=== PATIENT | male | born 1950 | race Caucasian/White ===

== ENCOUNTER 2022-03-15 10:10 | Outpatient (REF) | payer MEDICARE, SELFPAY ==
--- NOTE | ~2022-03-15 | XR_ITS ---
EXAMINATION: XR lumbar spine 2-3V, XR sacroiliac joint min 3V, XR hip LT w PEL1V CLINICAL INFORMATION: Sacrococcygeal disorders. Spondylosis, lumbar region. Pain in left hip COMPARISON: None TECHNIQUE: AP and lateral views of the lumbar spine with an additional coned down lateral spot view of the lumbosacral junction. AP and frog-leg lateral views of the left hip. AP and bilateral oblique views of the sacroiliac joints. FINDINGS: 5 non-rib bearing lumbar type vertebral bodies are seen. Vertebral body heights are maintained. There is multilevel loss of disc height with endplate sclerosis and anterior greater than posterior osteophytosis. There is lumbar facet arthropathy severe at L4-L5 and L5-S1. Normal sagittal alignment. Both sacroiliac joints remain patent. Mild right, moderate left osteoarthritis of the hips manifested by joint space narrowing, acetabular sclerosis, and femoral collar osteophytes. No hip or pelvic fracture seen. XR/XR hip LT w PEL1V IMPRESSION: Degenerative changes without acute osseous abnormality of the lumbar spine, sacroiliac joints, and left hip.
--- NOTE | ~2022-03-15 | XR_ITS ---
EXAMINATION: XR lumbar spine 2-3V, XR sacroiliac joint min 3V, XR hip LT w PEL1V CLINICAL INFORMATION: Sacrococcygeal disorders. Spondylosis, lumbar region. Pain in left hip COMPARISON: None TECHNIQUE: AP and lateral views of the lumbar spine with an additional coned down lateral spot view of the lumbosacral junction. AP and frog-leg lateral views of the left hip. AP and bilateral oblique views of the sacroiliac joints. FINDINGS: 5 non-rib bearing lumbar type vertebral bodies are seen. Vertebral body heights are maintained. There is multilevel loss of disc height with endplate sclerosis and anterior greater than posterior osteophytosis. There is lumbar facet arthropathy severe at L4-L5 and L5-S1. Normal sagittal alignment. Both sacroiliac joints remain patent. Mild right, moderate left osteoarthritis of the hips manifested by joint space narrowing, acetabular sclerosis, and femoral collar osteophytes. No hip or pelvic fracture seen. XR/XR sacroiliac joint min 3V IMPRESSION: Degenerative changes without acute osseous abnormality of the lumbar spine, sacroiliac joints, and left hip.
--- NOTE | ~2022-03-15 | XR_ITS ---
EXAMINATION: XR lumbar spine 2-3V, XR sacroiliac joint min 3V, XR hip LT w PEL1V CLINICAL INFORMATION: Sacrococcygeal disorders. Spondylosis, lumbar region. Pain in left hip COMPARISON: None TECHNIQUE: AP and lateral views of the lumbar spine with an additional coned down lateral spot view of the lumbosacral junction. AP and frog-leg lateral views of the left hip. AP and bilateral oblique views of the sacroiliac joints. FINDINGS: 5 non-rib bearing lumbar type vertebral bodies are seen. Vertebral body heights are maintained. There is multilevel loss of disc height with endplate sclerosis and anterior greater than posterior osteophytosis. There is lumbar facet arthropathy severe at L4-L5 and L5-S1. Normal sagittal alignment. Both sacroiliac joints remain patent. Mild right, moderate left osteoarthritis of the hips manifested by joint space narrowing, acetabular sclerosis, and femoral collar osteophytes. No hip or pelvic fracture seen. XR/XR lumbar spine 2-3V IMPRESSION: Degenerative changes without acute osseous abnormality of the lumbar spine, sacroiliac joints, and left hip.
== END 2022-03-15 10:11 | disposition home or self-care (01) ==
LOC: HO.XRAY 10:10
PROVIDERS: PCP Pediatrics; Visit Provider Nurse Practitioner Family
DX: M53.3 Sacrococcygeal disorders, not elsewhere classified (principal); M43.06 Spondylolysis, lumbar region; M25.552 Pain in left hip
CPT/HCPCS: 72100; 72202; 73502; 99202

== ENCOUNTER → 2022-03-20 11:01 | Outpatient (BNVA) | payer MEDICARE, SELFPAY | PROVIDERS: PCP Pediatrics; Visit Provider Nurse Practitioner Family | DX: M53.3 Sacrococcygeal disorders, not elsewhere classified (principal); M25.552 Pain in left hip; M43.06 Spondylolysis, lumbar region | CPT/HCPCS: Q3014 ==

== ENCOUNTER 2022-04-06 08:06 | Day surgery (SDC) | payer MEDICARE, SELFPAY ==
--- NOTE | 2022-04-05 13:00 | HO.ANESPROP2 ---
Documented by User: Cassandra Candelaria NP 04/05/22 13:00 HPI - Anesthesia Eval Consult details Narrative: 72yo M for Left Therapeutic Sacroiliac Joint Innervation Injection with steroids PMFSH Active Problems Active Problems: All Active Problems (Updated 03/15/22 @ 10:01 by SUAD Kirk) Lumbar spondylolysis (Acute) Left hip pain (Acute) Sacroiliac joint dysfunction of left side (Acute) Past Medical History Medical History Hypertension Social History Social History Alcohol intake: current Alcohol intake frequency: a few times a week Patient Tobacco Use Status: Never used Tobacco Use of substances other than those prescribed or required for medical reasons: No Are you DNR?: No Advance Directives: No Advance Directives Information Provided: Yes Meds Allergies Allergy/AdvReac Type Severity Reaction Status Date / Time No Known Allergies Allergy Verified 03/20/22 11:02 Home Medications Medication Instructions Recorded Confirmed Last Taken Type amlodipine 10 mg tablet 10 mg PO DAILY 03/15/22 04/06/22 History chlorthalidone 50 mg tablet 50 mg PO DAILY 03/15/22 04/06/22 History metoprolol succinate 50 mg 50 mg PO BID 03/15/22 04/06/22 History tablet,extended release 24 hr spironolactone 25 mg tablet 25 mg PO DAILY 03/15/22 04/06/22 History Exam Exam Date and Time: April 05, 2022 1300 Assessment and Plan Assessment Anesthesia Assessment: Chart Reviewed Documented by User: Martina Freitas MD 04/06/22 08:56 PMFSH Past Medical History Medical History Hypertension Functional capacity: independent ambulation Family History Family history of problems with anesthesia: No Surgical History History of Problems with Anesthesia: No Social History Social History Alcohol intake: current Alcohol intake frequency: a few times a week Patient Tobacco Use Status: Never used Tobacco Use of substances other than those prescribed or required for medical reasons: No Are you DNR?: No Advance Directives: No Advance Directives Information Provided: Yes Meds Allergies Allergy/AdvReac Type Severity Reaction Status Date / Time No Known Allergies Allergy Verified 03/20/22 11:02 Home Medications Medication Instructions Recorded Confirmed Last Taken Type amlodipine 10 mg tablet 10 mg PO DAILY 03/15/22 04/06/22 History chlorthalidone 50 mg tablet 50 mg PO DAILY 03/15/22 04/06/22 History metoprolol succinate 50 mg 50 mg PO BID 03/15/22 04/06/22 History tablet,extended release 24 hr spironolactone 25 mg tablet 25 mg PO DAILY 03/15/22 04/06/22 History Exam Airway Mallampati Class: II TM Dist: >3cm Neck ROM: Full Heart: RRR Lungs: CTA Assessment and Plan Final Anesthetic Review Family History of Problems with Anesthesia: No History of Problems with Anesthesia: No NPO: Yes ASA Class: II Final Preanesthetic Review: No Changes in Pt Med Stat, Meds/Allgs Chart Reviewed, Consent Obtained/Reviewed and Anes Risks/Benef Reviewed Patient Risk: Low Procedure Risk: Low Anesthetic Plan Anesthetic Plan: MAC: Disposition: Standard PACU
--- NOTE | ~2022-04-06 | FL_ITS ---
EXAMINATION: XR FLUOROSCOPY WITH IMAGES CLINICAL INFORMATION: Left hip pain. Injection. COMPARISON: Radiographs left hip 03/15/2022. TECHNIQUE: Fluoroscopy performed by Dr. Karan Bean. Fluoroscopy time: 0.2 minutes. Cumulative Dose: 11.8 mGy. DAP: 1.91 Gycm2. Images: 1. FINDINGS: Spinal needle is seen with tip at the superior lateral aspect left hip. There is intracapsular contrast. There is no joint narrowing is noted previously. FL/FL guidance in OR IMPRESSION: Fluoroscopy for pain management procedure.
[2022-04-06 08:29] VITALS: BMI 25.1
[2022-04-06 08:34] VITALS: BP 169/79; PULSE 55; RESP 18; TEMP 36.4; O2SAT 97
--- NOTE | 2022-04-06 09:29 | PC.NURSE ---
After discussion with Dr Bean about effectiveness of planned procedure - procedure being changed to Left Hip Intraarticular steroid injection. No IV necessary, not being done with anesthesia per Dr Blackwell. Patient & Drs agreeable.
--- NOTE | 2022-04-06 09:40 | MHC.SHP ---
Pre-Procedural Eval Section A Date of Service: 04/06/22 The patient is an INPATIENT: No Changes since office visit: Yes Patient answered all questions The History & Physical has been completed within 30 days and I have reviewed it.: No Section B Chief Complaint: Sacrococcygeal disorders, not elsewhere classified Details of Present Illness: left hip pain Relevant Family History (Specify if Yes): No Relevant Social History: None Present Medications: see Short Stay Collaborative assessment Medical History: No relevant PMH History of Previous Operations: No relevant previous surgery Allergies: Allergies Allergy/AdvReac Type Severity Reaction Status Date / Time No Known Allergies Allergy Verified 03/20/22 11:02 Review of Systems Sugical H&P ROS: Negative: Cardiovascular, Respiratory, Neurological, Psychiatric, Hem-Onc, Allergic/Immunologic, Gastrointestinal, Genitourinary, Musculoskeletal, Integumentary, Endocrine and Eyes/Ears/Nose/Throat and Yes, Specify: Constitution (obesity) Exam Surgical H&P Exam: Normal: HEENT, Normal: Heart, Normal: Lungs, Normal: Skin and Normal: Neurological and Significant Findings: Extremities (lateral and medial hip rotation causes severe discomfort in the left groin) and Significant Findings: Abdomen (enlarged due to fat) Plan I have reviewed the history and physical and performed a pertinent physical examination on my patient. No changes have occurred unless specified. During the conversation today before the procedure attention was attracted to the patient complaining on pain in the lower back as well as pain in the groin. He reports that medial and lateral rotation the hip causes severe discomfort in the Left groin. on the x-ray there is mild right and moderate left osteoarthritis of the left hip with acetabular sclerosis and osteophytes surrounding left hip head. Patient was offered instead of sacroiliac joint injection to perform intra-articular left hip steroid injection. The patient agreed with the plan. This will be done without anesthesia.
[2022-04-06 10:10] VITALS: BP 163/71; PULSE 57; RESP 16; TEMP 36.3; O2SAT 97
--- NOTE | 2022-04-06 10:13 | P.BOP_ITS ---
Brief Operative Note Date of Service: 04/06/22 Pre-op diagnosis: left hip osteoarthritis Post-op diagnosis: same Procedure: intra-articular left hip steroid injection Surgeon: Karan Bean MD Anesthesia: local Was an Generating Station Mechanic used for this Procedure?: No Estimated blood loss (mL): 0 Pathology: none sent Condition: stable Disposition: PACU
--- NOTE | 2022-04-06 10:14 | W.PM.OPN ---
Operative Note Operative Note Date of Service: 04/06/22 Narrative: left intra-articular hip steroid injection ? After prolonged conversation, physical exam, examination of the hip x-ray the decision was made to change the nature of the procedure today to intra-articular hip injection. The patient was explaining informed consent and he agreed with the plan. Time-out was performed delineating correct site and side of the procedure name date of of the patient, name of the procedure and risks for the patient. ? The patient came to the operating room and he was position right lateral decubital on the operating table. He was not sedated. He is not dependent left hip and the projection of the trochanter bone were prepped with ChloraPrep and draped with sterile utility towels. C-arm was brought over the operating field and sq picture of the both joints on the lateral view was demonstrated on the screen. The smaller joint was chosen as the target of the injection. 5 mm above the silhouette of the trochanter the needle was inserted through the skin wheal which was previously raised with lidocaine 2% 1/2-2 cc. After that the needle advanced 1/2-2 cm in the direction of the neck of the hip bone. After that projection of the C-arm was changed to the AP and advancement of the needle was continued under this projection. When the tip of the needle entered the silhouette of the hip joint injection of the contrast was performed delineating intra-articular spread of the contrast. After that 5 cc of Ropivacaine 0.5% mixed with Kenalog 40 mg was injected into the needle. The patient tolerated procedure well. The needle was withdrawn sterile Band-Aid was applied. He was taken to PACU for the recovery where he recovered uneventfully.
== END 2022-04-06 10:25 | disposition home or self-care (01) ==
PROVIDERS: PCP Pediatrics; Visit Provider Anesthesiology
PROC: (CPT 20610; principal; 2022-04-06 10:10)
DX: M53.3 Sacrococcygeal disorders, not elsewhere classified (principal); M16.12 Unilateral primary osteoarthritis, left hip; M25.552 Pain in left hip; M43.06 Spondylolysis, lumbar region; M46.1 Sacroiliitis, not elsewhere classified; I10 Essential (primary) hypertension; Z79.899 Other long term (current) drug therapy
CPT/HCPCS: 20610; J3300

== ENCOUNTER → 2022-05-07 15:10 | Outpatient (BNVA) | payer MEDICARE, SELFPAY | PROVIDERS: PCP Pediatrics; Visit Provider Anesthesiology | DX: M53.3 Sacrococcygeal disorders, not elsewhere classified (principal); M25.552 Pain in left hip; M43.06 Spondylolysis, lumbar region | CPT/HCPCS: 99212 ==

== ENCOUNTER 2023-07-18 09:13 | Outpatient (AMB) | payer MEDICARE, SELFPAY ==
--- NOTE | 2023-07-18 09:16 | A.OFFVIS_ITS ---
Intake Vital Signs 07/18/23 09:22 Height 5 ft 10 in Weight 289 lb BMI 41.5 BP 150/88 H Blood Pressure Location Lt brachial Position Sitting Respiration 16 Pulse 54 Pulse Source Pulse Oximeter Pulse Oximetry (%) 97 Oxygen Delivery Method Room Air Intake Visit Reasons: discuss hip injection/confirmed Intake Note: Patient comes to discuss hip injections. reports pain 07/03. Allergies No Known Allergies Allergy (Verified 07/18/23 09:21) HPI HPI Comments History of Present Illness Details César is very pleasant 73 years old gentleman who presents in my office 15 month after sacroiliac joint injection on the left. The injection was therapeutic. He reported this time he experienced excellent pain relief. However now he feels that the pain started to come back. He requests me to repeat the procedure. I explained to him that I will be happy to perform the injection, however the longevity of the pain relief might be shorter this time. Patient agreed to go for the procedure. I will schedule him for the injection. COUNTS INCLUDE 234 BEDS AT THE [facility] Medical History Hypertension Social History Alcohol intake: current Alcohol intake frequency: a few times a week Patient Tobacco Use Status: Never used Tobacco Review of Systems Const All systems reviewed & are unremarkable except as noted in HPI and below ENT Reports Normal hearing present Neuro Reports Normal hearing present and Denies confusion Psych Denies confusion Physical Exam Vital Signs: Last Vital Signs Pulse 54 07/18/23 09:22 Resp 16 07/18/23 09:22 BP 150/88 H 07/18/23 09:22 Pulse Ox 97 07/18/23 09:22 Oxygen Delivery Method Room Air 07/18/23 09:22 BMI result Body Mass Index 41.5 Const General: No confusion Orientation/consciousness: No confusion Resp Effort & Inspection: able to speak in complete sentences, no audible wheezes and no cough Neuro General: No confusion Cranial nerves: Yes Normal hearing present Cognition (Neuro): normal cognition Psych Mental Status: mental status grossly normal Speech and movement: Clear speech present Affect: normal affect Attitude: cooperative Thought process: Normal thought process present Thought content: Normal thought content present, suicidality, no hallucinations and No Depressive thoughts present Insight: Good insight present (Psych) Judgement: Good judgement present (Psych) Assessment & Plan Assessment & Plan (1) Sacroiliac joint dysfunction of left side: Code(s): M53.3 - Sacrococcygeal disorders, not elsewhere classified (2) Left hip pain: Code(s): M25.552 - Pain in left hip (3) Lumbar spondylolysis: Code(s): M43.06 - Spondylolysis, lumbar region Plan He received left therapeutic SI joint injection which resulted in excellent pain relief. 80% of pain reduction with movements and 100% pain reduction when he is at rest. Possibility to treat this patient with neuromodulation versus sacroiliac joint fusion exist. He presented 15 month later and requested me to perform another injection. He reports that his pain is starting to get worse. I will schedule him for therapeutic sacroiliac joint injection on the left under local anesthesia. Coding Level of Care Code Est Pt Level 3 (05127) Diagnoses Sacroiliac joint dysfunction of left side M53.3 Left hip pain M25.552 Lumbar spondylolysis M43.06
[2023-07-18 09:22] VITALS: BP 150/88; PULSE 54; RESP 16; O2SAT 97; BMI 41.5
== END 2023-07-18 09:47 | disposition home or self-care (01) ==
PROVIDERS: PCP Pediatrics; Visit Provider Anesthesiology
DX: M53.3 Sacrococcygeal disorders, not elsewhere classified (principal); M25.552 Pain in left hip; M43.06 Spondylolysis, lumbar region
CPT/HCPCS: 99213

== ENCOUNTER → 2023-07-18 09:13 | Outpatient (BNVA) | payer MEDICARE, SELFPAY | PROVIDERS: PCP Pediatrics; Visit Provider Anesthesiology | DX: M53.3 Sacrococcygeal disorders, not elsewhere classified (principal); M25.552 Pain in left hip; M43.06 Spondylolysis, lumbar region | CPT/HCPCS: 99212 ==

== ENCOUNTER 2023-08-06 06:04 | Outpatient (REF) | payer MEDICARE, SELFPAY ==
--- NOTE | ~2023-08-06 | FL_ITS ---
EXAMINATION: XR FLUOROSCOPY WITH IMAGES CLINICAL INFORMATION: Left hip injection. COMPARISON: 04/06/2022 fluoroscopy images. 03/15/2022 left hip radiographs. TECHNIQUE: Fluoroscopy Supervised By: Dr. Ena Rodriguez, Dr. Karan Bean Fluoroscopy Time: 0.1. Cumulative Dose: 3.87 mGy. DAP: 0.888 Gycm2. Images: 1. FINDINGS: Needle with tip at the superolateral aspect of the hip. Contrast identified. FL/FL guidance in treatment room IMPRESSION: Fluoroscopy provided for left hip injection. Please refer to operative report for more detailed evaluation.
== END 2023-08-06 06:05 | disposition home or self-care (01) ==
LOC: CF 06:04
PROVIDERS: Visit Provider Anesthesiology
DX: M53.3 Sacrococcygeal disorders, not elsewhere classified (principal); M16.12 Unilateral primary osteoarthritis, left hip
CPT/HCPCS: 20610; J2795; J3301; Q9967

== ENCOUNTER 2023-08-06 07:28 | Outpatient (AMB) | payer MEDICARE, SELFPAY ==
--- NOTE | 2023-08-06 07:45 | MHC.OFFVIS ---
Intake Vital Signs 08/06/23 07:46 08/06/23 08:11 Height 5 ft 10 in Weight 282 lb BMI 40.5 BP 142/72 H 138/72 Blood Pressure Location Lt brachial Lt brachial Position Sitting Sitting Respiration 18 Pulse 60 Pulse Source Pulse Oximeter Pulse Oximetry (%) 96 Oxygen Delivery Method Room Air Comment Pre-Op Post Op Intake Visit Reasons: Left side hip injection Allergies No Known Allergies Allergy (Verified 08/06/23 07:46) PFSH Medical History Hypertension Social History Alcohol intake: current Alcohol intake frequency: a few times a week Patient Tobacco Use Status: Never used Tobacco Physical Exam Vital Signs: Last Vital Signs Pulse 60 08/06/23 07:46 Resp 18 08/06/23 07:46 BP 142/72 H 08/06/23 07:46 Pulse Ox 96 08/06/23 07:46 Oxygen Delivery Method Room Air 08/06/23 07:46 BMI result Body Mass Index 40.5 Assessment & Plan Assessment & Plan (1) Left hip pain: Code(s): M25.552 - Pain in left hip (2) Arthritis of left hip: Code(s): M16.12 - Unilateral primary osteoarthritis, left hip Plan Previously I was confused on this patient's follow-up visit and schedule him erroneously for the left hip sacroiliac joint injection. In fact the 1st injection here which helped him for 15 month was left hip joint steroid injection. Therefore today we decided to proceed with injection as below. Left hip steroid injection. Informed consent was explained to the patient. All questions were explained and answered. The patient was taken inside of the operating room where she was positioned right lateral decubitus on operating table.. Time-out was performed delineating patient's name and date of , correct site, side, the nature of the procedure, patient's allergy, preoperative antibiotic if needed, need for VT prophylaxis.. All operating room staff was participating in OR time-out procedure. Left hip area of the patient was prepped with ChloraPrep and draped with sterile towels. C-arm was brought over the operating field and picture of left and right lateral views of the bilateral hip joints were delineated on the screen. The smaller joint silhouette was chosen as the target. Projection of the right trochanter to the skin was chosen as the initial needle insertion point. After that the skin and subcutaneous tissues was anesthetized with 2% lidocaine 2.5 mL. 22 gauge 5 in long needle was inserted through the skin and started to advance to the joint space under intermittent lateral and anterior posterior views. When needle entered the capsule of the joint small amount of the contrast was injected delineating intra-articular space. After that treatment solution containing 3 cc of lidocaine 2%, 2 cc of ropivacaine 0.5% and 40 mg of Kenalog was injected into the joint. The needle was withdrawn sterile dressing was applied.The patient tolerated procedure well Orders: Orders FL guidance in treatment room Today M53.3 - Sacrococcygeal disorders, not elsewhere classified Coding Level of Care Code Procedure Only Diagnoses Left hip pain M25.552 Arthritis of left hip M16.12
[2023-08-06 07:46] VITALS: BP 142/72; PULSE 60; RESP 18; O2SAT 96; BMI 40.5
[2023-08-06 08:11] VITALS: BP 138/72
== END 2023-08-06 08:05 | disposition home or self-care (01) ==
PROVIDERS: PCP Pediatrics; Referring Provider Pediatrics; Visit Provider Anesthesiology
DX: M25.552 Pain in left hip (principal); M16.12 Unilateral primary osteoarthritis, left hip
CPT/HCPCS: 20610; 77002

== ENCOUNTER 2023-09-05 08:17 | Outpatient (AMB) | payer MEDICARE, SELFPAY ==
--- NOTE | 2023-09-05 08:27 | A.OFFVIS_ITS ---
Intake Vital Signs 09/05/23 08:31 Height 5 ft 10 in Weight 282 lb BMI 40.5 BP 140/84 H Blood Pressure Location Lt brachial Position Sitting Respiration 14 Pulse 56 Pulse Source Pulse Oximeter Pulse Oximetry (%) 96 Oxygen Delivery Method Room Air Intake Visit Reasons: Left Side Hip Injection/08/06/23 Intake Note: Patient comes in for post-op appointment. Reports pain 0/10. Allergies No Known Allergies Allergy (Verified 09/05/23 08:33) HPI HPI Comments History of Present Illness Details César is very pleasant 73 years old gentleman who presents in my office 1 month after therapeutic left intra-articular injection. He initially received intra articular hip injection back in 2021. The pain relief lasted 15 month, patient reported excellent mobility. After this period of time he came back with complains on pain increased again. One month ago end of June 2023 he received 2nd intra-articular hip injection , now 45 days later he reports again 80% of pain improvement, excellent activities of daily living, he reports that mobility of his hip is little bit less effective compare to the injection he received in 2021 . We discussed possibility of further treatment. Fading of the results of the injection were explained to the patient. His options were reiterated for him and they included continuation of the steroid injections, total hip replacement with orthopedic surgery, platelet rich plasma injection. PRP. Patient reported that he might consider PRP even if it is not covered by insurance company. The financial obligations were explained to the patient. He also requests me to send him for the x-ray of the left shoulder, he complains on pain in the left shoulder preventing him form getting good night's sleep. 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 I will send him for the x-ray of the left shoulder. [facility], [facility] Medical History Hypertension Social History Alcohol intake: current Alcohol intake frequency: a few times a week Patient Tobacco Use Status: Never used Tobacco Review of Systems Const All systems reviewed & are unremarkable except as noted in HPI and below ENT Reports Normal hearing present Neuro Reports Normal hearing present and Denies confusion Psych Denies confusion Physical Exam Vital Signs: Last Vital Signs Pulse 56 09/05/23 08:31 Resp 14 09/05/23 08:31 BP 140/84 H 09/05/23 08:31 Pulse Ox 96 09/05/23 08:31 Oxygen Delivery Method Room Air 09/05/23 08:31 BMI result Body Mass Index 40.5 Const General: No confusion Orientation/consciousness: No confusion Resp Effort & Inspection: able to speak in complete sentences, no audible wheezes and no cough Neuro General: No confusion Cranial nerves: Yes Normal hearing present Cognition (Neuro): normal cognition Extrem Other: Lateral rotation and medial rotation of the left hip caused significant discomfort. Now patient demonstrate remarkable mobility of the left hip. Psych Mental Status: mental status grossly normal Speech and movement: Clear speech present Affect: normal affect Attitude: cooperative Thought process: Normal thought process present Thought content: Normal thought content present, suicidality, no hallucinations and No Depressive thoughts present Insight: Good insight present (Psych) Judgement: Good judgement present (Psych) Assessment & Plan Assessment & Plan (1) Primary osteoarthritis, left shoulder: Code(s): M19.012 - Primary osteoarthritis, left shoulder (2) Left hip pain: Code(s): M25.552 - Pain in left hip (3) Arthritis of left hip: Code(s): M16.12 - Unilateral primary osteoarthritis, left hip Plan Previously I was confused on this patient's follow-up visit and schedule him erroneously for the left sacroiliac joint injection. In fact the 1st injection here which helped him for 15 month was left hip joint steroid injection. PRP discussed THR discussed patient is willing to go for PRP, Financial obligations are explained, patient agreed to go for it. We will send him for shoulder x-ray two views he will attend this x-ray in 2 weeks from now. I may offer him shoulder steroid injection however it may delay PRP injection when and if his pain in the hip will come back. Orders: Orders XR shoulder LT min 2V Today M19.012 - Primary osteoarthritis, left shoulder Coding Level of Care Code Est Pt Level 3 (63342) Diagnoses Primary osteoarthritis, left shoulder M19.012 Left hip pain M25.552 Arthritis of left hip M16.12
[2023-09-05 08:31] VITALS: BP 140/84; PULSE 56; RESP 14; O2SAT 96; BMI 40.5
== END 2023-09-05 08:43 | disposition home or self-care (01) ==
PROVIDERS: PCP Pediatrics; Visit Provider Anesthesiology
DX: M19.012 Primary osteoarthritis, left shoulder (principal); M25.552 Pain in left hip; M16.12 Unilateral primary osteoarthritis, left hip
CPT/HCPCS: 99213

== ENCOUNTER → 2023-09-05 08:17 | Outpatient (BNVA) | payer MEDICARE, SELFPAY | PROVIDERS: PCP Pediatrics; Visit Provider Anesthesiology | DX: M19.012 Primary osteoarthritis, left shoulder (principal); M16.12 Unilateral primary osteoarthritis, left hip | CPT/HCPCS: 99212 ==

== ENCOUNTER 2023-09-06 13:00 | Outpatient (REF) | payer MEDICARE, SELFPAY ==
--- NOTE | ~2023-09-06 | XR_ITS ---
EXAMINATION: XR SHOULDER, LEFT CLINICAL INFORMATION: Primary osteoarthritis left shoulder. COMPARISON: None available. TECHNIQUE: Four views of the left shoulder. FINDINGS: Degenerative changes in the imaged upper thoracic spine. Advanced degenerative changes noted in the acromioclavicular joint with joint space narrowing and hypertrophic change. Deformity of multiple upper left ribs characteristic of prior fractures. Advanced degenerative changes in the glenohumeral joint with [id number] and subchondral remodeling and hypertrophic change. Small soft tissue calcifications lateral to the acromion and possibly along the superior aspect of the humeral head. Prominent left hilar region should be evaluated with dedicated views of the chest. XR/XR shoulder LT min 2V IMPRESSION: 1. Advanced degenerative changes in the acromioclavicular and glenohumeral joints. 2. Prominent left hilar region should be evaluated with dedicated views of the chest.
== END 2023-09-06 13:01 | disposition home or self-care (01) ==
LOC: HO.XRAY 13:00
PROVIDERS: PCP Pediatrics; Visit Provider Anesthesiology
DX: M19.012 Primary osteoarthritis, left shoulder (principal)
CPT/HCPCS: 73030

== ENCOUNTER 2023-09-23 14:23 | Outpatient (REF) | payer MEDICARE, SELFPAY ==
--- NOTE | ~2023-09-23 | XR_ITS ---
EXAMINATION: XR CHEST CLINICAL INFORMATION: Prominent lauri seen on shoulder radiograph COMPARISON: left shoulder TECHNIQUE: 5 views of the chest were obtained. FINDINGS: Heart size within normal limits. Mediastinum is unremarkable. Aorta is tortuous. Elevated right hemidiaphragm. Increased markings emanating from the bilateral lauri likely vascular. No definite hilar enlargement no vascular congestion. Diffuse mild increased interstitial markings. Left base atelectasis. XR/XR chest 4 views IMPRESSION: No definite left hilar pathology as questioned on recent radiograph. Mild increased interstitial markings and increased markings emanating from the bilateral lauri, possibly peribronchial thickening. If there is clinical concern, CT should be obtained.
== END 2023-09-23 14:24 | disposition home or self-care (01) ==
LOC: HO.XRAY 14:23
PROVIDERS: PCP Pediatrics; Visit Provider Anesthesiology
DX: R91.8 Other nonspecific abnormal finding of lung field (principal)
CPT/HCPCS: 71048

== ENCOUNTER 2023-10-16 09:34 | Outpatient (AMB) | payer MEDICARE, SELFPAY ==
--- NOTE | 2023-10-16 09:37 | MHC.OFFVIS ---
Vital Signs 10/16/23 09:41 Height 5 ft 10 in Weight 295 lb 2 oz BMI 42.3 BP 140/74 H Blood Pressure Location Lt brachial Position Sitting Respiration 16 Pulse 63 Pulse Source Pulse Oximeter Pulse Oximetry (%) 96 Oxygen Delivery Method Room Air Intake Visit Reasons: Discuss xray Results Intake Note: Patient comes in to discuss results. Reports pain 2/10. Allergies No Known Allergies Allergy (Verified 10/16/23 09:41) HPI Comments Details: César is back in my office after the x-ray of the left shoulder results of the x-ray dictated as below. He has both significant glenohumeral and acromioclavicular advanced arthritis. I will schedule him for the glenohumeral joint injection because most of the pain he experiences is in the projection of the lateral surface of the glenohumeral joint and not on the anterior surface of his chest. I will see this patient for the follow-up 1 month after the injection. PRP option also was given to inject his left shoulder however patient opted to go for steroid injection. Prior: very pleasant 73 years old gentleman who presents in my office 1 month after therapeutic left intra-articular injection. He initially received intra articular hip injection back in 2021. The pain relief lasted 15 month, patient reported excellent mobility. After this period of time he came back with complains on pain increased again. One month ago end of June 2023 he received 2nd intra-articular hip injection , now 45 days later he reports again 80% of pain improvement, excellent activities of daily living, he reports that mobility of his hip is little bit less effective compare to the injection he received in 2021 . We discussed possibility of further treatment. Fading of the results of the injection were explained to the patient. His options were reiterated for him and they included continuation of the steroid injections, total hip replacement with orthopedic surgery, platelet rich plasma injection. PRP. Patient reported that he might consider PRP even if it is not covered by insurance company. The financial obligations were explained to the patient. He also requests me to send him for the x-ray of the left shoulder, he complains on pain in the left shoulder preventing him form getting good night's sleep. 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 I will send him for the x-ray of the left shoulder. [facility] Medical History Hypertension Social History Alcohol intake: current Alcohol intake frequency: a few times a week Patient Tobacco Use Status: Never used Tobacco Review of Systems Const All systems reviewed & are unremarkable except as noted in HPI and below ENT Reports Normal hearing present Neuro Reports Normal hearing present and Denies confusion Psych Denies confusion Physical Exam Vital Signs: Last Vital Signs Pulse 63 10/16/23 09:41 Resp 16 10/16/23 09:41 BP 140/74 H 10/16/23 09:41 Pulse Ox 96 10/16/23 09:41 Oxygen Delivery Method Room Air 10/16/23 09:41 BMI result Body Mass Index 42.3 Const General: No confusion Orientation/consciousness: No confusion Resp Effort & Inspection: able to speak in complete sentences, no audible wheezes and no cough Neuro General: No confusion Cranial nerves: Yes Normal hearing present Cognition (Neuro): normal cognition Extrem Other: Lateral rotation and medial rotation of the left hip caused significant discomfort. Now patient demonstrate remarkable mobility of the left hip. Psych Mental Status: mental status grossly normal Speech and movement: Clear speech present Affect: normal affect Attitude: cooperative Thought process: Normal thought process present Thought content: Normal thought content present, suicidality, no hallucinations and No Depressive thoughts present Insight: Good insight present (Psych) Judgement: Good judgement present (Psych) Results Reviewed Results Reviewed: [address] [address] XRay Report Signed Patient: César Aguilar MR#: [id number] XR SHOULDER left FINDINGS: Degenerative changes in the imaged upper thoracic spine. Advanced degenerative changes noted in the acromioclavicular joint with joint space narrowing and hypertrophic change. Deformity of multiple upper left ribs characteristic of prior fractures. Advanced degenerative changes in the glenohumeral joint with [id number] and subchondral remodeling and hypertrophic change. Small soft tissue calcifications lateral to the acromion and possibly along the superior aspect of the humeral head. Prominent left hilar region should be evaluated with dedicated views of the chest. IMPRESSION: 1. Advanced degenerative changes in the acromioclavicular and glenohumeral joints. 2. Prominent left hilar region should be evaluated with dedicated views of the chest. Assessment & Plan Assessment & Plan (1) Primary osteoarthritis, left shoulder: Code(s): M19.012 - Primary osteoarthritis, left shoulder Category: Medical (2) Left hip pain: Code(s): M25.552 - Pain in left hip Category: Medical (3) Arthritis of left hip: Code(s): M16.12 - Unilateral primary osteoarthritis, left hip Category: Medical (4) Left shoulder pain: Code(s): M25.512 - Pain in left shoulder Category: Medical Plan César is back in my office results of the x-ray discussed I will schedule him for steroid injection in the left shoulder. Previously he received with good results steroid injections into his hip joint.PRP discussed THR discussed patient is willing to go for PRP when the pain in the hip will come back. Also PRP was offered to the patient for his shoulder pain but he chose to go for steroid injections. Patient Instructions: I here by testify that I spent 32 minutes in conversation with this patient as well as evaluating and viewing x-ray images and reports as well as planning his care and organizing this note. Coding Level of Care Code Est Pt Level 4 (38899) Diagnoses Primary osteoarthritis, left shoulder M19.012 Left hip pain M25.552 Arthritis of left hip M16.12 Left shoulder pain M25.512
[2023-10-16 09:41] VITALS: BP 140/74; PULSE 63; RESP 16; O2SAT 96; BMI 42.3
== END 2023-10-16 09:54 | disposition home or self-care (01) ==
PROVIDERS: PCP Pediatrics; Visit Provider Anesthesiology
DX: M19.012 Primary osteoarthritis, left shoulder (principal); M25.552 Pain in left hip; M16.12 Unilateral primary osteoarthritis, left hip; M25.512 Pain in left shoulder
CPT/HCPCS: 99214

== ENCOUNTER → 2023-10-16 09:34 | Outpatient (BNVA) | payer MEDICARE, SELFPAY | PROVIDERS: PCP Pediatrics; Visit Provider Anesthesiology | DX: M19.012 Primary osteoarthritis, left shoulder (principal); M25.552 Pain in left hip; M16.12 Unilateral primary osteoarthritis, left hip; M25.512 Pain in left shoulder | CPT/HCPCS: 99212 ==

== ENCOUNTER 2023-10-22 06:15 | Outpatient (REF) | payer MEDICARE, SELFPAY ==
--- NOTE | ~2023-10-22 | FL_ITS ---
EXAMINATION: XR FLUOROSCOPY WITH IMAGES CLINICAL INFORMATION: Left shoulder injection. COMPARISON: Shoulder radiographs 09/06/2023. TECHNIQUE: Fluoroscopy Supervised By: Dr. Bean. Fluoroscopy Time: 0.1 minutes. Cumulative Dose: 1.07 mGy. DAP: 0.210 Gycm2. Images: 2. FINDINGS: Intraoperative fluoroscopy and spot films were performed during a procedure in the OR. Imaging demonstrates a needle in the right shoulder joint. Please see Dr. Bean's report for complete details. FL/FL guidance in treatment room IMPRESSION: Intraoperative fluoroscopy and spot films were obtained. Please see Dr. Bean's report for complete details.
== END 2023-10-22 06:16 | disposition home or self-care (01) ==
LOC: CF 06:15
PROVIDERS: Visit Provider Anesthesiology
DX: M19.012 Primary osteoarthritis, left shoulder (principal)
CPT/HCPCS: 20610; J2795; J3301; Q9967

== ENCOUNTER 2023-10-22 11:11 | Outpatient (AMB) | payer MEDICARE, SELFPAY ==
--- NOTE | 2023-10-22 11:33 | MHC.OFFVIS ---
Vital Signs 10/22/23 12:03 10/22/23 12:04 Height 5 ft 10 in Weight 295 lb BMI 42.3 BP 144/80 H 144/76 H Blood Pressure Location Lt brachial Lt brachial Position Sitting Sitting Respiration 18 16 Pulse 56 64 Pulse Source Pulse Oximeter Pulse Oximeter Pulse Oximetry (%) 97 96 Oxygen Delivery Method Room Air Room Air Comment Pre-Op Post-Op Intake Visit Reasons: Left theraputic shoulder injection Allergies No Known Allergies Allergy (Verified 10/16/23 09:41) PFSH Medical History Hypertension Social History Alcohol intake: current Alcohol intake frequency: a few times a week Patient Tobacco Use Status: Never used Tobacco Physical Exam Vital Signs: Last Vital Signs Pulse 64 10/22/23 12:04 Resp 16 10/22/23 12:04 BP 144/76 H 10/22/23 12:04 Pulse Ox 96 10/22/23 12:04 Oxygen Delivery Method Room Air 10/22/23 12:04 BMI result Body Mass Index 42.3 Assessment & Plan Assessment & Plan (1) Left shoulder pain: Code(s): M25.512 - Pain in left shoulder Category: Medical Plan: (2) Primary osteoarthritis, left shoulder: Code(s): M19.012 - Primary osteoarthritis, left shoulder Category: Medical Plan: Therapeutic left shoulder glenohumeral joint injection. Informed consent was explained thoroughly to the patient. All questions about benefits and risks for the procedure were answered. Patient came to the operating room and was positioned prone on the operating table with the pillow under the chest Time-out was performed delineating site and side of the procedure name minute of of the patient. The left shoulder left side of the neck and left upper back of the patient were prepped with ChloraPrep prepped and draped with sterile utility self adhesive towels. C-arm was brought over the operating field and sq picture of patient's glenohumeral joint was demonstrated on the screen. Superior medial portion of the joint was chosen as the target of the injection. Projection of the target to the skin was injected with small amount of lidocaine 2% 2 mL. After that 22 gauge 3 and 1/2 inch needle was driven to the left joint in tunnel vision fashion. When needle entered the joint capsule injection of the contrast was performed demonstrating intra-articular r spread of the contrast. After that 4 cc. of ropivacaine 0.5% mixed with Kenalog 40 mg was injected into the left joint. Upon completion of the injections the needle was removed . Sterile dressing was applied. Upon completion of the injection patient was taken outside of the operating room to the recovery room where recovered uneventfully. Plan Orders: Orders FL guidance in treatment room Today M25.512 - Pain in left shoulder Coding Level of Care Code Procedure Only Diagnoses Left shoulder pain M25.512 Primary osteoarthritis, left shoulder M19.012
[2023-10-22 12:03] VITALS: BP 144/80; PULSE 56; RESP 18; O2SAT 97; BMI 42.3
[2023-10-22 12:04] VITALS: BP 144/76; PULSE 64; RESP 16; O2SAT 96
== END 2023-10-22 11:54 | disposition home or self-care (01) ==
LOC: HO.PMCPRC 11:11
PROVIDERS: PCP Pediatrics; Referring Provider Pediatrics; Visit Provider Anesthesiology
DX: M25.512 Pain in left shoulder (principal); M19.012 Primary osteoarthritis, left shoulder
CPT/HCPCS: 20610; 77002

== ENCOUNTER 2023-11-20 09:58 | Outpatient (AMB) | payer MEDICARE, SELFPAY ==
--- NOTE | 2023-11-20 10:00 | MHC.OFFVIS ---
Vital Signs 11/20/23 10:05 Height 5 ft 10 in Weight 294 lb 8 oz BMI 42.3 BP 138/72 Blood Pressure Location Lt brachial Position Sitting Respiration 14 Pulse 48 L Pulse Source Pulse Oximeter Pulse Oximetry (%) 96 Oxygen Delivery Method Room Air Intake Visit Reasons: s/p left theraputic shoulder inj Intake Note: Patient comes in for post-op appointment. Reports pain 07/03. Allergies No Known Allergies Allergy (Verified 11/20/23 10:05) HPI Comments Details: César is back in my office after therapeutic left shoulder injection. It has been 30 days since the injection. He reports pain in the shoulder today 07/03. He reports excellent mobility of the shoulder. The consequences of the for the injections of the patient's shoulder with steroids were explained to the patient. I explained to him that I do not mind to perform this procedure once in 3 months but I hope that it will take a longer time between the procedure. The patient agreed to when he has pain in the shoulder will come to pre-injection level he will give us a call and schedule appointment with me. the x-ray of the left shoulder results of the x-ray dictated as below. PRP option was given in the past to the patient however he is negative about it. Prior: very pleasant 73 years old gentleman who presents in my office 1 month after therapeutic left intra-articular injection. He initially received intra articular hip injection back in 2021. The pain relief lasted 15 month, patient reported excellent mobility. After this period of time he came back with complains on pain increased again. One month ago end of June 2023 he received 2nd intra-articular hip injection , now 45 days later he reports again 80% of pain improvement, excellent activities of daily living, he reports that mobility of his hip is little bit less effective compare to the injection he received in 2021 . We discussed possibility of further treatment. Fading of the results of the injection were explained to the patient. His options were reiterated for him and they included continuation of the steroid injections, total hip replacement with orthopedic surgery, platelet rich plasma injection. PRP. Patient reported that he might consider PRP even if it is not covered by insurance company. The financial obligations were explained to the patient. He also requests me to send him for the x-ray of the left shoulder, he complains on pain in the left shoulder preventing him form getting good night's sleep. 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 I will send him for the x-ray of the left shoulder. [facility] Medical History Hypertension Social History Alcohol intake: current Alcohol intake frequency: a few times a week Patient Tobacco Use Status: Never used Tobacco Review of Systems Const All systems reviewed & are unremarkable except as noted in HPI and below ENT Reports Normal hearing present Neuro Reports Normal hearing present and Denies confusion Psych Denies confusion Physical Exam Vital Signs: Last Vital Signs Pulse 48 L 11/20/23 10:05 Resp 14 11/20/23 10:05 BP 138/72 11/20/23 10:05 Pulse Ox 96 11/20/23 10:05 Oxygen Delivery Method Room Air 11/20/23 10:05 BMI result Body Mass Index 42.3 Const General: No confusion Orientation/consciousness: No confusion Resp Effort & Inspection: able to speak in complete sentences, no audible wheezes and no cough Neuro General: No confusion Cranial nerves: Yes Normal hearing present Cognition (Neuro): normal cognition Extrem Other: Lateral rotation and medial rotation of the left hip caused significant discomfort. Now patient demonstrate remarkable mobility of the left hip. Psych Mental Status: mental status grossly normal Speech and movement: Clear speech present Affect: normal affect Attitude: cooperative Thought process: Normal thought process present Thought content: Normal thought content present, suicidality, no hallucinations and No Depressive thoughts present Insight: Good insight present (Psych) Judgement: Good judgement present (Psych) Results Reviewed Results Reviewed: [address] [address] XRay Report Signed Patient: César Aguilar MR#: [id number] XR SHOULDER left FINDINGS: Degenerative changes in the imaged upper thoracic spine. Advanced degenerative changes noted in the acromioclavicular joint with joint space narrowing and hypertrophic change. Deformity of multiple upper left ribs characteristic of prior fractures. Advanced degenerative changes in the glenohumeral joint with [id number] and subchondral remodeling and hypertrophic change. Small soft tissue calcifications lateral to the acromion and possibly along the superior aspect of the humeral head. Prominent left hilar region should be evaluated with dedicated views of the chest. IMPRESSION: 1. Advanced degenerative changes in the acromioclavicular and glenohumeral joints. 2. Prominent left hilar region should be evaluated with dedicated views of the chest. Assessment & Plan Assessment & Plan (1) Primary osteoarthritis, left shoulder: Code(s): M19.012 - Primary osteoarthritis, left shoulder Category: Medical (2) Left hip pain: Code(s): M25.552 - Pain in left hip Category: Medical (3) Arthritis of left hip: Code(s): M16.12 - Unilateral primary osteoarthritis, left hip Category: Medical (4) Left shoulder pain: Code(s): M25.512 - Pain in left shoulder Category: Medical Plan César is 73 years old gentleman with history of hip arthritis and left shoulder glenohumeral arthritis. He is today for the follow-up after left shoulder injection. Before that he had 2 hip injections with steroids. The ramifications of the steroid injections were explained again to the patient. The patient expressed understanding. In the past PRP injection was offered to the patient but he decided to opt out for steroid injections in his shoulder. He will schedule an appointment with me when the pain in the left shoulder will come to pre injection level. Otherwise no new appointment is necessary. Coding Level of Care Code Est Pt Level 3 (27644) Diagnoses Primary osteoarthritis, left shoulder M19.012 Left hip pain M25.552 Arthritis of left hip M16.12 Left shoulder pain M25.512
[2023-11-20 10:05] VITALS: BP 138/72; PULSE 48; RESP 14; O2SAT 96; BMI 42.3
== END 2023-11-20 10:10 | disposition home or self-care (01) ==
PROVIDERS: PCP Pediatrics; Visit Provider Anesthesiology
DX: M19.012 Primary osteoarthritis, left shoulder (principal); M25.552 Pain in left hip; M16.12 Unilateral primary osteoarthritis, left hip; M25.512 Pain in left shoulder
CPT/HCPCS: 99213

== ENCOUNTER → 2023-11-20 09:58 | Outpatient (BNVA) | payer MEDICARE, SELFPAY | PROVIDERS: PCP Pediatrics; Visit Provider Anesthesiology | DX: M19.012 Primary osteoarthritis, left shoulder (principal); M25.512 Pain in left shoulder; M16.12 Unilateral primary osteoarthritis, left hip; M25.552 Pain in left hip | CPT/HCPCS: 99212 ==

== ENCOUNTER 2024-08-03 08:26 | Outpatient (AMB) | payer MEDICARE, SELFPAY ==
--- NOTE | 2024-08-03 08:34 | MHC.OFFVIS ---
Vital Signs 08/03/24 08:35 Height 5 ft 10 in Weight 282 lb BMI 40.5 BP 119/73 Blood Pressure Location Lt brachial Position Sitting Respiration 16 Pulse 63 Pulse Source Pulse Oximeter Pulse Oximetry (%) 97 Oxygen Delivery Method Room Air Intake Visit Reasons: Follow Up/Discuss Repeating Inj. Warp Picker Required: No Allergies No Known Allergies Allergy (Verified 08/03/24 08:36) Medication List - Last Reconciled 08/03/24 by Mariann Alarcon LPN amlodipine 10 mg PO DAILY apixaban (Eliquis) 5 mg PO BID chlorthalidone 50 mg PO DAILY metoprolol succinate ER 50 mg PO BID spironolactone 25 mg PO DAILY HPI Comments Details: César is back in my office with request to repeat left hip injection. We decided that I will schedule this procedure as soon as possible. In the past he received left hip injection as well as left shoulder injection. He reports that left hip condition is getting worse and he requests me to perform hip injection 1st. He wants it without sedation. Prior: very pleasant 73 years old gentleman who presents in my office 1 month after therapeutic left intra-articular injection. He initially received intra articular hip injection back in 2021. The pain relief lasted 15 month, patient reported excellent mobility. After this period of time he came back with complains on pain increased again. One month ago end of June 2023 he received 2nd intra-articular hip injection , now 45 days later he reports again 80% of pain improvement, excellent activities of daily living, he reports that mobility of his hip is little bit less effective compare to the injection he received in 2021 . We discussed possibility of further treatment. Fading of the results of the injection were explained to the patient. His options were reiterated for him and they included continuation of the steroid injections, total hip replacement with orthopedic surgery, platelet rich plasma injection. PRP. Patient reported that he might consider PRP even if it is not covered by insurance company. The financial obligations were explained to the patient. He also requests me to send him for the x-ray of the left shoulder, he complains on pain in the left shoulder preventing him form getting good night's sleep. 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 I will send him for the x-ray of the left shoulder. [facility] Medical History Hypertension Social History Alcohol intake: current Alcohol intake frequency: a few times a week Patient Tobacco Use Status: Never used Tobacco Review of Systems Const All systems reviewed & are unremarkable except as noted in HPI and below ENT Reports Normal hearing present Neuro Reports Normal hearing present and Denies confusion Psych Denies confusion Physical Exam Vital Signs: Last Vital Signs Pulse 63 08/03/24 08:35 Resp 16 08/03/24 08:35 BP 119/73 08/03/24 08:35 Pulse Ox 97 08/03/24 08:35 Oxygen Delivery Method Room Air 08/03/24 08:35 BMI result Body Mass Index 40.5 Const General: No confusion Orientation/consciousness: No confusion Resp Effort & Inspection: able to speak in complete sentences, no audible wheezes and no cough Neuro General: No confusion Cranial nerves: Yes Normal hearing present Cognition (Neuro): normal cognition Extrem Other: Lateral rotation and medial rotation of the left hip caused significant discomfort. Now patient demonstrate remarkable mobility of the left hip. Psych Mental Status: mental status grossly normal Speech and movement: Clear speech present Affect: normal affect Attitude: cooperative Thought process: Normal thought process present Thought content: Normal thought content present, suicidality, no hallucinations and No Depressive thoughts present Insight: Good insight present (Psych) Judgement: Good judgement present (Psych) Results Reviewed Results Reviewed: XR SHOULDER left FINDINGS: Degenerative changes in the imaged upper thoracic spine. Advanced degenerative changes noted in the acromioclavicular joint with joint space narrowing and hypertrophic change. Deformity of multiple upper left ribs characteristic of prior fractures. Advanced degenerative changes in the glenohumeral joint with [id number] and subchondral remodeling and hypertrophic change. Small soft tissue calcifications lateral to the acromion and possibly along the superior aspect of the humeral head. Prominent left hilar region should be evaluated with dedicated views of the chest. IMPRESSION: 1. Advanced degenerative changes in the acromioclavicular and glenohumeral joints. 2. Prominent left hilar region should be evaluated with dedicated views of the chest. Assessment & Plan Assessment & Plan (1) Primary osteoarthritis, left shoulder: Code(s): M19.012 - Primary osteoarthritis, left shoulder Category: Medical (2) Left hip pain: Code(s): M25.552 - Pain in left hip Category: Medical (3) Arthritis of left hip: Code(s): M16.12 - Unilateral primary osteoarthritis, left hip Category: Medical (4) Left shoulder pain: Code(s): M25.512 - Pain in left shoulder Category: Medical Plan César is 73 years old gentleman with history of hip arthritis and left shoulder glenohumeral arthritis. He is here today to request left hip injection. In the past he also received left shoulder steroid injections. We also discussed in the past possibility of treating his condition with PRP. Patient was reluctant to go for PRP injection. Requests me to perform left hip injection this time. I will schedule him for the procedure without sedation. Coding Level of Care Code Est Pt Level 3 (95370) Diagnoses Primary osteoarthritis, left shoulder M19.012 Left hip pain M25.552 Arthritis of left hip M16.12 Left shoulder pain M25.512
[2024-08-03 08:35] VITALS: BP 119/73; PULSE 63; RESP 16; O2SAT 97; BMI 40.5
== END 2024-08-03 09:02 | disposition home or self-care (01) ==
PROVIDERS: PCP Pediatrics; Visit Provider Anesthesiology
DX: M19.012 Primary osteoarthritis, left shoulder (principal); M25.552 Pain in left hip; M16.12 Unilateral primary osteoarthritis, left hip; M25.512 Pain in left shoulder
CPT/HCPCS: 99213

== ENCOUNTER → 2024-08-03 08:26 | Outpatient (BNVA) | payer MEDICARE, SELFPAY | PROVIDERS: PCP Pediatrics; Visit Provider Anesthesiology | DX: M19.012 Primary osteoarthritis, left shoulder (principal); M25.552 Pain in left hip; M16.12 Unilateral primary osteoarthritis, left hip; M25.512 Pain in left shoulder | CPT/HCPCS: 99212 ==

== ENCOUNTER 2024-10-06 06:10 | Outpatient (REF) | payer MEDICARE, SELFPAY ==
--- NOTE | ~2024-10-06 | FL_ITS ---
EXAMINATION: XR FLUOROSCOPY WITH IMAGES CLINICAL INFORMATION: Left hip pain management. COMPARISON: None available. TECHNIQUE: Fluoroscopy provided to: Dr. Bean Fluoroscopy time: 0.5 minutes DAP: 0.144 mGycm2 Images: 1 FINDINGS: Solitary spot image obtained during left hip injection for pain management. Please refer to the full operative report for detail. FL/FL guidance in treatment room IMPRESSION: Fluoroscopic guidance. Electronically signed by: Moshe You MD 10/07/2024 01:43 PM EDT
--- OUTSIDE RECORDS SUMMARY | 2024-10-06 06:13 | XMS_ITS | Clinical Summary ---
Author Organization [facility] Address [address] [id number] Care Team Providers Care Automatic Lathe Tender Name Role Phone RandolphKenney birmingham Primary Care Provider Allergies No known active allergies Medications spironolactone (ALDACTONE) 50 mg tablet Take 50 mg by mouth daily. Active amLODIPine (NORVASC) 10 mg tablet Take 10 mg by mouth. Active chlorthalidone (HYGROTEN) 50 mg tablet Take 50 mg by mouth daily. 01/05/2022 Active metoprolol succinate XL (TOPROL XL) 50 mg tablet Take 50 mg by mouth 2 times a day. 03/14/2022 Active amitriptyline (ELAVIL) 10 mg tabletIndicatio ns:Chronic cough Take 1 tablet (10 mg total) by mouth nightly for 7 days, THEN 2 tablets (20 mg total) nightly for 7 days, THEN 3 tablets (30 mg total) nightly for 7 days, THEN 4 tablets (40 mg total) nightly for 7 days. 70 tablet 05/01/2022 Active Active Problems Problem Noted Date Diagnosed Date Chronic cough 04/10/2022 Social History Tobacco Use Types Packs/Day Years Used Date Smoking Tobacco: Never Smokeless Tobacco: Never Tobacco Cessation:Counseling Given: Not Answered Alcohol Use Standard Drinks/Week Comments Yes 0 (1 standard drink = 0.6 oz pur e alcohol) Sex and Gender Information Value Date Recorded Sex Assigned at Male 03/13/2022 7:58 AM EDT Legal Sex Male 5:51 AM EDT Gender Identity Male 03/13/2022 7:58 AM EDT Sexual Orientation Straight 03/13/2022 7: 58 AM EDT Last Filed Vital Signs Vital Sign Reading Time Taken Comments Blood Pressure 153/87 07/31/2022 8:16 AM EST Pulse 60 07/31/2022 8:16 AM EST Temperature - - Respiratory Rate 16 07/31/2022 8:16 AM EST Oxygen Saturation 98% 07/31/2022 8:16 AM EST Inhaled Oxygen Concentration - - Weight 124.7 kg (275 lb) 07/31/2022 8:16 AM EST Height 182 cm (5' 11.65 ) 07/31/2022 8:16 AM EST Body Mass Index 37.66 07/31/2022 8:16 AM EST Plan of Treatment Health Maintenance Due Date Last Done Comments Cologuard 1952 Colon Cancer Screening 1950 Colonoscopy 1950 FOBT / Fit Test 1950 Sigmoidoscopy 1950 Zoster Vaccines (1 of 2) 01/25/2002 DTaP,Tdap,and Td Vaccines (2 - Td or Tdap) 05/28/2022 05/28/2012 COVID-19 Vaccine ( season) 2024 03/23/2022, 04/04/2021, 09/22/2020, Additional history exists Alcohol/Substance Use Screening 06/24/2024 Health Care Proxy Review 06/24/2024 Influenza Vaccine (Season Ended) 2025 07/05/2022, 03/23/2021, 02/24/2020 RSV Vaccine (60+ years old and patients) (1 - 1-dose 75+ series) 01/25/2027 Pneumococcal Vaccine: 50+ Years Completed 08/26/2018, 04/26/2017 Hepatitis B Vaccines Aged Out No long er eligible based on patient's age to complete this topic Insurance MEDICARE [facility] SUPP Care Teams Automatic Lathe Tender Relationship Specialty Start Date End Date Kenney Randolph DO [address] [place] [address] [place] [address] PCP - General 03/12/22
--- OUTSIDE RECORDS SUMMARY | 2024-10-06 06:13 | XMS_ITS | Clinical Summary ---
Author Organization [facility], Address [address] [address] Phone Care Team Providers Care Professor Of Rhetoric Name Role Phone RandolphKenney birmingham Primary Care Provider Allergies Active Allergy Reactions Criticality Noted Date Comments Cefadroxil Other (see comments) 11/02/2021 Noted in medical record, pt unsure Lisinopril Other (see comments) 11/02/2021 Valsartan Other (see comments) 11/02/2021 Medications amLODIPine (NORVASC) 10 MG tablet Take 10 mg by mouth 1 (one) time each day Active chlorthalidone (HYGROTON) 50 MG tablet Take 50 mg by mouth 1 (one) time each day Active metoprolol succinate XL (TOPROL XL) 50 MG 24 hr tablet Take 50 mg by mouth in the morning and 50 mg in the evening. Do not crush or chew. . Active Multiple Vitamin (multivitamin) capsule Take 1 capsule by mouth 1 (one) time each day Active spironolactone (ALDACTONE) 25 MG tablet Take 25 mg by mouth 1 (one) time each day Active ketoconazole (NIZORAL) 2 % cream APPLY A SMALL AMOUNT TO AFFECTED AREA TWICE A DAY FOR TWO WEEKS OR DIRECTED. 08/11/2021 Active Active Problems Problem Noted Date Diagnosed Date Resistant hypertensive disorder 08/30/2021 Overview (01/11/2022): Last Assessment & Plan: Patient with poorly controlled hypertension-reports usually better controlled however still not in ideal range. Currently on 3 medications and still not well controlled. We discussed dietary changes including reduced sodium intake. We will continue to monitor. Consider adding fourth agent if unable to make any addition to current doses. Immunizations Immunization Administration Dates Next Due Influenza Split High Dose Preservative Free IM 0 03/23/2021 Influenza Vaccine, Quadrivalent, Adjuvanted 07/2019 Pneumococcal Conjugate 13-Valent 04/26/2017 Pneumococcal Polysaccharide 08/26/2018 Tdap 05/28/2012 Family History Medical History Relation Comments Hypertension Father Relation Status Comments Father Social History Tobacco Use Types Packs/Day Years Used Date Smoking Tobacco: Never Alcohol Use Standard Drinks/Week Comments Yes 10 (1 standard drink = 0.6 oz pu re alcohol) Sex and Gender Information Value Date Recorded Sex Assigned at Not on file Legal Sex Male 11:01 AM EST Gender Identity Not on file Sexual Orientation Not on file Occupation Industry Job Start Date Job End Date [employer] Not on file Not on file Not on file Plan of Treatment Health Maintenance Due Date Last Done Comments Colorectal Cancer Screening: Annual FOBT 01/25/2001 Colorectal Cancer Screening: Colonoscopy 01/25/2001 Colorectal Cancer Screening: Sigmoidoscopy 01/25/2001 Influenza Vaccine (Season Ended) 2025 03/23/2021, 02/24/2020 Pneumococcal Vaccine: 50+ Years Completed 08/26/2018, 04/26/2017 Hepatitis B Vaccine Aged Out No longe r eligible based on patient's age to complete this topic Insurance Medicare [facility] Care Teams Professor Of Rhetoric Relationship Specialty Start Date End Date Kenney Randolph DO [address] [place] [address] PCP - General Internal Medicine 01/12/22
== END 2024-10-06 06:11 | disposition home or self-care (01) ==
LOC: CF 06:10
PROVIDERS: Visit Provider Anesthesiology
DX: M16.12 Unilateral primary osteoarthritis, left hip (principal)
CPT/HCPCS: 20610; 77002; J2003; J2795; J3301; Q9967

== ENCOUNTER 2024-10-06 07:21 | Outpatient (AMB) | payer MEDICARE, SELFPAY ==
--- OUTSIDE RECORDS SUMMARY | 2024-10-06 07:22 | XMS_ITS | Referral Summary ---
Author Organization [facility] Address [address] [id number] Care Team Providers Care Group Director Name Role Phone RandolphKenney birmingham Primary Care [...] 07/31/2022 8:16 AM EST Plan of Treatment Not on file Insurance MEDICARE [facility] Care Teams Group Director Relationship Specialty Start Date End Date Kenney Randolph DO [address] [place] [address] [place] [address] PCP - General 03/12/22
--- OUTSIDE RECORDS SUMMARY | 2024-10-06 07:22 | XMS_ITS | Clinical Summary ---
Author Organization [facility], Address [address] [address] Phone Care Team Providers Care Home Lending Officer Name Role Phone RandolphKenney birmingham Primary Care [...] age to complete this topic Insurance Medicare [facility] Care Teams Home Lending Officer Relationship Specialty Start Date End Date Kenney Randolph DO [address] [place] [address] PCP - General Internal Medicine 01/12/22
--- OUTSIDE RECORDS SUMMARY | 2024-10-06 07:22 | XMS_ITS | Clinical Summary ---
Author Organization [facility] Address [address] [id number] Care Team Providers Care Educational Psychology Teacher Name Role Phone RandolphKenney birmingham Primary Care [...] age to complete this topic Insurance MEDICARE [facility] SUPP Care Teams Educational Psychology Teacher Relationship Specialty Start Date End Date Kenney Randolph DO [address] [place] [address] [place] [address] PCP - General 03/12/22
[2024-10-06 07:26] VITALS: BP 135/87; PULSE 68; RESP 16; O2SAT 99
--- NOTE | 2024-10-06 07:26 | MHC.OFFVIS ---
Vital Signs 10/06/24 07:26 10/06/24 08:03 BP 135/87 134/83 Blood Pressure Location Lt brachial Lt brachial Position Sitting Sitting Respiration 16 16 Pulse 68 61 Pulse Source Pulse Oximeter Pulse Oximeter Pulse Oximetry (%) 99 99 Oxygen Delivery Method Room Air Room Air Intake Visit Reasons: LEFT HIP STEROID INJECTION Blow Mold Operator Required: No Allergies No Known Allergies Allergy (Verified 10/06/24 07:27) Medication List - Last Reconciled 10/06/24 by Mariann Alarcon LPN amlodipine 10 mg PO DAILY apixaban (Eliquis) 5 mg PO BID chlorthalidone 50 mg PO DAILY metoprolol succinate ER 50 mg PO BID spironolactone 25 mg PO DAILY PFSH Medical History Hypertension Social History Alcohol intake: current Alcohol intake frequency: a few times a week Patient Tobacco Use Status: Never used Tobacco Physical Exam Vital Signs: Last Vital Signs Pulse 61 10/06/24 08:03 Resp 16 10/06/24 08:03 BP 134/83 10/06/24 08:03 Pulse Ox 99 10/06/24 08:03 Oxygen Delivery Method Room Air 10/06/24 08:03 Assessment & Plan Assessment & Plan (1) Arthritis of left hip: Code(s): M16.12 - Unilateral primary osteoarthritis, left hip Category: Medical (2) Left hip pain: Code(s): M25.552 - Pain in left hip Category: Medical Plan Intra-articular left hip steroid injection. Informed consent was explained to the patient. All questions were explained and? answered. The patient was taken inside the operating room where she was positioned right lateral decubitus on the operating table.? Time-out was performed delineating correct site, side, the nature of the procedure, patient's allergy, preoperative antibiotic if needed.? All operating room staff was participating in OR time-out procedure.? The patient stated his name. Non dependent left hip was prepped with ChloraPrep and draped with sterile towels.? The C-arm was brought over the operating field and the picture of bilateral hip joints were obtained on the screen.? The smaller left hip joint was chosen as the target for the injection.? The trochanter position was noted on the screen.? The projection of the trochanter to the skin was noted, the direction of the femoral neck was noted.? The skin was anesthetized using 2% lidocaine at the trochanter area.? 22 gauge 5 in needle was inserted through the skin and advanced to the hip joint silhouette on under intermittent lateral and anterior posterior views.? When needle entered the Silhouette of the joint injection of the contrast Omnipaque was performed demonstrating intra-articular spread of the contrast.? After that 4 cc of ropivacaine 0.5% mixed with Kenalog 40 mg was injected into the area.?,upon completion of the procedure the needle was removed and Band-Aid was applied. Orders: Orders FL guidance in treatment room Today M16.12 - Unilateral primary osteoarthritis, left hip Patient Instructions: no shower for 24 hour avoid bathtub, sponge bath only. otherwise activities as tolerated. Coding Level of Care Code Procedure Only Diagnoses Arthritis of left hip M16.12 Left hip pain M25.552
[2024-10-06 08:03] VITALS: BP 134/83; PULSE 61; RESP 16; O2SAT 99
== END 2024-10-06 08:03 | disposition home or self-care (01) ==
LOC: HO.PMCPRC 07:21
PROVIDERS: PCP Pediatrics; Visit Provider Anesthesiology
DX: M16.12 Unilateral primary osteoarthritis, left hip (principal); M25.552 Pain in left hip
CPT/HCPCS: 20610; 77002

== ENCOUNTER 2024-10-26 08:26 | Outpatient (AMB) | payer MEDICARE, SELFPAY ==
--- NOTE | 2024-10-26 08:32 | MHC.OFFVIS ---
Vital Signs 10/26/24 08:34 Height 5 ft 10 in Weight 268 lb BMI 38.4 BP 140/75 H Blood Pressure Location Lt brachial Position Sitting Respiration 16 Pulse 84 Pulse Source Pulse Oximeter Pulse Oximetry (%) 96 Oxygen Delivery Method Room Air Intake Visit Reasons: LEFT HIP INJECTION Wheel Assembler Required: No Allergies No Known Allergies Allergy (Verified 10/26/24 08:35) Medication List - Last Reconciled 10/26/24 by Mariann Alarcon LPN amlodipine 10 mg PO DAILY apixaban (Eliquis) 5 mg PO BID chlorthalidone 50 mg PO DAILY metoprolol succinate ER 50 mg PO BID spironolactone 25 mg PO DAILY HPI Comments Details: César is in my office today 1 month after left intra-articular hip injection. He reports excellent pain relief, improved mobility, improved activities of daily living. This is his 2nd intra-articular hip steroid injection and the 1st 1 was working for 13 months. I consult the patient about risks and benefits of the steroid injections. I told him that in my opinion once or twice a year steroid injection the risks of steroids do not outweigh the benefit of the injection. We agreed that he will give me a telephone call when his pain will come back and we will schedule the injection again. Prior: very pleasant 73 years old gentleman who presents in my office 1 month after therapeutic left intra-articular injection. He initially received intra articular hip injection back in 2021. The pain relief lasted 15 month, patient reported excellent mobility. After this period of time he came back with complains on pain increased again. One month ago end of June 2023 he received 2nd intra-articular hip injection , now 45 days later he reports again 80% of pain improvement, excellent activities of daily living, he reports that mobility of his hip is little bit less effective compare to the injection he received in 2021 . We discussed possibility of further treatment. Fading of the results of the injection were explained to the patient. His options were reiterated for him and they included continuation of the steroid injections, total hip replacement with orthopedic surgery, platelet rich plasma injection. PRP. Patient reported that he might consider PRP even if it is not covered by insurance company. The financial obligations were explained to the patient. He also requests me to send him for the x-ray of the left shoulder, he complains on pain in the left shoulder preventing him form getting good night's sleep. 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 I will send him for the x-ray of the left shoulder. [facility] Medical History Hypertension Social History Alcohol intake: current Alcohol intake frequency: a few times a week Patient Tobacco Use Status: Never used Tobacco Review of Systems Const All systems reviewed & are unremarkable except as noted in HPI and below ENT Reports Normal hearing present Neuro Reports Normal hearing present and Denies confusion Psych Denies confusion Physical Exam Vital Signs: Last Vital Signs Pulse 84 10/26/24 08:34 Resp 16 10/26/24 08:34 BP 140/75 H 10/26/24 08:34 Pulse Ox 96 10/26/24 08:34 Oxygen Delivery Method Room Air 10/26/24 08:34 BMI result Body Mass Index 38.4 Const General: No confusion Orientation/consciousness: No confusion Resp Effort & Inspection: able to speak in complete sentences, no audible wheezes and no cough Neuro General: No confusion Cranial nerves: Yes Normal hearing present Cognition (Neuro): normal cognition Extrem Other: Lateral rotation and medial rotation of the left hip caused significant discomfort. Now patient demonstrate remarkable mobility of the left hip. Psych Mental Status: mental status grossly normal Speech and movement: Clear speech present Affect: normal affect Attitude: cooperative Thought process: Normal thought process present Thought content: Normal thought content present, suicidality, no hallucinations and No Depressive thoughts present Insight: Good insight present (Psych) Judgement: Good judgement present (Psych) Assessment & Plan Assessment & Plan (1) Primary osteoarthritis, left shoulder: Code(s): M19.012 - Primary osteoarthritis, left shoulder Category: Medical (2) Left hip pain: Code(s): M25.552 - Pain in left hip Category: Medical (3) Arthritis of left hip: Code(s): M16.12 - Unilateral primary osteoarthritis, left hip Category: Medical (4) Left shoulder pain: Code(s): M25.512 - Pain in left shoulder Category: Medical Plan César is 73 years old gentleman with history of hip arthritis and left shoulder glenohumeral arthritis. He is here today after his 2nd intra-articular hip steroid injection. Excellent results of the injection. In the past he also received left shoulder steroid injections. We also discussed in the past possibility of treating his condition with PRP. He will give me a call and schedule next steroid injection provided it is lasting longer than 3 months from the date of the procedure. Coding Level of Care Code Est Pt Level 3 (51627) Diagnoses Primary osteoarthritis, left shoulder M19.012 Left hip pain M25.552 Arthritis of left hip M16.12 Left shoulder pain M25.512
[2024-10-26 08:34] VITALS: BP 140/75; PULSE 84; RESP 16; O2SAT 96; BMI 38.4
--- OUTSIDE RECORDS SUMMARY | 2024-10-26 08:46 | XMS_ITS | Clinical Summary ---
Author Organization [facility] Address [address] [phone] Care Team Providers Care Sql Application Developer Name Role Phone RandolphKenney birmingham Primary Care [...] age to complete this topic Insurance MEDICARE [facility] SUPP Care Teams Sql Application Developer Relationship Specialty Start Date End Date Kenney Randolph DO [address] [place] [address] [place] [address] PCP - General 03/12/22
--- OUTSIDE RECORDS SUMMARY | 2024-10-26 08:46 | XMS_ITS | Clinical Summary ---
Author Organization [facility], Address [address] [address] Phone Care Team Providers Care Scenery Builder Name Role Phone RandolphKenney birmingham Primary Care [...] age to complete this topic Insurance Medicare [facility] Care Teams Scenery Builder Relationship Specialty Start Date End Date Kenney Randolph DO [address] [place] [address] PCP - General Internal Medicine 01/12/22
--- OUTSIDE RECORDS SUMMARY | 2024-10-26 08:46 | XMS_ITS | Referral Summary ---
Author Organization [facility] Address [address] [phone] Care Team Providers Care Conditioning Yard Supervisor Name Role Phone RandolphKenney birmingham Primary Care [...] of Treatment Not on file Insurance MEDICARE [facility] Care Teams Conditioning Yard Supervisor Relationship Specialty Start Date End Date Kenney Randolph DO [address] [place] [address] [place] [address] PCP - General 03/12/22
== END 2024-10-26 08:39 | disposition home or self-care (01) ==
LOC: HO.PMC 08:26
PROVIDERS: PCP Pediatrics; Visit Provider Anesthesiology
DX: M19.012 Primary osteoarthritis, left shoulder (principal); M25.552 Pain in left hip; M16.12 Unilateral primary osteoarthritis, left hip; M25.512 Pain in left shoulder
CPT/HCPCS: 99213

== ENCOUNTER → 2024-10-26 08:26 | Outpatient (BNVA) | payer MEDICARE, SELFPAY | PROVIDERS: PCP Pediatrics; Visit Provider Anesthesiology | DX: M19.012 Primary osteoarthritis, left shoulder (principal); M25.552 Pain in left hip; M16.12 Unilateral primary osteoarthritis, left hip; M25.512 Pain in left shoulder | CPT/HCPCS: 99212 ==

== ENCOUNTER 2025-03-04 13:56 | Outpatient (AMB) | payer MEDICARE, SELFPAY ==
--- NOTE | 2025-03-04 14:13 | MHC.OFFVIS ---
Vital Signs 03/04/25 14:14 Height 5 ft 10 in Weight 270 lb BMI 38.7 BP 132/58 L Blood Pressure Location Lt brachial Position Sitting Respiration 18 Pulse 81 Pulse Source Pulse Oximeter Pulse Oximetry (%) 98 Oxygen Delivery Method Room Air Intake Visit Reasons: Shoulder Pain Buffet Waiter/Waitress Required: No Allergies No Known Allergies Allergy (Verified 03/04/25 14:13) HPI Comments Details: César is in my office today with complains on pain in the left shoulder. In October of 2024 he received left intra-articular hip injection with excellent results. He continues to endorse good pain relief in the left hip however reports slight discomfort present. In the past I inject his left shoulder as well. Was long time ago. He requests me to perform this injection again. I will schedule him as soon as possible for the left shoulder intra-articular steroid injections. He was asking me about PRP injection today. I explained to him that insurance companies do not cover it and he did not continue dizziness discussion. Prior: very pleasant 73 years old gentleman who presents in my office 1 month after therapeutic left intra-articular injection. He initially received intra articular hip injection back in 2021. The pain relief lasted 15 month, patient reported excellent mobility. After this period of time he came back with complains on pain increased again. One month ago end of June 2023 he received 2nd intra-articular hip injection , now 45 days later he reports again 80% of pain improvement, excellent activities of daily living, he reports that mobility of his hip is little bit less effective compare to the injection he received in 2021 . We discussed possibility of further treatment. Fading of the results of the injection were explained to the patient. His options were reiterated for him and they included continuation of the steroid injections, total hip replacement with orthopedic surgery, platelet rich plasma injection. PRP. Patient reported that he might consider PRP even if it is not covered by insurance company. The financial obligations were explained to the patient. He also requests me to send him for the x-ray of the left shoulder, he complains on pain in the left shoulder preventing him form getting good night's sleep. 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 I will send him for the x-ray of the left shoulder. COUNT INCLUDES [facility] Medical History Hypertension Social History Alcohol intake: current Alcohol intake frequency: a few times a week Patient Tobacco Use Status: Never used Tobacco Review of Systems Const All systems reviewed & are unremarkable except as noted in HPI and below ENT Reports Normal hearing present Neuro Reports Normal hearing present and Denies confusion Psych Denies confusion Physical Exam Vital Signs: Last Vital Signs Pulse 81 03/04/25 14:14 Resp 18 03/04/25 14:14 BP 132/58 L 03/04/25 14:14 Pulse Ox 98 03/04/25 14:14 Oxygen Delivery Method Room Air 03/04/25 14:14 BMI result Body Mass Index 38.7 Const General: No confusion Orientation/consciousness: No confusion Resp Effort & Inspection: able to speak in complete sentences, no audible wheezes and no cough Neuro General: No confusion Cranial nerves: Yes Normal hearing present Cognition (Neuro): normal cognition Extrem Other: Lateral rotation and medial rotation of the left hip caused significant discomfort. Now patient demonstrate remarkable mobility of the left hip. Psych Mental Status: mental status grossly normal Speech and movement: Clear speech present Affect: normal affect Attitude: cooperative Thought process: Normal thought process present Thought content: Normal thought content present, suicidality, no hallucinations and No Depressive thoughts present Insight: Good insight present (Psych) Judgement: Good judgement present (Psych) Results Reviewed Results Reviewed: XR SHOULDER left FINDINGS: Degenerative changes in the imaged upper thoracic spine. Advanced degenerative changes noted in the acromioclavicular joint with joint space narrowing and hypertrophic change. Deformity of multiple upper left ribs characteristic of prior fractures. Advanced degenerative changes in the glenohumeral joint with [id number] and subchondral remodeling and hypertrophic change. Small soft tissue calcifications lateral to the acromion and possibly along the superior aspect of the humeral head. Prominent left hilar region should be evaluated with dedicated views of the chest. IMPRESSION: 1. Advanced degenerative changes in the acromioclavicular and glenohumeral joints. 2. Prominent left hilar region should be evaluated with dedicated views of the chest. Assessment & Plan Assessment & Plan (1) Primary osteoarthritis, left shoulder: Code(s): M19.012 - Primary osteoarthritis, left shoulder Category: Medical (2) Left hip pain: Code(s): M25.552 - Pain in left hip Category: Medical (3) Arthritis of left hip: Code(s): M16.12 - Unilateral primary osteoarthritis, left hip Category: Medical (4) Left shoulder pain: Code(s): M25.512 - Pain in left shoulder Category: Medical Plan César is 73 years old gentleman with history of hip arthritis and left shoulder glenohumeral arthritis. He is here today after his 2nd intra-articular hip steroid injection. Excellent results of the injection. In the past he also received left shoulder steroid injections. We also discussed in the past possibility of treating his condition with PRP. He has my office today requesting intra-articular left shoulder injection. His last hip steroid injection on the left injection was in October of 2024. I will schedule him for the intra-articular left shoulder injection. Coding Level of Care Code Est Pt Level 3 (55186) Diagnoses Primary osteoarthritis, left shoulder M19.012 Left hip pain M25.552 Arthritis of left hip M16.12 Left shoulder pain M25.512
[2025-03-04 14:14] VITALS: BP 132/58; PULSE 81; RESP 18; O2SAT 98; BMI 38.7
--- OUTSIDE RECORDS SUMMARY | 2025-03-04 17:49 | XMS_ITS | Encounter Summary ---
Author Organization [facility] Address [address] [place] [address] Phone Care Team Providers Care Computer Systems Support Specialist Name Role Phone Pablo Humphrey MD Primary Care Provider [phone] Unknown, Unknown Primary Care Provider Kenney De León DO Primary Care Provider Kenney Randolph DO Unavailable [phone] Encounter Details Date Type Department Care Team (Late st Contact Info) Description 11/08/2020 Ancillary Orders Virtual Department [address] [place] [address] KamPablo MD 264 [facility] [address] [place] [address] [email or web address] Rib pain on left side Social History Tobacco Use Types Packs/Day Years Used Date Smoking Tobacco: Never Smokeless Tobacco: Never Alcohol Use Standard Drinks/Week Comments Yes 10 (1 standard drink = 0.6 oz pu re alcohol) Sex and Gender Information Value Date Recorded Sex Assigned at Not on file Legal Sex Male 10:00 PM EDT Gender Identity Not on file Sexual Orientation Not on file documented as of this encounter Plan of Treatment Upcoming Encounters Date Type Department Care Team (Late st Contact Info) Description 03/16/2025 8:00 AM EDT Office Visit [facility] [address] [place] [address] [place] [address] Kenney Randolph, DO 170 [facility], 2nd [place] [address] [email or web address] 05/04/2025 11:15 AM EST Office Visit [facility] [address], [address] [place] [address] Esteban Duke MD 22 [facility], [address] [place] [address] 07/20/2025 9:40 AM EST Office Visit [facility] [address], [address] [place] [address] Luke Tan MD [address] [place] [place] [address] documented as of this encounter Results * XR RIBS 3 OR MORE VIEWS WITH PA CHEST (LEFT) (11/08/2020 1:50 PM EDT) Anatomical Region Laterality Modality Chest Computed Radiogr aphy 11/08/2020 2:21 PM EDT Impressions 11/08/2020 2:45 PM EDT 1.No acute rib fracture or pneumothorax. 2.The small right upper lung nodular opacity which may represent an infiltrate in the appropriate clinical setting. If there are no chest symptoms a follow-up chest CT is recommended to exclude a pulmonary nodule. Narrative 11/08/2020 2:45 PM EDT HISTORY: As above. COMPARISON: None. PA CHEST/LEFT RIB RADIOGRAPH FINDINGS: Views: 6. Lines/tubes: None. Heart and Mediastinum: Heart is normal in size. Stable pulmonary artery enlargement which may be due to hypertension. Lungs: New small defined nodular opacity in the right upper lung. No pneumothorax or pleural effusions. Bones: No acute fracture. Chronic lower left rib fracture deformities, left shoulder arthritis and diffuse lumbar spine endplate spurring. Soft Tissues: No acute findings. Procedure Note Nasir Sears MD - 11/08/2020 HISTORY: As above. COMPARISON: None. PA CHEST/LEFT RIB RADIOGRAPH FINDINGS: Views: 6. Lines/tubes: None. Heart and Mediastinum: Heart is normal in size. Stable pulmonary arteryenlargement which may be due to hypertension. Lungs: New small defined nodular opacity in the right upper lung. Nopneumothorax or pleural effusions. Bones: No acute fracture. Chronic lower left rib fracture deformities,left shoulder arthritis and diffuse lumbar spine endplate spurring. Soft Tissues: No acute findings. IMPRESSION: 1.No acute rib fracture or pneumothorax. 2.The small right upper lung nodular opacity which may represent aninfiltrate in the appropriate clinical setting. If there are no chestsymptoms a follow-up chest CT is recommended to exclude a pulmonarynodule. Pablo Humphrey MD IMG XR CHEST Final Result documented in this encounter Visit Diagnoses Diagnosis Rib pain on left side Rib pain on left side documented in this encounter Care Teams Computer Systems Support Specialist Relationship Specialty Start Date End Date Kam, Pablo Pascal MD [address] [place] [address] & [address] [place] [address] [email or web address] PCP - General Internal Medicine 04/23/17 11/02/21 Unknown, Unknown, PCP - General 11/03/21 01/04/22 Kenney Randolph DO [address] [place] [address], [address] [place] [address] PCP - General Internal Medicine 01/05/22 Kenney Randolph DO [address] [place] [address], [address] [place] [address] [email or web address] Insurance Assigned Provider 4/6/24 documented as of this encounter Additional Source Comments The information contained in this document represents components of the legal health record. It is not the complete legal health record.[facility]
--- OUTSIDE RECORDS SUMMARY | 2025-03-04 17:49 | XMS_ITS | Encounter Summary ---
Author Organization [facility] Address [address] [place] [address] Phone Care Team Providers Care Blade Operator Name Role Phone Kenney Randolph DO Primary Care Provider Kenney Randolph DO Unavailable [phone] Encounter Details Date Type Department Care Team (Late st Contact Info) Description 12/18/2022 Procedure Pass [facility]oscopy Admitting Dept Virtual Department [address] [place] [address] Social History Tobacco Use Types Packs/Day Years Used Date Smoking Tobacco: Never Smokeless Tobacco: Never Alcohol Use Standard Drinks/Week Comments Yes 10 (1 standard drink = 0.6 oz pu re alcohol) Education Answer Date Recorded Are you interested in more education? Not on clarissa e 10/19/2022 Are you concerned about learning? Not on file 10/19/2022 No 10/19/2022 No 10/19/2022 Digital Access Answer Date Recorded No 11/19/2022 No 11/19/2022 Reliable internet access at home? Not on file 11/19/2022 Device with a working camera? Not on file Sex and Gender Information Value Date Recorded Sex Assigned at Not on file Legal Sex Male 10:00 PM EDT Gender Identity Not on file Sexual Orientation Not on file documented as of this encounter Plan of Treatment Upcoming Encounters Date Type Department Care Team (Late st Contact Info) Description 03/16/2025 8:00 AM EDT Office Visit [facility] [address] [place] [address] Kenney Randolph DO [address] [place] [address], [address] [place] [address] 05/04/2025 11:15 AM EST Office Visit [facility] 22 [facility] [address] [facility], [address] [place] [address] Esteban Duke MD 22 [facility], [address] [address] 07/20/2025 9:40 AM EST Office Visit [facility] [address], [address] [place] [address] Luke Tan MD [address] [place] [address] documented as of this encounter Visit Diagnoses Not on filedocumented in this encounter Additional Health Concerns Assessment Noted Time PHQ-2 Depression Total Score: 0 01/06/20 7:59 AM EDT documented as of this encounter Care Teams Blade Operator Relationship Specialty Start Date End Date Kenney Randolph DO [address] [place] [address] PCP - General Internal Medicine 01/05/22 Kenney Randolph DO [address] [place] [address] Insurance Assigned Provider 09/28/23 documented as of this encounter Additional Source Comments The information contained in this document represents components of the legal health record. It is not the complete legal health record.[facility]
--- OUTSIDE RECORDS SUMMARY | 2025-03-04 17:49 | XMS_ITS | Encounter Summary ---
Author Organization [facility] Address [address] [place] [address] Phone Care Team Providers Care Job Printer Apprentice Name Role Phone KamPablo MD Primary Care Provider [phone] Unknown, Unknown Primary Care Provider MaryvaKenney Griffin DO Primary Care Provider Kenney Randolph DO Unavailable [phone] Encounter Details Date Type Department Care Team (Latest Contact Info) Description 10/17/2017 Transcribe Orders [facility] 30 [place] [address] Suly George MD [address] [place] [address] [email or web address] Routine general medical examination at a health care facility (Primary Dx) Social History Tobacco Use Types Packs/Day Years [...] EDT Office Visit [facility] [address] [place] [address] [place] [address] Kenney Randolph, DO 170 [facility], 2nd [place] [address] 05/04/2025 11:15 AM EST Office Visit [facility] [address], [address] [place] [address] Esteban Duke MD 22 [facility], [address] [place] [address] 07/20/2025 9:40 AM EST Office Visit [facility] [address], [address] [place] [address] Luke Tan MD [address] [place] [address] [email or web address] documented as of this encounter Results * Miscellaneous lab test (10/17/2017 9:23 AM EDT) TESTS REQUESTED [place] 2R ALPHA [facility] SPECIMEN/TUBE TYPE LARGE RED 1 ML SERUM [facility] REQUEST RECEIVED Request received. A separate order for the requested test will be generated by the laboratory. [facility] Blood 10/17/2017 9:23 AM EDT 10/17/2017 9:26 AM EDT us Suly George MD LAB BLOOD ORDERABLES Final Re sult [facility] 30 [place] [address] documented in this encounter Visit Diagnoses Diagnosis Routine general medical examination at a health care facility- Primary documented in this encounter Care Teams Job Printer Apprentice Relationship Specialty Start Date End Date Kam, Pablo Pascal MD 264 [facility] [address] [place] [address] [email or web address] PCP - General Internal Medicine 04/23/17 11/02/21 Unknown, Keesha, PCP - General 11/03/21 01/04/22 Kenney Randolph DO [address] [place] [address], [address] [place] [address] PCP - General Internal Medicine 01/05/22 Kenney Randolph DO [address] [place] [address] [email or web address] Insurance Assigned Provider 09/28/23 documented as of this encounter Additional Source Comments The information contained in this document represents components of the legal health record. It is not the complete legal health record.[facility]
--- OUTSIDE RECORDS SUMMARY | 2025-03-04 17:49 | XMS_ITS | Encounter Summary ---
Author Organization [facility] Address [address] [place] [address] Phone Care Team Providers Care Yarn Rewinder Name Role Phone KamPablo MD Primary Care Provider [phone] Unknown, Unknown Primary Care Provider Unavai Kenney Minor DO Primary Care Provider Kenney Randolph DO Unavailable [phone] Encounter Details Date Type Department Care Team (Late st Contact Info) Description 04/30/2017 Procedure Pass [facility]oscopy Admitting Dept Virtual Department [address] [place] [address] Social History Tobacco Use Types Packs/Day Years Used Date Smoking Tobacco: Unknown Smokeless Tobacco: Never Alcohol Use Standard Drinks/Week [...] EDT Office Visit [facility] [address] [place] [address] [place] [address] Kenney Randolph DO 170 [facility], 2nd [place] [address] 05/04/2025 11:15 AM EST Office Visit [facility] [address] 3rd [facility], [address] [place] [address] Esteban Duke MD 22 [facility], [address] [place] [address] 07/20/2025 9:40 AM EST Office Visit [facility] 22 [facility] 3rd [facility], [address] [place] [address] Luke Tan MD [address] [place] [address] documented as of this encounter Visit Diagnoses Not on filedocumented in this encounter Care Teams Yarn Rewinder Relationship Specialty Start Date End Date Kam, Pablo Pascal MD [address] [place] [address] [address] [place] [address] [email or web address] PCP - General Internal Medicine 04/23/17 11/02/21 Unknown, Unknown, PCP - General 11/03/21 01/04/22 Kenney Randolph DO [address] [place] [address] PCP - General Internal Medicine 01/05/22 Kenney Randolph DO [address] [place] [address] Insurance Assigned Provider 09/28/23 documented as of this encounter Additional Source Comments The information contained in this document represents components of the legal health record. It is not the complete legal health record.[facility]
--- OUTSIDE RECORDS SUMMARY | 2025-03-04 17:49 | XMS_ITS | Encounter Summary ---
Author Organization [facility] Address [address] [place] [address] Phone Care Team Providers Care Hooking Machine Operator Name Role Phone Kenney Randolph DO Primary Care Provider Kenney Randolph DO Unavailable Encounter Details Date Type Department Care Team (Late st Contact Info) Description 09/18/2024 Procedure Pass [facility] 30 [place] [address] Social History Tobacco Use Types Packs/Day Years [...] with a working camera? Not on file Intimate Partner Violence Answer Date R ecorded Are you denied basic needs s uch as food, clothing, or medical care? No 03/05/2024 In the past 12 months have y ou been in a relationship with a person who hurts, threatens, or tries to control you? No 03/05/2024 Are you denied basic needs s uch as food, clothing, or medical care? No 03/05/2024 In the past 12 months have y ou been in a relationship with a person who hurts, threatens, or tries to control you? No 03/05/2024 Sex and Gender Information Value Date Recorded Sex Assigned at Not on file Legal Sex Male 10:00 PM EDT Gender Identity Not on file Sexual Orientation Not on file documented as of this encounter Plan of Treatment Upcoming Encounters Date Type Department Care Team (Late st Contact Info) Description 03/16/2025 8:00 AM EDT Office Visit [facility] [address] [place] [address] Kenney Randolph DO [address] [place] [address], 2nd [place] [address] [email or web address] 05/04/2025 11:15 AM EST Office Visit [facility] [address] 3[address] Floor, [address] [place] [address] Esteban Duke MD [address] [place] [address], [address] [address] 07/20/2025 9:40 AM EST Office Visit [address], [address] [place] [address] Luke Tan MD [address] [place] [address] documented as of this encounter Visit Diagnoses Not on filedocumented in this encounter Additional Health Concerns Assessment Noted Time PHQ-2 Depression Total Score: 0 03/05/20 24 8:04 AM EDT documented as of this encounter Care Teams Hooking Machine Operator Relationship Specialty Start Date End Date Kenney Randolph DO [address] [place] [address], [address] [place] [address] [email or web address] PCP - General Internal Medicine 01/05/22 Kenney Randolph DO [address] [place] [address], 2nd [place] [address] [email or web address] Insurance Assigned Provider 09/28/23 documented as of this encounter Additional Source Comments The information contained in this document represents components of the legal health record. It is not the complete legal health record.[facility]
--- OUTSIDE RECORDS SUMMARY | 2025-03-04 17:49 | XMS_ITS | Encounter Summary ---
Author Organization [facility] Address [address] [place] [address] Phone Care Team Providers Care Jammer Hooker Name Role Phone Pablo Humphrey MD Primary Care Provider [phone] Unknown, Unknown Primary Care Provider MaryvaKenney Griffin DO Primary Care Provider Kenney Randolph DO Unavailable [phone] Encounter Details Date Type Department Care Team (Latest Contact Info) Description 02/27/2019 Transcribe Orders [facility] [address] [place] [address] Kam, Pablo Pascal MD [address] [place] [address] [address] [place] [address] [email or web address] Hypertension, unspecified type (Primary Dx) Social History Tobacco Use Types [...] 8:00 AM EDT Office Visit [facility] [address] [place] [address] Kenney Randolph, DO 170 [facility], 2nd [place] [address] 05/04/2025 11:15 AM EST Office Visit [facility] [address] Floor, [address] [place] [address] Esteban Duke MD 22 [facility], [address] [place] [address] 07/20/2025 9:40 AM EST Office Visit [facility] [address] Floor, [address] [place] [address] Luke Tan MD [address] [place] [address] documented as of this encounter Results * Basic metabolic panel (02/27/2019 7:13 AM EDT) SODIUM 142 133 - 146 mmol/L [facility] CHLORIDE 101 96 - 108 mmol/L [facility] POTASSIUM 4.6 3.3 - 5.1 mmol/L [facility] CO2 31 21 - 35 mmol/L [facility] BUN 18 6 - 19 mg/dL [facility] CREATININE 0.60 0.5 - 1.5 mg/dL [facility] GLUCOSE 82 70 - 99 mg/dL [facility] CALCIUM 9.7 8.4 - 10.3 mg/dL [facility] EGFR 104 >59 mL/min/1.7 3m2 [facility] Comment:If patient is black, multiply result by 1.159. Estimated glomerular filtration rate calculated using the CKD-EPI equation. ANION GAP 15 10 - 20 mmol/L [facility] Blood 02/27/2019 7:13 AM EDT 02/27/2019 7:15 AM EDT Pablo Humphrey MD LAB BLOOD ORDERABLES Final Resu lt [facility] 30 [place] [address] documented in this encounter Visit Diagnoses Diagnosis Hypertension, unspecified type- Primary documented in this encounter Care Teams Jammer Hooker Relationship Specialty Start Date End Date Kam, Pablo Pascal MD 264 [facility] [address] [place] [address] [email or web address] PCP - General Internal Medicine 04/23/17 11/02/21 Unknown, Unknown, PCP - General 11/03/21 01/04/22 Kenney Randolph DO [address] [place] [address], [address] [place] [address] PCP - General Internal Medicine 01/05/22 Kenney Randolph DO [address] [place] [address], [address] [place] [address] Insurance Assigned Provider 09/28/23 documented as of this encounter Additional Source Comments The information contained in this document represents components of the legal health record. It is not the complete legal health record.[facility]
--- OUTSIDE RECORDS SUMMARY | 2025-03-04 17:49 | XMS_ITS | Encounter Summary ---
Author Organization [facility] Address [address] [place] [address] Phone Care Team Providers Care Avionics Repair Technician Name Role Phone KamPablo MD Primary Care Provider [phone] Unknown, Unknown Primary Care Provider Kenney De León DO Primary Care Provider Kenney Randolph DO Unavailable [phone] Encounter Details Date Type Department Care Team (Latest Contact Info) Description 06/05/2017 Transcribe Orders [facility] [address] 2nd [place] [address] Donato Freeman MD [address] [address] Anemia, unspecified type (Primary Dx) Social History Tobacco [...] EDT Office Visit [facility] [address] [place] [address] [place] [address] Kenney Randolph, DO 170 [facility], 2nd [place] [address] 05/04/2025 11:15 AM EST Office Visit [facility] [address] 3rd Floor, [address] [place] [address] Esteban Duke MD 22 [facility], [address] [place] [address] 07/20/2025 9:40 AM EST Office Visit [facility] [address] 3rd Floor, [address] [place] [address] Luke Tan MD [address] [place] [address] documented as of this encounter Procedures Procedure Name Priority Date/Time Associated Diagnosis Comments LFTS (HEPATIC PANEL) Routine 06/05/2017 2:26 PM EST Anemia, unspecified type IRON AND IRON BINDING CAPACITY Routine 06/05/2017 2:26 PM EST Anemia, unspecified type CBC AND DIFFERENTIAL Routine 06/05/2017 2:26 PM EST Anemia, unspecified type FERRITIN Routine 06/05/2017 2:26 PM EST Anemia, unspecified type documented in this encounter Results * (ABNORMAL) LFTs (hepatic panel) (06/05/2017 2:26 PM EST) ALKALINE PHOSPHATASE 43 39 - 117 U/L [facility] TOTAL BILIRUBIN 0.5 0 - 1.2 mg/dL [facility] DIRECT BILIRUBIN <0.2 0 - 0.3 mg/dL [facility] Bilirubin (Indirect) NOT CALCULATED 0 - 1.5 mg/dL [facility] AST 38(H) 0 - 37 U/L [facility] ALT 58(H) 0 - 40 U/L [facility] TOTAL PROTEIN 7.4 6.5 - 8.0 g/dL [facility] ALBUMIN 4.4 3.9 - 4.8 g/dL [facility] GLOBULIN 3.0 1 - 4.8 g/dL [facility] A/G Ratio 1.47 1.00 - 4.80 RATIO [facility] Blood 06/05/2017 2:26 PM EST 06/05/2017 2:28 PM EST us Donato Freeman MD LAB BLOOD ORDERABLES Final R esult Performing Organization Address [facility]/ZIP Co de Phone Number [address] [address] * Iron and iron binding capacity (06/05/2017 2:26 PM EST) IRON 62 45 - 160 ug/dL [facility] IRON BINDING CAPACITY 264 228 - 428 ug/dL [facility] TRANSFERRIN SATURAT. 23 20 - 55 % [facility] Blood 06/05/2017 2:26 PM EST 06/05/2017 2:28 PM EST Donato Freeman MD LAB BLOOD ORDERABLES Final R esult Performing Organization Address City/[facility]/ZIP Co de Phone Number [address] [address] * (ABNORMAL) Ferritin (06/05/2017 2:26 PM EST) FERRITIN 575(H) 30 - 400 ug/L [facility] Blood 06/05/2017 2:26 PM EST 06/05/2017 2:28 PM EST Donato Freeman MD LAB BLOOD ORDERABLES Final R esult Performing Organization Address City/[facility]/ZIP Co de Phone Number [address] [address] * (ABNORMAL) CBC and differential (06/05/2017 2:26 PM EST) WBC 6.98 3.40 - 11.20 K/uL [facility] RBC 4.41(L) 4.50 - 5.50 M/uL [facility] HGB 13.9 13.0 - 17.0 g/dL [facility] HCT 41.7 40.0 - 51.0 % [facility] PLT 185 130 - 400 K/uL [facility] MCV 94.6 79.0 - 98.0 fL [facility] MCH 31.5 27.0 - 34.8 pg [facility] MCHC 33.3 31.5 - 36.0 g/dL [facility] RDW 11.9 10.8 - 14.6 % [facility] MPV 10.5 9.4 - 12.4 fl [facility] NRBC 0.00 /100 WBCs [facility] ABSOLUTE NRBC 0.00 K/uL [facility] DIFF METHOD Auto [facility] NEUTS 68.1 45.30 - 77.70 % [facility] LYMPHS 17.5 12.30 - 39.70 % [facility] MONOS 10.3 4.10 - 12.80 % [facility] EOS 3.4 0 - 7.2 % [facility] BASOS 0.3 0 - 2.80 % [facility] Granulocytes, immature (%) 0.4 0.0 - 0.9 % [facility] ABSOLUTE NEUTS 4.75 1.40 - 7.70 K/uL [facility] ABSOLUTE LYMPHS 1.22 0.60 - 3.20 K/uL [facility] ABSOLUTE MONOS 0.72(H) 0.11 - 0.59 K/uL [facility] ABSOLUTE EOS 0.24 0.01 - 0.50 K/uL [facility] ABSOLUTE BASOS 0.02 0.00 - 0.08 K/uL [facility] Granulocytes, immature 0.03 0.00 - 0.05 K/uL [facility] Blood 06/05/2017 2:26 PM EST 06/05/2017 2:28 PM EST us Donato Freeman MD LAB BLOOD ORDERABLES Final R esult [facility] [address] [place] [address] documented in this encounter Visit Diagnoses Diagnosis Anemia, unspecified type- Primary documented in this encounter Care Teams Avionics Repair Technician Relationship Specialty Start Date End Date Pablo Humphrey MD 264 [facility] [address] [place] [address] [email or web address] PCP - General Internal Medicine 04/23/17 11/02/21 Unknown, Unknown, PCP - General 11/03/21 01/04/22 Kenney Randolph DO [address] [place] [address] [email or web address] PCP - General Internal Medicine 01/05/22 Kenney Randolph DO [address] [place] [address], [address] [place] [address] Insurance Assigned Provider 09/28/23 documented as of this encounter Additional Source Comments The information contained in this document represents components of the legal health record. It is not the complete legal health record.[facility]
--- OUTSIDE RECORDS SUMMARY | 2025-03-04 17:49 | XMS_ITS | Encounter Summary ---
Author Organization [facility] Address [address] [place] [address] Phone Care Team Providers Care Philosophy And Religion Instructor Name Role Phone Pablo Humphrey MD Primary Care Provider [phone] Unknown, Unknown Primary Care Provider MaryvaKenney Griffin DO Primary Care Provider Kenney Randolph DO Unavailable [phone] Encounter Details Date Type Department Care Team (Latest Contact Info) Description 08/17/2021 Transcribe Orders [facility] [address] [place] [address] [place] [address] Kam, Pablo Pascal MD 264 [facility] [address] [place], [place] [id number] [email or web address] Hypertension, unspecified type (Primary Dx); Fatigue, unspecified type Social History Tobacco Use Types Packs/Day Years [...] 03/16/2025 8:00 AM EDT Office Visit [facility] [address] [place] [address] [place] [address] Kenney Randolph DO 170 [facility], 2nd [place] [address] 05/04/2025 11:15 AM EST Office Visit [facility] [address] 3rd Floor, [address] [place] [address] Esteban Duke MD 22 [facility], [address] [place] [address] 07/20/2025 9:40 AM EST Office Visit [facility] [address] [facility] 3rd Floor, [address] [place] [address] Luke Tan MD [address] [place] [address] documented as of this encounter Results * 25-OH vitamin D (08/17/2021 7:27 AM EST) 25 OH VIT D (TOTAL) 36 30 - 60 ng/mL [facility] Blood 08/17/2021 7:27 AM EST 08/17/2021 7:29 AM EST Pablo Humphrey MD LAB BLOOD ORDERABLES Final Resu lt [facility] [address] [place] [address] * Magnesium (08/17/2021 7:27 AM EST) MAGNESIUM 1.8 1.6 - 2.6 mg/dL [facility] Blood 08/17/2021 7:27 AM EST 08/17/2021 7:29 AM EST Pablo Humphrey MD LAB BLOOD ORDERABLES Final Resu lt [facility] [address] [place] [address] * (ABNORMAL) CBC and differential (08/17/2021 7:27 AM EST) WBC 6.61 4.00 - 11.00 K/uL [facility] RBC 4.41 3.90 - 5.69 M/uL [facility] HGB 15.0 12.4 - 17.3 g/dL [facility] HCT 42.2 37.0 - 51.0 % [facility] PLT 189 140 - 430 K/uL [facility] MCV 95.7 78.0 - 97.0 fL [facility] MCH 34.0(H) 25.0 - 33.0 pg [facility] MCHC 35.5 32.0 - 36.0 g/dL [facility] RDW 12.0 11.0 - 15.0 % [facility] MPV 11.0 8.4 - 12.8 fl [facility] NRBC 0.00 0 /100 WBCs [facility] ABSOLUTE NRBC 0.00 0 K/uL [facility] DIFF METHOD Auto [facility] NEUTS 61.4 43.0 - 75.0 % [facility] LYMPHS 25.4 18.2 - 47.4 % [facility] MONOS 8.9 4.00 - 11.00 % [facility] EOS 3.2 0.0 - 8.0 % [facility] BASOS 0.5 0.0 - 2.0 % [facility] Granulocytes, immature (%) 0.6 0.0 - 0.9 % [facility] ABSOLUTE NEUTS 4.06 1.80 - 7.70 K/uL [facility] ABSOLUTE LYMPHS 1.68 1.00 - 3.10 K/uL [facility] ABSOLUTE MONOS 0.59 0.20 - 0.80 K/uL [facility] ABSOLUTE EOS 0.21 0.00 - 0.80 K/uL [facility] ABSOLUTE BASOS 0.03 0.00 - 0.09 K/uL [facility] Granulocytes, immature 0.04 0.00 - 0.05 K/uL [facility] Blood 08/17/2021 7:27 AM EST 08/17/2021 7:29 AM EST Pablo Humphrey MD LAB BLOOD ORDERABLES Final Resu lt Performing Organization Address City/[facility]/ZIP Co de Phone Number [address] [address] * TSH with reflex (08/17/2021 7:27 AM EST) TSH 1.81 0.27 - 4.20 uIU/mL [facility] Blood 08/17/2021 7:27 AM EST 08/17/2021 7:29 AM EST Pablo Humphrey MD LAB BLOOD ORDERABLES Final Resu lt Performing Organization Address [facility] Co de Phone Number [address] [address] * Comprehensive metabolic panel (08/17/2021 7:27 AM EST) SODIUM 140 133 - 146 mmol/L [facility] POTASSIUM 3.8 3.3 - 5.1 mmol/L [facility] Comment:Specimen slightly he molyzed, result may be falsely elevated. CHLORIDE 101 96 - 108 mmol/L [facility] CO2 27 21 - 35 mmol/L [facility] BUN 15 6 - 19 mg/dL [facility] CREATININE 0.60 0.5 - 1.5 mg/dL [facility] GLUCOSE 96 70 - 99 mg/dL [facility] ALBUMIN 4.6 3.9 - 4.8 g/dL [facility] TOTAL PROTEIN 7.0 6.5 - 8.0 g/dL [facility] CALCIUM 9.4 8.4 - 10.3 mg/dL [facility] ALKALINE PHOSPHATASE 41 39 - 117 U/L [facility] TOTAL BILIRUBIN 0.7 0.0 - 1.2 mg/dL [facility] AST 25 0 - 37 U/L [facility] ALT 32 0 - 40 U/L [facility] GLOBULIN 2.4 1 - 4.8 g/dL [facility] EGFR 104 >59 mL/min/1.7 3m2 [facility] Comment:Estimated glomerular filtration rate calculated using the CKD-EPI refit equation. ANION GAP 16 10 - 20 mmol/L [facility] Blood 08/17/2021 7:27 AM EST 08/17/2021 7:29 AM EST us Pablo Humphrey MD LAB BLOOD ORDERABLES Final Resu lt [facility] [address] [place] [address] documented in this encounter Visit Diagnoses Diagnosis Hypertension, unspecified type- Primary Fatigue, unspecified type documented in this encounter Care Teams Philosophy And Religion Instructor Relationship Specialty Start Date End Date Pablo Humphrey MD 264 [facility] [address] [place] [address] [email or web address] PCP - General Internal Medicine 04/23/17 11/02/21 Unknown, Unknown, PCP - General 11/03/21 01/04/22 Kenney Randolph DO [address] [place] [address] PCP - General Internal Medicine 01/05/22 Kenney Randolph DO [address] [place] [address] Insurance Assigned Provider 09/28/23 documented as of this encounter Additional Source Comments The information contained in this document represents components of the legal health record. It is not the complete legal health record.[facility]
--- OUTSIDE RECORDS SUMMARY | 2025-03-04 17:49 | XMS_ITS | Encounter Summary ---
Author Organization [facility] Address [address] [place] [address] Phone Care Team Providers Care Auto Glass Installer Name Role Phone Kenney Randolph DO Primary Care Provider Kenney Randolph DO Unavailable [phone] Encounter Details Date Type Department Care Team (Late st Contact Info) Description 06/29/2024 Procedure Pass [facility] [address] [place] [address] Social History Tobacco Use Types Packs/Day Years [...] Description 03/16/2025 8:00 AM EDT Office Visit [facility] [address] [place] [address] Kenney Randolph DO [address] [place] [address], 2nd [place] [address] 05/04/2025 11:15 AM EST Office Visit [facility] [address] 3rd Floor, [address] [place] [address] Esteban Duke MD [address] [place] [address], [address] [address] 07/20/2025 9:40 AM EST Office Visit [address] 3rd Floor, [address] [place] [address] uLke Tan MD [address] [place] [address] documented as of this encounter Visit Diagnoses Not on filedocumented in this encounter Additional Health Concerns Assessment Noted Time PHQ-2 Depression Total Score: 0 03/05/20 24 8:04 AM EDT documented as of this encounter Care Teams Auto Glass Installer Relationship Specialty Start Date End Date Kenney Randolph DO [address] [place] [address], 2nd [place] [address] PCP - General Internal Medicine 01/05/22 Kenney Randolph DO [address] [place] [address], 2nd [place] [address] [email or web address] Insurance Assigned Provider 09/28/23 documented as of this encounter Additional Source Comments The information contained in this document represents components of the legal health record. It is not the complete legal health record.[facility]
--- OUTSIDE RECORDS SUMMARY | 2025-03-04 17:49 | XMS_ITS | Encounter Summary ---
Author Organization [facility] Address [address] [place] [address] Phone Care Team Providers Care Felt Hanger Name Role Phone Pablo Humphrey MD Primary Care Provider [phone] Unknown, Unknown Primary Care Provider MaryvaKenney Griffin DO Primary Care Provider Kenney Randolph DO Unavailable Encounter Details Date Type Department Care Team (Latest Contact Info) Description 08/25/2018 Transcribe Orders [facility] [address] [place] [address] [place] [address] Kam, Pablo Pascal MD 264 [facility] [address] [place] [address] [email or web address] Routine general medical examination at a health care facility (Primary Dx); Hypertension, unspecified type; Fatigue, unspecified type Social History Tobacco Use [...] 8:00 AM EDT Office Visit [facility] [address] [place] [address] Kenney Randolph DO 170 [facility], 2nd [place] [address] 05/04/2025 11:15 AM EST Office Visit [facility] [address], [address] [place] [address] Esteban Duke MD 22 [facility], [address] [place] [address] 07/20/2025 9:40 AM EST Office [facility] [address]rd Floor, [address] [place] [address] Luke Tan MD [address] [place] [address] [email or web address] documented as of this encounter Results * PSA (screening) (08/25/2018 7:11 AM EST) Pathologist [facility] PSA 0.75 0 - 4.00 ng/mL [facility] Blood 08/25/2018 7:11 AM EST 08/25/2018 7:18 AM EST Pablo Humphrey MD LAB BLOOD ORDERABLES Final Resu lt [facility] [address] [place] [address] * CBC and differential (08/25/2018 7:11 AM EST) WBC 4.98 3.40 - 11.20 K/uL [facility] RBC 4.51 4.50 - 5.50 M/uL [facility] HGB 14.6 13.0 - 17.0 g/dL [facility] HCT 42.8 40.0 - 51.0 % [facility] PLT 209 130 - 400 K/uL [facility] MCV 94.9 79.0 - 98.0 fL [facility] MCH 32.4 27.0 - 34.8 pg [facility] MCHC 34.1 31.5 - 36.0 g/dL [facility] RDW 11.9 10.8 - 14.6 % [facility] MPV 10.7 9.4 - 12.4 fl [facility] NRBC 0.00 0.00 /100 WBCs [facility] ABSOLUTE NRBC 0.00 0.00 K/uL [facility] DIFF METHOD Auto [facility] NEUTS 63.1 45.30 - 77.70 % [facility] LYMPHS 20.9 12.30 - 39.70 % [facility] MONOS 10.8 4.10 - 12.80 % [facility] EOS 4.8 0 - 7.2 % [facility] BASOS 0.2 0 - 2.80 % [facility] Granulocytes, immature (%) 0.2 0.0 - 0.9 % [facility] ABSOLUTE NEUTS 3.14 1.40 - 7.70 K/uL [facility] ABSOLUTE LYMPHS 1.04 0.60 - 3.20 K/uL [facility] ABSOLUTE MONOS 0.54 0.11 - 0.59 K/uL [facility] ABSOLUTE EOS 0.24 0.01 - 0.50 K/uL [facility] ABSOLUTE BASOS 0.01 0.00 - 0.08 K/uL [facility] Granulocytes, immature 0.01 0.00 - 0.05 K/uL [facility] Blood 08/25/2018 7:11 AM EST 08/25/2018 7:18 AM EST us Pablo Humphrey MD LAB BLOOD ORDERABLES Final Resu lt [facility] [address] [place] [address] * TSH with reflex (08/25/2018 7:11 AM EST) TSH 2.13 0.27 - 4.20 uIU/mL [facility] Blood 08/25/2018 7:11 AM EST 08/25/2018 7:18 AM EST Pablo Humphrey MD LAB BLOOD ORDERABLES Final Resu lt Performing Organization Address [facility] Co de Phone Number [address] [address] * Lipid panel (08/25/2018 7:11 AM EST) HDL 52 mg/dL [facility] Comment: Interpretation <40 mg/dL: Low HDL cholesterol (major risk factor for CHD) Greater than or equal to 60 mg/dL: High HDL cholesterol ( negative risk factor for CHD) HDL - cholesterol is affected by a number of factors, e.g. smoking, excerise, hormones, sex and age. CHOLESTEROL 188 0 - 240 mg/dL [facility] TRIGLYCERIDES 128 30 - 160 mg/dL [facility] LDL 110 50 - 129 mg/dL [facility] Comment: LDL levels in terms of risk for coronary heart disease: <100 mg/dL: Optimal 100-129 mg/dL: Near or above optimal 130-159 mg/dL: Borderline high 160-189 mg/dL: High >190 mg/dL: Very High CARDIAC RISK RATIO 3.6 3.4 - 5.0 C [facility] Blood 08/25/2018 7:11 AM EST 08/25/2018 7:18 AM EST us Pablo Humphrey MD LAB BLOOD ORDERABLES Final Resu lt [address] [address] * Comprehensive metabolic panel (08/25/2018 7:11 AM EST) SODIUM 140 133 - 146 mmol/L [facility] POTASSIUM 4.3 3.3 - 5.1 mmol/L [facility] CHLORIDE 100 96 - 108 mmol/L [facility] CO2 28 21 - 35 mmol/L [facility] BUN 17 6 - 19 mg/dL [facility] CREATININE 0.60 0.5 - 1.5 mg/dL [facility] GLUCOSE 97 70 - 99 mg/dL [facility] ALBUMIN 4.6 3.9 - 4.8 g/dL [facility] TOTAL PROTEIN 7.5 6.5 - 8.0 g/dL [facility] CALCIUM 9.9 8.4 - 10.3 mg/dL [facility] ALKALINE PHOSPHATASE 41 39 - 117 U/L [facility] TOTAL BILIRUBIN 0.7 0.0 - 1.2 mg/dL [facility] Comment: Results from certain multiple myeloma patients may show a positive bias in recovery. Not all multiple myeloma patients show the bias and severity of the bias may vary between patients. In very rare cases, gammopathy, in particular type IgM (Waldenstrom's macroglobulinemia), may cause unreliable results. AST 29 0 - 37 U/L [facility] ALT 34 0 - 40 U/L [facility] GLOBULIN 2.9 1 - 4.8 g/dL [facility] EGFR 105 >59 mL/min/1.7 3m2 [facility] Comment:If patient is black, multiply result by 1.159. Estimated glomerular filtration rate calculated using the CKD-EPI equation. ANION GAP 16 10 - 20 mmol/L [facility] Blood 08/25/2018 7:11 AM EST 08/25/2018 7:18 AM EST us Pablo Humphrey MD LAB BLOOD ORDERABLES Final Resu lt Performing Organization Address City/State/[facility] Co de Phone Number [facility] [address] [place] [address] documented in this encounter Visit Diagnoses Diagnosis Routine general medical examination at a health care facility- Primary Hypertension, unspecified type Fatigue, unspecified type documented in this encounter Care Teams Felt Hanger Relationship Specialty Start Date End Date Pablo Humphrey MD [address] [place] [address] [address] [place] [address] [email or web address] PCP - General Internal Medicine 04/23/17 11/02/21 Unknown, Keesha, PCP - General 11/03/21 01/04/22 Kenney Randolph DO [address] [place] [address], 2nd [place] [address] PCP - General Internal Medicine 01/05/22 Kenney Randolph DO [address] [place] [address], [address] [place] [address] Insurance Assigned Provider 09/28/23 documented as of this encounter Additional Source Comments The information contained in this document represents components of the legal health record. It is not the complete legal health record.[facility]
--- OUTSIDE RECORDS SUMMARY | 2025-03-04 17:49 | XMS_ITS | Encounter Summary ---
Author Organization [facility] Address [address] [place] [phone] Phone Care Team Providers Care Ice House Supervisor Name Role Phone KamPablo MD Primary Care Provider [phone] Unknown, Unknown Primary Care Provider Unavai Kenney Minor DO Primary Care Provider Kenney Randolph DO Unavailable [phone] Encounter Details Date Type Department Care Team (Late st Contact Info) Description 09/07/2021 Procedure [facility], Ct Scan - [address] [address] Social History Tobacco Use Types Packs/Day Years [...] Description 03/16/2025 8:00 AM EDT Office Visit [facility] [address] [place] [address] [place] [address] Kenney Randolph DO [address] [facility], [address]nd [place] [address] 05/04/2025 11:15 AM EST Office Visit [facility] [address] [facility] 3rd Floor, [address] [place] [address] Esteban Duke MD [address] [facility], [address] [place] [address] 07/20/2025 9:40 AM EST Office Visit [facility] [address] [facility] 3rd Floor, [address] [place] [address] Luke Tan MD [address] [place] [address] documented as of this encounter Visit Diagnoses Not on filedocumented in this encounter Additional Health Concerns Assessment Noted Time PHQ-2 Depression Total Score: 0 11/03/19 9:12 AM EDT documented as of this encounter Care Teams Ice House Supervisor Relationship Specialty Start Date End Date Kam, Pablo Pascal MD [address] [place] [address] [address] [place] [address] [email or web address] PCP - General Internal Medicine 04/23/17 11/02/21 Unknown, Keesha, PCP - General 11/03/21 01/04/22 Kenney Randolph DO [address] [place] [address] PCP - General Internal Medicine 01/05/22 Kenney Randolph DO [address] [place] [address] Insurance Assigned Provider 09/28/23 documented as of this encounter Additional Source Comments The information contained in this document represents components of the legal health record. It is not the complete legal health record.[facility]
--- OUTSIDE RECORDS SUMMARY | 2025-03-04 17:49 | XMS_ITS | Clinical Summary ---
Author Organization [facility] Address [address] [id number] Care Team Providers Care Lining Stuffer Name Role Phone RandolphKenney flores Primary Care Provider Allergies No known active [...] (2 - Td or Tdap) 05/28/2022 05/28/2012 Alcohol/Substance Use Screening 06/24/2024 Health Care Proxy Review 06/24/2024 COVID-19 Vaccine ( season) 2025 03/23/2022, 04/04/2021, 09/22/2020, Additional history exists Influenza Vaccine (#1) 2025 , 03/23/2021, 02/24/2020 RSV Vaccine (60+ years old and patients) (1 - 1-dose 75+ series) 01/25/2027 Pneumococcal Vaccine: 50+ Years Completed 08/26/2018, 04/26/2017 Hepatitis B Vaccines Aged Out No long er eligible based on patient's age to complete this topic Insurance MEDICARE [facility] SUPP Care Teams Lining Stuffer Relationship Specialty Start Date End Date Kenney Randolph DO [address] [place] [address] [place] [address] PCP - General 03/12/22
--- OUTSIDE RECORDS SUMMARY | 2025-03-04 17:49 | XMS_ITS | Encounter Summary ---
Author Organization [facility] Address [address] [place] [address] Phone Care Team Providers Care Reefer Engineer Name Role Phone KamPablo MD Primary Care Provider [phone] Unknown, Unknown Primary Care Provider Maryvai Kenney Minor DO Primary Care Provider Kenney Randolph DO Unavailable [phone] Encounter Details Date Type Department Care Team (Late st Contact Info) Description 05/20/2017 Ancillary Orders [facility], X-Ray - [address] [place] [address] Kam, Pablo Pascal MD [address] [facility] [address] [place] [address] [email or web address] Cough Social History Tobacco Use Types Packs/Day Years [...] Description 03/16/2025 8:00 AM EDT Office Visit [facility] [address] [place] [address] Kenney Randolph, DO [address] [facility], 2nd [place] [address] 05/04/2025 11:15 AM EST Office Visit [facility] [address] [facility] 3rd Floor, [address] [place] [address] Esteban Duke MD [address] [facility], [address] [place] [address] 07/20/2025 9:40 AM EST Office Visit [facility] [address] Floor, [address] [place] [address] Tex Tan MD [address] [place] [address] documented as of this encounter Results * XR CHEST PA AND LATERAL 2 VIEWS (05/20/2017 11:20 AM EST) Anatomical Region Laterality Modality Chest Radiographic Annelise ging 05/20/2017 12:1 7 PM EST Impressions 05/20/2017 12:19 PM EST 1. No acute process. 2. Mild chronic interstitial changes stable. 3. Prominent central pulmonary arteries; question pulmonary artery hypertension POS [id number] Narrative 05/20/2017 12:19 PM EST PA and lateral chest, three views Compare 03/07/2015 Borderline cardiomegaly unchanged. No mediastinal widening. Central pulmonary arteries are chronically prominent. If anything this is more conspicuous and raises the possibility of chronic pulmonary arterial hypertension. Mild diffuse interstitial prominence is unchanged. No focal infiltrate, signs of CHF or effusion. Procedure Note Tex Esparza MD - 05/20/2017 PA and lateral chest, three views Compare 03/07/2015 Borderline cardiomegaly unchanged. No mediastinal widening. Central pulmonary arteries are chronically prominent. If anything this ismore conspicuous and raises the possibility of chronic pulmonary arterialhypertension. Mild diffuse interstitial prominence is unchanged. No focal infiltrate,signs of CHF or effusion. IMPRESSION: 1. No acute process. 2. Mild chronic interstitial changes stable. 3. Prominent central pulmonary arteries; question pulmonary arteryhypertension POS [id number] Pablo Humphrey MD IMG XR CHEST Final Result documented in this encounter Visit Diagnoses Diagnosis Cough Cough documented in this encounter Care Teams Reefer Engineer Relationship Specialty Start Date End Date Kam, Pablo Pascal MD [address] [place] [address] [address] [place] [address] [email or web address] PCP - General Internal Medicine 04/23/17 11/02/21 Unknown, Unknown, PCP - General 11/03/21 01/04/22 Kenney Randolph DO [address] [place] [address] PCP - General Internal Medicine 01/05/22 Kenney Randolph DO [address] [place] [address] Insurance Assigned Provider 09/28/23 documented as of this encounter Additional Source Comments The information contained in this document represents components of the legal health record. It is not the complete legal health record.[facility]
--- OUTSIDE RECORDS SUMMARY | 2025-03-04 17:49 | XMS_ITS | Clinical Summary ---
Author Organization [facility], Address [address] [address] Phone Care Team Providers Care Clinical Trial Associate Name Role Phone RandolphKenney birmingham Primary Care [...] Colorectal Cancer Screening: Sigmoidoscopy 01/25/2001 Influenza Vaccine (#1) 2025 , 02/24/2020 Pneumococcal Vaccine: 50+ Years Completed 08/26/2018, 04/26/2017 Hepatitis B Vaccine Aged Out No longe r eligible based on patient's age to complete this topic Insurance Medicare [facility] Care Teams Clinical Trial Associate Relationship Specialty Start Date End Date Kenney Randolph DO [address] [place] [address] PCP - General Internal Medicine 01/12/22
--- OUTSIDE RECORDS SUMMARY | 2025-03-04 17:49 | XMS_ITS | Clinical Summary ---
Author Organization [facility] Address [address] [place] [phone] Phone Care Team Providers Care Manager Business Operations Name Role Phone Kenney Randolph DO Primary Care Provider Kenney Randolph DO Unavailable [phone] Allergies Active Allergy Reactions Criticality Noted Date Comments Cefadroxil Other (See Comments) 11/02/2021 Noted in medical record, pt unsure Lisinopril Cough 11/02/2021 Valsartan Cough 11/02/2021 Medications multivitamin with minerals (MULTI-VIT 55 PLUS ORAL) Take by mouth. Acti ve spironolactone (ALDACTONE) 25 MG tablet take 1 tablet daily 90 tablet 3 4 Active chlorthalidone (HYGROTON) 50 MG tablet take 1 tablet daily 90 tablet 3 4 Active metoprolol succinate (TOPROL-XL) 50 MG 24 hr tablet take 1 tablet twice a day 180 tablet 3 4 Active ketoconazole 2 % cream Apply topically as needed. 5 Active amLODIPine (NORVASC) 10 MG tablet TAKE 1 TABLET DAILY 90 tablet 3 5 Active apixaban (ELIQUIS) 5 mg tabletIndicatio ns:New onset a-fib Take 1 tablet (5 mg total) by mouth 2 (two) times a day. 180 tablet 3 5 Active diclofenac sodium (VOLTAREN) 1 % Gel Apply 4 g topically 4 (four) times a day. 150 g 5 Active tiZANidine (ZANAFLEX) 4 MG tablet TAKE 1 TABLET BY MOUTH EVERY 6 HOURS NEEDED FOR MUSCLE SPASM 360 tablet 1 5 Active Active Problems Problem Noted Date Diagnosed Date Sleep apnea 11/19/2024 Heart valve problem 11/19/2024 Anticoagulated 06/24/2024 New onset a-fib 03/05/2024 Morbid obesity 12/17/2022 Assessment & Plan (04/16/2024 10:30 PM EDT): Weight stable, continue monitoring. Resistant hypertension 08/30/2021 Assessment & Plan (07/11/2023 10:11 PM EST): Patient with difficult to control hypertension, seems to be well-controlled finally on current medications. No change to current regimen. Continue monitoring with home blood pressure cuff and follow-up if persistently elevated. Assessment & Plan (11/08/2021 3:23 PM EDT): Patient with poorly controlled hypertension-reports usually better controlled however still not in ideal range. Currently on 3 medications and still not well controlled. We discussed dietary changes including reduced sodium intake. We will continue to monitor. Consider adding fourth agent if unable to make any addition to current doses. Abnormal PFT 12/15/2018 Assessment & Plan (12/15/2018 8:35 AM EDT): Flattening of inspiratory loop on PFT. However, I have performed a bronchoscopy within the year and therefore know there is no vocal cord lesion. VCD is a possibility that simply was not occurring during the procedure. As dyspnea and wheezing is not his complaint, I will not repeat bronch or laryngoscopy at this time. Cough 10/17/2017 Assessment & Plan (06/02/2023 7:31 PM EST): Productive cough, interrupting sleep. Non-drowsy and nighttime cough suppressants prescribed, risks/benefits/side effects reviewed. Also suggested throat lozenges and/or tea with honey. Assessment & Plan (02/20/2021 12:34 PM EDT): Patient is still bothered by his cough. Lots of throat clearing. Not had a bronchoscopy years ago there was some posterior arytenoid swelling. Will refer to ENT to take another peek and see if they have any advice. Does have wheezing that emanates from the throat with forced expiratory maneuver. Assessment & Plan (11/07/2020 9:08 AM EDT): We will try a course of Trelegy inhaler. Sample given. If that does not help recommend trying Gaviscon advance. Otherwise unfortunately I think that there is nothing much we can do for this cough. Assessment & Plan (09/20/2020 12:42 PM EDT): Sound very much like he has heartburn. I did do bronchoscopy earlier that demonstrated swelling of the posterior arytenoids. Recommend aggressive therapy for heartburn including PPI in the morning and Pepcid evening for at least 6 weeks. Assessment & Plan (05/10/2020 1:00 PM EST): Patient has been treated with heartburn medications in the past with no help. Also without help with postnasal drip therapies. Likely due to the chronic HP. Assessment & Plan (12/15/2018 8:32 AM EDT): None of our heartburn or post-nasal drip therapies have done anything to improve this cough. Likely due to his ILD. Assessment & Plan (08/15/2018 8:32 AM EST): Patient given several options on treating most common causes of cough. He will try these for their full courses between now and our next visit. If they are unsuccessful, will consider moving to a methacholine challenge test. Patient instructed as follows: To treat post-nasal drip: Use Flonase 2 sprays per nostril daily and sudafed 30mg every 6 hours, chlortrimeton every 6 hours. Typically for 3 weeks, and then switch to as needed. For heartburn, laryngopharyngeal reflux: Daytime: Prevacid, Nexium or Prilosec every morning Nighttime: Pepcid, Zantac or Tagamet For a total of 6 weeks and then switch to as needed. For mucus clearance: Mucinex 1200mg at nighttime. Can take it up to twice a day. Assessment & Plan (11/13/2017 1:57 PM EDT): Suspect chronic cough related to interstitial infiltrates, though cough-variant asthma is not yet excluded. Will consider moving to Methacholine challenge test if he further testing is nondiagnostic. Assessment & Plan (10/17/2017 9:19 AM EDT): Patient with chronic cough with no improvement for treatment of the 3 most common causes including cough variant asthma, gastroesophageal reflux disease and postnasal drip. The postnasal drip therapy could be more aggressive however there is no indication of drip on exam today and the patient has a history of hypertension which can be exacerbated by such treatment. We'll check a full pulmonary function test and proceed to a methacholine challenge test that is normal. In the meanwhile, we'll pursue the prominent interstitial changes on the chest x-ray as a possible etiology of his cough. Sacroiliitis, not elsewhere classified 8 Resolved Problems Problem Noted Date Diagnosed Date Resolved Date Bronchitis 05/15/2023 07/11/2023 Assessment & Plan (06/02/2023 7:31 PM EST): Congested productive cough w/ scattered rhonchi and wheezing c/w acute bronchitis. Given chronic lung issues (prior abnormal PFT and pneumonitis), will treat with steroid and antibiotic. Risks/benefits/side effects reviewed. Continue supportive measures including relative rest, cough deep breathing, push oral fluids, etc. Red flags discussed, f/u PRN. Wheezing 05/15/2023 07/11/2023 Assessment & Plan (06/02/2023 7:33 PM EST): Slight wheeze on exam, no hx of asthma/RAD. Plan for tx w/ prednisone burst. Proper use of medications, side effects, monitoring and expectations were discussed with patient. Advised taking medication with food in the morning time, if possible, to minimize some of the side effects. Wishes to initiate. Hypersensitivity pneumonitis 10/17/2017 07/11/2023 Assessment & Plan (02/20/2021 12:33 PM EDT): Some decrease into lung capacity could be related to his increased weight. Radiographically looks stable. We will repeat both CAT scan and a function test in 1 year. Assessment & Plan (11/07/2020 9:09 AM EDT): Repeat pulmonary function test. One was ordered but never scheduled. I have provided the patient with a telephone number to call to try to schedule. Assessment & Plan (09/20/2020 12:42 PM EDT): Treated with a course of prednisone. No major improvement. Discussing the case with pathologist really seems like a remote. We will continue to monitor with serial pulmonary function tests. Assessment & Plan (05/10/2020 1:00 PM EST): Pathology consistent with chronic hypersensitivity pneumonitis. Discussed the case with the pathologist Dr. Thomas. The findings are very noninflammatory. Seems like perhaps an exposure to something remote and not actively occurring. Perhaps a course of prednisone might be helpful but unlikely that long-term immunosuppressive's would be helpful in this case. We will try a 3-month course of prednisone and assess clinically. Follow with a 6-month pulmonary function test Assessment & Plan (12/15/2018 8:38 AM EDT): CT chest and TLC on PFTs are at least stable. However, these nodular infiltrates/GGO are likely the cause of his cough and he has not responded to a long course of steroids. Patient had lymphocytes on BAL with a high CD4:CD8 ratio, but no granulomas on biopsy. Some fungal elements seen but unable to culture. After discussion of risks and benefits with the patient, we decided since he has considerable discomfort with his cough to proceed with thoracic surgery eval. He would like to wait until August or September as work is very busy at this time of year. Will repeat CT chest in July prior to actual, but will refer to Dr. Perez in the meanwhile. Assessment & Plan (08/15/2018 8:29 AM EST): Will repeat CT chest and PFTs in October to evaluate disease progression. Will consider lung biopsy if any evidence of disease progression. Assessment & Plan (03/05/2018 11:57 AM EDT): Recommend 6 week course of prednisone. 60 mg 2 week down to 40 mg weekly, 30 mg 1 week, 20 mg 1 week and then 10 mg for 2 weeks until he returns from his trip to [place]. We will repeat a chest x-ray 2 weeks after that to assess response to therapy and I will see him in 2 months. Assessment & Plan (11/13/2017 1:58 PM EDT): Inflammatory, BENI and vasculitis work-up on blood tests are negative. Suspect infectious infiltrates. Will plan for Bronchoscopy with TBBx for culture and path, micro brushes. Will plan for December procedure. Assessment & Plan (10/17/2017 9:05 AM EDT): Chest xray from April 2017 with mild interstitial changes and prominent pulmonary arteries. Will check high resolution CT chest. Will also consider echo in the future. Check BENI, rheumatoid factor and other inflammatory markers. Obesity (BMI 35.0-39.9 without comorbidity) 10/14/2017 07/11/2023 Encounters Date Type Department Care Team Description 03/04/2025 Telephone [facility] [address], [address] [place] [address] Luke Tan MD 02/19/2025 1:20 PM EDT Office Visit [facility] [address], [address] [place] [address] Luke Tan MD New onset a-fib (Primary Dx) from Last 3 Months Immunizations Immunization Administration Dates Next Due COVID-19 (Pre-04/15) Pfizer Vaccine, mRNA, PF 09/01/2020 Influenza High-Dose Quadriva lent Preservative Free IM 03/19/2023,07/05/2022,07/05/2022 Influenza High-Dose Trivalen t Preservative Free IM 03/09/2024,03/23/2021 Influenza Quadrivalent Adjuv anted Preservative Free IM 02/24/2020 Pneumococcal conjugate PCV13 04/26/2017 Pneumococcal polysaccharide PPSV23 08/26/2018 Tdap 01/04/2023,05/28/2012 Family History Medical History Relation Comments No Known Problems Brother Hypertension Father Irregular heart beat Father Asthma Neg Hx Interstitial Lung Disease Neg Hx Lung cancer Neg Hx Relation Status Comments Brother Alive Father Mother Social History Tobacco Use Types Packs/Day Years Used Date Smoking Tobacco: Never Smokeless Tobacco: Never Tobacco Cessation:Counseling Given: Not Answered Alcohol Use Standard Drinks/Week Comments Yes 10 [...] as food, clothing, or medical care? No 11/20/2024 In the past 12 months have y ou been in a relationship with a person who hurts, threatens, or tries to control you? No 11/20/2024 Are you denied basic needs s uch as food, clothing, or medical care? No 11/20/2024 In the past 12 months have y ou been in a relationship with a person who hurts, threatens, or tries to control you? No 11/20/2024 Sex and Gender Information Value Date Recorded Sex Assigned at Not on file Legal Sex Male 10:00 PM EDT Gender Identity Not on file Sexual Orientation Not on file Last Filed Vital Signs Vital Sign [place] Time Taken Comments Blood Pressure 130/78 02/19/2025 1:21 PM EDT Pulse 71 02/19/2025 1:21 PM EDT Temperature 36 C (96.8 F) 08/27/2024 2:20 PM EST Respiratory Rate 22 11/20/2024 11:25 AM EDT Oxygen Saturation 96% 02/19/2025 1:21 PM EDT Inhaled Oxygen Concentration - - Weight 122 kg (269 lb) 02/19/2025 1:21 PM EDT Height 177.8 cm (5' 10 ) 02/19/2025 1:21 PM EDT Body Mass Index 38.6 02/19/2025 1:21 PM EDT Plan of Treatment Upcoming Encounters Date Type Department Care Team (Late st Contact Info) Description 03/16/2025 8:00 AM EDT Office Visit [facility] [address] [place] [address] Kenney Randolph DO [address] [facility], 2nd [place] [address] 05/04/2025 11:15 AM EST Office Visit [facility] [address], [address] [place] [address] Esteban Duke MD [address] [facility], [address] [place] [address] 07/20/2025 9:40 AM EST Office Visit [facility] [address], [address] [place] [address] Luke Tan MD [address] [place] [address] Health Maintenance Due Date Last Done Comments COLOGUARD 01/25/1997 FIT TEST 01/25/1997 FOBT 01/25/1997 SIGMOIDOSCOPY 01/25/1997 VIRTUAL COLONOSCOPY 01/25/1997 ZOSTER VACCINES (1 of 2) 01/25/2002 RSV VACCINE (1 - Risk 60-74 years 1-dose series) 2012 INFLUENZA VACCINE (#1) 2025 , 03/19/2023, 07/05/2022, Additional history exists COVID-19 VACCINE ( season) 2025 03/09/2024, 03/19/2023, 03/23/2022, Additional history exists DEPRESSION SCREENING 03/05/2025 03/05/2024 BLOOD PRESSURE 08/21/2025 02/19/2025 CREATININE LEVEL 11/10/2025 11/10/2024, , 05/29/2024, Additional history exists POTASSIUM LEVEL 11/10/2025 11/10/2024, 06/24, 05/29/2024, Additional history exists LIPID PANEL 03/02/2029 03/02/2024, 12/23, 11/03/2021, Additional history exists COLONOSCOPY 12/18/2029 12/18/2022, 04/30/2017 COLORECTAL CANCER SCREENING 12/18/2029 Adult Td,Tdap Booster 01/04/2033 01/04/2023, 012 HEPATITIS C SCREENING Completed 12/03/2017 PNEUMOCOCCAL VACCINES (50+ years) Completed 08/26/2018, 04/26/2017 SMOKING STATUS SCREENING (Once After 26 Yrs) Completed 02/19/2025 HEPATITIS A VACCINES Aged Out No long er eligible based on patient's age to complete this topic HIB VACCINES Aged Out No longer eligi ble based on patient's age to complete this topic MENINGOCOCCAL VACCINES (ACWY) Aged Out No longer eligible based on patient's age to complete this topic MENINGOCOCCAL VACCINES (B) Aged Out N o longer eligible based on patient's age to complete this topic Medical Devices Not on file Procedures Procedure Name Priority Date/Time Associated Diagnosis Comments BASIC METABOLIC PANEL Routine 11/10/2024 10:01 AM EDT New onset a-fib LIPID PANEL Routine 03/02/2024 7:05 AM EDT Medicare annual wellness visit, subsequent ENDOSCOPY, COLON 12/18/2022 7:12 AM EDT LIVER FIBROSIS TEST Routine 12/03/2017 12:25 PM EDT Nonalcoholic steatohepatitis (LUCIANO) from Last 3 Months or Most Recently Relevant to Health Maintenance Results * (ABNORMAL) Basic metabolic panel (11/10/2024 10:01 AM EDT) SODIUM 135 133 - 146 mmol/L [facility] CHLORIDE 94(L) 96 - 108 mmol/L [facility] POTASSIUM 4.6 3.3 - 5.1 mmol/L [facility] CO2 31 21 - 35 mmol/L [facility] BUN 22(H) 6 - 19 mg/dL [facility] CREATININE 0.70 0.5 - 1.5 mg/dL [facility] GLUCOSE 99 70 - 99 mg/dL [facility] CALCIUM 10.0 8.4 - 10.3 mg/dL [facility] EGFR 98 >59 mL/min/1.7 3m2 [facility] Comment:Estimated glomerular filtration rate calculated using the CKD-EPI refit equation. ANION GAP 15 10 - 20 mmol/L [facility] Blood 11/10/2024 10:0 1 AM EDT 11/10/2024 10:05 AM EDT us Luke Tan MD LAB BLOOD ORDERABLES Final Re sult [address] [address] * Lipid panel (03/02/2024 7:05 AM EDT) HDL 54 mg/dL [facility] Comment: Interpretation <40 mg/dL: Low HDL cholesterol (major risk factor for CHD) Greater than or equal to 60 mg/dL: High HDL cholesterol ( negative risk factor for CHD) HDL - cholesterol is affected by a number of factors, e.g. smoking, excerise, hormones, sex and age. CHOLESTEROL 206 0 - 240 mg/dL [facility] TRIGLYCERIDES 120 30 - 160 mg/dL [facility] LDL 128 50 - 129 mg/dL [facility] Comment: LDL levels in terms of risk for coronary heart disease: <100 mg/dL: Optimal 100-129 mg/dL: Near or above optimal 130-159 mg/dL: Borderline high 160-189 mg/dL: High >190 mg/dL: Very High CARDIAC RISK RATIO 3.8 3.4 - 5.0 [facility] Blood 03/02/2024 7:05 AM EDT 03/02/2024 7:10 AM EDT us Kenney Nasir Randolph DO LAB BLOOD ORDERABLES Fi nal Result [facility] [address] [place] [address] * ENDOSCOPY, COLON (12/18/2022 7:12 AM EDT) Narrative Transcriptions Donato Garcia MD - 12/18/2022 7:12 AM EDT [facility] Patient Name: César Aguilar Attending MD:: DONATO GARCIA MD, Procedure Date: 12/18/2022 7:12 AM Date of : 1950 Age: 72 Admit Type: Outpatient Gender: Male Room: [place] [address] Referring MD: Kenney Randolph Exam Type: Colonoscopy Indications: High risk colon cancer surveillance: Personalhistory of colonic polyps, Last colonoscopy: 2016 Medications: Monitored Anesthesia Care Procedure: Informed consent was obtained from the patientafter discussion of the indications, limitations, alternatives, benefits, and risks of the procedure. Risks specifically discussed include but are not limited to medication reactions, missed lesions, bleeding, perforation, or the need for emergent surgery. Throughout the procedure, the patient's blood pressure, pulse, end-tidal CO2, and oxygensaturations were monitored continuously. The Olympus adult variable colonoscope [id number] #1 was introduced through the anus and advanced to the terminal ileum. The colonoscopy was performedwithout difficulty. The patient tolerated the procedurewell. The quality of the bowel preparation was good. The quality of the bowel preparation was good.Anatomical landmarks were photographed. Complications: No immediate complications. Estimated blood loss:None. Findings: The perianal and digital rectal examinations were normal. Multiple small and large-mouthed diverticula were found in the sigmoid colon, descending colon and ascending colon. Two sessile polyps were found in the sigmoid colon. The polyps were small in size. These polyps were removed with a cold snare. Resection and retrieval were complete. The rectum, recto-sigmoid colon, descending colon, splenic flexure, transverse colon, hepatic flexure, ascending colon, cecum, appendiceal orifice,ileocecal valve, ileum, rectum (on retroflexion) andascending colon (on retroflexion) appeared normal. Impression: - Diverticulosis in the sigmoid colon, in the descending colon and in the ascending colon. - Two small polyps in the sigmoid colon, removedwith a cold snare. Resected and retrieved. - The rectum (on retroflexion), ascending colon (on retroflexion), rectum, descending colon, splenic flexure, transverse colon, hepatic flexure,ascending colon, cecum, recto-sigmoid colon, ileocecal valve, appendiceal orifice and terminal ileum arenormal. Recommendation: - Discharge patient to home. - High fiber diet. - Continue present medications. - Await pathology results. - Repeat colonoscopy in 7 years for surveillance. - I will send you pathology results by letter. Ifyou do not get results in 3 weeks telephone myoffice. - You have diverticulosis so please eat a highfiber diet. DONATO GARCIA MD 12/18/2022 8:05:49 AM This report has been signed electronically. Number of Addenda: 0 Note Initiated On: 12/18/2022 7:12 AM Procedure Code(s): --- Professional --- 85664, Colonoscopy, flexible; with removal of tumor(s), polyp(s), or other lesion(s) by snare technique --- Technical --- 02320, Colonoscopy, flexible; with removal of tumor(s), polyp(s), or other lesion(s) by snare technique Diagnosis Code(s): --- Professional --- Z86.010, Personal history of colonic polyps D12.5, Benign neoplasm of sigmoid colon K57.30, Diverticulosis of large intestine without perforation or abscess without bleeding --- Technical --- Z86.010, Personal history of colonic polyps D12.5, Benign neoplasm of sigmoid colon K57.30, Diverticulosis of large intestine without perforation or abscess without bleeding CPT copyright 2021 [employer]. All rights reserved. The codes documented in this report are preliminary and upon advertising editor reviewmay be revised to meet current compliance requirements. Procedure Date: 12/18/2022 7:12:[address] [place] [address] Kenney Randolph DO GI PROCEDURE ORDERABLES Final Result * Liver fibrosis test (12/03/2017 12:25 PM EDT) Cow Milk Conv Class 0.37 [facility] DPT OF LAB MED AND PAT+ Neuron Specific Enolase (NOTE) [facility] DPT OF LAB MED AND PAT+ Comment:RESULT: F1-F2 Interleukin 2 minimal fibrosis [facility] DPT OF LAB MED AND PAT+ Comment: (NOTE) FibroTest estimates liver fibrosis FibroTest Score Stage Interpretation 0.00-0.21 F0 no fibrosis 0.21-0.27 F0-F1 no fibrosis 0.27-0.31 F1 minimal fibrosis 0.31-0.48 F1-F2 minimal fibrosis 0.48-0.58 F2 moderate fibrosis 0.58-0.72 F3 advanced fibrosis 0.72-0.74 F3-F4 advanced fibrosis 0.74-1.00 F4 severe fibrosis (Cirrhosis) ActiTest Score 0.29 [facility] DPT OF LAB MED AND PAT+ ANCA BENI at 1:20 dilution (NOTE) [facility] DPT OF LAB MED AND PAT+ Comment:RESULT: A0-A1 ActiTest Interpretation no activity [facility] DPT OF LAB MED AND PAT+ Comment: (NOTE) ActiTest estimates necroinflammatory activity ActiTest Score Grade Interpretation 0.00-0.17 A0 no activity 0.17-0.29 A0-A1 no activity 0.29-0.36 A1 minimal activity 0.36-0.52 A1-A2 minimal activity 0.52-0.60 A2 significant activity 0.60-0.62 A2-A3 significant activity 0.62-1.00 A3 severe activity FibroTest-ActiTest Comment SEE NOTE [facility] DPT OF LAB MED AND PAT+ Comment: (NOTE) The reliability of results is dependent on compliance with the preanalytical and analytical conditions recommended by [employer]. The tests have to be deferred for: acute hemolysis, acute hepatitis, acute inflammation, extra hepatic cholestasis. The advice of a specialist should be sought for interpretation in chronic hemolysis and Gilbert's syndrome. The test interpretation is not validated in liver transplant patients. Isolated extreme values of one of the components should lead to caution in interpreting the results. In case of discordance between a biopsy result and a test, it is recommended to seek advice of a specialist. The causes of these discordances could be due to a flaw of the test or to a flaw in the biopsy: i.e. a liver biopsy has a 33% variability rate for one fibrosis stage. FibroTest is interpretable for chronic hepatitis B and C, alcoholic and non alcoholic steatosis. ActiTest is interpretable for chronic hepatitis B and C. ADDITIONAL INFORMATION This test was developed and its performance characteristics determined by [facility] in a manner consistent with CLIA requirements. This test has not been cleared or approved by the U.S. Food and Drug Administration. [employer] Serial Number [id number] [facility] DPT OF LAB MED AND PAT+ Apolipoprotein A1, S 154 >=120 mg/dL [facility] DPT OF LAB MED AND PAT+ [id number], S 195 100 - 280 mg/dL [facility] DPT OF LAB MED AND PAT+ Haptoglobin, S 86 30 - 200 mg/dL [facility] DPT OF LAB MED AND PAT+ Alanine Aminotransferase (ALT), S 47 7 - 55 U/L [facility] DPT OF LAB MED AND PAT+ Gamma Glutamyltransferase (GGT), S 16 8 - 61 U/L [facility] DPT OF LAB MED AND PAT+ Bilirubin, Total, S 0.9 <=1.2 mg/dL [facility] DPT OF LAB MED AND PAT+ Blood 12/03/2017 12:2 5 PM EDT 12/03/2017 12:30 PM EDT us Donato Garcia MD LAB BLOOD ORDERABLES Final R esult [facility] DPT OF LAB MED AND PAT+ [address] [place] [address] from Last 3 Months or Most Recently Relevant to Health Maintenance Insurance MEDICARE PART A & B [employer] SUPPLEMENT MEDICARE PART A & B [employer] MEDEX SUPPLEMENT MEDICARE PART A & B [employer] MEDEX SUPPLEMENT MEDICARE PART A & B [id number] SUPPLEMENT MEDICARE PART A & B [employer] MEDEX SUPPLEMENT MEDICARE PART A & B MEDEX SUPPLEMENT MEDICARE PART A & B [employer] MEDEX SUPPLEMENT MEDICARE PART A & B [employer] MEDEX SUPPLEMENT MEDICARE PART A & B [employer] CROSS MEDEX SUPPLEMENT Care Teams Manager Business Operations Relationship Specialty Start Date End Date Kenney Randolph DO [address] [place] [address], [address] [place] [address] PCP - General Internal Medicine 01/05/22 Kenney Randolph DO [address] [place] [address], [address] [place] [address] Insurance Assigned Provider 09/28/23 Additional Source Comments The information contained in this document represents components of the legal health record. It is not the complete legal health record.[facility]
--- OUTSIDE RECORDS SUMMARY | 2025-03-04 17:49 | XMS_ITS | Encounter Summary ---
Author Organization [facility] Address [address] [place] [address] Phone Care Team Providers Care Treasury Consultant Name Role Phone Kenney Randolph DO Primary Care Provider Kenney Randolph DO Unavailable [phone] Encounter Details Date Type Department Care Team (Late st Contact Info) Description 05/12/2024 Procedure Pass [facility] Cardiovascular And Interventional Radiology [address] [place] [address] Social History Tobacco Use Types Packs/Day Years [...] Description 03/16/2025 8:00 AM EDT Office Visit [facility] [address] [place] [address] Kenney Randolph DO [address] [place] [address], 2nd [place] [address] 05/04/2025 11:15 AM EST Office Visit [facility] [address] 3rd Floor, [address] [place] [address] Esteban Duke MD [address] [place] [address], [address] [address] 07/20/2025 9:40 AM EST Office Visit [address] 3rd Floor, [address] [place] [address] Luke Tan MD [address] [place] [address] documented as of this encounter Visit Diagnoses Not on filedocumented in this encounter Additional Health Concerns Assessment Noted Time PHQ-2 Depression Total Score: 0 03/05/20 24 8:04 AM EDT documented as of this encounter Care Teams Treasury Consultant Relationship Specialty Start Date End Date Kenney Randolph DO [address] [place] [address], 2nd [place] [address] PCP - General Internal Medicine 01/05/22 Kenney Randolph DO [address] [place] [address], 2nd [place] [address] [email or web address] Insurance Assigned Provider 09/28/23 documented as of this encounter Additional Source Comments The information contained in this document represents components of the legal health record. It is not the complete legal health record.[facility]
--- OUTSIDE RECORDS SUMMARY | 2025-03-04 17:49 | XMS_ITS | Encounter Summary ---
Author Organization [facility] Address [address] [place] [address] Phone Care Team Providers Care Facing Baster Name Role Phone KamPablo MD Primary Care Provider [phone] Unknown, Unknown Primary Care Provider Unavai Kenney Minor DO Primary Care Provider Kenney Randolph DO Unavailable [phone] Encounter Details Date Type Department Care Team (Late st Contact Info) Description 10/17/2017 Procedure Pass [facility], Ct Scan - [address] [address] Social History Tobacco Use Types Packs/Day Years [...] Description 03/16/2025 8:00 AM EDT Office Visit [facility] [address] [place] [address] [place] [address] Kenney Randolph DO 170 [facility], 2nd [place] [address] 05/04/2025 11:15 AM EST Office Visit [facility] [address] [facility] [address] [facility], [address] [place] [address] Esteban Duke MD 22 [facility], [address] [place] [address] 07/20/2025 9:40 AM EST Office Visit [facility] [address] [facility] [address] [facility], [address] [place] [address] Luke Tan MD [address] [place] [address] documented as of this encounter Visit Diagnoses Not on filedocumented in this encounter Care Teams Facing Baster Relationship Specialty Start Date End Date Kam, Pablo Psacal MD [address] [place] [address] [address] [place] [address] [email or web address] PCP - General Internal Medicine 04/23/17 11/02/21 Unknown, Unknown, PCP - General 11/03/21 01/04/22 Kenney Randolph DO [address] [place] [address] PCP - General Internal Medicine 01/05/22 Kenney Randolph DO [address] [place] [address] Insurance Assigned Provider 09/28/23 documented as of this encounter Additional Source Comments The information contained in this document represents components of the legal health record. It is not the complete legal health record.[facility]
--- OUTSIDE RECORDS SUMMARY | 2025-03-04 17:49 | XMS_ITS | Encounter Summary ---
Author Organization [facility] Address [address] [place] [address] Phone Care Team Providers Care Porcelain Enamel Repairer Name Role Phone KamPablo MD Primary Care Provider Unknown, Unknown Primary Care Provider Unavai Keneny Minor DO Primary Care Provider Kenney Randolph DO Unavailable [phone] Encounter Details Date Type Department Care Team (Late st Contact Info) Description 12/12/2020 Procedure Pass [facility], Ct Scan - [address] [address] Social History Tobacco Use Types Packs/Day Years [...] Description 03/16/2025 8:00 AM EDT Office Visit [facility] [address] [place] [address] [place] [address] Kenney Randolph DO 170 [facility], 2nd [place] [address] 05/04/2025 11:15 AM EST Office Visit [facility] 3rd [facility], [address] [place] [address] Esteban Duke MD 22 [facility], [address] [place] [address] 07/20/2025 9:40 AM EST Office Visit [facility] [address] [facility] 3rd Floor, [address] [place] [address] Luke Tan MD [address] [place] [address] documented as of this encounter Visit Diagnoses Not on filedocumented in this encounter Care Teams Porcelain Enamel Repairer Relationship Specialty Start Date End Date Kam, Pablo Pascal MD [address] [place] [address] [address] [place] [address] [email or web address] PCP - General Internal Medicine 04/23/17 11/02/21 Unknown, Unknown, PCP - General 11/03/21 01/04/22 Kenney Randolph DO [address] [place] [address] PCP - General Internal Medicine 01/05/22 Kenney Randolph DO [address] [place] [address] Insurance Assigned Provider 09/28/23 documented as of this encounter Additional Source Comments The information contained in this document represents components of the legal health record. It is not the complete legal health record.[facility]
--- OUTSIDE RECORDS SUMMARY | 2025-03-04 17:49 | XMS_ITS | Encounter Summary ---
Author Organization [facility] Address [address] [place] [address] Phone Care Team Providers Care Cementer [employer] Well Name Role Phone Kenney aRndolph DO Primary Care Provider Kenney Randolph DO Unavailable [phone] Encounter Details Date Type Department Care Team (Late st Contact Info) Description 05/12/2024 Procedure Pass [facility] [place] [address] Social History Tobacco Use Types Packs/Day Years [...] Description 03/16/2025 8:00 AM EDT Office Visit [facility] [address] [place] [address] Kenney Randolph DO [address] [place] [address], 2nd [place] [address] 05/04/2025 11:15 AM EST Office Visit [facility] [address] 3rd [facility], [address] [place] [address] Esteban Duke MD [address] [place] [address], [address] [place] [address] 07/20/2025 9:40 AM EST Office Visit [address] 3rd Floor, [address] [place] [address] Luke Tan MD [address] [place] [address] documented as of this encounter Visit Diagnoses Not on filedocumented in this encounter Additional Health Concerns Assessment Noted Time PHQ-2 Depression Total Score: 0 03/05/20 24 8:04 AM EDT documented as of this encounter Care Teams [employer] Relationship Specialty Start Date End Date Kenney Randolph DO [address] [place] [address], 2[address] [place] [address] PCP - General Internal Medicine 01/05/22 Kenney Randolph DO [address] [place] [address], 2nd [place] [address] [email or web address] Insurance Assigned Provider 09/28/23 documented as of this encounter Additional Source Comments The information contained in this document represents components of the legal health record. It is not the complete legal health record.[facility]
--- OUTSIDE RECORDS SUMMARY | 2025-03-04 17:49 | XMS_ITS | Encounter Summary ---
Author Organization [facility] Address [address] [place] [address] Phone Care Team Providers Care Bottom Crane Operator Name Role Phone Pablo Humphrey MD Primary Care Provider [phone] Unknown, Unknown Primary Care Provider MaryvaKenney Griffin DO Primary Care Provider Kenney Randolph DO Unavailable [phone] Encounter Details Date Type Department Care Team (Latest Contact Info) Description 07/17/2017 Transcribe Orders [facility] [address] [place] [address] Kam, Pablo Pascal MD [address] [facility] [address] [place] [address] [email or web address] Essential hypertension, benign (Primary Dx) Social History Tobacco Use Types [...] 8:00 AM EDT Office Visit [facility] [address] [place] [address] Kenney Randolph, DO 170 [facility], 2nd [place] [address] 05/04/2025 11:15 AM EST Office Visit [facility] [address] 3rd Floor, [address] [place] [address] Esteban Duke MD 22 [facility], [address] [place] [address] 07/20/2025 9:40 AM EST Office Visit [facility] [address] 3rd Floor, [address] [place] [address] Luke aTn MD [address] [place] [address] documented as of this encounter Results * (ABNORMAL) Basic metabolic panel (07/17/2017 7:09 AM EST) SODIUM 139 133 - 146 mmol/L [facility] CHLORIDE 98 96 - 108 mmol/L [facility] POTASSIUM 4.2 3.3 - 5.1 mmol/L [facility] CO2 29 21 - 35 mmol/L [facility] BUN 13 6 - 19 mg/dL [facility] CREATININE 0.60 0.5 - 1.5 mg/dL [facility] GLUCOSE 101(H) 70 - 99 mg/dL [facility] CALCIUM 9.7 8.4 - 10.3 mg/dL [facility] EGFR >60 >60 mL/min/1.7 3m2 [facility] Comment:Abnormal if <60. If patient is -Somali, multiply the result by 1.21. ANION GAP 16 10 - 20 mmol/L [facility] Blood 07/17/2017 7:09 AM EST 07/17/2017 7:16 AM EST Pablo Humphrey MD LAB BLOOD ORDERABLES Final Resu lt [facility] [address] [place] [address] documented in this encounter Visit Diagnoses Diagnosis Essential hypertension, benign- Primary documented in this encounter Care Teams Bottom Crane Operator Relationship Specialty Start Date End Date Kam, Pablo Pascal MD [address] [facility] [address] [place] [address] [email or web address] PCP - General Internal Medicine 04/23/17 11/02/21 Unknown, Unknown, PCP - General 11/03/21 01/04/22 Kenney Randolph DO [address] [place] [address], 2nd [place] [address] PCP - General Internal Medicine 01/05/22 Kenney Randolph DO [address] [place] [address], [address] [place] [address] Insurance Assigned Provider 09/28/23 documented as of this encounter Additional Source Comments The information contained in this document represents components of the legal health record. It is not the complete legal health record.[facility]
--- OUTSIDE RECORDS SUMMARY | 2025-03-04 17:49 | XMS_ITS | Encounter Summary ---
Author Organization [facility] Address [address] [place] [address] Phone Care Team Providers Care Sem Manager Name Role Phone Pablo Humphrey MD Primary Care Provider [phone] Unknown, Unknown Primary Care Provider MaryvaKenney Griffin DO Primary Care Provider Kenney Randolph DO Unavailable [phone] Encounter Details Date Type Department Care Team (Latest Contact Info) Description 07/14/2021 Transcribe Orders [facility] [address] [place] [address] Kam, Pablo Pascal MD 264 [facility] [address] [place] [address] juan [email or web address] Hypertension, unspecified type (Primary Dx) Social [...] 03/16/2025 8:00 AM EDT Office Visit [facility] [address] [place] [address] Kenney Randolph, DO 170 [facility], 2nd [place] [address] 05/04/2025 11:15 AM EST Office Visit [facility] [place] [facility] [address] 3rd Floor, [address] [place] [address] Esteban Duke MD 22 [facility], [address] [place] [address] 07/20/2025 9:40 AM EST Office Visit [facility] [place] [facility] [address] [facility] 3rd Floor, [address] [place] [address] Luke Tan MD [address] [place] [address] [email or web address] documented as of this encounter Results * (ABNORMAL) Basic metabolic panel (07/14/2021 7:08 AM EST) SODIUM 137 133 - 146 mmol/L [facility] CHLORIDE 98 96 - 108 mmol/L [facility] POTASSIUM 3.8 3.3 - 5.1 mmol/L [facility] CO2 27 21 - 35 mmol/L [facility] BUN 18 6 - 19 mg/dL [facility] CREATININE 0.50 0.5 - 1.5 mg/dL [facility] GLUCOSE 110(H) 70 - 99 mg/dL [facility] CALCIUM 10.6(H) 8.4 - 10.3 mg/dL [facility] EGFR 110 >59 mL/min/1.7 3m2 [facility] Comment:Estimated glomerular filtration rate calculated using the CKD-EPI refit equation. ANION GAP 16 10 - 20 mmol/L [facility] Blood 07/14/2021 7:08 AM EST 07/14/2021 7:12 AM EST Pablo Humphrey MD LAB BLOOD ORDERABLES Final Resu lt [facility] [address] [place] [address] documented in this encounter Visit Diagnoses Diagnosis Hypertension, unspecified type- Primary documented in this encounter Care Teams Sem Manager Relationship Specialty Start Date End Date Kam, Pablo Pascal MD [address] [facility] [address] [place] [address] [email or web address] PCP - General Internal Medicine 04/23/17 11/02/21 Unknown, Unknown, PCP - General 11/03/21 01/04/22 Kenney Randolph DO [address] [place] [address], [address] [place] [address] PCP - General Internal Medicine 01/05/22 Kenney Randolph DO [address] [place] [address], [address] [place] [address] Insurance Assigned Provider 09/28/23 documented as of this encounter Additional Source Comments The information contained in this document represents components of the legal health record. It is not the complete legal health record.[facility]
--- OUTSIDE RECORDS SUMMARY | 2025-03-04 17:49 | XMS_ITS | Encounter Summary ---
Author Organization [facility] Address [address] [place] [address] [place] [address] Phone Care Team Providers Care Slitting Machine Operator Name Role Phone Kenney Randolph DO Primary Care Provider Kenney Randolph DO Unavailable [phone] Encounter Details Date Type Department Care Team (Late st Contact Info) Description 03/04/2025 Telephone [facility] [address] [place] [address] 3rd Floor, [address] [place] [address] Luke Tan MD [address] [place] [address] [email or web address] Social History Tobacco Use Types Packs/Day Years [...] on file documented as of this encounter Progress Notes * Quiana Martinez, CARIDAD - 03/04/2025 2:12 PM EDT Lft msg informing pt that it is not surprising that he has not heard yet regarding scheduling the elective ablation I left him the number for the scheduling dept * Igor Valdez - 03/04/2025 1:48 PM EDT PT inquiring about the status of scheduling Ablation. PT appt w/ Dr. Tan was on 02/19/25 documented in this encounter Plan of Treatment Upcoming Encounters Date Type Department Care Team (Late st Contact Info) Description 03/16/2025 8:00 AM EDT Office Visit [facility] [address] [place] [address] [place] [address] Kenney Randolph DO [address] [place] [address], 2nd [place] [address] 05/04/2025 11:15 AM EST Office Visit [facility] [address] [place] [address] 3rd Floor, [address] [place] [address] Esteban Duke MD [address] [place] [address], [address] [place] [address] 07/20/2025 9:40 AM EST Office Visit [facility] [address] [place] [address] 3rd Floor, [address] [place] [address] Luke Tan MD [address] [place] [address] documented as of this encounter Visit Diagnoses Not on filedocumented in this encounter Additional Health Concerns Assessment Noted Time PHQ-2 Depression Total Score: 0 03/05/20 24 8:04 AM EDT documented as of this encounter Care Teams Slitting Machine Operator Relationship Specialty Start Date End Date Kenney Randolph DO [address] [place] [address] PCP - General Internal Medicine 01/05/22 Kenney Randolph DO [address] [place] [address] Insurance Assigned Provider 09/28/23 documented as of this encounter Additional Source Comments The information contained in this document represents components of the legal health record. It is not the complete legal health record.[facility]
--- OUTSIDE RECORDS SUMMARY | 2025-03-04 17:49 | XMS_ITS | Encounter Summary ---
Author Organization [facility] Address [address] [place] [address] Phone Care Team Providers Care Aluminum Molding Machine Operator Name Role Phone KamPablo MD Primary Care Provider [phone] Unknown, Unknown Primary Care Provider Kenney De León DO Primary Care Provider Kenney Randolph DO Unavailable [phone] Encounter Details Date Type Department Care Team (Latest Contact Info) Description 09/07/2021 Transcribe Orders [facility] [address] [place] [address] Lauri Bar MD 15 [facility] [address] [place] [address] Hypertension, unspecified type (Primary Dx) Social History [...] EDT Office Visit [facility] [address] [place] [address] [place] [address] Kenney Randolph, 170 [facility], 2nd [place] [address] [email or web address] 05/04/2025 11:15 AM EST Office Visit [facility] [address], [address] [place] [address] Esteban Duke MD 22 [facility], [address] [place] [address] 07/20/2025 9:40 AM EST Office Visit [facility] [address], [address] [place] [address] Luke Tan MD [address] [place] [address] documented as of this encounter Results * Renin (09/07/2021 3:43 PM EDT) RENIN ACTIVITY 5.5 ng/ml/h [facility] Comment: (NOTE) REFERENCE VALUE (Peripheral vein specimen) Na-deplete, upright: Mean: 5.9 Range: 2.9-10.8 Na-replete, upright: Mean: 1.0 Range: < or =0.6-3.0 ADDITIONAL INFORMATION Testing performed by Liquid Chromatography-Tandem Mass Spectrometry (LC-MS/MS). This test was developed and its performance characteristics determined by [facility] in a manner consistent with CLIA requirements. This test has not been cleared or approved by the U.S. Food and Drug Administration. Blood 09/07/2021 3:43 PM EDT 09/07/2021 3:52 PM EDT us Lauri Bar MD LAB BLOOD ORDERABLES Final Resul t Performing Organization Address [facility] Co de Phone Number [facility] MED/PATH [facility] [place] [address] * TSH with reflex (09/07/2021 3:43 PM EDT) Pathologist [facility] TSH 2.54 0.27 - 4.20 uIU/mL [facility] Blood 09/07/2021 3:43 PM EDT 09/07/2021 3:53 PM EDT us Lauri Bar MD LAB BLOOD ORDERABLES Final Resul t Performing Organization Address [facility] de Phone Number [address] [address] * Aldosterone (09/07/2021 3:43 PM EDT) Pathologist [facility] ALDOSTERONE 12 <=21 ng/dL [facility] Comment: (NOTE) ADDITIONAL INFORMATION Reference range for patients 11 years and older is based on upright A.M. collection from subjects without sodium restrictions. This test was developed and its performance characteristics determined by [facility] in a manner consistent with CLIA requirements. This test has not been cleared or approved by the U.S. Food and Drug Administration. Blood 09/07/2021 3:43 PM EDT 09/07/2021 3:52 PM EDT us Lauri Bar MD LAB BLOOD ORDERABLES Final Resul t Performing Organization Address [facility] Co de Phone Number [facility]PATH [facility] [place] [address] * (ABNORMAL) Renal panel (09/07/2021 3:43 PM EDT) Pathologist [facility] SODIUM 137 133 - 146 mmol/L [facility] POTASSIUM 4.3 3.3 - 5.1 mmol/L [facility] Comment:Specimen slightly he molyzed, result may be falsely elevated. CHLORIDE 98 96 - 108 mmol/L [facility] CO2 30 21 - 35 mmol/L [facility] GLUCOSE 103(H) 70 - 99 mg/dL [facility] BUN 15 6 - 19 mg/dL [facility] CREATININE 0.90 0.5 - 1.5 mg/dL [facility] CALCIUM 9.8 8.4 - 10.3 mg/dL [facility] PHOSPHORUS 3.6 2.7 - 4.5 mg/dL [facility] ALBUMIN 4.6 3.9 - 4.8 g/dL [facility] EGFR 92 >59 mL/min/1.7 3m2 [facility] Comment:Estimated glomerular filtration rate calculated using the CKD-EPI refit equation. ANION GAP 13 10 - 20 mmol/L [facility] Blood 09/07/2021 3:43 PM EDT 09/07/2021 3:53 PM EDT us Lauri Bar MD LAB BLOOD ORDERABLES Final Resul t [facility] [address] [place] [address] documented in this encounter Visit Diagnoses Diagnosis Hypertension, unspecified type- Primary documented in this encounter Care Teams Aluminum Molding Machine Operator Relationship Specialty Start Date End Date Kam, Pablo Pascal MD [address] [place] [address] & [address] [place] [id number] [email or web address] PCP - General Internal Medicine 04/23/17 11/02/21 Unknown, Keesha, PCP - General 11/03/21 01/04/22 Kenney Randolph DO [address] [place] [address], 2nd [place] [address] [email or web address] PCP - General Internal Medicine 01/05/22 Kenney Randolph DO [address] [place] [address], 2nd [place] [address] [email or web address] Insurance Assigned Provider 09/28/23 documented as of this encounter Additional Source Comments The information contained in this document represents components of the legal health record. It is not the complete legal health record.[facility]
--- OUTSIDE RECORDS SUMMARY | 2025-03-04 17:49 | XMS_ITS | Encounter Summary ---
Author Organization [facility] Address [address] [address] Phone Care Team Providers Care Plodding Machine Operator Name Role Phone Unknown, Unknown Primary Care Provider Kenney De León DO Primary Care Provider Kenney Randolph DO Unavailable [phone] Reason for Referral * MRI/CAT Scan - Closed Specialty Diagnoses / Procedures Referred By Adis [email or web address] Referred To Contact Radiology Diagnoses Essential hypertension Procedures CT Angio Abdomen CT Abdomen Only (No Pelvis) Lauri Bar MD Phone: tel: fax: [email or web address]:[email or web address] Referral ID Status Reason Start Date Expiration Date Visits Re quested Visits Authorized [id number] Closed 09/07/2021 09/07/2022 1 1 Encounter Details Date Type Department Care Team (Latest Contact Info) Description 11/08/2021 Ancillary Orders Virtual Department 30 [place] [address] Lauri Bar MD 15 [facility] [address] [place] [address] [email or web address] Essential hypertension Social History Tobacco Use Types Packs/Day Years [...] 03/16/2025 8:00 AM EDT Office Visit [facility] [address] [place] [address] Kenney Randolph DO 170 [facility], 2nd [place] [address] 05/04/2025 11:15 AM EST Office Visit [facility] [address], [address] [place] [address] Esteban Duke MD [address] [place] [address], [address] [place] [address] 07/20/2025 9:40 AM EST Office Visit [address], [address] [place] [address] Luke Tan MD [address] [place] [address] documented as of this encounter Results * CT ANGIO ABDOMEN WITH AND WITHOUT CONTRAST (11/08/2021 8:49 AM EDT) Anatomical Region Laterality Modality Abdomen, Abdominal Vasculature C omputed Tomography 11/08/2021 1:32 PM EDT Impressions 11/08/2021 2:03 PM EDT *Mild stenosis of the proximal right main renal artery. No evidence of hemodynamically significant renal artery stenosis. *2 cm ring-enhancing mass within the medial aspect of the spleen, possibly new. Metastasis, primary malignancy or lymphoma are within the differential diagnosis. Further evaluation by MRI could be considered. *Multiple hepatic and renal cysts. *Nodular opacities within the lungs appear improved from 01/12/2021. Narrative 11/08/2021 2:[address] ANGIO ABDOMEN WITH AND WITHOUT CONTRAST CTA ABDOMEN AND PELVIS WITH AND WITHOUT CONTRAST. TECHNIQUE: Helically acquired axial images from the dome of the diaphragm to the femoral area were obtained without oral or IV contrast, followed by helically acquired axial images from the diaphragm to the femoral area during the dynamic IV injection of contrast. 2 min delayed images were obtained from the same area. 3D IMAGES WITH REFORMATTING AND POST-PROCESSING RECONSTRUCTIONS WERE PERFORMED AND INTERPRETED. COMPARISON: CT chest 01/12/2021, right upper quadrant ultrasound 03/26/[address] abdomen 10/10/2007. INDICATIONS: Aortic aneurysm, abdominal Aortic aneurysm, abdominal Aortic aneurysm, abdominal VASCULAR FINDINGS: Heart size normal. No pericardial effusion. Mild-moderate coronary artery calcifications, most extensive in the LAD. The abdominal aorta is normal in course and caliber. No evidence of dissection. Mild calcified plaque within the abdominal aorta diffusely. Minimal plaque within the iliac arteries. The celiac artery and SMA are widely patent. The JOAN is patent. There are single bilateral renal arteries. Mild stenosis of the proximal right main renal artery by calcified plaque. Left main renal artery is widely patent. VENOUS: The veins are poorly opacified the phase of enhancement. Probable mixing of opacified and unopacified blood within the main portal vein. IVC normal in caliber. NON VASCULAR FINDINGS: LOWER THORAX: Nodular opacities within the lungs appear improved from 01/12/2021. HEPATOBILIARY: Numerous hepatic cysts, the largest in the right lobe measuring approximately 4 cm. The appearance is similar to prior CTs. small calcification within the dome of the liver, likely a granuloma. Liver margins are smooth. Liver normal in size. No biliary ductal dilatation. Tiny peripheral densities within the gallbladder SPLEEN: There is a 2.1 cm ring-enhancing mass within the medial aspect of the spleen. The mass is almost imperceptible on the non-enhanced portion of the exam. It is not clearly demonstrated on prior CTs. No splenomegaly. PANCREAS: No pancreatic masses. Peripancreatic fat well-preserved. ADRENALS: No adrenal masses. KIDNEYS/URETERS: Multiple cysts within the left kidney, by far the largest is an exophytic cyst in the lower pole measuring approximately 10 cm in maximal diameter (and similar in appearance to 10/10/2007). Small exophytic cyst within the anterior aspect of the interpolar region of the right kidney. No pelvocaliectasis. Ureters normal in caliber. PERITONEUM / RETROPERITONEUM: No free air or fluid. LYMPH NODES: No suspicious lymph nodes. GI TRACT: No marked bowel distention or evidence of bowel wall thickening. Numerous diverticula within the colon. BONES AND SOFT TISSUES: Periosteal reaction associated with the posterior lateral aspect of the left 10th rib fracture. No suspicious lytic or blastic lesions within the bones. Procedure Note Donato Sierra MD - 11/08/2021 CT ANGIO ABDOMEN WITH AND WITHOUT CONTRAST CTA ABDOMEN AND PELVIS WITH AND WITHOUT CONTRAST. TECHNIQUE: Helically acquired axial images from the dome of the diaphragmto the femoral area were obtained without oral or IV contrast, followed byhelically acquired axial images from the diaphragm to the femoral areaduring the dynamic IV injection of contrast. 2 min delayed images wereobtained from the same area. 3D IMAGES WITH REFORMATTING AND POST-PROCESSING RECONSTRUCTIONS WEREPERFORMED AND INTERPRETED. COMPARISON: CT chest 01/12/2021, right upper quadrant ultrasound 03/26/2017and CT abdomen 10/10/2007. INDICATIONS: Aortic aneurysm, abdominal Aortic aneurysm, abdominal Aortic aneurysm, abdominal VASCULAR FINDINGS: Heart size normal. No pericardial effusion. Mild-moderate coronary arterycalcifications, most extensive in the LAD. The abdominal aorta is normal in course and caliber. No evidence ofdissection. Mild calcified plaque within the abdominal aorta diffusely.Minimal plaque within the iliac arteries. The celiac artery and SMA are widely patent. The JOAN is patent. There are single bilateral renal arteries. Mild stenosis of the proximalright main renal artery by calcified plaque. Left main renal artery iswidely patent. VENOUS: The veins are poorly opacified the phase of enhancement. Probable mixingof opacified and unopacified blood within the main portal vein. IVC normalin caliber. NON VASCULAR FINDINGS: LOWER THORAX: Nodular opacities within the lungs appear improved from01/12/2021. HEPATOBILIARY: Numerous hepatic cysts, the largest in the right lobemeasuring approximately 4 cm. The appearance is similar to prior CTs.small calcification within the dome of the liver, likely a granuloma.Liver margins are smooth. Liver normal in size. No biliary ductaldilatation. Tiny peripheral densities within the gallbladder SPLEEN: There is a 2.1 cm ring-enhancing mass within the medial aspect ofthe spleen. The mass is almost imperceptible on the non-enhanced portionof the exam. It is not clearly demonstrated on prior CTs. Nosplenomegaly. PANCREAS: No pancreatic masses. Peripancreatic fat well-preserved. ADRENALS: No adrenal masses. KIDNEYS/URETERS: Multiple cysts within the left kidney, by far the largestis an exophytic cyst in the lower pole measuring approximately 10 cm inmaximal diameter (and similar in appearance to 10/10/2007). Small exophyticcyst within the anterior aspect of the interpolar region of the rightkidney. No pelvocaliectasis. Ureters normal in caliber. PERITONEUM / RETROPERITONEUM: No free air or fluid. LYMPH NODES: No suspicious lymph nodes. GI TRACT: No marked bowel distention or evidence of bowel wall thickening.Numerous diverticula within the colon. BONES AND SOFT TISSUES: Periosteal reaction associated with the posteriorlateral aspect of the left 10th rib fracture. No suspicious lytic orblastic lesions within the bones. IMPRESSION: *Mild stenosis of the proximal right main renal artery. No evidence ofhemodynamically significant renal artery stenosis. *2 cm ring-enhancing mass within the medial aspect of the spleen, possiblynew. Metastasis, primary malignancy or lymphoma are within thedifferential diagnosis. Further evaluation by MRI could be considered. *Multiple hepatic and renal cysts. *Nodular opacities within the lungs appear improved from 01/12/2021. Lauri Bar MD IMG CT ABD/PELVIS Final Result documented in this encounter Visit Diagnoses Diagnosis Essential hypertension Unspecified essential hypertension Essential hypertension Unspecified essential hypertension documented in this encounter Additional Health Concerns Assessment Noted Time PHQ-2 Depression Total Score: 0 11/03/19 22 9:12 AM EDT documented as of this encounter Care Teams Plodding Machine Operator Relationship Specialty Start Date End Date Unknown, Unknown, PCP - General 11/03/21 01/04/22 Kenney Randolph DO [address] [place] [address], 2nd [place] [address] PCP - General Internal Medicine 01/05/22 Kenney Randolph DO [address] [place] [address], 2nd [place] [address] Insurance Assigned Provider 09/28/23 documented as of this encounter Additional Source Comments The information contained in this document represents components of the legal health record. It is not the complete legal health record.[facility]
--- OUTSIDE RECORDS SUMMARY | 2025-03-04 17:49 | XMS_ITS | Encounter Summary ---
Author Organization [facility] Address [address] [place] [address] Phone Care Team Providers Care Co Founder Name Role Phone KamPablo MD Primary Care Provider [phone] Unknown, Unknown Primary Care Provider Unavai Kenney Minor DO Primary Care Provider Kenney Randolph DO Unavailable [phone] Encounter Details Date Type Department Care Team (Late st Contact Info) Description 02/04/2018 Procedure Pass [facility] Endoscopy Admitting Dept Virtual Department [address] [place] [address] Social History Tobacco Use Types Packs/Day Years [...] EDT Office Visit [facility] [address] [place] [address] [place] [address] Kenney Randolph DO [address] [facility], 2nd [place] [address] 05/04/2025 11:15 AM EST Office Visit [facility] [address] [facility], [address] [place] [address] Esteban Duke MD 22 [facility], [address] [place] [address] 07/20/2025 9:40 AM EST Office Visit [facility] 22 [facility] [address] [facility], [address] [place] [address] Luke Tan MD [address] [place] [address] documented as of this encounter Visit Diagnoses Not on filedocumented in this encounter Care Teams Co Founder Relationship Specialty Start Date End Date Kam, Pablo Pascal MD [address] [place] [address] [address] [place] [address] [email or web address] PCP - General Internal Medicine 04/23/17 11/02/21 Unknown, Unknown, PCP - General 11/03/21 01/04/22 Kenney Randolph DO [address] [place] [address] PCP - General Internal Medicine 01/05/22 Kenney Randolph DO [address] [place] [phone] Insurance Assigned Provider 09/28/23 documented as of this encounter Additional Source Comments The information contained in this document represents components of the legal health record. It is not the complete legal health record.[facility]
--- OUTSIDE RECORDS SUMMARY | 2025-03-04 17:49 | XMS_ITS | Encounter Summary ---
Author Organization [facility] Address [address] [place] [address] Phone Care Team Providers Care Color Corrector Name Role Phone Pablo Humphrey MD Primary Care Provider [phone] Unknown, Unknown Primary Care Provider Maryvai Kenney Minor DO Primary Care Provider Kenney Randolph DO Unavailable [phone] Encounter Details Date Type Department Care Team (Latest Contact Info) Description 05/25/2020 Transcribe Orders [facility] [address] [place] [address] [place] [address] Kam, Pablo Pascal MD [address] [facility] [address] [place] [address] [email or web address] Routine general medical examination at a health care facility (Primary Dx); Fatigue, unspecified type; Hypertension, unspecified type Social History Tobacco Use Types [...] AM EDT Office Visit [facility] [address] [place] [address] Kenney Randolph DO 170 [facility], 2nd [place] [address] 05/04/2025 11:15 AM EST Office Visit [facility] [address] Floor, [address] [place] [address] Esteban Duke MD 22 [facility], [address] [place] [address] 07/20/2025 9:40 AM EST Office Visit [facility] [address], [address] [place] [address] Luke Tan MD [address] [place] [phone] [email or web address] documented as of this encounter Results * PSA (screening) (05/25/2020 7:05 AM EST) [facility] PSA 0.43 0 - 4.00 ng/mL [facility] Blood 05/25/2020 7:05 AM EST 05/25/2020 7:10 AM EST Pablo Humphrey MD LAB BLOOD ORDERABLES Final Resu lt [facility] [address] [place] [address] * (ABNORMAL) CBC and differential (05/25/2020 7:05 AM EST) Pathologist [facility] WBC 7.91 4.00 - 11.00 K/uL [facility] Comment:Note Reference Range updates to all CBC and Differential results. RBC 4.49 3.90 - 5.69 M/uL [facility] HGB 14.4 12.4 - 17.3 g/dL [facility] Comment:Note updated Referen ce Ranges for all CBC and Differential results. HCT 42.0 37.0 - 51.0 % [facility] PLT 165 140 - 430 K/uL [facility] MCV 93.5 78.0 - 97.0 fL [facility] MCH 32.1 25.0 - 33.0 pg [facility] MCHC 34.3 32.0 - 36.0 g/dL [facility] RDW 11.9 11.0 - 15.0 % [facility] MPV 10.6 8.4 - 12.8 fl [facility] NRBC 0.00 0 /100 WBCs [facility] ABSOLUTE NRBC 0.00 0 K/uL [facility] DIFF METHOD Auto [facility] NEUTS 78.8(H) 43.0 - 75.0 % [facility] LYMPHS 14.3(L) 18.2 - 47.4 % [facility] MONOS 4.6 4.00 - 11.00 % [facility] EOS 1.6 0.0 - 8.0 % [facility] BASOS 0.3 0.0 - 2.0 % [facility] Granulocytes, immature (%) 0.4 0.0 - 0.9 % [facility] ABSOLUTE NEUTS 6.24 1.80 - 7.70 K/uL [facility] ABSOLUTE LYMPHS 1.13 1.00 - 3.10 K/uL [facility] ABSOLUTE MONOS 0.36 0.20 - 0.80 K/uL [facility] ABSOLUTE EOS 0.13 0.00 - 0.80 K/uL [facility] ABSOLUTE BASOS 0.02 0.00 - 0.09 K/uL [facility] Granulocytes, immature 0.03 0.00 - 0.05 K/uL [facility] Blood 05/25/2020 7:05 AM EST 05/25/2020 7:09 AM EST us Pablo Humphrey MD LAB BLOOD ORDERABLES Final Resu lt [facility] [address] [place] [address] * TSH with reflex (05/25/2020 7:05 AM EST) TSH 1.13 0.27 - 4.20 uIU/mL [facility] Blood 05/25/2020 7:05 AM EST 05/25/2020 7:09 AM EST us Pablo Humphrey MD LAB BLOOD ORDERABLES Final Resu lt Performing Organization Address City/[facility]/ZIP Co de Phone Number [address] [address] * (ABNORMAL) Lipid panel (05/25/2020 7:05 AM EST) [facility] HDL 71 mg/dL [facility] Comment: Interpretation <40 mg/dL: Low HDL cholesterol (major risk factor for CHD) Greater than or equal to 60 mg/dL: High HDL cholesterol ( negative risk factor for CHD) HDL - cholesterol is affected by a number of factors, e.g. smoking, excerise, hormones, sex and age. CHOLESTEROL 235 0 - 240 mg/dL [facility] TRIGLYCERIDES 120 30 - 160 mg/dL [facility] LDL 140(H) 50 - 129 mg/dL [facility] Comment: LDL levels in terms of risk for coronary heart disease: <100 mg/dL: Optimal 100-129 mg/dL: Near or above optimal 130-159 mg/dL: Borderline high 160-189 mg/dL: High >190 mg/dL: Very High CARDIAC RISK RATIO 3.3(L) 3.4 - 5.0 C [facility] Blood 05/25/2020 7:05 AM EST 05/25/2020 7:09 AM EST us Pablo Humphrey MD LAB BLOOD ORDERABLES Final Resu lt Performing Organization Address City/[facility]/ZIP Co de Phone Number [address] [address] * (ABNORMAL) Comprehensive metabolic panel (05/25/2020 7:05 AM EST) SODIUM 138 133 - 146 mmol/L [facility] POTASSIUM 4.1 3.3 - 5.1 mmol/L [facility] CHLORIDE 101 96 - 108 mmol/L [facility] CO2 25 21 - 35 mmol/L [facility] BUN 19 6 - 19 mg/dL [facility] CREATININE 0.60 0.5 - 1.5 mg/dL [facility] GLUCOSE 117(H) 70 - 99 mg/dL [facility] ALBUMIN 4.7 3.9 - 4.8 g/dL [facility] TOTAL PROTEIN 7.4 6.5 - 8.0 g/dL [facility] CALCIUM 10.2 8.4 - 10.3 mg/dL [facility] ALKALINE PHOSPHATASE 44 39 - 117 U/L [facility] TOTAL BILIRUBIN 0.9 0.0 - 1.2 mg/dL [facility] AST 36 0 - 37 U/L [facility] ALT 41(H) 0 - 40 U/L [facility] GLOBULIN 2.7 1 - 4.8 g/dL [facility] EGFR 103 >59 mL/min/1.7 3m2 [facility] Comment:Estimated glomerular filtration rate calculated using the CKD-EPI equation. ANION GAP 16 10 - 20 mmol/L [facility] Blood 05/25/2020 7:05 AM EST 05/25/2020 7:09 AM EST Pablo Humphrey MD LAB BLOOD ORDERABLES Final Resu lt Performing Organization Address City/State/[facility] Co de Phone Number [facility] [address] [place] [address] documented in this encounter Visit Diagnoses Diagnosis Routine general medical examination at a health care facility- Primary Fatigue, unspecified type Hypertension, unspecified type documented in this encounter Care Teams Color Corrector Relationship Specialty Start Date End Date Pablo Humphrey MD [address] [place] [address] [address] [place] [address] [email or web address] PCP - General Internal Medicine 04/23/17 11/02/21 Unknown, Unknown, PCP - General 11/03/21 01/04/22 Kenney Randolph DO [address] [place] [address], 2nd [place] [address] PCP - General Internal Medicine 01/05/22 Kenney Randolph DO [address] [place] [address], 2nd [place] [address] Insurance Assigned Provider 09/28/23 documented as of this encounter Additional Source Comments The information contained in this document represents components of the legal health record. It is not the complete legal health record.[facility]
--- OUTSIDE RECORDS SUMMARY | 2025-03-04 17:49 | XMS_ITS | Encounter Summary ---
Author Organization [facility] Address [address] [place] [address] Phone Care Team Providers Care Wash Worker Name Role Phone KamPablo MD Primary Care Provider [phone] Unknown, Unknown Primary Care Provider Kenney De León DO Primary Care Provider Kenney Randolph DO Unavailable [phone] Encounter Details Date Type Department Care Team (Late st Contact Info) Description 11/28/2020 Transcribe Orders [facility] [address] [place] [address] Suly George MD [address] [place] [phone] [email or web address] Social History Tobacco Use Types Packs/Day Years [...] EDT Office Visit [facility] [address] [place] [address] [place] [address] Kenney Randolph DO [address] [address] 05/04/2025 11:15 AM EST Office Visit [facility] [address] [place] [address], [address] [place] [address] Esteban Duke MD 22 [facility], [address] [address] 07/20/2025 9:40 AM EST Office Visit [facility] [address] [place] [address], [address] [place] [address] Luke Tan MD [address] [place] [address] documented as of this encounter Visit Diagnoses Not on filedocumented in this encounter Care Teams Wash Worker Relationship Specialty Start Date End Date Kam, Pablo Pascal MD [address] [place] [address] [address] [place] [address] [email or web address] PCP - General Internal Medicine 04/23/17 11/02/21 Unknown, Keesha, PCP - General 11/03/21 01/04/22 Kenney Randolph DO [address] [place] [address] PCP - General Internal Medicine 01/05/22 Kenney Randolph DO [address] [place] [address] Insurance Assigned Provider 09/28/23 documented as of this encounter Additional Source Comments The information contained in this document represents components of the legal health record. It is not the complete legal health record.[facility]
--- OUTSIDE RECORDS SUMMARY | 2025-03-04 17:49 | XMS_ITS | Encounter Summary ---
Author Organization [facility] Address [address] [place] [address] Phone Care Team Providers Care Auto Glass Technician Name Role Phone KamPablo MD Primary Care Provider [phone] Unknown, Unknown Primary Care Provider Kenney De León DO Primary Care Provider Kenney Randolph DO Unavailable [phone] Encounter Details Date Type Department Care Team (Latest Contact Info) Description 12/03/2017 Transcribe Orders [facility] [address] [place] [address] Donato Freeman MD [address] [place] [phone] [email or web address] Nonalcoholic steatohepatitis (LUCIANO) (Primary Dx) Social History Tobacco Use Types [...] AM EDT Office Visit [facility] [place] [facility] [address] [place] [address] Kenney Randolph, 170 [facility], 2nd [place] [address] 05/04/2025 11:15 AM EST Office Visit [facility] [address] Floor, [address] [place] [address] Esteban Duke MD 22 [facility], [address] [place] [address] 07/20/2025 9:40 AM EST Office Visit [facility] 22 [facility] 3rd Floor, [address] [place] [address] Luke Tan MD [address] [place] [address] documented as of this encounter Results * Liver fibrosis test (12/03/2017 12:25 PM EDT) Cow Milk Conv Class 0.37 [facility] MED [facility] PAT+ Neuron Specific Enolase (NOTE) [facility] Comment:RESULT: F1-F2 Interleukin 2 minimal fibrosis [facility] Comment: (NOTE) FibroTest estimates liver fibrosis FibroTest Score Stage Interpretation 0.00-0.21 F0 no fibrosis 0.21-0.27 F0-F1 no fibrosis 0.27-0.31 F1 minimal fibrosis 0.31-0.48 F1-F2 minimal fibrosis 0.48-0.58 F2 moderate fibrosis 0.58-0.72 F3 advanced fibrosis 0.72-0.74 F3-F4 advanced fibrosis 0.74-1.00 F4 severe fibrosis (Cirrhosis) ActiTest Score 0.29 [facility] PAT+ ANCA BENI at 1:20 dilution (NOTE) [facility] Comment:RESULT: A0-A1 ActiTest Interpretation no activity [facility]+ Comment: (NOTE) ActiTest estimates necroinflammatory activity ActiTest Score Grade Interpretation 0.00-0.17 A0 no activity 0.17-0.29 A0-A1 no activity 0.29-0.36 A1 minimal activity 0.36-0.52 A1-A2 minimal activity 0.52-0.60 A2 significant activity 0.60-0.62 A2-A3 significant activity 0.62-1.00 A3 severe activity FibroTest-ActiTest Comment SEE NOTE [facility] PAT+ Comment: (NOTE) The reliability of results is dependent on compliance with the preanalytical and analytical conditions recommended by [employer]. The tests have to be deferred for: [...] its performance characteristics determined by [facility] in a manner consistent with CLIA requirements. This test has not been cleared or approved by the U.S. Food and Drug Administration. [employer] Serial Number [id number] [facility] MED [facility] PAT+ Apolipoprotein A1, S 154 >=120 mg/dL [facility] PAT+ [id number], S 195 100 - 280 mg/dL [facility] PAT+ Haptoglobin, S 86 30 - 200 mg/dL [facility] PAT+ Alanine Aminotransferase (ALT), S 47 7 - 55 U/L [facility] PAT+ Gamma Glutamyltransferase (GGT), S 16 8 - 61 U/L [facility] PAT+ Bilirubin, Total, S 0.9 <=1.2 mg/dL [facility]+ Blood 12/03/2017 12:2 5 PM EDT 12/03/2017 12:30 PM EDT us Donato Freeman MD LAB BLOOD ORDERABLES Final R esult [facility]+ [address] [place] [address] * LFTs (hepatic panel) (12/03/2017 12:25 PM EDT) ALKALINE PHOSPHATASE 43 39 - 117 U/L [facility] TOTAL BILIRUBIN 0.9 0.0 - 1.2 mg/dL [facility] DIRECT BILIRUBIN <0.2 0 - 0.3 mg/dL [facility] Bilirubin (Indirect) NOT CALCULATED 0 - 1.5 mg/dL [facility] AST 31 0 - 37 U/L [facility] ALT 40 0 - 40 U/L [facility] TOTAL PROTEIN 7.5 6.5 - 8.0 g/dL [facility] ALBUMIN 4.5 3.9 - 4.8 g/dL [facility] GLOBULIN 3.0 1 - 4.8 g/dL [facility] A/G Ratio 1.50 1.00 - 4.80 RATIO [facility] Blood 12/03/2017 12:2 5 PM EDT 12/03/2017 12:30 PM EDT us Donato Freeman MD LAB BLOOD ORDERABLES Final R esult [facility] [address] [place] [address] * (ABNORMAL) CBC and differential (12/03/2017 12:25 PM EDT) WBC 5.98 3.40 - 11.20 K/uL [facility] RBC 4.48(L) 4.50 - 5.50 M/uL [facility] HGB 14.5 13.0 - 17.0 g/dL [facility] HCT 42.0 40.0 - 51.0 % [facility] PLT 195 130 - 400 K/uL [facility] MCV 93.8 79.0 - 98.0 fL [facility] MCH 32.4 27.0 - 34.8 pg [facility] MCHC 34.5 31.5 - 36.0 g/dL [facility] RDW 12.3 10.8 - 14.6 % [facility] MPV 10.3 9.4 - 12.4 fl [facility] NRBC 0.00 /100 WBCs [facility] ABSOLUTE NRBC 0.00 K/uL [facility] DIFF METHOD Auto [facility] NEUTS 58.2 45.30 - 77.70 % [facility] LYMPHS 27.9 12.30 - 39.70 % [facility] MONOS 9.9 4.10 - 12.80 % [facility] EOS 3.2 0 - 7.2 % [facility] BASOS 0.5 0 - 2.80 % [facility] Granulocytes, immature (%) 0.3 0.0 - 0.9 % [facility] ABSOLUTE NEUTS 3.48 1.40 - 7.70 K/uL [facility] ABSOLUTE LYMPHS 1.67 0.60 - 3.20 K/uL [facility] ABSOLUTE MONOS 0.59 0.11 - 0.59 K/uL [facility] ABSOLUTE EOS 0.19 0.01 - 0.50 K/uL [facility] ABSOLUTE BASOS 0.03 0.00 - 0.08 K/uL [facility] Granulocytes, immature 0.02 0.00 - 0.05 K/uL [facility] Blood 12/03/2017 12:2 5 PM EDT 12/03/2017 12:30 PM EDT us Donato Freeman MD LAB BLOOD ORDERABLES Final R esult [facility] [address] [place] [address] documented in this encounter Visit Diagnoses Diagnosis Nonalcoholic steatohepatitis (LUCIANO)- Primary documented in this encounter Care Teams Auto Glass Technician Relationship Specialty Start Date End Date Kam, Pablo Pascal MD [address] [place] [address] [address] [place] [address] [email or web address] PCP - General Internal Medicine 04/23/17 11/02/21 Unknown, Keesha, PCP - General 11/03/21 01/04/22 Kenney Randolph DO [address] [place] [address], [address] [place] [address] [email or web address] PCP - General Internal Medicine 01/05/22 Kenney Randolph DO 170 [facility], [address] [place] [address] [email or web address] Insurance Assigned Provider 09/28/23 documented as of this encounter Additional Source Comments The information contained in this document represents components of the legal health record. It is not the complete legal health record.[facility]
--- OUTSIDE RECORDS SUMMARY | 2025-03-04 17:49 | XMS_ITS | Encounter Summary ---
Author Organization [facility] Address [address] [place] [address] Phone Care Team Providers Care Skin Installer Name Role Phone KamPablo MD Primary Care Provider [phone] Unknown, Unknown Primary Care Provider Kenney De León DO Primary Care Provider Kenney Randolph DO Unavailable [phone] Encounter Details Date Type Department Care Team (Latest Contact Info) Description 09/07/2021 Transcribe Orders Virtual Department [address] [place] [address] Lauri Bar MD [address] [address] [email or web address] Essential hypertension (Primary Dx) Social History Tobacco Use Types [...] [facility] [address] [place] [address] [place] [address] Kenney Randolph DO 170 [facility], [address] [place] [address] 05/04/2025 11:15 AM EST Office Visit [facility] [address] [facility] [address] [facility], [address] [place] [address] Esteban Duke MD 22 [facility], [address] [place] [address] 07/20/2025 9:40 AM EST Office Visit [facility] [address] [place] [address], [address] [place] [address] Luke Tan MD [address] [place] [address] documented as of this encounter Visit Diagnoses Diagnosis Essential hypertension- Primary Unspecified essential hypertension documented in this encounter Care Teams Skin Installer Relationship Specialty Start Date End Date Kam, Pablo Pascal MD [address] [place] [address] [address] [place] [address] [email or web address] PCP - General Internal Medicine 04/23/17 11/02/21 Unknown, Keesha, PCP - General 11/03/21 01/04/22 Kenney Randolph DO [address] [place] [address] PCP - General Internal Medicine 01/05/22 Kenney Randolph DO [address] [place] [phone] Insurance Assigned Provider 09/28/23 documented as of this encounter Additional Source Comments The information contained in this document represents components of the legal health record. It is not the complete legal health record.[facility]
== END 2025-03-04 14:43 | disposition home or self-care (01) ==
LOC: HO.PMC 13:57
PROVIDERS: PCP Pediatrics; Visit Provider Anesthesiology
DX: M19.012 Primary osteoarthritis, left shoulder (principal); M25.552 Pain in left hip; M16.12 Unilateral primary osteoarthritis, left hip; M25.512 Pain in left shoulder
CPT/HCPCS: 99213

== ENCOUNTER → 2025-03-04 13:56 | Outpatient (BNVA) | payer MEDICARE, SELFPAY | PROVIDERS: PCP Pediatrics; Visit Provider Anesthesiology | DX: M19.012 Primary osteoarthritis, left shoulder (principal); M25.552 Pain in left hip; M16.12 Unilateral primary osteoarthritis, left hip; M25.512 Pain in left shoulder | CPT/HCPCS: 99212 ==

== ENCOUNTER 2025-04-13 06:21 | Outpatient (REF) | payer MEDICARE, SELFPAY ==
--- NOTE | ~2025-04-13 | FL_ITS ---
EXAMINATION: FL GUIDANCE ONLY HISTORY: M25.512 - Pain in left shoulder COMPARISON: Correlation is made to plain films of the left shoulder dated 09/06/2023. TECHNIQUE: Fluoroscopy time: 0.2 minutes. Cumulative Dose: 1.7 mGy. DAP: 49.69 uGym2 Images: 2. FINDINGS: Fluoroscopic spot views of the left shoulder demonstrate a needle in place and contrast material in the joint space. FL/FL guidance in treatment room IMPRESSION: Fluoroscopy during procedure. Please see procedure report for additional information. Electronically signed by: Mayco Houser MD 04/14/2025 03:01 PM EDT
--- OUTSIDE RECORDS SUMMARY | 2025-04-13 06:23 | XMS_ITS | Encounter Summary ---
Author Organization [facility] Address [address] [place] [address] Phone Care Team Providers Care Director [facility]clerosis [facility] Name Role Phone KamPablo MD Primary Care Provider [phone] Unknown, Unknown Primary Care Provider Kenney De León DO Primary Care Provider Kenney Randolph DO Unavailable [phone] Encounter Details Date Type Department Care Team (Latest Contact Info) Description 06/05/2017 Transcribe Orders [facility] [address] 2nd Floor [place], [place] [id number] Donato Freeman MD 10 [facility] 2 [place] [address] Anemia, unspecified type (Primary Dx) Social History [...] Care Team (Late st Contact Info) Description 05/04/2025 11:15 AM EST Office Visit [facility] [address] [place] [address] 3rd Floor, [address] [place] [address] Esteban Duke MD [facility], [address] [place] [address] 07/20/2025 9:40 AM EST Office Visit [facility] [address] [place] [address] Dr 3rd Floor, [address] [place] [address] Luke Tan MD [address] [place] [address] 09/13/2025 8:30 AM EDT Office Visit [address] [place] [address] Kenney Randolph DO 170 [facility], 2nd [place] [address] documented as of this encounter Procedures Procedure [...] ALKALINE PHOSPHATASE 43 39 - 117 U/L [facility] TOTAL BILIRUBIN 0.5 0 - 1.2 mg/dL [facility] DIRECT BILIRUBIN <0.2 0 - 0.3 mg/dL [facility] Bilirubin (Indirect) NOT CALCULATED 0 - 1.5 mg/dL [facility] AST 38(H) 0 - 37 U/L [facility] ALT 58(H) 0 - 40 U/L [facility] TOTAL PROTEIN 7.4 6.5 - 8.0 g/dL [facility] ALBUMIN 4.4 3.9 - 4.8 g/dL [facility] GLOBULIN 3.0 1 - 4.8 g/dL [facility] A/G Ratio 1.47 1.00 - 4.80 RATIO [facility] Blood 06/05/2017 2:26 PM EST 06/05/2017 2:28 PM EST us Donato Freeman MD LAB BLOOD ORDERABLES Final R esult Performing Organization Address [facility]/ZIP Co de Phone Number [address] [address] * Iron and iron binding capacity (06/05/2017 2:26 PM EST) IRON 62 45 - 160 ug/dL [facility] IRON BINDING CAPACITY 264 228 - 428 ug/dL [facility] TRANSFERRIN SATURAT. 23 20 - 55 % [facility] Blood 06/05/2017 2:26 PM EST 06/05/2017 2:28 PM EST Donato Freeman MD LAB BLOOD ORDERABLES Final R esult Performing Organization Address City/[facility]/ZIP Co de Phone Number [address] [address] * (ABNORMAL) Ferritin (06/05/2017 2:26 PM EST) FERRITIN 575(H) 30 - 400 ug/L [facility] Blood 06/05/2017 2:26 PM EST 06/05/2017 2:28 PM EST Donato Freeman MD LAB BLOOD ORDERABLES Final R esult Performing Organization Address City/[facility]/ZIP Co de Phone Number [address] [address] * (ABNORMAL) CBC and differential (06/05/2017 2:26 PM EST) WBC 6.98 3.40 - 11.20 K/uL [facility] RBC 4.41(L) 4.50 - 5.50 M/uL [facility] HGB 13.9 13.0 - 17.0 g/dL [facility] HCT 41.7 40.0 - 51.0 % [facility] PLT 185 130 - 400 K/uL [facility] MCV 94.6 79.0 - 98.0 fL [facility] MCH 31.5 27.0 - 34.8 pg [facility] MCHC 33.3 31.5 - 36.0 g/dL [facility] RDW 11.9 10.8 - 14.6 % [facility] MPV 10.5 9.4 - 12.4 fl [facility] NRBC 0.00 /100 WBCs [facility] ABSOLUTE NRBC 0.00 K/uL [facility] DIFF METHOD Auto [facility] NEUTS 68.1 45.30 - 77.70 % [facility] LYMPHS 17.5 12.30 - 39.70 % [facility] MONOS 10.3 4.10 - 12.80 % [facility] EOS 3.4 0 - 7.2 % [facility] BASOS 0.3 0 - 2.80 % [facility] Granulocytes, immature (%) 0.4 0.0 - 0.9 % [facility] ABSOLUTE NEUTS 4.75 1.40 - 7.70 K/uL [facility] ABSOLUTE LYMPHS 1.22 0.60 - 3.20 K/uL [facility] ABSOLUTE MONOS 0.72(H) 0.11 - 0.59 K/uL [facility] ABSOLUTE EOS 0.24 0.01 - 0.50 K/uL [facility] ABSOLUTE BASOS 0.02 0.00 - 0.08 K/uL [facility] Granulocytes, immature 0.03 0.00 - 0.05 K/uL [facility] Blood 06/05/2017 2:26 PM EST 06/05/2017 2:28 PM EST us Donato Freeman MD LAB BLOOD ORDERABLES Final R esult [facility] [address] [place] [address] documented in this encounter Visit Diagnoses Diagnosis Anemia, unspecified type- Primary documented in this encounter Care Teams Director Multiple Sclerosis Center Relationship Specialty Start Date End Date Pablo Humphrey MD 264 [facility] [address] [place] [address] [email or web address] PCP - General Internal Medicine 04/23/17 11/02/21 Unknown, Unknown, PCP - General 11/03/21 01/04/22 Kenney Randolph DO [address] [place] [address] [email or web address] PCP - General Internal Medicine 01/05/22 Kenney Randolph DO [address] [place] [address], [address] [place] [phone] Insurance Assigned Provider 09/28/23 documented as of this encounter Additional Source Comments The information contained in this document represents components of the legal health record. It is not the complete legal health record.[facility]
--- OUTSIDE RECORDS SUMMARY | 2025-04-13 06:23 | XMS_ITS | Encounter Summary ---
Author Organization [facility] Address [address] [place] [address] [place] [address] Phone Care Team Providers Care Staple Side Laster Name Role Phone KamPablo MD Primary Care Provider Unknown, Unknown Primary Care Provider Maryvai Kenney Minor DO Primary Care Provider Kenney Randolph DO Unavailable [phone] Encounter Details Date Type Department Care Team (Late st Contact Info) Description 05/20/2017 Ancillary Orders [facility], X-Ray - [address] [place] [address] Kam, Pablo Pascal MD 264 [facility] [address] [place], [place] [phone] [email or web address] Cough Social History Tobacco Use Types [...] Description 05/04/2025 11:15 AM EST Office Visit [facility] [address] [place] [address] 3rd Floor, [address] [place], [place] [phone] Esteban Duek MD [facility], [address] [place] [address] [email or web address] 07/20/2025 9:40 AM EST Office Visit [facility] [address] Floor, [address] [place] [address] Luke Tan MD [address] [place] [address] [email or web address] 09/13/2025 8:30 AM EDT Office Visit [facility] [address] [place] [address] Kenney Randolph DO 170 [facility], 2nd [place] [address] documented as of this encounter Results * XR CHEST PA AND LATERAL 2 VIEWS (05/20/2017 11:20 AM EST) Anatomical Region Laterality Modality Chest Radiographic Annelise ging 05/20/2017 12:1 7 PM EST Impressions 05/20/2017 12:19 PM EST 1. No acute process. 2. Mild chronic interstitial changes stable. 3. Prominent central pulmonary arteries; question pulmonary artery hypertension POS [id number] Narrative 05/20/2017 12:19 PM EST PA and lateral chest, three views Compare 03/07/2015 Borderline cardiomegaly unchanged. No mediastinal widening. Central pulmonary arteries are chronically prominent. If anything this is more conspicuous and raises the possibility of chronic pulmonary arterial hypertension. Mild diffuse interstitial prominence is unchanged. No focal infiltrate, signs of CHF or effusion. Procedure Note Luke Esparza MD - 05/20/2017 PA and lateral [...] central pulmonary arteries; question pulmonary arteryhypertension POS [id number] Pablo Humphrey MD IMG XR CHEST Final Result documented in this encounter Visit Diagnoses Diagnosis Cough Cough documented in this encounter Care Teams Staple Side Laster Relationship Specialty Start Date End Date Kam, Pablo Pascal MD [address] [place] [address] [address] [place] [address] [email or web address] PCP - General Internal Medicine 04/23/17 11/02/21 Unknown, Unknown, PCP - General 11/03/21 01/04/22 Kenney Randolph DO [address] [place] [id number] PCP - General Internal Medicine 01/05/22 Kenney Randolph DO [address] [place] [phone] Insurance Assigned Provider 09/28/23 documented as of this encounter Additional Source Comments The information contained in this document represents components of the legal health record. It is not the complete legal health record.[facility]
--- OUTSIDE RECORDS SUMMARY | 2025-04-13 06:23 | XMS_ITS | Encounter Summary ---
Author Organization [facility] Address [address] [place] [address] [place] [address] Phone Care Team Providers Care Recreation Programmer Name Role Phone Pablo Humphrey MD Primary Care Provider [phone] Unknown, Unknown Primary Care Provider MaryvaKenney Griffin DO Primary Care Provider Kenney Randolph DO Unavailable [phone] Encounter Details Date Type Department Care Team (Latest Contact Info) Description 07/17/2017 Transcribe Orders [facility] [address] [place] [address] Kam, Pablo Pascal MD 264 [facility] [address] [place], [place] [phone] [email or web address] Essential hypertension, benign (Primary Dx) Social History [...] Description 05/04/2025 11:15 AM EST Office Visit [facility] [address] [place] [address] 3rd Floor, [address] [place], [place] [phone] Esteban Duke MD [facility], [address] [place] [address] 07/20/2025 9:40 AM EST Office Visit [facility] [address] Floor, [address] [place] [address] Luke Tan MD [address] [place] [address] 09/13/2025 8:30 AM EDT Office Visit [facility] [address] [place] [address] [place] [address] Kenney Randolph DO 170 [facility], 2nd [place] [address] documented as of this encounter Results * (ABNORMAL) Basic metabolic panel (07/17/2017 7:09 AM EST) SODIUM 139 133 - 146 mmol/L [facility] CHLORIDE 98 96 - 108 mmol/L [facility] POTASSIUM 4.2 3.3 - 5.1 mmol/L [facility] CO2 29 21 - 35 mmol/L [facility] BUN 13 6 - 19 mg/dL [facility] CREATININE 0.60 0.5 - 1.5 mg/dL [facility] GLUCOSE 101(H) 70 - 99 mg/dL [facility] CALCIUM 9.7 8.4 - 10.3 mg/dL [facility] EGFR >60 >60 mL/min/1.7 3m2 [facility] Comment:Abnormal if <60. If patient is -Zimbabwean, multiply the result by 1.21. ANION GAP 16 10 - 20 mmol/L [facility] Blood 07/17/2017 7:09 AM EST 07/17/2017 7:16 AM EST Pablo Humphrey MD LAB BLOOD ORDERABLES Final Resu lt [facility] [address] [place] [address] documented in this encounter Visit Diagnoses Diagnosis Essential hypertension, benign- Primary documented in this encounter Care Teams Recreation Programmer Relationship Specialty Start Date End Date Kam, Pablo Pascal MD 264 [facility] [address] [place] [address] [email or web address] PCP - General Internal Medicine 04/23/17 11/02/21 Unknown, Unknown, PCP - General 11/03/21 01/04/22 Kenney Randolph DO [address] [place] [address], [address] [place] [address] PCP - General Internal Medicine 01/05/22 Kenney Randolph DO [address] [place] [address], [address] [place] [phone] Insurance Assigned Provider 09/28/23 documented as of this encounter Additional Source Comments The information contained in this document represents components of the legal health record. It is not the complete legal health record.[facility]
--- OUTSIDE RECORDS SUMMARY | 2025-04-13 06:23 | XMS_ITS | Encounter Summary ---
Author Organization [facility] Address [address] [place] [address] [place] [address] Phone Care Team Providers Care Morning Show Newscast Producer Name Role Phone KamPablo MD Primary Care Provider [phone] Unknown, Unknown Primary Care Provider Unavai Kenney Minor DO Primary Care Provider Kenney Randolph DO Unavailable [phone] Encounter Details Date Type Department Care Team (Late st Contact Info) Description 04/30/2017 Procedure Pass [facility] Endoscopy Admitting Dept Virtual Department [address] [place] [phone] Social History Tobacco Use Types Packs/Day Years [...] Description 05/04/2025 11:15 AM EST Office Visit [facility] [address] [place] [address] 3rd Floor, [address] [place] [address] Esteban Duke MD 22 [facility], [address] [place] [address] 07/20/2025 9:40 AM EST Office Visit [facility] [address] [place] [address] 3rd Floor, [address] [place] [address] Luke Tan MD [address] [place] [address] [email or web address] 09/13/2025 8:30 AM EDT Office Visit [facility] [address] [place] [address] [place] [address] Kenney Randolph DO [address] [place] [address], [address] [place] [address] [email or web address] documented as of this encounter Visit Diagnoses Not on filedocumented in this encounter Care Teams Morning Show Newscast Producer Relationship Specialty Start Date End Date Kam, Pablo Pascal MD [address] [place] [address] [address] [place] [address] [email or web address] PCP - General Internal Medicine 04/23/17 11/02/21 Unknown, Unknown, PCP - General 11/03/21 01/04/22 Kenney Randolph DO [address] [place] [address] [email or web address] PCP - General Internal Medicine 01/05/22 Kenney Randolph DO [address] [place] [address] [email or web address] Insurance Assigned Provider 09/28/23 documented as of this encounter Additional Source Comments The information contained in this document represents components of the legal health record. It is not the complete legal health record.[facility]
--- OUTSIDE RECORDS SUMMARY | 2025-04-13 06:23 | XMS_ITS | Encounter Summary ---
Author Organization [facility] Address [address] [address] Phone Care Team Providers Care Child Welfare Specialist Name Role Phone Unknown, Unknown Primary Care Provider Kenney De León DO Primary Care Provider Kenney Randolph DO Unavailable [phone] Reason for Referral * MRI/CAT Scan - Closed Specialty Diagnoses / Procedures Referred By Adis samaniego Referred To Contact Radiology Diagnoses Essential hypertension Procedures CT Angio Abdomen CT Abdomen Only (No Pelvis) Lauri Bar MD Phone: tel: fax: [email or web address] Referral ID Status Reason Start Date Expiration Date Visits Re quested Visits Authorized [id number] Closed 09/07/2021 09/07/2022 1 1 Encounter Details Date Type Department Care Team (Latest Contact Info) Description 11/08/2021 Ancillary Orders Virtual Department 30 [place] [address] Lauri Bar MD 15 [facility] 303 [place] [address] [email or web address] Essential hypertension Social History Tobacco Use Types [...] Description 05/04/2025 11:15 AM EST Office Visit [facility] [address] 3rd Floor, [address] [place] [address] Esteban Duke MD 22 [facility], [address] [address] 07/20/2025 9:40 AM EST Office Visit [facility] [address] 3rd Floor, [address] [place] [address] Luke Tan MD [address] [place] [address] 09/13/2025 8:30 AM EDT Office Visit [facility] [address] [place] [address] Kenney Randolph DO 170 [facility], 2nd [place] [address] documented as of this encounter Results * [...] documented as of this encounter Care Teams Child Welfare Specialist Relationship Specialty Start Date End Date Unknown, Unknown, PCP - General 11/03/21 01/04/22 Kenney Randolph DO [address] [place] [address], 2nd [place] [address] [email or web address] PCP - General Internal Medicine 01/05/22 Kenney Randolph DO [address] [place] [address], 2nd [place] [address] [email or web address] Insurance Assigned Provider 09/28/23 documented as of this encounter Additional Source Comments The information contained in this document represents components of the legal health record. It is not the complete legal health record.[facility]
--- OUTSIDE RECORDS SUMMARY | 2025-04-13 06:24 | XMS_ITS | Clinical Summary ---
Author Organization [facility] Address [address] [place] [address] Phone Care Team Providers Care Design Leader Name Role Phone Kenney Randolph DO Primary Care Provider Kenney Randolph DO Unavailable [phone] Allergies Active Allergy Reactions Criticality Noted Date Comments Cefadroxil Other (See Comments) 11/02/2021 Noted in medical record, pt unsure Lisinopril Cough 11/02/2021 Valsartan Cough 11/02/2021 Medications multivitamin with minerals (MULTI-VIT 55 PLUS ORAL) Take by mouth. Active spironolactone (ALDACTONE) 25 MG tablet take 1 tablet daily 90 tablet 3 04/13/20 24 Active chlorthalidone (HYGROTON) 50 MG tablet take 1 tablet daily 90 tablet 3 04/13/20 24 Active amLODIPine (NORVASC) 10 MG tablet TAKE 1 TABLET DAILY 90 tablet 3 08/12/19 25 Active apixaban (ELIQUIS) 5 mg tabletIndicati ons:New onset a-fib Take 1 tablet (5 mg total) by mouth 2 (two) times a day. 180 tablet 3 08/13/19 25 Active diclofenac sodium (VOLTAREN) 1 % Gel Apply 4 g topically 4 (four) times a day. 150 g 08/25/19 25 Active tiZANidine (ZANAFLEX) 4 MG tablet TAKE 1 TABLET BY MOUTH EVERY 6 HOURS NEEDED FOR MUSCLE SPASM 360 tablet 1 09/01/19 25 Active ketoconazole 2 % cream Apply topically as needed (skin itching and irritation due to fungal infection). 60 g 3 03/16/20 25 Active metoprolol succinate (TOPROL-XL) 50 MG 24 hr tablet TAKE 1 TABLET TWICE A DAY 180 tablet 3 04/12/20 25 Active metoprolol succinate (TOPROL-XL) 50 MG 24 hr tablet take 1 tablet twice a day 180 tablet 3 04/13/20 24 025 Discontinued ketoconazole 2 % cream Apply topically as needed. 07/24/19 25 025 Discontinued(Re order) Active Problems Problem Noted Date Diagnosed Date [...] until he returns from his trip to [place]. We will repeat a chest x-ray 2 [...] Encounters Date Type Department Care Team Description 04/12/[address] [place] [address] Kenney Randolph, DO Medication Refill 03/16/2025 8:00 AM EDT Office Visit [address] [place] [address] Kenney Randolph, DO Medicare annual wellness visit, subsequent (Primary Dx); Severe obesity (BMI 35.0-39.9) with comorbidity 03/09/[address] [place] [address] Kenney Randolph, DO Medication Question 03/04/2025 Telephone [facility] [address], [address] [place] [address] Luke Tan MD 02/19/2025 1:20 PM EDT Office Visit [facility] [address] Floor, [address] [place] [address] Luke Tan MD New onset a-fib (Primary [...] drink = 0.6 oz pu re alcohol) occ Education Answer Date Recorded Are you interested [...] as food, clothing, or medical care? No 03/16/2025 In the past 12 months have y ou been in a relationship with a person who hurts, threatens, or tries to control you? No 03/16/2025 Are you denied basic needs s uch as food, clothing, or medical care? No 03/16/2025 In the past 12 months have y ou been in a relationship with a person who hurts, threatens, or tries to control you? No 03/16/2025 Sex and Gender Information Value Date Recorded Sex Assigned at Not on file Legal Sex Male 10:00 PM EDT Gender Identity Not on file Sexual Orientation Not on file Last Filed Vital Signs Vital Sign Reading Time Taken Comments Blood Pressure 130/74 03/16/2025 8:01 AM EDT Pulse 54 03/16/2025 8:01 AM EDT Temperature 36 C (96.8 F) 08/27/2024 2:20 PM EST Respiratory Rate 22 11/20/2024 11:2 5 AM EDT Oxygen Saturation 97% 03/16/2025 8:01 AM EDT Inhaled Oxygen Concentration - - Weight 121.9 kg (268 lb 12.8 oz) 03/16/2025 8:01 AM EDT Height 178.7 cm (5' 10.35 ) 03/16/2025 8:01 AM E DT Body Mass Index 38.18 03/16/2025 8:01 AM EDT Plan of Treatment Upcoming Encounters Date Type Department Care Team (Late st Contact Info) Description 05/04/2025 11:15 AM EST Office Visit [facility] [address] [place] [address], [address] [place] [address] Esteban Duke MD [address] [place] [address] 07/20/2025 9:40 AM EST Office Visit [facility] [address], [address] [place] [address] Luke Tan MD [address] [place] [address] 09/13/2025 8:30 AM EDT Office Visit [facility] [address] [place] [address] Kenney Randolph DO [address] [facility], [address]nd [place] [address] [email or web address] Health Maintenance Due Date Last Done Comments COLOGUARD 01/25/1997 FIT TEST 01/25/1997 FOBT 01/25/1997 SIGMOIDOSCOPY 01/25/1997 VIRTUAL COLONOSCOPY 01/25/1997 RSV VACCINE (1 - Risk 50-74 years 1-dose series) 01/25/2002 ZOSTER VACCINES (1 of 2) 01/25/2002 INFLUENZA VACCINE (#1) 2025 , 03/19/2023, 07/05/2022, Additional history exists COVID-19 VACCINE (2024- season) 2025 03/09/2024, 03/19/2023, 03/23/2022, Additional history exists BLOOD PRESSURE 09/13/2025 03/16/2025 CREATININE LEVEL 11/10/2025 11/10/2024, , 05/29/2024, Additional history exists POTASSIUM LEVEL 11/10/2025 11/10/2024, 06/24, 05/29/2024, Additional history exists DEPRESSION SCREENING 03/16/2026 03/16/2025 LIPID PANEL 03/02/2029 03/02/2024, 12/23, 11/03/2021, Additional history exists COLONOSCOPY 12/18/2029 12/18/2022, 04/30/2017 COLORECTAL CANCER SCREENING 12/18/2029 Adult Td,Tdap Booster 01/04/2033 01/04/2023, 012 HEPATITIS C SCREENING Completed 12/03/2017 PNEUMOCOCCAL VACCINES (50+ years) Completed 08/26/2018, 04/26/2017 SMOKING STATUS SCREENING (Once After 26 Yrs) Completed 03/16/2025 HEPATITIS A VACCINES Aged Out No long [...] EDT) SODIUM 135 133 - 146 mmol/L [facility] CHLORIDE 94(L) 96 - 108 mmol/L [facility] POTASSIUM 4.6 3.3 - 5.1 mmol/L [facility] CO2 31 21 - 35 mmol/L [facility] BUN 22(H) 6 - 19 mg/dL [facility] CREATININE 0.70 0.5 - 1.5 mg/dL [facility] GLUCOSE 99 70 - 99 mg/dL [facility] CALCIUM 10.0 8.4 - 10.3 mg/dL [facility] EGFR 98 >59 mL/min/1.7 3m2 [facility] Comment:Estimated glomerular filtration rate calculated using the CKD-EPI refit equation. ANION GAP 15 10 - 20 mmol/L [facility] Blood 11/10/2024 10:0 1 AM EDT 11/10/2024 10:05 AM EDT us Luke Tan MD LAB BLOOD ORDERABLES Final Re sult [facility] [address] [place] [address] * Lipid panel (03/02/2024 7:05 AM EDT) HDL 54 mg/dL [facility] Comment: Interpretation <40 mg/dL: Low HDL cholesterol (major risk factor for CHD) Greater than or equal to 60 mg/dL: High HDL cholesterol ( negative risk factor for CHD) HDL - cholesterol is affected by a number of factors, e.g. smoking, excerise, hormones, sex and age. CHOLESTEROL 206 0 - 240 mg/dL [facility] TRIGLYCERIDES 120 30 - 160 mg/dL [facility] LDL 128 50 - 129 mg/dL [facility] Comment: LDL levels in terms of risk for coronary heart disease: <100 mg/dL: Optimal 100-129 mg/dL: Near or above optimal 130-159 mg/dL: Borderline high 160-189 mg/dL: High >190 mg/dL: Very High CARDIAC RISK RATIO 3.8 3.4 - 5.0 C [facility] Blood 03/02/2024 7:05 AM EDT 03/02/2024 7:10 AM EDT us Kenney Randolph DO LAB BLOOD ORDERABLES Fi nal Result Performing Organization Address City/State/[facility] Co de Phone Number [address] [address] * ENDOSCOPY, COLON (12/18/2022 7:12 AM EDT) Narrative Transcriptions Donato Garcia MD - 12/18/2022 7:12 AM EDT [facility] Patient Name: César Pascual MD:: DONATO GARCIA MD, Procedure Date: 12/18/2022 7:12 AM Date of : 1950 Age: 72 Admit Type: Outpatient Gender: Male Room: [facility] 04 Referring MD: Kenney Randolph Exam Type: Colonoscopy [...] monitored continuously. The Olympus adult variable colonoscope [id number] #1 was introduced through the anus and [...] 7:12 AM Procedure Code(s): --- Professional --- 91714, Colonoscopy, flexible; with removal of tumor(s), polyp(s), or other lesion(s) by snare technique --- Technical --- 24660, Colonoscopy, flexible; with removal of tumor(s), polyp(s), [...] or abscess without bleeding CPT copyright 2021 [employer]. All rights reserved. The codes documented in this report are preliminary and upon car body inspector reviewmay be revised to meet current compliance requirements. Procedure Date: 12/18/2022 7:12:53 AM [address] [place] [address] us Kenney Randolph DO GI PROCEDURE ORDERABLES Final Result * Liver fibrosis test (12/03/2017 12:25 PM EDT) Cow Milk Conv Class 0.37 [facility] DPT OF LAB MED AND PAT+ Neuron Specific Enolase (NOTE) [facility] DPT OF LAB MED AND PAT+ Comment:RESULT: F1-F2 Interleukin 2 minimal fibrosis [facility] DPT OF LAB MED AND PAT+ Comment: (NOTE) FibroTest estimates liver fibrosis FibroTest Score Stage Interpretation 0.00-0.21 F0 no fibrosis 0.21-0.27 F0-F1 no fibrosis 0.27-0.31 F1 minimal fibrosis 0.31-0.48 F1-F2 minimal fibrosis 0.48-0.58 F2 moderate fibrosis 0.58-0.72 F3 advanced fibrosis 0.72-0.74 F3-F4 advanced fibrosis 0.74-1.00 F4 severe fibrosis (Cirrhosis) ActiTest Score 0.29 [facility] DPT OF LAB MED AND PAT+ ANCA BENI at 1:20 dilution (NOTE) [facility] DPT OF LAB MED AND PAT+ Comment:RESULT: A0-A1 ActiTest Interpretation no activity [facility] DPT OF LAB MED AND PAT+ Comment: (NOTE) ActiTest estimates necroinflammatory activity ActiTest Score Grade Interpretation 0.00-0.17 A0 no activity 0.17-0.29 A0-A1 no activity 0.29-0.36 A1 minimal activity 0.36-0.52 A1-A2 minimal activity 0.52-0.60 A2 significant activity 0.60-0.62 A2-A3 significant activity 0.62-1.00 A3 severe activity FibroTest-ActiTest Comment SEE NOTE [facility] DPT OF LAB MED AND PAT+ Comment: (NOTE) The reliability of results is dependent on compliance with the preanalytical and analytical conditions recommended by [employer]. The tests have to be deferred for: [...] developed and its performance characteristics determined by [facility] in a manner consistent with CLIA requirements. This test has not been cleared or approved by the U.S. Food and Drug Administration. [employer] Serial Number [id number] [facility] DPT OF LAB MED AND PAT+ Apolipoprotein A1, S 154 >=120 mg/dL [facility] DPT OF LAB MED AND PAT+ Cdwhb-5-Wlodfhwvwlzsy, S 195 100 - 280 mg/dL [facility] DPT OF LAB MED AND PAT+ Haptoglobin, S 86 30 - 200 mg/dL [facility] DPT OF LAB MED AND PAT+ Alanine Aminotransferase (ALT), S 47 7 - 55 U/L [facility] DPT OF LAB MED AND PAT+ Gamma Glutamyltransferase (GGT), S 16 8 - 61 U/L [facility] DPT OF LAB MED AND PAT+ Bilirubin, Total, S 0.9 <=1.2 mg/dL [facility] DPT OF LAB MED AND PAT+ Blood 12/03/2017 12:2 5 PM EDT 12/03/2017 12:30 PM EDT us Donato Garcia MD LAB BLOOD ORDERABLES Final R esult [facility] DPT OF LAB MED AND PAT+ [address] [place] [address] from Last 3 Months or Most Recently Relevant to Health Maintenance Insurance MEDICARE PART A & B [employer] MEDEX SUPPLEMENT MEDICARE PART A & B [employer] SUPPLEMENT MEDICARE PART A & B [employer] SUPPLEMENT MEDICARE PART A & B [employer] MED[employer] SUPPLEMENT MEDICARE PART A & B [employer] MEDEX SUPPLEMENT MEDICARE PART A & B [employer] MEDEX SUPPLEMENT MEDICARE PART A & B [facility] MEDEX SUPPLEMENT MEDICARE PART A & B [employer] MEDEX SUPPLEMENT MEDICARE PART A & B [employer] MEDEX SUPPLEMENT Care Teams Design Leader Relationship Specialty Start Date End Date Kenney Randolph DO [address] [place] [address], [address]nd [place] [address] [email or web address] PCP - General Internal Medicine 01/05/22 Kenney Randolph DO [address] [place] [address], [address] [place] [address] [email or web address] Insurance Assigned Provider 09/28/23 Additional Source Comments The information contained in this document represents components of the legal health record. It is not the complete legal health record.[facility]
--- OUTSIDE RECORDS SUMMARY | 2025-04-13 06:24 | XMS_ITS | Encounter Summary ---
Author Organization [facility] Address [address] [place] [address] [place] [address] Phone Care Team Providers Care Court Recorder Name Role Phone Kenney Randolph DO Primary Care Provider Kenney Randolph DO Unavailable [phone] Encounter Details Date Type Department Care Team (Late st Contact Info) Description 12/18/2022 Procedure Pass [facility] Endoscopy Admitting Dept Virtual Department [address] [place] [address] Social History Tobacco Use Types Packs/Day Years [...] Encounters Date Type Department Care Team (Late Contact Info) Description 05/04/2025 11:15 AM EST Office Visit [facility] [address], [address] [place] [address] Esteban Duke MD 22 [facility], [address] [address] 07/20/2025 9:40 AM EST Office Visit [facility] [address], [address] [place] [address] Luke Tan MD [address] [place] [address] 09/13/2025 8:30 AM EDT Office Visit [facility] [address] [place] [address] Kenney Randolph DO [address] [place] [address] documented as of this encounter Visit Diagnoses Not on filedocumented in this encounter Additional Health Concerns Assessment Noted Time PHQ-2 Depression Total Score: 0 01/06/20 7:59 AM EDT documented as of this encounter Care Teams Court Recorder Relationship Specialty Start Date End Date Kenney Randolph DO [address] [place] [address] PCP - General Internal Medicine 01/05/22 Kenney Randolph DO [address] [place] [address] Insurance Assigned Provider 09/28/23 documented as of this encounter Additional Source Comments The information contained in this document represents components of the legal health record. It is not the complete legal health record.[facility]
--- OUTSIDE RECORDS SUMMARY | 2025-04-13 06:24 | XMS_ITS | Encounter Summary ---
Author Organization [facility] Address [address] [place] [address] [place] [address] Phone Care Team Providers Care Tank Filler Name Role Phone Pablo Humphrey MD Primary Care Provider [phone] Unknown, Unknown Primary Care Provider Unavai Kenney Minor DO Primary Care Provider Kenney Randolph DO Unavailable [phone] Encounter Details Date Type Department Care Team (Latest Contact Info) Description 02/27/2019 Transcribe Orders [facility] [address] [place] [address] Kam, Pablo Pascal MD [address] [facility] [address] [place], [place] [id number] [email or web address] Hypertension, unspecified type (Primary Dx) Social History [...] Description 05/04/2025 11:15 AM EST Office Visit [facility] [address] [place] [address] 3rd Floor, [address] [place], [place] [phone] Esteban Duke MD [address] [facility], [address] [place] [address] 07/20/2025 9:40 AM EST Office Visit [facility] [address] Floor, [address] [place] [address] Luke Tan MD [address] [place] [address] 09/13/2025 8:30 AM EDT Office Visit [facility] [address] [place] [address] [place] [address] Kenney Randolph DO 170 [facility], 2nd [place] [address] documented as of this encounter Results * Basic metabolic panel (02/27/2019 7:13 AM EDT) SODIUM 142 133 - 146 mmol/L [facility] CHLORIDE 101 96 - 108 mmol/L [facility] POTASSIUM 4.6 3.3 - 5.1 mmol/L [facility] CO2 31 21 - 35 mmol/L [facility] BUN 18 6 - 19 mg/dL [facility] CREATININE 0.60 0.5 - 1.5 mg/dL [facility] GLUCOSE 82 70 - 99 mg/dL [facility] CALCIUM 9.7 8.4 - 10.3 mg/dL [facility] EGFR 104 >59 mL/min/1.7 3m2 [facility] Comment:If patient is black, multiply result by 1.159. Estimated glomerular filtration rate calculated using the CKD-EPI equation. ANION GAP 15 10 - 20 mmol/L [facility] Blood 02/27/2019 7:13 AM EDT 02/27/2019 7:15 AM EDT Pablo Humphrey MD LAB BLOOD ORDERABLES Final Resu lt [facility] [address] [place] [address] documented in this encounter Visit Diagnoses Diagnosis Hypertension, unspecified type- Primary documented in this encounter Care Teams Tank Filler Relationship Specialty Start Date End Date Kam, Pablo Pascal MD [address] [facility] [address] [place] [address] [email or web address] PCP - General Internal Medicine 04/23/17 11/02/21 Unknown, Unknown, PCP - General 11/03/21 01/04/22 Kenney Randolph DO [address] [place] [address], [address] [place] [address] PCP - General Internal Medicine 01/05/22 Kenney Randolph DO [address] [place] [address], [address] [place] [address] Insurance Assigned Provider 09/28/23 documented as of this encounter Additional Source Comments The information contained in this document represents components of the legal health record. It is not the complete legal health record.[facility]
--- OUTSIDE RECORDS SUMMARY | 2025-04-13 06:24 | XMS_ITS | Encounter Summary ---
Author Organization [facility] Address [address] [place] [address] Phone Care Team Providers Care Pumper Gauger Name Role Phone KamPablo MD Primary Care Provider [phone] Unknown, Unknown Primary Care Provider Maryvai Kenney Minor DO Primary Care Provider Kenney Randolph DO Unavailable [phone] Encounter Details Date Type Department Care Team (Latest Contact Info) Description 10/17/2017 Transcribe Orders [facility] [address] [place], [place] [phone] Suly George MD [address] [place] [phone] [email or web address] Routine general medical examination at a health [...] Description 05/04/2025 11:15 AM EST Office Visit [facility] [address] [facility] 3rd Floor, [address] [place], [place] [phone] Esteban Duke MD 22 [facility], [address] [place] [address] 07/20/2025 9:40 AM EST Office Visit [facility] [address], [address] [place] [address] Luke aTn MD [address] [place] [address] 09/13/2025 8:30 AM EDT Office Visit [facility] [address] [place] [address] Kenney Randolph DO 170 [facility], 2nd [place] [address] documented as of this encounter Results * Miscellaneous lab test (10/17/2017 9:23 AM EDT) TESTS REQUESTED [place] 2R ALPHA [facility] SPECIMEN/TUBE TYPE LARGE RED 1 ML SERUM [facility] REQUEST RECEIVED Request received. A separate order for the requested test will be generated by the laboratory. [facility] Blood 10/17/2017 9:23 AM EDT 10/17/2017 9:26 AM EDT us Suly George MD LAB BLOOD ORDERABLES Final Re sult [facility] [address] [place] [address] documented in this encounter Visit Diagnoses Diagnosis Routine general medical examination at a health care facility- Primary documented in this encounter Care Teams Pumper Gauger Relationship Specialty Start Date End Date Kam, Pablo Pascal MD [address] [facility] [address] [place] [address] [email or web address] PCP - General Internal Medicine 04/23/17 11/02/21 Unknown, Keesha, PCP - General 11/03/21 01/04/22 Keneny Randolph DO [address] [place] [address], [address] [place] [address] PCP - General Internal Medicine 01/05/22 Kenney Randolph DO [address] [place] [address] Insurance Assigned Provider 09/28/23 documented as of this encounter Additional Source Comments The information contained in this document represents components of the legal health record. It is not the complete legal health record.[facility]
--- OUTSIDE RECORDS SUMMARY | 2025-04-13 06:24 | XMS_ITS | Encounter Summary ---
Author Organization [facility] Address [address] [place] [address] [place] [address] Phone Care Team Providers Care Medical Staff Credentialing Coordinator Name Role Phone KamPablo MD Primary Care Provider [phone] Unknown, Unknown Primary Care Provider Maryvai Kenney Minor DO Primary Care Provider Kenney Randolph DO Unavailable [phone] Encounter Details Date Type Department Care Team (Latest Contact Info) Description 09/07/2021 Transcribe Orders [facility] [address] [place], [place] [id number] Lauri Bar MD 15 [facility] [address] [place], [place] [id number] Hypertension, unspecified type (Primary Dx) Social History [...] Description 05/04/2025 11:15 AM EST Office Visit [facility] [address] [facility] 3rd Floor, [address] [place], [place] [phone] Esteban Duke MD 22 [facility], [address] [place] [address] 07/20/2025 9:40 AM EST Office Visit [facility] [address] 3rd Floor, [address] [place] [address] Luke Tan MD [address] [place] [address] 09/13/2025 8:30 AM EDT Office Visit [facility] [address] [place] [address] Kenney Randolph DO 170 [facility], 2nd [place] [address] [email or web address] documented as of this encounter Results * Renin (09/07/2021 3:43 PM EDT) RENIN ACTIVITY 5.5 ng/ml/h [facility] SUPERIOR Comment: (NOTE) REFERENCE VALUE (Peripheral vein specimen) Na-deplete, upright: Mean: 5.9 Range: 2.9-10.8 Na-replete, upright: Mean: 1.0 Range: < or =0.6-3.0 ADDITIONAL INFORMATION Testing performed by Liquid Chromatography-Tandem Mass Spectrometry (LC-MS/MS). This test was developed and its performance characteristics determined by [facility] in a manner consistent with CLIA requirements. This test has not been cleared or approved by the U.S. Food and Drug Administration. Blood 09/07/2021 3:43 PM EDT 09/07/2021 3:52 PM EDT us Lauri Bar MD LAB BLOOD ORDERABLES Final Resul t Performing Organization Address City/[facility] Co de Phone Number [facility]/PATH SUPERIOR DR Lynne [place] [address] * TSH with reflex (09/07/2021 3:43 PM EDT) Pathologist [facility] TSH 2.54 0.27 - 4.20 uIU/mL [facility] Blood 09/07/2021 3:43 PM EDT 09/07/2021 3:53 PM EDT us Larui Bar MD LAB BLOOD ORDERABLES Final Resul t Performing Organization Address [facility] de Phone Number [address] [address] * Aldosterone (09/07/2021 3:43 PM EDT) Pathologist [facility] ALDOSTERONE 12 <=21 ng/dL [facility] Comment: (NOTE) ADDITIONAL INFORMATION Reference range for patients 11 years and older is based on upright A.M. collection from subjects without sodium restrictions. This test was developed and its performance characteristics determined by [facility] in a manner consistent with CLIA requirements. This test has not been cleared or approved by the U.S. Food and Drug Administration. Blood 09/07/2021 3:43 PM EDT 09/07/2021 3:52 PM EDT us Lauri Bar MD LAB BLOOD ORDERABLES Final Resul t Performing Organization Address [facility] Co de Phone Number [facility]PATH SUPERIOR DR Lynne [place] [address] * (ABNORMAL) Renal panel (09/07/2021 3:43 PM EDT) Pathologist [facility] SODIUM 137 133 - 146 mmol/L [facility] POTASSIUM 4.3 3.3 - 5.1 mmol/L [facility] Comment:Specimen slightly he molyzed, result may be falsely elevated. CHLORIDE 98 96 - 108 mmol/L [facility] CO2 30 21 - 35 mmol/L [facility] GLUCOSE 103(H) 70 - 99 mg/dL [facility] BUN 15 6 - 19 mg/dL [facility] CREATININE 0.90 0.5 - 1.5 mg/dL [facility] CALCIUM 9.8 8.4 - 10.3 mg/dL [facility] PHOSPHORUS 3.6 2.7 - 4.5 mg/dL [facility] ALBUMIN 4.6 3.9 - 4.8 g/dL [facility] EGFR 92 >59 mL/min/1.7 3m2 [facility] Comment:Estimated glomerular filtration rate calculated using the CKD-EPI refit equation. ANION GAP 13 10 - 20 mmol/L [facility] Blood 09/07/2021 3:43 PM EDT 09/07/2021 3:53 PM EDT us Lauri Bar MD LAB BLOOD ORDERABLES Final Resul t [facility] 30 [place] [address] documented in this encounter Visit Diagnoses Diagnosis Hypertension, unspecified type- Primary documented in this encounter Care Teams Medical Staff Credentialing Coordinator Relationship Specialty Start Date End Date Kam, Pablo Pascal MD [address] [place] [address] & [address] [place] [address] [email or web address] PCP - General Internal Medicine 04/23/17 11/02/21 Unknown, Keesha, PCP - General 11/03/21 01/04/22 Kenney Randolph DO [address] [place] [address], 2nd [place] [address] [email or web address] PCP - General Internal Medicine 01/05/22 Kenney Randolph DO [address] [place] [address], 2nd [place] [address] [email or web address] Insurance Assigned Provider 09/28/23 documented as of this encounter Additional Source Comments The information contained in this document represents components of the legal health record. It is not the complete legal health record.[facility]
--- OUTSIDE RECORDS SUMMARY | 2025-04-13 06:24 | XMS_ITS | Encounter Summary ---
Author Organization [facility] Address [address] [place] [address] [place] [address] Phone Care Team Providers Care Reference Librarian Name Role Phone KamPablo MD Primary Care Provider [phone] Unknown, Unknown Primary Care Provider Unavai Kenney Minor DO Primary Care Provider Kenney Randolph DO Unavailable [phone] Encounter Details Date Type Department Care Team (Late st Contact Info) Description 10/17/2017 Procedure Pass [facility], Ct Scan - [address] [address] Social History Tobacco Use Types Packs/Day Years [...] Description 05/04/2025 11:15 AM EST Office Visit [facility] 22 [facility] 3rd Floor, [address] [place] [address] Esteban Duke MD 22 [facility], [address] [place] [address] 07/20/2025 9:40 AM EST Office Visit [facility] [address] [place] [address] 3rd Floor, [address] [place] [address] Luke Tan MD [address] [place] [address] 09/13/2025 8:30 AM EDT Office Visit [facility] [address] [place] [address] [place] [address] Kenney Randolph DO [address] [place] [address], [address] [place] [address] documented as of this encounter Visit Diagnoses Not on filedocumented in this encounter Care Teams Reference Librarian Relationship Specialty Start Date End Date Kam, Pablo Pascal MD [address] [place] [address] [address] [place] [address] [email or web address] PCP - General Internal Medicine 04/23/17 11/02/21 Unknown, Unknown, PCP - General 11/03/21 01/04/22 Kenney Randolph DO [address] [place] [address], [address] [place] [address] PCP - General Internal Medicine 01/05/22 Kenney Randolph DO [address] [place] [address] Insurance Assigned Provider 09/28/23 documented as of this encounter Additional Source Comments The information contained in this document represents components of the legal health record. It is not the complete legal health record.[facility]
--- OUTSIDE RECORDS SUMMARY | 2025-04-13 06:24 | XMS_ITS | Encounter Summary ---
Author Organization [facility] Address [address] [place] [address] [place] [address] Phone Care Team Providers Care Clinical Dietetic Technician Name Role Phone KamPablo MD Primary Care Provider [phone] Unknown, Unknown Primary Care Provider Unavai Kenney Minor DO Primary Care Provider Kenney Randolph DO Unavailable [phone] Encounter Details Date Type Department Care Team (Late st Contact Info) Description 12/12/2020 Procedure Pass [facility], Ct Scan - [address] [address] Social History Tobacco Use Types Packs/Day Years [...] Description 05/04/2025 11:15 AM EST Office Visit [facility] [address] [facility] 3rd Floor, [address] [place] [address] Esteban Duke MD 22 [facility], [address] [place] [address] 07/20/2025 9:40 AM EST Office Visit [facility] [address] [place] [address] 3rd Floor, [address] [place] [address] Luke Tan MD 50 [place] [address] 09/13/2025 8:30 AM EDT Office Visit [facility] [address] [place] [address] [place] [address] Kenney Randolph DO [address] [place] [address], [address] [place] [address] documented as of this encounter Visit Diagnoses Not on filedocumented in this encounter Care Teams Clinical Dietetic Technician Relationship Specialty Start Date End Date Kam, Pablo Pascal MD [address] [place] [address] [address] [place] [address] [email or web address] PCP - General Internal Medicine 04/23/17 11/02/21 Unknown, Unknown, PCP - General 11/03/21 01/04/22 Kenney Randolph DO [address] [place] [address], [address] [place] [address] PCP - General Internal Medicine 01/05/22 Kenney Randolph DO [address] [place] [address] [email or web address] Insurance Assigned Provider 09/28/23 documented as of this encounter Additional Source Comments The information contained in this document represents components of the legal health record. It is not the complete legal health record.[facility]
--- OUTSIDE RECORDS SUMMARY | 2025-04-13 06:24 | XMS_ITS | Encounter Summary ---
Author Organization [facility] Address [address] [place] [address] [place] [address] Phone Care Team Providers Care Bark Spudder Name Role Phone Pablo Humphrey MD Primary Care Provider [phone] Unknown, Unknown Primary Care Provider MaryvaKenney Griffin DO Primary Care Provider Kenney Randolph DO Unavailable [phone] Encounter Details Date Type Department Care Team (Late st Contact Info) Description 11/28/2020 Transcribe Orders [facility] [address] [place], [place] [phone] Suly George MD [address] [place] [address] [email or web address] Social History Tobacco Use Types Packs/Day Years [...] Description 05/04/2025 11:15 AM EST Office Visit [facility] [address] [place] [address] 3rd Floor, [address] [place] [address] Esteban Duke MD [address] [place] [address], [address] [place] [address] 07/20/2025 9:40 AM EST Office Visit [facility] [address] [place] [address] 3rd Floor, [address] [place] [address] Luke Tan MD [address] [place] [address] 09/13/2025 8:30 AM EDT Office Visit [facility] [address] [place] [address] Kenney Randolph DO [address] [place] [address] documented as of this encounter Visit Diagnoses Not on filedocumented in this encounter Care Teams Bark Spudder Relationship Specialty Start Date End Date Kam, Pablo Pascal MD [address] [place] [address] [address] [place] [address] [email or web address] PCP - General Internal Medicine 04/23/17 11/02/21 Unknown, Keesha, PCP - General 11/03/21 01/04/22 Kenney Randolph DO [address] [place] [address] PCP - General Internal Medicine 01/05/22 Kenney Randolph DO [address] [place] [address] Insurance Assigned Provider 09/28/23 documented as of this encounter Additional Source Comments The information contained in this document represents components of the legal health record. It is not the complete legal health record.[facility]
--- OUTSIDE RECORDS SUMMARY | 2025-04-13 06:24 | XMS_ITS | Clinical Summary ---
Author Organization [facility], Address [address] [address] Phone Care Team Providers Care Mechanic Assistant Name Role Phone RandolphKenney birmingham Primary Care [...] age to complete this topic Insurance Medicare [facility] Care Teams Mechanic Assistant Relationship Specialty Start Date End Date Kenney Randolph DO [address] [place] [address] PCP - General Internal Medicine 01/12/22
--- OUTSIDE RECORDS SUMMARY | 2025-04-13 06:24 | XMS_ITS | Encounter Summary ---
Author Organization [facility] Address [address] [place] [address] Phone Care Team Providers Care Cps Team Lead Name Role Phone Pablo Humphrey MD Primary Care Provider [phone] Unknown, Unknown Primary Care Provider MaryvaKenney Griffin DO Primary Care Provider Kenney Randolph DO Unavailable [phone] Encounter Details Date Type Department Care Team (Latest Contact Info) Description 05/25/2020 Transcribe Orders [facility] [address] [address] [place] [address] Kam, Pablo Pascal MD 264 [facility] [address] [place] [address] [email or web address] Routine general medical examination at [...] Description 05/04/2025 11:15 AM EST Office Visit [facility] [address]rd Floor, [address] [place] [address] Esteban Duke MD 22 [facility], [address] [place] [address] 07/20/2025 9:40 AM EST Office Visit [facility] [address] 3rd Floor, [address] [place] [address] Luke Tan MD [address] [place] [address] 09/13/2025 8:30 AM EDT Office Visit [address] [place] [address] Kenney Randolph DO 170 [facility], 2nd [place] [address] [email or web address] documented as of this encounter Results * PSA (screening) (05/25/2020 7:05 AM EST) [facility] PSA 0.43 0 - 4.00 ng/mL [facility] Blood 05/25/2020 7:05 AM EST 05/25/2020 7:10 AM EST Pablo Humphrey MD LAB BLOOD ORDERABLES Final Resu lt [facility] [address] [place] [address] * (ABNORMAL) CBC and differential (05/25/2020 7:05 AM EST) [facility] WBC 7.91 4.00 - 11.00 K/uL [facility] Comment:Note Reference Range updates to all CBC and Differential results. RBC 4.49 3.90 - 5.69 M/uL [facility] HGB 14.4 12.4 - 17.3 g/dL [facility] Comment:Note updated Referen ce Ranges for all CBC and Differential results. HCT 42.0 37.0 - 51.0 % [facility] PLT 165 140 - 430 K/uL [facility] MCV 93.5 78.0 - 97.0 fL [facility] MCH 32.1 25.0 - 33.0 pg [facility] MCHC 34.3 32.0 - 36.0 g/dL [facility] RDW 11.9 11.0 - 15.0 % [facility] MPV 10.6 8.4 - 12.8 fl [facility] NRBC 0.00 0 /100 WBCs [facility] ABSOLUTE NRBC 0.00 0 K/uL [facility] DIFF METHOD Auto [facility] NEUTS 78.8(H) 43.0 - 75.0 % [facility] LYMPHS 14.3(L) 18.2 - 47.4 % [facility] MONOS 4.6 4.00 - 11.00 % [facility] EOS 1.6 0.0 - 8.0 % [facility] BASOS 0.3 0.0 - 2.0 % [facility] Granulocytes, immature (%) 0.4 0.0 - 0.9 % [facility] ABSOLUTE NEUTS 6.24 1.80 - 7.70 K/uL [facility] ABSOLUTE LYMPHS 1.13 1.00 - 3.10 K/uL [facility] ABSOLUTE MONOS 0.36 0.20 - 0.80 K/uL [facility] ABSOLUTE EOS 0.13 0.00 - 0.80 K/uL [facility] ABSOLUTE BASOS 0.02 0.00 - 0.09 K/uL [facility] Granulocytes, immature 0.03 0.00 - 0.05 K/uL [facility] Blood 05/25/2020 7:05 AM EST 05/25/2020 7:09 AM EST us Pablo Humphrey MD LAB BLOOD ORDERABLES Final Resu lt [facility] [address] [place] [address] * TSH with reflex (05/25/2020 7:05 AM EST) TSH 1.13 0.27 - 4.20 uIU/mL [facility] Blood 05/25/2020 7:05 AM EST 05/25/2020 7:09 AM EST us Pablo Humphrey MD LAB BLOOD ORDERABLES Final Resu lt Performing Organization Address City/[facility]/ZIP Co de Phone Number [address] [address] * (ABNORMAL) Lipid panel (05/25/2020 7:05 AM EST) [facility] HDL 71 mg/dL [facility] Comment: Interpretation <40 mg/dL: Low HDL cholesterol (major risk factor for CHD) Greater than or equal to 60 mg/dL: High HDL cholesterol ( negative risk factor for CHD) HDL - cholesterol is affected by a number of factors, e.g. smoking, excerise, hormones, sex and age. CHOLESTEROL 235 0 - 240 mg/dL [facility] TRIGLYCERIDES 120 30 - 160 mg/dL [facility] LDL 140(H) 50 - 129 mg/dL [facility] Comment: LDL levels in terms of risk for coronary heart disease: <100 mg/dL: Optimal 100-129 mg/dL: Near or above optimal 130-159 mg/dL: Borderline high 160-189 mg/dL: High >190 mg/dL: Very High CARDIAC RISK RATIO 3.3(L) 3.4 - 5.0 [facility] Blood 05/25/2020 7:05 AM EST 05/25/2020 7:09 AM EST us Pablo Humphrey MD LAB BLOOD ORDERABLES Final Resu lt Performing Organization Address City/[facility]/ZIP Co de Phone Number [address] [address] * (ABNORMAL) Comprehensive metabolic panel (05/25/2020 7:05 AM EST) SODIUM 138 133 - 146 mmol/L [facility] POTASSIUM 4.1 3.3 - 5.1 mmol/L [facility] CHLORIDE 101 96 - 108 mmol/L [facility] CO2 25 21 - 35 mmol/L [facility] BUN 19 6 - 19 mg/dL [facility] CREATININE 0.60 0.5 - 1.5 mg/dL [facility] GLUCOSE 117(H) 70 - 99 mg/dL [facility] ALBUMIN 4.7 3.9 - 4.8 g/dL [facility] TOTAL PROTEIN 7.4 6.5 - 8.0 g/dL [facility] CALCIUM 10.2 8.4 - 10.3 mg/dL [facility] ALKALINE PHOSPHATASE 44 39 - 117 U/L [facility] TOTAL BILIRUBIN 0.9 0.0 - 1.2 mg/dL [facility] AST 36 0 - 37 U/L [facility] ALT 41(H) 0 - 40 U/L [facility] GLOBULIN 2.7 1 - 4.8 g/dL [facility] EGFR 103 >59 mL/min/1.7 3m2 [facility] Comment:Estimated glomerular filtration rate calculated using the CKD-EPI equation. ANION GAP 16 10 - 20 mmol/L [facility] Blood 05/25/2020 7:05 AM EST 05/25/2020 7:09 AM EST Pablo Humphrey MD LAB BLOOD ORDERABLES Final Resu lt Performing Organization Address City/State/[facility] Co de Phone Number [facility] [address] [place] [address] documented in this encounter Visit Diagnoses Diagnosis Routine general medical examination at a health care facility- Primary Fatigue, unspecified type Hypertension, unspecified type documented in this encounter Care Teams Cps Team Lead Relationship Specialty Start Date End Date Pablo Humphrey MD [address] [place] [address] [address] [place] [address] [email or web address] PCP - General Internal Medicine 04/23/17 11/02/21 Unknown, Unknown, PCP - General 11/03/21 01/04/22 Kenney Randolph DO [address] [place] [address], 2nd [place] [address] PCP - General Internal Medicine 01/05/22 Kenney Randolph DO [address] [place] [address], 2nd [place] [address] Insurance Assigned Provider 09/28/23 documented as of this encounter Additional Source Comments The information contained in this document represents components of the legal health record. It is not the complete legal health record.[facility]
--- OUTSIDE RECORDS SUMMARY | 2025-04-13 06:24 | XMS_ITS | Encounter Summary ---
Author Organization [facility] Address [address] [place] [address] Phone Care Team Providers Care Canine Enforcement Officer Name Role Phone KamPablo MD Primary Care Provider Unknown, Unknown Primary Care Provider Kenney De León DO Primary Care Provider Kenney Randolph DO Unavailable [phone] Encounter Details Date Type Department Care Team (Latest Contact Info) Description 12/03/2017 Transcribe Orders [facility] [address] [place] [address] Donato Freeman MD [address] [place] [address] [email or web address] Nonalcoholic steatohepatitis (LUCIANO) (Primary Dx) [...] Description 05/04/2025 11:15 AM EST Office Visit [facility] [address] [place] [address] 3rd Floor, [address] [place], [place] [phone] Esteban Duke MD [facility] [address] [place] [address] 07/20/2025 9:40 AM EST Office Visit [facility] [address] 3rd Floor, [address] [place] [address] Luke Tan MD [address] [place] [address] 09/13/2025 8:30 AM EDT [facility] [address] [place] [address] [place] [address] Kenney Randolph DO 170 [facility], 2nd [place] [address] documented as of this encounter Results * Liver fibrosis test (12/03/2017 12:25 PM EDT) Cow Milk Conv Class 0.37 [facility] DPT OF LAB MED AND PAT+ Neuron Specific Enolase (NOTE) [facility] DPT OF LAB MED AND PAT+ Comment:RESULT: F1-F2 Interleukin 2 minimal fibrosis [facility] DPT OF LAB MED AND PAT+ Comment: (NOTE) FibroTest estimates liver fibrosis FibroTest Score Stage Interpretation 0.00-0.21 F0 no fibrosis 0.21-0.27 F0-F1 no fibrosis 0.27-0.31 F1 minimal fibrosis 0.31-0.48 F1-F2 minimal fibrosis 0.48-0.58 F2 moderate fibrosis 0.58-0.72 F3 advanced fibrosis 0.72-0.74 F3-F4 advanced fibrosis 0.74-1.00 F4 severe fibrosis (Cirrhosis) ActiTest Score 0.29 [facility] DPT OF LAB MED AND PAT+ ANCA BENI at 1:20 dilution (NOTE) [facility] DPT OF LAB MED AND PAT+ Comment:RESULT: A0-A1 ActiTest Interpretation no activity [facility] DPT OF LAB MED AND PAT+ Comment: (NOTE) ActiTest estimates necroinflammatory activity ActiTest Score Grade Interpretation 0.00-0.17 A0 no activity 0.17-0.29 A0-A1 no activity 0.29-0.36 A1 minimal activity 0.36-0.52 A1-A2 minimal activity 0.52-0.60 A2 significant activity 0.60-0.62 A2-A3 significant activity 0.62-1.00 A3 severe activity FibroTest-ActiTest Comment SEE NOTE [facility] DPT OF LAB MED AND PAT+ Comment: (NOTE) The reliability of results is dependent on compliance with the preanalytical and analytical conditions recommended by [employer]. The tests have to be deferred for: [...] and its performance characteristics determined by [facility] in a manner consistent with CLIA requirements. This test has not been cleared or approved by the U.S. Food and Drug Administration. [employer] Serial Number [id number] [facility] DPT OF LAB MED AND PAT+ Apolipoprotein A1, S 154 >=120 mg/dL [facility] DPT OF LAB MED AND PAT+ Aaugt-9-Ackrbwobggmhx, S 195 100 - 280 mg/dL [facility] DPT OF LAB MED AND PAT+ Haptoglobin, S 86 30 - 200 mg/dL [facility] DPT OF LAB MED AND PAT+ Alanine Aminotransferase (ALT), S 47 7 - 55 U/L [facility] DPT OF LAB MED AND PAT+ Gamma Glutamyltransferase (GGT), S 16 8 - 61 U/L [facility] DPT OF LAB MED AND PAT+ Bilirubin, Total, S 0.9 <=1.2 mg/dL [facility] DPT OF LAB MED AND PAT+ Blood 12/03/2017 12:2 5 PM EDT 12/03/2017 12:30 PM EDT us Donato Freeman MD LAB BLOOD ORDERABLES Final R esult [facility] DPT OF LAB MED AND PAT+ [address] [place] [address] * LFTs (hepatic panel) (12/03/2017 12:25 PM EDT) ALKALINE PHOSPHATASE 43 39 - 117 U/L [facility] TOTAL BILIRUBIN 0.9 0.0 - 1.2 mg/dL [facility] DIRECT BILIRUBIN <0.2 0 - 0.3 mg/dL [facility] Bilirubin (Indirect) NOT CALCULATED 0 - 1.5 mg/dL [facility] AST 31 0 - 37 U/L [facility] ALT 40 0 - 40 U/L [facility] TOTAL PROTEIN 7.5 6.5 - 8.0 g/dL [facility] ALBUMIN 4.5 3.9 - 4.8 g/dL [facility] GLOBULIN 3.0 1 - 4.8 g/dL [facility] A/G Ratio 1.50 1.00 - 4.80 RATIO [facility] Blood 12/03/2017 12:2 5 PM EDT 12/03/2017 12:30 PM EDT us Donato Freeman MD LAB BLOOD ORDERABLES Final R esult [facility] [address] [place] [address] * (ABNORMAL) CBC and differential (12/03/2017 12:25 PM EDT) WBC 5.98 3.40 - 11.20 K/uL [facility] RBC 4.48(L) 4.50 - 5.50 M/uL [facility] HGB 14.5 13.0 - 17.0 g/dL [facility] HCT 42.0 40.0 - 51.0 % [facility] PLT 195 130 - 400 K/uL [facility] MCV 93.8 79.0 - 98.0 fL [facility] MCH 32.4 27.0 - 34.8 pg [facility] MCHC 34.5 31.5 - 36.0 g/dL [facility] RDW 12.3 10.8 - 14.6 % [facility] MPV 10.3 9.4 - 12.4 fl [facility] NRBC 0.00 /100 WBCs [facility] ABSOLUTE NRBC 0.00 K/uL [facility] DIFF METHOD Auto [facility] NEUTS 58.2 45.30 - 77.70 % [facility] LYMPHS 27.9 12.30 - 39.70 % [facility] MONOS 9.9 4.10 - 12.80 % [facility] EOS 3.2 0 - 7.2 % [facility] BASOS 0.5 0 - 2.80 % [facility] Granulocytes, immature (%) 0.3 0.0 - 0.9 % [facility] ABSOLUTE NEUTS 3.48 1.40 - 7.70 K/uL [facility] ABSOLUTE LYMPHS 1.67 0.60 - 3.20 K/uL [facility] ABSOLUTE MONOS 0.59 0.11 - 0.59 K/uL [facility] ABSOLUTE EOS 0.19 0.01 - 0.50 K/uL [facility] ABSOLUTE BASOS 0.03 0.00 - 0.08 K/uL [facility] Granulocytes, immature 0.02 0.00 - 0.05 K/uL [facility] Blood 12/03/2017 12:2 5 PM EDT 12/03/2017 12:30 PM EDT us Donato Freeman MD LAB BLOOD ORDERABLES Final R esult [facility] [address] [place] [address] documented in this encounter Visit Diagnoses Diagnosis Nonalcoholic steatohepatitis (LUCIANO)- Primary documented in this encounter Care Teams Canine Enforcement Officer Relationship Specialty Start Date End Date Kam, Pablo Pascal MD [address] [place] [address] [address] [place] [address] [email or web address] PCP - General Internal Medicine 04/23/17 11/02/21 Unknown, Keesha, PCP - General 11/03/21 01/04/22 Kenney Randolph DO [address] [place] [address], [address] [place] [address] [email or web address] PCP - General Internal Medicine 01/05/22 Kenney Randolph DO 170 [facility], [address] [place] [address] Insurance Assigned Provider 09/28/23 documented as of this encounter Additional Source Comments The information contained in this document represents components of the legal health record. It is not the complete legal health record.[facility]
--- OUTSIDE RECORDS SUMMARY | 2025-04-13 06:24 | XMS_ITS | Encounter Summary ---
Author Organization [facility] Address [address] [place] [address] Phone Care Team Providers Care Quality Assurance Engineer Name Role Phone Kenney Randolph DO Primary Care Provider Kenney Randolph DO Unavailable [phone] Encounter Details Date Type Department Care Team (Late st Contact Info) Description 09/18/2024 Procedure Pass [facility] [address] [place] [address] Social History Tobacco Use Types Packs/Day Years [...] Description 05/04/2025 11:15 AM EST Office Visit [facility] [address] [facility], [address] [place] [address] Esteban Duke MD [address] [place] [address], [address] [address] 07/20/2025 9:40 AM EST Office Visit [facility] 22 [facility] 3rd [facility], [address] [place] [address] Luke Tan MD [address] [place] [address] 09/13/2025 8:30 AM EDT Office Visit [facility] [address] [place] [address] Kenney Randolph DO 170 [facility], [address] [place] [address] documented as of this encounter Visit Diagnoses Not on filedocumented in this encounter Additional Health Concerns Assessment Noted Time PHQ-2 Depression Total Score: 0 03/05/20 24 8:04 AM EDT documented as of this encounter Care Teams Quality Assurance Engineer Relationship Specialty Start Date End Date Kenney Randolph DO [address] [place] [address], [address] [place] [address] PCP - General Internal Medicine 01/05/22 Kenney Randolph DO [address] [place] [address], 2nd [place] [address] [email or web address] Insurance Assigned Provider 09/28/23 documented as of this encounter Additional Source Comments The information contained in this document represents components of the legal health record. It is not the complete legal health record.[facility]
--- OUTSIDE RECORDS SUMMARY | 2025-04-13 06:24 | XMS_ITS | Encounter Summary ---
Author Organization [facility] Address [address] [place] [address] Phone Care Team Providers Care Motor Equipment Captain Name Role Phone Kenney Randolph DO Primary Care Provider Kenney Randolph DO Unavailable Encounter Details Date Type Department Care Team (Late st Contact Info) Description 05/12/2024 Procedure Pass [facility] Cardi[facility] And Inter[facility] Radiology [address] [place] [address] Social History Tobacco Use Types Packs/Day Years [...] Description 05/04/2025 11:15 AM EST Office Visit [facility] [address] [facility], [address] [place] [address] Esteban Duke MD [address] [place] [address], [address] [address] 07/20/2025 9:40 AM EST Office Visit [facility] 22 [facility] 3rd [facility], [address] [place] [address] Luke Tan MD [address] [place] [address] 09/13/2025 8:30 AM EDT Office Visit [facility] [address] [place] [address] Kenney Randolph DO 170 [facility], [address] [place] [address] documented as of this encounter Visit Diagnoses Not on filedocumented in this encounter Additional Health Concerns Assessment Noted Time PHQ-2 Depression Total Score: 0 03/05/20 24 8:04 AM EDT documented as of this encounter Care Teams Motor Equipment Captain Relationship Specialty Start Date End Date Kenney Randolph DO [address] [place] [address], [address] [place] [address] PCP - General Internal Medicine 01/05/22 Kenney Randolph DO [address] [place] [address], 2nd [place] [address] [email or web address] Insurance Assigned Provider 09/28/23 documented as of this encounter Additional Source Comments The information contained in this document represents components of the legal health record. It is not the complete legal health record.[facility]
--- OUTSIDE RECORDS SUMMARY | 2025-04-13 06:24 | XMS_ITS | Encounter Summary ---
Author Organization [facility] Address [address] [place] [address] [place] [address] Phone Care Team Providers Care Interventionist Name Role Phone Kenney Randolph DO Primary Care Provider Kenney Randolph DO Unavailable [phone] Reason for Visit * Reason Comments Medication Refill Encounter Details Date Type Department Care Team (Late st Contact Info) Description 04/12/2025 Refill [facility] [address] [place] [address] [place] [id number] Kenney Randolph DO 170 [facility], 2nd [place] [address] [email or web address] Medication Refill Social History Tobacco Use Types Packs/Day Years [...] as of this encounter Progress Notes * Karolina Santa - 04/12/2025 3:51 PM EDT Rx Care Gap Status - Instructions for Clinical Staff (prescriber discretion applies): > Mismatch review guide > N/a - No action needed Visit Info Last visit: 03/16/2025 Kenney Randolph, - Family Medicine [facility] > Requested f/u: Return in about 6 months (around 09/13/2025) for Recheck. Upcoming visit: 09/13/2025 Kenney Randolph DO - Family Medicine [facility] ACTIONS TAKEN BY Karolina Santa - Criteria met. AV Sara Blockers Rx Protocol (on HTN Registry) - metoprolol succinate Criteria met; renew for up to 12 months. Visit in the past 14 months: Yes Clinical criteria: - BP within last 6 months: 130/74 on 03/16/2025 - Last HR: 54 on 03/16/2025 documented in this encounter Plan of Treatment Upcoming Encounters Date Type Department Care Team (Late st Contact Info) Description 05/04/2025 11:15 AM EST Office Visit [facility] [address] [place] [address] 3rd Floor, [address] [place] [address] Esteban Duke MD [address] [place] [address], [address] [place] [address] 07/20/2025 9:40 AM EST Office Visit [facility] [address] [place] [address] 3rd Floor, [address] [place] [address] Luke Tan MD [address] [place] [address] 09/13/2025 8:30 AM EDT Office Visit [facility] [address] [place] [address] [place] [address] Kenney Randolph DO [address] [place] [address], [address] [place] [address] documented as of this encounter Visit Diagnoses Not on filedocumented in this encounter Additional Health Concerns Assessment Noted Time PHQ-2 Depression Total Score: 0 03/16/20 25 8:05 AM EDT documented as of this encounter Care Teams Interventionist Relationship Specialty Start Date End Date Kenney Randolph DO [address] [place] [address] PCP - General Internal Medicine 01/05/22 Kenney Randolph DO [address] [place] [address] Insurance Assigned Provider 09/28/23 documented as of this encounter Additional Source Comments The information contained in this document represents components of the legal health record. It is not the complete legal health record.[facility]
--- OUTSIDE RECORDS SUMMARY | 2025-04-13 06:24 | XMS_ITS | Clinical Summary ---
Author Organization [facility] Address [address] [id number] Care Team Providers Care Cross Country/Track And Field Coach Name Role Phone RandolphKenney flores Primary Care [...] age to complete this topic Insurance MEDICARE [facility] SU[facility] Care Teams Cross Country/Track And Field Coach Relationship Specialty Start Date End Date Kenney Randolph DO [address] [place] [address] [place] [address] PCP - General 03/12/22
--- OUTSIDE RECORDS SUMMARY | 2025-04-13 06:24 | XMS_ITS | Encounter Summary ---
Author Organization [facility] Address [address] [place] [address] [place] [address] Phone Care Team Providers Care Retail Salesperson Name Role Phone Pablo Humphrey MD Primary Care Provider [phone] Unknown, Unknown Primary Care Provider MaryvaKenney Griffin DO Primary Care Provider Kenney Randolph DO Unavailable [phone] Encounter Details Date Type Department Care Team (Latest Contact Info) Description 04/23/2017 Transcribe Orders [facility] [address] [place] [address] Kam, Pablo Pascal MD [address] [facility] [address] [place] [address] [email or web address] Routine general medical examination at a health care facility (Primary Dx); Essential hypertension, benign; Fatigue, unspecified type Social History Tobacco Use Types Packs/Day Years Used Date Smoking Tobacco: Unknown Alcohol Use Standard Drinks/Week Comments Yes 10 (1 standard drink = 0.6 oz pu re alcohol) Sex and Gender Information Value Date Recorded Sex Assigned at Not on file Legal Sex Male 10:00 PM EDT Gender Identity Not on file Sexual Orientation Not on file documented as of this encounter Plan of Treatment Upcoming Encounters Date Type Department Care Team ( Contact Info) Description 05/04/2025 11:15 AM EST Office Visit [facility] 22 [facility] 3rd Floor, [address] [place] [address] Esteban Duke MD 22 [facility], [address] [place] [address] 07/20/2025 9:40 AM EST Office Visit [facility] [address] 3rd Floor, [address] [place] [address] Luke Tan MD [address] [place] [address] 09/13/2025 8:30 AM EDT Office Visit [address] [place] [address] Kenney Randolph DO [address] [place] [address], 2nd [place] [address] [email or web address] documented as of this encounter Results * PSA (screening) (04/23/2017 7:06 AM EDT) PSA 0.38 0 - 4.00 ng/mL [facility] Blood 04/23/2017 7:06 AM EDT 04/23/2017 7:10 AM EDT Pablo Humphrey MD LAB BLOOD ORDERABLES Final Resu lt [facility] [address] [place] [address] * (ABNORMAL) CBC and differential (04/23/2017 7:06 AM EDT) WBC 4.55 3.40 - 11.20 K/uL [facility] RBC 4.29(L) 4.50 - 5.50 M/uL [facility] HGB 14.1 13.0 - 17.0 g/dL [facility] HCT 40.5 40.0 - 51.0 % [facility] PLT 174 130 - 400 K/uL [facility] MCV 94.4 79.0 - 98.0 fL [facility] MCH 32.9 27.0 - 34.8 pg [facility] MCHC 34.8 31.5 - 36.0 g/dL [facility] RDW 11.9 10.8 - 14.6 % [facility] MPV 10.7 9.4 - 12.4 fl [facility] NRBC 0.00 /100 WBCs [facility] ABSOLUTE NRBC 0.00 K/uL [facility] DIFF METHOD Auto [facility] NEUTS 53.7 45.30 - 77.70 % [facility] LYMPHS 27.7 12.30 - 39.70 % [facility] MONOS 12.7 4.10 - 12.80 % [facility] EOS 5.1 0 - 7.2 % [facility] BASOS 0.4 0 - 2.80 % [facility] Granulocytes, immature (%) 0.4 0.0 - 0.9 % [facility] ABSOLUTE NEUTS 2.44 1.40 - 7.70 K/uL [facility] ABSOLUTE LYMPHS 1.26 0.60 - 3.20 K/uL [facility] ABSOLUTE MONOS 0.58 0.11 - 0.59 K/uL [facility] ABSOLUTE EOS 0.23 0.01 - 0.50 K/uL [facility] ABSOLUTE BASOS 0.02 0.00 - 0.08 K/uL [facility] Granulocytes, immature 0.02 0.00 - 0.05 K/uL [facility] Blood 04/23/2017 7:06 AM EDT 04/23/2017 7:11 AM EDT us Pablo Humphrey MD LAB BLOOD ORDERABLES Final Resu lt [facility] [address] [place] [address] * TSH with reflex (04/23/2017 7:06 AM EDT) TSH 2.52 0.27 - 4.20 uIU/mL [facility] Blood 04/23/2017 7:06 AM EDT 04/23/2017 7:11 AM EDT Pablo Humphrey MD LAB BLOOD ORDERABLES Edited Res ult - Final Performing Organization Address [facility]/ZIP Co de Phone Number [address] [address] * (ABNORMAL) Lipid panel (04/23/2017 7:06 AM EDT) HDL 52 mg/dL [facility] Comment: Interpretation: Risk Level Males Decreased >45 mg/dL Average 40-45 mg/dL Increased <40 mg/dL CHOLESTEROL 223 0 - 240 mg/dL [facility] TRIGLYCERIDES 166(H) 30 - 160 mg/dL [facility] LDL 138(H) 50 - 129 mg/dL [facility] Comment: LDL levels in terms of risk for coronary heart disease: <100 mg/dL: Optimal 100-129 mg/dL: Near or above optimal 130-159 mg/dL: Borderline high 160-189 mg/dL: High >190 mg/dL: Very High CARDIAC RISK RATIO 4.3 3.4 - 5.0 C [facility] Blood 04/23/2017 7:06 AM EDT 04/23/2017 7:11 AM EDT Pablo Humphrey MD LAB BLOOD ORDERABLES Final Resu lt Performing Organization Address City/[facility]/ZIP Co de Phone Number [address] [address] * (ABNORMAL) Comprehensive metabolic panel (04/23/2017 7:06 AM EDT) SODIUM 141 133 - 146 mmol/L [facility] POTASSIUM 4.4 3.3 - 5.1 mmol/L [facility] CHLORIDE 101 96 - 108 mmol/L [facility] CO2 31 21 - 35 mmol/L [facility] BUN 16 6 - 19 mg/dL [facility] CREATININE 0.60 0.5 - 1.5 mg/dL [facility] GLUCOSE 108(H) 70 - 99 mg/dL [facility] ALBUMIN 4.5 3.9 - 4.8 g/dL [facility] TOTAL PROTEIN 7.0 6.5 - 8.0 g/dL [facility] CALCIUM 9.5 8.4 - 10.3 mg/dL [facility] ALKALINE PHOSPHATASE 41 39 - 117 U/L [facility] TOTAL BILIRUBIN 0.7 0 - 1.2 mg/dL [facility] AST 40(H) 0 - 37 U/L [facility] ALT 60(H) 0 - 40 U/L [facility] GLOBULIN 2.5 1 - 4.8 g/dL [facility] EGFR >60 >60 mL/min/1.7 3m2 [facility] Comment:Abnormal if <60. If patient is -[place]ian, multiply the result by 1.21. ANION GAP 13 10 - 20 mmol/L [facility] Blood 04/23/2017 7:06 AM EDT 04/23/2017 7:11 AM EDT us Pablo Humphrey MD LAB BLOOD ORDERABLES Final Resu lt [facility] [address] [place] [address] documented in this encounter Visit Diagnoses Diagnosis Routine general medical examination at a health care facility- Primary Essential hypertension, benign Fatigue, unspecified type documented in this encounter Care Teams Retail Salesperson Relationship Specialty Start Date End Date Pablo Humphrey MD [address] [place] [address] [address] [place] [address] [email or web address] PCP - General Internal Medicine 04/23/17 11/02/21 Unknown, Unknown, PCP - General 11/03/21 01/04/22 Kenney Randolph DO [address] [place] [address], 2nd [place] [address] [email or web address] PCP - General Internal Medicine 01/05/22 Kenney Randolph DO [address] [place] [address], 2nd [place] [address] [email or web address] Insurance Assigned Provider 09/28/23 documented as of this encounter Additional Source Comments The information contained in this document represents components of the legal health record. It is not the complete legal health record.[facility]
--- OUTSIDE RECORDS SUMMARY | 2025-04-13 06:24 | XMS_ITS | Encounter Summary ---
Author Organization [facility] Address [address] [place] [address] [place] [address] Phone Care Team Providers Care Educational Institution Curator Name Role Phone KamPablo MD Primary Care Provider Unknown, Unknown Primary Care Provider Maryvai Kenney Minor DO Primary Care Provider Kenney Randolph DO Unavailable [phone] Encounter Details Date Type Department Care Team (Latest Contact Info) Description 09/07/2021 Transcribe Orders Virtual Department 30 [place], [place] [id number] Lauri Bar MD [address] [facility] [address] [place], [place] [id number] [email or web address] Essential hypertension (Primary Dx) Social History Tobacco [...] Description 05/04/2025 11:15 AM EST Office Visit [facility] [address] [facility] 3rd Floor, [address] [place], [place] [phone] Esteban Duke MD [address] [facility], [address] [place] [address] 07/20/2025 9:40 AM EST Office Visit [facility] [address] [place] [address] 3rd Floor, [address] [place] [address] Luke Tan MD [address] [place] [address] 09/13/2025 8:30 AM EDT Office Visit [facility] [address] [address] Kenney Randolph DO [address] [place] [address], 2[address] [place] [address] [email or web address] documented as of this encounter Visit Diagnoses Diagnosis Essential hypertension- Primary Unspecified essential hypertension documented in this encounter Care Teams Educational Institution Curator Relationship Specialty Start Date End Date Kam, Pablo Pascal MD [address] [place] [address] [address] [place] [address] [email or web address] PCP - General Internal Medicine 04/23/17 11/02/21 Unknown, Keesha, PCP - General 11/03/21 01/04/22 Kenney Randolph DO [address] [place] [address], [address] [place] [address] PCP - General Internal Medicine 01/05/22 Kenney Randolph DO [address] [place] [address], [address] [place] [address] Insurance Assigned Provider 09/28/23 documented as of this encounter Additional Source Comments The information contained in this document represents components of the legal health record. It is not the complete legal health record.[facility]
--- OUTSIDE RECORDS SUMMARY | 2025-04-13 06:24 | XMS_ITS | Encounter Summary ---
Author Organization [facility] Address [address] [place] [address] [place] [address] Phone Care Team Providers Care Chair Mender Name Role Phone KamPablo MD Primary Care Provider [phone] Unknown, Unknown Primary Care Provider Unavai Kenney Minor DO Primary Care Provider Kenney Randolph DO Unavailable [phone] Encounter Details Date Type Department Care Team (Late st Contact Info) Description 02/04/2018 Procedure Pass [facility] Endoscopy Admitting Dept Virtual Department [address] [place] [address] Social History Tobacco Use Types Packs/Day Years [...] Description 05/04/2025 11:15 AM EST Office Visit [facility] [address] [place] [address] 3rd Floor, [address] [place] [address] Esteban Duke MD 22 [facility], [address] [place] [address] 07/20/2025 9:40 AM EST Office Visit [facility] [address] [place] [address] 3rd Floor, [address] [place] [address] Luke Tan MD [address] [place] [address] [email or web address] 09/13/2025 8:30 AM EDT Office Visit [facility] [address] [place] [address] [place] [address] Kenney Randoplh DO [address] [place] [address], [address] [place] [address] [email or web address] documented as of this encounter Visit Diagnoses Not on filedocumented in this encounter Care Teams Chair Mender Relationship Specialty Start Date End Date Kam, Pablo Pascal MD [address] [place] [address] [address] [place] [address] [email or web address] PCP - General Internal Medicine 04/23/17 11/02/21 Unknown, Unknown, PCP - General 11/03/21 01/04/22 Kenney Randolph DO [address] [place] [address] [email or web address] PCP - General Internal Medicine 01/05/22 Kenney Randolph DO [address] [place] [address] [email or web address] Insurance Assigned Provider 09/28/23 documented as of this encounter Additional Source Comments The information contained in this document represents components of the legal health record. It is not the complete legal health record.[facility]
--- OUTSIDE RECORDS SUMMARY | 2025-04-13 06:24 | XMS_ITS | Encounter Summary ---
Author Organization [facility] Address [address] [place] [address] [place] [address] Phone Care Team Providers Care Paramedic Instructor Name Role Phone Pablo Humphrey MD Primary Care Provider [phone] Unknown, Unknown Primary Care Provider Unavai Kenney Minor DO Primary Care Provider Kenney Randolph DO Unavailable [phone] Encounter Details Date Type Department Care Team (Late st Contact Info) Description 11/08/2020 Ancillary Orders Virtual Department 30 [place], [place] [phone] KamPablo MD 264 [facility] [address] [place] [address] [email or web address] pain on left side Social [...] Description 05/04/2025 11:15 AM EST Office Visit [facility] [address] [place] [address] 3rd Floor, [address] [place] [address] Esteban uDke MD 22 [facility], [address] [place] [address] [email or web address] 07/20/2025 9:40 AM EST Office Visit [facility] [address] 3rd Floor, [address] [place] [address] Luke Tan MD [address] [place] [address] [email or web address] 09/13/2025 8:30 AM EDT Office Visit [facility] [address] [place] [address] Kenney Randolph DO 170 [facility], 2nd [place] [address] documented as of this encounter Results * [...] side documented in this encounter Care Teams Paramedic Instructor Relationship Specialty Start Date End Date Kam, Pablo Pascal MD [address] [place] [address] & [address] [place] [address] [email or web address] PCP - General Internal Medicine 04/23/17 11/02/21 Unknown, Unknown, PCP - General 11/03/21 01/04/22 Kenney Randolph DO [address] [place] [address], [address] [place] [address] PCP - General Internal Medicine 01/05/22 Kenney Randolph DO [address] [place] [address], [address] [place] [address] [email or web address] Insurance Assigned Provider 4/6/24 documented as of this encounter Additional Source Comments The information contained in this document represents components of the legal health record. It is not the complete legal health record.[facility]
--- OUTSIDE RECORDS SUMMARY | 2025-04-13 06:24 | XMS_ITS | Encounter Summary ---
Author Organization [facility] Address [address] [place] [address] Phone Care Team Providers Care Coremaking Machine Setter Name Role Phone Kenney Randolph DO Primary Care Provider Kenney Randolph DO Unavailable [phone] Encounter Details Date Type Department Care Team (Late st Contact Info) Description 05/12/2024 Procedure Pass [facility] [place] [place] [address] Social History Tobacco Use Types Packs/Day Years [...] Description 05/04/2025 11:15 AM EST Office Visit [facility] [address] [place] [address] 3rd [facility], [address] [place] [address] Esteban Duke MD [address] [place] [address], [address] [address] 07/20/2025 9:40 AM EST Office Visit [facility] [address] 3rd [facility], [address] [place] [address] Luke Tan MD [address] [place] [address] 09/13/2025 8:30 AM EDT Office Visit [facility] [address] [place] [address] Kenney Randolph DO [address] [place] [address], [address] [place] [address] documented as of this encounter Visit Diagnoses Not on filedocumented in this encounter Additional Health Concerns Assessment Noted Time PHQ-2 Depression Total Score: 0 03/05/20 24 8:04 AM EDT documented as of this encounter Care Teams Coremaking Machine Setter Relationship Specialty Start Date End Date Kenney Randolph DO [address] [place] [address], [address] [place] [address] [email or web address] PCP - General Internal Medicine 01/05/22 Kenney Randolph DO [address] [place] [address], 2nd [place] [address] [email or web address] Insurance Assigned Provider 09/28/23 documented as of this encounter Additional Source Comments The information contained in this document represents components of the legal health record. It is not the complete legal health record.[facility]
--- OUTSIDE RECORDS SUMMARY | 2025-04-13 06:24 | XMS_ITS | Encounter Summary ---
Author Organization [facility] Address [address] [place] [address] Phone Care Team Providers Care Vegetable Tester Name Role Phone Pablo Humphrey MD Primary Care Provider [phone] Unknown, Unknown Primary Care Provider MaryvaKenney Griffin DO Primary Care Provider Kenney Randolph DO Unavailable [phone] Encounter Details Date Type Department Care Team (Latest Contact Info) Description 08/25/2018 Transcribe Orders [address] [place] [address] Kam, Pablo Pascal MD 264 [facility] [address] [place] [address] [email or web address] Routine general medical examination at a health [...] Description 05/04/2025 11:15 AM EST Office Visit [facility] [address]rd Floor, [address] [place] [address] Esteban Duke MD 22 [facility], [address] [place] [address] 07/20/2025 9:40 AM EST Office Visit [facility] [address] 3rd Floor, [address] [place] [address] Luke Tan MD [address] [place] [address] 09/13/2025 8:30 AM EDT Office Visit [address] [place] [address] Kenney Randolph DO 170 [facility], 2nd [place] [address] [email or web address] documented as of this encounter Results * PSA (screening) (08/25/2018 7:11 AM EST) Pathologist [facility] PSA 0.75 0 - 4.00 ng/mL [facility] Blood 08/25/2018 7:11 AM EST 08/25/2018 7:18 AM EST Pablo Humphrey MD LAB BLOOD ORDERABLES Final Resu lt [facility] [address] [place] [address] * CBC and differential (08/25/2018 7:11 AM EST) WBC 4.98 3.40 - 11.20 K/uL [facility] RBC 4.51 4.50 - 5.50 M/uL [facility] HGB 14.6 13.0 - 17.0 g/dL [facility] HCT 42.8 40.0 - 51.0 % [facility] PLT 209 130 - 400 K/uL [facility] MCV 94.9 79.0 - 98.0 fL [facility] MCH 32.4 27.0 - 34.8 pg [facility] MCHC 34.1 31.5 - 36.0 g/dL [facility] RDW 11.9 10.8 - 14.6 % [facility] MPV 10.7 9.4 - 12.4 fl [facility] NRBC 0.00 0.00 /100 WBCs [facility] ABSOLUTE NRBC 0.00 0.00 K/uL [facility] DIFF METHOD Auto [facility] NEUTS 63.1 45.30 - 77.70 % [facility] LYMPHS 20.9 12.30 - 39.70 % [facility] MONOS 10.8 4.10 - 12.80 % [facility] EOS 4.8 0 - 7.2 % [facility] BASOS 0.2 0 - 2.80 % [facility] Granulocytes, immature (%) 0.2 0.0 - 0.9 % [facility] ABSOLUTE NEUTS 3.14 1.40 - 7.70 K/uL [facility] ABSOLUTE LYMPHS 1.04 0.60 - 3.20 K/uL [facility] ABSOLUTE MONOS 0.54 0.11 - 0.59 K/uL [facility] ABSOLUTE EOS 0.24 0.01 - 0.50 K/uL [facility] ABSOLUTE BASOS 0.01 0.00 - 0.08 K/uL [facility] Granulocytes, immature 0.01 0.00 - 0.05 K/uL [facility] Blood 08/25/2018 7:11 AM EST 08/25/2018 7:18 AM EST us Pablo Humphrey MD LAB BLOOD ORDERABLES Final Resu lt [facility] [address] [place] [address] * TSH with reflex (08/25/2018 7:11 AM EST) TSH 2.13 0.27 - 4.20 uIU/mL [facility] Blood 08/25/2018 7:11 AM EST 08/25/2018 7:18 AM EST Pablo Humphrey MD LAB BLOOD ORDERABLES Final Resu lt Performing Organization Address [facility] Co de Phone Number [address] [address] * Lipid panel (08/25/2018 7:11 AM EST) HDL 52 mg/dL [facility] Comment: Interpretation <40 mg/dL: Low HDL cholesterol (major risk factor for CHD) Greater than or equal to 60 mg/dL: High HDL cholesterol ( negative risk factor for CHD) HDL - cholesterol is affected by a number of factors, e.g. smoking, excerise, hormones, sex and age. CHOLESTEROL 188 0 - 240 mg/dL [facility] TRIGLYCERIDES 128 30 - 160 mg/dL [facility] LDL 110 50 - 129 mg/dL [facility] Comment: LDL levels in terms of risk for coronary heart disease: <100 mg/dL: Optimal 100-129 mg/dL: Near or above optimal 130-159 mg/dL: Borderline high 160-189 mg/dL: High >190 mg/dL: Very High CARDIAC RISK RATIO 3.6 3.4 - 5.0 [facility] Blood 08/25/2018 7:11 AM EST 08/25/2018 7:18 AM EST us Pablo Humphrey MD LAB BLOOD ORDERABLES Final Resu lt [address] [address] * Comprehensive metabolic panel (08/25/2018 7:11 AM EST) SODIUM 140 133 - 146 mmol/L [facility] POTASSIUM 4.3 3.3 - 5.1 mmol/L [facility] CHLORIDE 100 96 - 108 mmol/L [facility] CO2 28 21 - 35 mmol/L [facility] BUN 17 6 - 19 mg/dL [facility] CREATININE 0.60 0.5 - 1.5 mg/dL [facility] GLUCOSE 97 70 - 99 mg/dL [facility] ALBUMIN 4.6 3.9 - 4.8 g/dL [facility] TOTAL PROTEIN 7.5 6.5 - 8.0 g/dL [facility] CALCIUM 9.9 8.4 - 10.3 mg/dL [facility] ALKALINE PHOSPHATASE 41 39 - 117 U/L [facility] TOTAL BILIRUBIN 0.7 0.0 - 1.2 mg/dL [facility] Comment: Results from certain multiple myeloma patients may show a positive bias in recovery. Not all multiple myeloma patients show the bias and severity of the bias may vary between patients. In very rare cases, gammopathy, in particular type IgM (Waldenstrom's macroglobulinemia), may cause unreliable results. AST 29 0 - 37 U/L [facility] ALT 34 0 - 40 U/L [facility] GLOBULIN 2.9 1 - 4.8 g/dL [facility] EGFR 105 >59 mL/min/1.7 3m2 [facility] Comment:If patient is black, multiply result by 1.159. Estimated glomerular filtration rate calculated using the CKD-EPI equation. ANION GAP 16 10 - 20 mmol/L [facility] Blood 08/25/2018 7:11 AM EST 08/25/2018 7:18 AM EST us Pablo Humphrey MD LAB BLOOD ORDERABLES Final Resu lt Performing Organization Address City/State/[facility] Co de Phone Number [facility] [address] [place] [address] documented in this encounter Visit Diagnoses Diagnosis Routine general medical examination at a health care facility- Primary Hypertension, unspecified type Fatigue, unspecified type documented in this encounter Care Teams Vegetable Tester Relationship Specialty Start Date End Date Pablo Humphrey MD [address] [place] [address] [address] [place] [address] [email or web address] PCP - General Internal Medicine 04/23/17 11/02/21 Unknown, Keesha, PCP - General 11/03/21 01/04/22 Kenney Randolph DO [address] [place] [address], 2nd [place] [address] [email or web address] PCP - General Internal Medicine 01/05/22 Kenney Randolph DO [address] [place] [address], 2nd [place] [address] [email or web address] Insurance Assigned Provider 09/28/23 documented as of this encounter Additional Source Comments The information contained in this document represents components of the legal health record. It is not the complete legal health record.[facility]
--- OUTSIDE RECORDS SUMMARY | 2025-04-13 06:24 | XMS_ITS | Encounter Summary ---
Author Organization [facility] Address [address] [place] [address] [place] [address] Phone Care Team Providers Care Survey Associate Name Role Phone Pablo Humphrey MD Primary Care Provider [phone] Unknown, Unknown Primary Care Provider Maryvai Kenney Minor DO Primary Care Provider Kenney Randolph DO Unavailable [phone] Encounter Details Date Type Department Care Team (Latest Contact Info) Description 07/14/2021 Transcribe Orders [address] [place] [address] Kam, Pablo Pascal MD 264 [facility] [address] [place], [place] [id number] [email or web address] Hypertension, unspecified type (Primary Dx) Social [...] Description 05/04/2025 11:15 AM EST Office Visit [facility] [address] [place] [address] 3rd Floor, [address] [place], [place] [phone] Esteban Duke MD 22 [facility] [address] [place] [address] 07/20/2025 9:40 AM EST Office Visit [facility] [address] [place] [address] Dr 3rd Floor, [address] [place] [address] Luke Tan MD [address] [place] [address] 09/13/2025 8:30 AM EDT Office Visit [facility] [address] [place] [address] [place] [address] Kenney Randolph DO 170 [facility], 2nd [place] [address] [email or web address] documented as of this encounter Results * (ABNORMAL) Basic metabolic panel (07/14/2021 7:08 AM EST) SODIUM 137 133 - 146 mmol/L [facility] CHLORIDE 98 96 - 108 mmol/L [facility] POTASSIUM 3.8 3.3 - 5.1 mmol/L [facility] CO2 27 21 - 35 mmol/L [facility] BUN 18 6 - 19 mg/dL [facility] CREATININE 0.50 0.5 - 1.5 mg/dL [facility] GLUCOSE 110(H) 70 - 99 mg/dL [facility] CALCIUM 10.6(H) 8.4 - 10.3 mg/dL [facility] EGFR 110 >59 mL/min/1.7 3m2 [facility] Comment:Estimated glomerular filtration rate calculated using the CKD-EPI refit equation. ANION GAP 16 10 - 20 mmol/L [facility] Blood 07/14/2021 7:08 AM EST 07/14/2021 7:12 AM EST Pablo Humphrey MD LAB BLOOD ORDERABLES Final Resu lt [facility] [address] [place] [address] documented in this encounter Visit Diagnoses Diagnosis Hypertension, unspecified type- Primary documented in this encounter Care Teams Survey Associate Relationship Specialty Start Date End Date Kam, Pablo Pascal MD 264 [facility] [address] [place] [address] [email or web address] PCP - General Internal Medicine 04/23/17 11/02/21 Unknown, Unknown, PCP - General 11/03/21 01/04/22 Kenney Randolph DO [address] [place] [address], [address] [place] [address] PCP - General Internal Medicine 01/05/22 Kenney Randolph DO [address] [place] [address], [address] [place] [address] Insurance Assigned Provider 09/28/23 documented as of this encounter Additional Source Comments The information contained in this document represents components of the legal health record. It is not the complete legal health record.[facility]
--- OUTSIDE RECORDS SUMMARY | 2025-04-13 06:24 | XMS_ITS | Encounter Summary ---
Author Organization [facility] Address [address] [place] [address] Phone Care Team Providers Care Paper Bag Making Machinist Name Role Phone Kenney Randolph DO Primary Care Provider Kenney Randolph DO Unavailable [phone] Encounter Details Date Type Department Care Team (Late st Contact Info) Description 06/29/2024 Procedure Pass [facility] [address] [place] [address] Social History Tobacco Use Types Packs/Day Years [...] Description 05/04/2025 11:15 AM EST Office Visit [facility] [address] 3rd [facility], [address] [place] [address] Esteban Duke MD [address] [place] [address], [address] [address] 07/20/2025 9:40 AM EST Office Visit [facility] 3rd [facility], [address] [place] [address] Luke Tan MD [address] [place] [address] 09/13/2025 8:30 AM EDT Office Visit [facility] [address] [place] [address] Kenney Randolph DO 170 [facility], [address] [place] [address] documented as of this encounter Visit Diagnoses Not on filedocumented in this encounter Additional Health Concerns Assessment Noted Time PHQ-2 Depression Total Score: 0 03/05/20 24 8:04 AM EDT documented as of this encounter Care Teams Paper Bag Making Machinist Relationship Specialty Start Date End Date Kenney Randolph DO [address] [place] [address], [address] [place] [address] [email or web address] PCP - General Internal Medicine 01/05/22 Kenney Randolph DO [address] [place] [address], 2nd [place] [address] [email or web address] Insurance Assigned Provider 09/28/23 documented as of this encounter Additional Source Comments The information contained in this document represents components of the legal health record. It is not the complete legal health record.[facility]
--- OUTSIDE RECORDS SUMMARY | 2025-04-13 06:24 | XMS_ITS | Encounter Summary ---
Author Organization [facility] Address [address] [place] [address] [place] [address] Phone Care Team Providers Care Dixonac Operator Name Role Phone Pablo Humphrey MD Primary Care Provider [phone] Unknown, Unknown Primary Care Provider MaryvaKenney Griffin DO Primary Care Provider Kenney Randolph DO Unavailable [phone] Encounter Details Date Type Department Care Team (Latest Contact Info) Description 08/17/2021 Transcribe Orders [address] [place] [address] Kam, Pablo Pascal MD [address] [facility] [address] [place], [place] [id number] [email or web address] Hypertension, unspecified type (Primary Dx); Fatigue, [...] Description 05/04/2025 11:15 AM EST Office Visit [facility] [address] [place] [address] 3rd Floor, [address] [place] [address] Esteban Duke MD [address] [facility], [address] [place] [address] 07/20/2025 9:40 AM EST Office Visit [facility] [address] [place] [address] 3rd Floor, [address] [place] [address] Luke Tan MD [address] [place] [address] 09/13/2025 8:30 AM EDT Office Visit [facility] [address] [place] [address] [place] [address] Kenney Randolph DO 170 [facility], 2nd [place] [address] [email or web address] documented as of this encounter Results * 25-OH vitamin D (08/17/2021 7:27 AM EST) 25 OH VIT D (TOTAL) 36 30 - 60 ng/mL [facility] Blood 08/17/2021 7:27 AM EST 08/17/2021 7:29 AM EST Pablo Humphrey MD LAB BLOOD ORDERABLES Final Resu lt [facility] [address] [place] [address] * Magnesium (08/17/2021 7:27 AM EST) MAGNESIUM 1.8 1.6 - 2.6 mg/dL [facility] Blood 08/17/2021 7:27 AM EST 08/17/2021 7:29 AM EST Pablo Humphrey MD LAB BLOOD ORDERABLES Final Resu lt [facility] [address] [place] [address] * (ABNORMAL) CBC and differential (08/17/2021 7:27 AM EST) WBC 6.61 4.00 - 11.00 K/uL [facility] RBC 4.41 3.90 - 5.69 M/uL [facility] HGB 15.0 12.4 - 17.3 g/dL [facility] HCT 42.2 37.0 - 51.0 % [facility] PLT 189 140 - 430 K/uL [facility] MCV 95.7 78.0 - 97.0 fL [facility] MCH 34.0(H) 25.0 - 33.0 pg [facility] MCHC 35.5 32.0 - 36.0 g/dL [facility] RDW 12.0 11.0 - 15.0 % [facility] MPV 11.0 8.4 - 12.8 fl [facility] NRBC 0.00 0 /100 WBCs [facility] ABSOLUTE NRBC 0.00 0 K/uL [facility] DIFF METHOD Auto [facility] NEUTS 61.4 43.0 - 75.0 % [facility] LYMPHS 25.4 18.2 - 47.4 % [facility] MONOS 8.9 4.00 - 11.00 % [facility] EOS 3.2 0.0 - 8.0 % [facility] BASOS 0.5 0.0 - 2.0 % [facility] Granulocytes, immature (%) 0.6 0.0 - 0.9 % [facility] ABSOLUTE NEUTS 4.06 1.80 - 7.70 K/uL [facility] ABSOLUTE LYMPHS 1.68 1.00 - 3.10 K/uL [facility] ABSOLUTE MONOS 0.59 0.20 - 0.80 K/uL [facility] ABSOLUTE EOS 0.21 0.00 - 0.80 K/uL [facility] ABSOLUTE BASOS 0.03 0.00 - 0.09 K/uL [facility] Granulocytes, immature 0.04 0.00 - 0.05 K/uL [facility] Blood 08/17/2021 7:27 AM EST 08/17/2021 7:29 AM EST Pablo Humphrey MD LAB BLOOD ORDERABLES Final Resu lt Performing Organization Address City/[facility]/ZIP Co de Phone Number [address] [address] * TSH with reflex (08/17/2021 7:27 AM EST) TSH 1.81 0.27 - 4.20 uIU/mL [facility] Blood 08/17/2021 7:27 AM EST 08/17/2021 7:29 AM EST Pablo Humphrey MD LAB BLOOD ORDERABLES Final Resu lt Performing Organization Address [facility] Co de Phone Number [address] [address] * Comprehensive metabolic panel (08/17/2021 7:27 AM EST) SODIUM 140 133 - 146 mmol/L [facility] POTASSIUM 3.8 3.3 - 5.1 mmol/L [facility] Comment:Specimen slightly he molyzed, result may be falsely elevated. CHLORIDE 101 96 - 108 mmol/L [facility] CO2 27 21 - 35 mmol/L [facility] BUN 15 6 - 19 mg/dL [facility] CREATININE 0.60 0.5 - 1.5 mg/dL [facility] GLUCOSE 96 70 - 99 mg/dL [facility] ALBUMIN 4.6 3.9 - 4.8 g/dL [facility] TOTAL PROTEIN 7.0 6.5 - 8.0 g/dL [facility] CALCIUM 9.4 8.4 - 10.3 mg/dL [facility] ALKALINE PHOSPHATASE 41 39 - 117 U/L [facility] TOTAL BILIRUBIN 0.7 0.0 - 1.2 mg/dL [facility] AST 25 0 - 37 U/L [facility] ALT 32 0 - 40 U/L [facility] GLOBULIN 2.4 1 - 4.8 g/dL [facility] EGFR 104 >59 mL/min/1.7 3m2 [facility] Comment:Estimated glomerular filtration rate calculated using the CKD-EPI refit equation. ANION GAP 16 10 - 20 mmol/L [facility] Blood 08/17/2021 7:27 AM EST 08/17/2021 7:29 AM EST us Pablo Humphrey MD LAB BLOOD ORDERABLES Final Resu lt [facility] [address] [place] [address] documented in this encounter Visit Diagnoses Diagnosis Hypertension, unspecified type- Primary Fatigue, unspecified type documented in this encounter Care Teams Dixonac Operator Relationship Specialty Start Date End Date Pablo Humphrey MD 264 [facility] [address] [place] [address] [email or web address]) PCP - General Internal Medicine 04/23/17 11/02/21 Unknown, Unknown, PCP - General 11/03/21 01/04/22 Kenney Randolph DO [address] [place] [id number] PCP - General Internal Medicine 01/05/22 Kenney Randolph DO [address] [place] [address] Insurance Assigned Provider 09/28/23 documented as of this encounter Additional Source Comments The information contained in this document represents components of the legal health record. It is not the complete legal health record.[facility]
--- OUTSIDE RECORDS SUMMARY | 2025-04-13 06:24 | XMS_ITS | Encounter Summary ---
Author Organization [facility] Address [address] [place] [address] [place] [address] Phone Care Team Providers Care Therapy Technician Name Role Phone KamPablo MD Primary Care Provider [phone] Unknown, Unknown Primary Care Provider Unavai Kenney Minor DO Primary Care Provider Kenney Randolph DO Unavailable [phone] Encounter Details Date Type Department Care Team (Late st Contact Info) Description 09/07/2021 Procedure Pass [facility], Ct Scan - [address] [address] Social History Tobacco Use Types Packs/Day Years [...] Description 05/04/2025 11:15 AM EST Office Visit [facility] [address] [facility] 3rd Floor, [address] [place] [address] Esteban Duke MD 22 [facility], [address] [place] [address] 07/20/2025 9:40 AM EST Office Visit [facility] [address] [place] [address] 3rd Floor, [address] [place] [address] Luke Tan MD 50 [place] [address] 09/13/2025 8:30 AM EDT Office Visit [facility] [address] [place] [address] [place] [address] Kenney Randolph DO [address] [place] [address] [email or web address] documented as of this encounter Visit Diagnoses Not on filedocumented in this encounter Additional Health Concerns Assessment Noted Time PHQ-2 Depression Total Score: 0 11/03/19 9:12 AM EDT documented as of this encounter Care Teams Therapy Technician Relationship Specialty Start Date End Date Kam, Pablo Pascal MD [address] [place] [address] [address] [place] [address] [email or web address] PCP - General Internal Medicine 04/23/17 11/02/21 Unknown, Keesha, PCP - General 11/03/21 01/04/22 Kenney Randolph DO [address] [place] [id number] PCP - General Internal Medicine 01/05/22 Kenney Randolph DO [address] [place] [address] Insurance Assigned Provider 09/28/23 documented as of this encounter Additional Source Comments The information contained in this document represents components of the legal health record. It is not the complete legal health record.[facility]
== END 2025-04-13 06:22 | disposition home or self-care (01) ==
LOC: CF 06:21
PROVIDERS: Visit Provider Anesthesiology
DX: M19.012 Primary osteoarthritis, left shoulder (principal)
CPT/HCPCS: 20610; J2795; J3301; Q9967

== ENCOUNTER 2025-04-13 13:09 | Outpatient (AMB) | payer MEDICARE, SELFPAY ==
[2025-04-13 13:22] VITALS: BP 133/88; PULSE 90; RESP 16; O2SAT 97; BMI 38.7
--- NOTE | 2025-04-13 13:22 | MHC.OFFVIS ---
Vital Signs 04/13/25 13:22 04/13/25 14:27 Height 5 ft 10 in Weight 270 lb BMI 38.7 BP 133/88 140/81 H Blood Pressure Location Rt brachial Lt brachial Position Sitting Sitting Respiration 16 16 Pulse 90 80 Pulse Source Pulse Oximeter Pulse Oximeter Pulse Oximetry (%) 97 99 Oxygen Delivery Method Room Air Room Air Intake Visit Reasons: Left Shoulder Glenohumeral Joint Steroid Injection Allergies No Known Allergies Allergy (Verified 03/04/25 14:13) PFSH Medical History Hypertension Social History Alcohol intake: current Alcohol intake frequency: a few times a week Patient Tobacco Use Status: Never used Tobacco Physical Exam Vital Signs: Last Vital Signs Pulse 80 04/13/25 14:27 Resp 16 04/13/25 14:27 BP 140/81 H 04/13/25 14:27 Pulse Ox 99 04/13/25 14:27 Oxygen Delivery Method Room Air 04/13/25 14:27 BMI result Body Mass Index 38.7 Assessment & Plan Assessment & Plan (1) Primary osteoarthritis, left shoulder: Code(s): M19.012 - Primary osteoarthritis, left shoulder Category: Medical (2) Left shoulder pain: Code(s): M25.512 - Pain in left shoulder Category: Medical Plan Left glenohumeral joint steroid injection. Pleasant 75 years old male who presented today in my office for the intra articular left shoulder injection. He was positioned prone on operating table with left shoulder slightly alleviated on a towel. The posterior surface of the shoulder as well as posterior surface of the neck and posterior surface of the upper back were prepped with ChloraPrep and draped with sterile self adhesive utility towels. C-arm was brought over the operating field and silhouette of the left joint was demonstrated on the screen. 22 gauge 3-1/2 inch needle was inserted through the skin and advanced to were the silhouette of the joint in tunnel vision fashion. When the tip of the needle entered the capsule of the joint injection of the contrast performed demonstrating arthrogram. After that 5 cc of ropivacaine mixed with Kenalog 40 mg was performed into the joint. Upon completion of the injection the needle was removed and Band-Aid was applied. The patient tolerated procedure well. Orders: Orders FL guidance in treatment room 04/13/25 M25.512 - Pain in left shoulder Coding Level of Care Code Procedure Only Diagnoses Primary osteoarthritis, left shoulder M19.012 Left shoulder pain M25.512
[2025-04-13 14:27] VITALS: BP 140/81; PULSE 80; RESP 16; O2SAT 99
== END 2025-04-13 14:27 | disposition home or self-care (01) ==
LOC: HO.PMCPRC 13:09
PROVIDERS: PCP Pediatrics; Visit Provider Anesthesiology
DX: M19.012 Primary osteoarthritis, left shoulder (principal); M25.512 Pain in left shoulder
CPT/HCPCS: 20610; 77002

== ENCOUNTER 2025-05-12 08:59 | Outpatient (AMB) | payer MEDICARE, SELFPAY ==
--- NOTE | 2025-05-12 09:08 | A.OFFVIS_ITS ---
Vital Signs 05/12/25 09:09 Height 5 ft 10 in Weight 273 lb BMI 39.2 BP 135/86 Blood Pressure Location Rt brachial Position Sitting Respiration 16 Pulse 75 Pulse Source Pulse Oximeter Pulse Oximetry (%) 97 Oxygen Delivery Method Room Air Intake Visit Reasons: S/P Left Shoulder Glenohumeral Joint Steroid Inj Senior Technical Support Analyst Required: No Accompanied by: Self / Same As Patient Allergies No Known Allergies Allergy (Verified 05/12/25 09:11) HPI Comments Details: César is in my office today with complains on pain in the left shoulder. In October of 2024 he received left intra-articular hip injection with excellent results. However when I repeated this injection in April 132024 the patient had pain relief only for 14 days. Therefore no new steroid injection in his shoulder indicated for the patient. I offered him diagnostic suprascapular nerve block on the left to prepare him for sprint PNS. He wants to schedule this procedure between 07/03 and 07/08. With good results of the procedure I will schedule him for the sprint PNS. Prior: very pleasant 73 years old gentleman who presents in my office 1 month after therapeutic left intra-articular injection. He initially received intra articular hip injection back in 2021. The pain relief lasted 15 month, patient reported excellent mobility. After this period of time he came back with complains on pain increased again. One month ago end of June 2023 he received 2nd intra-articular hip injection , now 45 days later he reports again 80% of pain improvement, excellent activities of daily living, he reports that mobility of his hip is little bit less effective compare to the injection he received in 2021 . We discussed possibility of further treatment. Fading of the results of the injection were explained to the patient. His options were reiterated for him and they included continuation of the steroid injections, total hip replacement with orthopedic surgery, platelet rich plasma injection. PRP. Patient reported that he might consider PRP even if it is not covered by insurance company. The financial obligations were explained to the patient. He also requests me to send him for the x-ray of the left shoulder, he complains on pain in the left shoulder preventing him form getting good night's sleep. 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 I will send him for the x-ray of the left shoulder. [facility] Medical History Hypertension Social History Alcohol intake: current Alcohol intake frequency: a few times a week Patient Tobacco Use Status: Never used Tobacco Review of Systems Const All systems reviewed & are unremarkable except as noted in HPI and below ENT Reports Normal hearing present Neuro Reports Normal hearing present and Denies confusion Psych Denies confusion Physical Exam Vital Signs: Last Vital Signs Pulse 75 05/12/25 09:09 Resp 16 05/12/25 09:09 BP 135/86 05/12/25 09:09 Pulse Ox 97 05/12/25 09:09 Oxygen Delivery Method Room Air 05/12/25 09:09 BMI result Body Mass Index 39.2 Const General: No confusion Orientation/consciousness: No confusion Resp Effort & Inspection: able to speak in complete sentences, no audible wheezes and no cough Neuro General: No confusion Cranial nerves: Yes Normal hearing present Cognition (Neuro): normal cognition Extrem Other: Lateral rotation and medial rotation of the left hip caused significant discomfort. Now patient demonstrate remarkable mobility of the left hip. Psych Mental Status: mental status grossly normal Speech and movement: Clear speech present Affect: normal affect Attitude: cooperative Thought process: Normal thought process present Thought content: Normal thought content present, suicidality, no hallucinations and No Depressive thoughts present Insight: Good insight present (Psych) Judgement: Good judgement present (Psych) Assessment & Plan Assessment & Plan (1) Primary osteoarthritis, left shoulder: Code(s): M19.012 - Primary osteoarthritis, left shoulder Category: Medical (2) Left hip pain: Code(s): M25.552 - Pain in left hip Category: Medical (3) Arthritis of left hip: Code(s): M16.12 - Unilateral primary osteoarthritis, left hip Category: Medical (4) Left shoulder pain: Code(s): M25.512 - Pain in left shoulder Category: Medical Plan César is 73 years old gentleman with history of hip arthritis and left shoulder glenohumeral arthritis. The shoulder injection which was done on 04/13/2025 u nlike the 1 which was performed in October of 2024 did not help his pain. Sprint PNS was discussed. Diagnostic suprascapular nerve block was discussed. I will schedule patient for diagnostic suprascapular nerve block in preparation for sprint PNS. Coding Level of Care Code Est Pt Level 3 (63193) Diagnoses Primary osteoarthritis, left shoulder M19.012 Left hip pain M25.552 Arthritis of left hip M16.12 Left shoulder pain M25.512
[2025-05-12 09:09] VITALS: BP 135/86; PULSE 75; RESP 16; O2SAT 97; BMI 39.2
--- OUTSIDE RECORDS SUMMARY | 2025-05-12 16:46 | XMS_ITS | Encounter Summary ---
Author Organization [facility] Address [address] [place] [address] [place] [address] Phone Care Team Providers Care Government Gauger Name Role Phone KamPablo MD Primary Care Provider [phone] Unknown, Unknown Primary Care Provider Kenney De León DO Primary Care Provider Kenney Randolph DO Unavailable [phone] Encounter Details Date Type Department Care Team (Late st Contact Info) Description 02/04/2018 Procedure Pass [facility]oscopy Admitting Dept Virtual Department [address] [place] [address] Social History Tobacco Use Types Packs/Day Years [...] Care Team (Late st Contact Info) Description 07/16/2025 8:30 AM EST Office Visit [facility] [facility] [address] [place] [address] [place] [address] Kenney Randolph DO 170 [facility], 2nd [place] [address] 07/20/2025 9:40 AM EST Office Visit [facility] [address] [place] [address] 3rd [facility], [address] [place] [address] Luke Tan MD [address] [place] [address] 09/13/2025 8:30 AM EDT Office Visit [facility] [address] [place] [address] Kenney Randolph DO [address] [place] [address], [address] [place] [address] 05/06/2026 11:40 AM EST Office Visit [facility] [address] [place] [address] 3rd [facility], [address] [place] [address] Mayco Felix MD, MS 22 [facility], [address] [place] [address] [email or web address] documented as of this encounter Visit Diagnoses Not on filedocumented in this encounter Care Teams Government Gauger Relationship Specialty Start Date End Date Kam, Pablo Pascal MD [address] [place] [address] [address] [place] [address] [email or web address] PCP - General Internal Medicine 04/23/17 11/02/21 Unknown, Keesha, PCP - General 11/03/21 01/04/22 Kenney Randolph DO [address] [place] [address], [address] [place] [address] PCP - General Internal Medicine 01/05/22 Kenney Randolph DO [address] [place] [address], [address] [place] [address] [email or web address] Insurance Assigned Provider 09/28/23 documented as of this encounter Additional Source Comments The information contained in this document represents components of the legal health record. It is not the complete legal health record.[facility]
--- OUTSIDE RECORDS SUMMARY | 2025-05-12 16:46 | XMS_ITS | Encounter Summary ---
Author Organization [facility] Address [address] [place] [address] Phone Care Team Providers Care Psychologist Research Assistant Name Role Phone KamPablo MD Primary Care Provider Unknown, Unknown Primary Care Provider Kenney De León DO Primary Care Provider Kenney Randolph DO Unavailable [phone] Encounter Details Date Type Department Care Team (Latest Contact Info) Description 06/05/2017 Transcribe Orders [facility] [address] 2nd Floor [place], [place] [id number] Donato Freeman MD [address] [address] [email or web address] Anemia, unspecified type (Primary Dx) Social History [...] EST Office Visit [facility] [address] [place] [address] [place] [address] Kenney Randolph, DO 170 [facility], 2nd [place] [address] 07/20/2025 9:40 AM EST Office Visit [facility] [address] 3rd Floor, [address] [place] [address] Luke Tan MD [address] [place] [address] 09/13/2025 8:30 AM EDT Office Visit [facility] [address] [place] [address] Kenney Randolph, DO 170 [facility], 2nd [place] [address] 05/06/2026 11:40 AM EST Office Visit [address] 3rd Floor, [address] [place] [address] Mayco Felix MD, MS 22 [facility], [address] [place] [address] documented as of this encounter Procedures Procedure [...] ALKALINE PHOSPHATASE 43 39 - 117 U/L [facility] TOTAL BILIRUBIN 0.5 0 - 1.2 mg/dL [facility] DIRECT BILIRUBIN <0.2 0 - 0.3 mg/dL [facility] Bilirubin (Indirect) NOT CALCULATED 0 - 1.5 mg/dL [facility] AST 38(H) 0 - 37 U/L [facility] ALT 58(H) 0 - 40 U/L [facility] TOTAL PROTEIN 7.4 6.5 - 8.0 g/dL [facility] ALBUMIN 4.4 3.9 - 4.8 g/dL [facility] GLOBULIN 3.0 1 - 4.8 g/dL [facility] A/G Ratio 1.47 1.00 - 4.80 RATIO [facility] Blood 06/05/2017 2:26 PM EST 06/05/2017 2:28 PM EST us Donato Freeman MD LAB BLOOD BKR ORDERABLES Fin al Result [address] [address] * Iron and iron binding capacity (06/05/2017 2:26 PM EST) Pathologist [facility] IRON 62 45 - 160 ug/dL [facility] IRON BINDING CAPACITY 264 228 - 428 ug/dL [facility] TRANSFERRIN SATURAT. 23 20 - 55 % [facility] Blood 06/05/2017 2:26 PM EST 06/05/2017 2:28 PM EST us Donato Freeman MD LAB BLOOD BKR ORDERABLES Fin al Result [address] [address] * (ABNORMAL) Ferritin (06/05/2017 2:26 PM EST) FERRITIN 575(H) 30 - 400 ug/L [facility] Blood 06/05/2017 2:26 PM EST 06/05/2017 2:28 PM EST us Donato Freeman MD LAB BLOOD BKR ORDERABLES Fin al Result [facility] [address] [place] [address] * (ABNORMAL) CBC and differential (06/05/2017 2:26 PM EST) WBC 6.98 3.40 - 11.20 K/uL [facility] RBC 4.41(L) 4.50 - 5.50 M/uL [facility] HGB 13.9 13.0 - 17.0 g/dL [facility] HCT 41.7 40.0 - 51.0 % [facility] PLT 185 130 - 400 K/uL [facility] MCV 94.6 79.0 - 98.0 fL [facility] MCH 31.5 27.0 - 34.8 pg [facility] MCHC 33.3 31.5 - 36.0 g/dL [facility] RDW 11.9 10.8 - 14.6 % [facility] MPV 10.5 9.4 - 12.4 fl [facility] NRBC 0.00 /100 WBCs [facility] ABSOLUTE NRBC 0.00 K/uL [facility] DIFF METHOD Auto [facility] NEUTS 68.1 45.30 - 77.70 % [facility] LYMPHS 17.5 12.30 - 39.70 % [facility] MONOS 10.3 4.10 - 12.80 % [facility] EOS 3.4 0 - 7.2 % [facility] BASOS 0.3 0 - 2.80 % [facility] Granulocytes, immature (%) 0.4 0.0 - 0.9 % [facility] ABSOLUTE NEUTS 4.75 1.40 - 7.70 K/uL [facility] ABSOLUTE LYMPHS 1.22 0.60 - 3.20 K/uL [facility] ABSOLUTE MONOS 0.72(H) 0.11 - 0.59 K/uL [facility] ABSOLUTE EOS 0.24 0.01 - 0.50 K/uL [facility] ABSOLUTE BASOS 0.02 0.00 - 0.08 K/uL [facility] Granulocytes, immature 0.03 0.00 - 0.05 K/uL [facility] Blood 06/05/2017 2:26 PM EST 06/05/2017 2:28 PM EST us Donato Freeman MD LAB BLOOD BKR ORDERABLES Fin al Result Performing Organization Address City/State/[facility] Co de Phone Number [facility] [address] [place] [address] documented in this encounter Visit Diagnoses Diagnosis Anemia, unspecified type- Primary documented in this encounter Care Teams Psychologist Research Assistant Relationship Specialty Start Date End Date Kam, Pablo Pascal MD [address] [place] [address] [address] [place] [address] [email or web address] PCP - General Internal Medicine 04/23/17 11/02/21 Unknown, Unknown, PCP - General 11/03/21 01/04/22 Kenney Randolph DO [address] [place] [address] [email or web address] PCP - General Internal Medicine 01/05/22 Kenney Randolph DO [address] [place] [address] [email or web address] Insurance Assigned Provider 09/28/23 documented as of this encounter Additional Source Comments The information contained in this document represents components of the legal health record. It is not the complete legal health record.[facility]
--- OUTSIDE RECORDS SUMMARY | 2025-05-12 16:46 | XMS_ITS | Encounter Summary ---
Author Organization [facility] Address [address] [place] [address] Phone Care Team Providers Care Dielectric Press Operator Name Role Phone KamPablo MD Primary Care Provider [phone] Unknown, Unknown Primary Care Provider Kenney De León DO Primary Care Provider Kenney Randolph DO Unavailable [phone] Encounter Details Date Type Department Care Team (Latest Contact Info) Description 10/17/2017 Transcribe Orders [address] [address] Suly George MD [address] [place] [address] [phone] [email or web address] Routine general medical examination at a [...] EST Office Visit [facility] [address] [place] [address] [place] [address] Kenney Randolph, DO 170 [facility], 2nd [place] [address] [email or web address] 07/20/2025 9:40 AM EST Office Visit [facility] [address] 3rd Floor, [address] [place] [address] Luke Tan MD [address] [place] [address] 09/13/2025 8:30 AM EDT Office Visit [facility] [address] [place] [address] Kenney Randolph, 170 [facility], 2nd [place] [address] [email or web address] 05/06/2026 11:40 AM EST Office Visit [facility] [address] 3rd Floor, [address] [place] [address] Mayco Felix MD, MS 22 [facility], [address] [place] [address] documented as of this encounter Results * Miscellaneous lab test (10/17/2017 9:23 AM EDT) TESTS REQUESTED [place] 2R ALPHA [facility] SPECIMEN/TUBE TYPE LARGE RED 1 ML SERUM [facility] REQUEST RECEIVED Request received. A separate order for the requested test will be generated by the laboratory. [facility] Blood 10/17/2017 9:23 AM EDT 10/17/2017 9:26 AM EDT us Suly George MD LAB BLOOD ORDERABLES Final Re sult [facility] [address] [place] [address] documented in this encounter Visit Diagnoses Diagnosis Routine general medical examination at a health care facility- Primary documented in this encounter Care Teams Dielectric Press Operator Relationship Specialty Start Date End Date Kam, Pablo Pascal MD [address] [place] [address] 10 [address] [place] [address] [email or web address] PCP - General Internal Medicine 04/23/17 11/02/21 Unknown, Unknown, PCP - General 11/03/21 01/04/22 Kenney Randolph DO [address] [place] [address], [address] [place] [address] [email or web address] PCP - General Internal Medicine 01/05/22 Kenney Randolph DO [address] [place] [address], [address] [place] [address] Insurance Assigned Provider 09/28/23 documented as of this encounter Additional Source Comments The information contained in this document represents components of the legal health record. It is not the complete legal health record.[facility]
--- OUTSIDE RECORDS SUMMARY | 2025-05-12 16:46 | XMS_ITS | Encounter Summary ---
Author Organization [facility] Address [address] [place] [address] [place] [address] Phone Care Team Providers Care Title I Teacher Name Role Phone KamPablo MD Primary Care Provider [phone] Unknown, Unknown Primary Care Provider Kenney De León DO Primary Care Provider Kenney Randolph DO Unavailable [phone] Encounter Details Date Type Department Care Team (Late st Contact Info) Description 04/30/2017 Procedure Pass [facility] Endoscopy Admitting Dept Virtual Department [address] [place] [address] Social History Tobacco Use Types Packs/Day Years [...] EST Office Visit [facility] [address] [place] [address] [place] [address] Kenney Randolph DO [address] [facility], 2nd [place] [address] 07/20/2025 9:40 AM EST Office Visit [facility] [address] [place] [address] 3rd [facility], [address] [place] [address] Luke Tan MD [address] [place] [address] 09/13/2025 8:30 AM EDT Office Visit [facility] [address] [place] [address] Kenney Randolph DO [address] [place] [address], [address] [place] [address] [email or web address] 05/06/2026 11:40 AM EST Office Visit [facility] [address] [place] [address] 3rd [facility], [address] [place] [address] Mayco Felix MD, MS 22 [facility], [address] [place] [address] [email or web address] documented as of this encounter Visit Diagnoses Not on filedocumented in this encounter Care Teams Title I Teacher Relationship Specialty Start Date End Date Kam, Pablo Pascal MD [address] [place] [address] 10 & [address] [place] [address] [email or web address] PCP - General Internal Medicine 04/23/17 11/02/21 Unknown, Keesha, PCP - General 11/03/21 01/04/22 Kenney Randolph DO [address] [place] [address], [address] [place] [address] [email or web address] PCP - General Internal Medicine 01/05/22 Kenney Randolph DO [address] [place] [address], [address] [place] [address] [email or web address] Insurance Assigned Provider 09/28/23 documented as of this encounter Additional Source Comments The information contained in this document represents components of the legal health record. It is not the complete legal health record.[facility]
--- OUTSIDE RECORDS SUMMARY | 2025-05-12 16:46 | XMS_ITS | Encounter Summary ---
Author Organization [facility] Address [address] [place] [address] [place] [address] Phone Care Team Providers Care Assistant Produce Manager Name Role Phone KamPablo MD Primary Care Provider [phone] Unknown, Unknown Primary Care Provider Kenney De León DO Primary Care Provider Kenney Randolph DO Unavailable [phone] Encounter Details Date Type Department Care Team (Late st Contact Info) Description 05/20/2017 Ancillary Orders [facility], X-Ray - [address] [place] [address] Kam, Pablo Pascal MD 264 [facility] [address] [place] [address] [email or web address] Cough Social History Tobacco Use Types [...] Description 07/16/2025 8:30 AM EST Office Visit [facility] [address] [place] [address] Kenney Randolph, DO 170 [facility], 2nd [place] [address] 07/20/2025 9:40 AM EST Office Visit [facility] [address] Floor, [address] [place] [address] Luke Tan MD [address] [place] [address] 09/13/2025 8:30 AM EDT Office Visit [facility] [address] [place] [address] Kenney Randolph, 170 [facility], 2nd [place] [address] 05/06/2026 11:40 AM EST Office Visit [facility] [address] Floor, [address] [place] [address] Mayco Felix MD, MS 22 [facility], [address] [place] [address] documented as of this encounter Results * XR CHEST PA AND LATERAL 2 VIEWS (05/20/2017 11:20 AM EST) Anatomical Region Laterality Modality Chest Radiographic Annelise ging 05/20/2017 12:1 7 PM EST Impressions 05/20/2017 12:19 PM EST 1. No acute process. 2. Mild chronic interstitial changes stable. 3. Prominent central pulmonary arteries; question pulmonary artery hypertension POS [id number] Narrative 05/20/2017 12:19 PM EST PA and [...] central pulmonary arteries; question pulmonary arteryhypertension POS [id number] Pablo Humphrey MD IMG XR CHEST Final Result documented in this encounter Visit Diagnoses Diagnosis Cough Cough documented in this encounter Care Teams Assistant Produce Manager Relationship Specialty Start Date End Date Kam, Pablo Pascal MD [address] [place] [address] & [address] [place] [address] [email or web address] PCP - General Internal Medicine 04/23/17 11/02/21 Unknown, Keesha, PCP - General 11/03/21 01/04/22 Kenney Randolph DO [address] [place] [address] PCP - General Internal Medicine 01/05/22 Kenney Randolph DO [address] [place] [address] Insurance Assigned Provider 09/28/23 documented as of this encounter Additional Source Comments The information contained in this document represents components of the legal health record. It is not the complete legal health record.[facility]
--- OUTSIDE RECORDS SUMMARY | 2025-05-12 16:46 | XMS_ITS | Encounter Summary ---
Author Organization [facility] Address [address] [address] Phone Care Team Providers Care Secondary School Teacher Librarian Name Role Phone Unknown, Unknown Primary Care Provider Kenney De León DO Primary Care Provider Kenney Randolph DO Unavailable Reason for Referral * MRI/CAT Scan - Closed Specialty Diagnoses / Procedures Referred By Adis samaniego Referred To Contact Radiology Diagnoses Essential hypertension Procedures CT Angio Abdomen CT Abdomen Only (No Pelvis) Lauri Bar MD Phone: tel: fax: mailto:[email or web address] Referral ID Status Reason Start Date Expiration Date Visits Re quested Visits Authorized [id number] Closed 09/07/2021 09/07/2022 1 1 Encounter Details Date Type Department Care Team (Latest Contact Info) Description 11/08/2021 Ancillary Orders Virtual Department 30 [place] [address] Lauri Bar MD 15 [facility] [address] [place] [address] [email or web address] Essential hypertension Social History Tobacco Use Types [...] Description 07/16/2025 8:30 AM EST Office Visit [address] [place] [address] Kenney Randolph, 170 [facility], 2nd [place] [address] [email or web address] 07/20/2025 9:40 AM EST Office Visit [facility] [address] 3rd Floor, [address] [place] [address] Luke Tan MD [address] [place] [address] 09/13/2025 8:30 AM EDT Office Visit [address] [place] [address] Kenney Randolph, [address] [place] [address], [address] [place] [address] 05/06/2026 11:40 AM EST Office Visit [facility] [address], [address] [place] [address] Mayco Felix MD, MS 22 [facility], [address] [place] [phone] documented as of this encounter Results * [...] documented as of this encounter Care Teams Secondary School Teacher Librarian Relationship Specialty Start Date End Date Unknown, Unknown, MD PCP - General 11/03/21 01/04/22 Kenney Randolph DO [address] [place] [address], [address] [place] [address] PCP - General Internal Medicine 01/05/22 Kenney Randolph DO [address] [place] [address] Insurance Assigned Provider 09/28/23 documented as of this encounter Additional Source Comments The information contained in this document represents components of the legal health record. It is not the complete legal health record.[facility]
--- OUTSIDE RECORDS SUMMARY | 2025-05-12 16:46 | XMS_ITS | Encounter Summary ---
Author Organization [facility] Address [address] [place] [address] [place] [address] Phone Care Team Providers Care Steward/Stewardess Third Name Role Phone Pablo Humphrey MD Primary Care Provider [phone] Unknown, Unknown Primary Care Provider Kenney De León DO Primary Care Provider Kenney Randolph DO Unavailable [phone] Encounter Details Date Type Department Care Team (Latest Contact Info) Description 07/17/2017 Transcribe Orders [address] [place] [address] KamPablo MD 264 [facility] [address] [place] [address] [email or web address] Essential hypertension, benign (Primary Dx) Social [...] Description 07/16/2025 8:30 AM EST Office Visit [facility] [address] [place] [address] Kenney Randolph, DO 170 [facility], 2nd [place] [address] [email or web address] 07/20/2025 9:40 AM EST Office Visit [facility] [address] Floor, [address] [place] [address] Luke Tan MD [address] [place] [address] 09/13/2025 8:30 AM EDT Office Visit [facility] [address] [place] [address] Kenney Randolph, 170 [facility], 2nd [place] [address] [email or web address] 05/06/2026 11:40 AM EST Office Visit [facility] [address] 3rd Floor, [address] [place] [address] Mayco Felix MD, MS 22 [facility], [address] [place] [address] [email or web address] documented as of this encounter Results * (ABNORMAL) Basic metabolic panel (07/17/2017 7:09 AM EST) SODIUM 139 133 - 146 mmol/L [facility] CHLORIDE 98 96 - 108 mmol/L [facility] POTASSIUM 4.2 3.3 - 5.1 mmol/L [facility] CO2 29 21 - 35 mmol/L [facility] BUN 13 6 - 19 mg/dL [facility] CREATININE 0.60 0.5 - 1.5 mg/dL [facility] GLUCOSE 101(H) 70 - 99 mg/dL [facility] CALCIUM 9.7 8.4 - 10.3 mg/dL [facility] EGFR >60 >60 mL/min/1.7 3m2 [facility] Comment:Abnormal if <60. If patient is -Chinese, multiply the result by 1.21. ANION GAP 16 10 - 20 mmol/L [facility] Blood 07/17/2017 7:09 AM EST 07/17/2017 7:16 AM EST us Pablo Humphrey MD LAB BLOOD BKR ORDERABLES Final Result [facility] 30 [place] [address] documented in this encounter Visit Diagnoses Diagnosis Essential hypertension, benign- Primary documented in this encounter Care Teams Steward/Stewardess Third Relationship Specialty Start Date End Date Kam, Pablo Pascal MD [address] [place] [address] [address] [place] [address] [email or web address] PCP - General Internal Medicine 04/23/17 11/02/21 Unknown, Unknown, PCP - General 11/03/21 01/04/22 Kenney Randolph DO [address] [place] [address] PCP - General Internal Medicine 01/05/22 Kenney Randolph DO [address] [place] [address] Insurance Assigned Provider 09/28/23 documented as of this encounter Additional Source Comments The information contained in this document represents components of the legal health record. It is not the complete legal health record.[facility]
--- OUTSIDE RECORDS SUMMARY | 2025-05-12 16:46 | XMS_ITS | Encounter Summary ---
Author Organization [facility] Address [address] [place] [address] [place] [address] Phone Care Team Providers Care Specialty Sales Representative Name Role Phone KamPablo MD Primary Care Provider [phone] Unknown, Unknown Primary Care Provider Kenney De León DO Primary Care Provider Kenney Randolph DO Unavailable Encounter Details Date Type Department Care Team (Late st Contact Info) Description 10/17/2017 Procedure Pass [facility], Ct Scan - [address] [address] Social History Tobacco Use Types Packs/Day Years [...] Description 07/16/2025 8:30 AM EST Office Visit [facility] [address] [place] [address] [place] [address] Kenney Randolph DO 170 [facility], 2nd [place] [address] 07/20/2025 9:40 AM EST Office Visit [facility] [address] [place] [address] Dr 3rd Floor, [address] [place] [address] Luke Tan MD [address] [place] [address] 09/13/2025 8:30 AM EDT Office Visit [facility] [address] [address] Kenney Randolph DO [address] [place] [address], [address] [place] [address] [email or web address] 05/06/2026 11:40 AM EST Office Visit [facility] [address] [facility], [address] [place] [address] Mayco Felix MD, MS 22 [facility], [address] [place] [address] [email or web address] documented as of this encounter Visit Diagnoses Not on filedocumented in this encounter Care Teams Specialty Sales Representative Relationship Specialty Start Date End Date Kam, Pablo Pascal MD [address] [place] [address] 10 [address] [place] [address] [email or web address] PCP - General Internal Medicine 04/23/17 11/02/21 Unknown, Keesha, PCP - General 11/03/21 01/04/22 Kenney Randolph DO [address] [place] [address], [address] [place] [address] PCP - General Internal Medicine 01/05/22 Kenney Randolph DO [address] [place] [address], [address] [place] [address] [email or web address] Insurance Assigned Provider 09/28/23 documented as of this encounter Additional Source Comments The information contained in this document represents components of the legal health record. It is not the complete legal health record.[facility]
--- OUTSIDE RECORDS SUMMARY | 2025-05-12 16:47 | XMS_ITS | Encounter Summary ---
Author Organization [facility] Address [address] [place] [address] Phone Care Team Providers Care Realtime Captioner Name Role Phone KamPablo MD Primary Care Provider [phone] Unknown, Unknown Primary Care Provider Kenney De León DO Primary Care Provider Kenney Randolph DO Unavailable [phone] Encounter Details Date Type Department Care Team (Latest Contact Info) Description 12/03/2017 Transcribe Orders [address] [place] [address] Donato Freeman MD [address] [place] [address] [email or web address] Nonalcoholic steatohepatitis (LUCIANO) (Primary Dx) Social [...] 07/16/2025 8:30 AM EST Office Visit [facility] [address] [place] [address] [place] [address] Kenney Randolph, DO 170 [facility], 2nd [place] [address] 07/20/2025 9:40 AM EST Office Visit [facility] [address], [address] [place] [address] Luke Tan MD [address] [place] [address] 09/13/2025 8:30 AM EDT Office Visit [facility] [address] [place] [address] Kenney Randolph, 170 [facility], 2nd [place] [address] 05/06/2026 11:40 AM EST Office Visit [facility] [address] [facility], [address] [place] [address] Mayco Felix MD, MS 22 [facility], [address] [place] [address] documented as of this encounter Results * Liver fibrosis test (12/03/2017 12:25 PM EDT) Cow Milk Conv Class 0.37 [facility] OF LAB MED AND PAT+ Neuron Specific Enolase (NOTE) [facility] PAT+ Comment:RESULT: F1-F2 Interleukin 2 minimal fibrosis [facility] PAT+ Comment: (NOTE) FibroTest estimates liver fibrosis FibroTest Score Stage Interpretation 0.00-0.21 F0 no fibrosis 0.21-0.27 F0-F1 no fibrosis 0.27-0.31 F1 minimal fibrosis 0.31-0.48 F1-F2 minimal fibrosis 0.48-0.58 F2 moderate fibrosis 0.58-0.72 F3 advanced fibrosis 0.72-0.74 F3-F4 advanced fibrosis 0.74-1.00 F4 severe fibrosis (Cirrhosis) ActiTest Score 0.29 [facility] MED AND PAT+ ANCA BENI at 1:20 dilution (NOTE) [facility] PAT+ Comment:RESULT: A0-A1 ActiTest Interpretation no activity [facility] AND PAT+ Comment: (NOTE) ActiTest estimates necroinflammatory activity ActiTest Score Grade Interpretation 0.00-0.17 A0 no activity 0.17-0.29 A0-A1 no activity 0.29-0.36 A1 minimal activity 0.36-0.52 A1-A2 minimal activity 0.52-0.60 A2 significant activity 0.60-0.62 A2-A3 significant activity 0.62-1.00 A3 severe activity FibroTest-ActiTest Comment SEE NOTE [facility] OF LAB MED AND PAT+ Comment: [...] developed and its performance characteristics determined by [facility] in a manner consistent with CLIA requirements. This test has not been cleared or approved by the U.S. Food and Drug Administration. [employer] Serial Number [id number] [facility] OF LAB MED AND PAT+ Apolipoprotein A1, S 154 >=120 mg/dL [facility] PAT+ Uwlwq-2-Dwlzflcrtyuux, S 195 100 - 280 mg/dL [facility] MED AND PAT+ Haptoglobin, S 86 30 - 200 mg/dL [facility] MED AND PAT+ Alanine Aminotransferase (ALT), S 47 7 - 55 U/L [facility] MED AND PAT+ Gamma Glutamyltransferase (GGT), S 16 8 - 61 U/L [facility] MED AND PAT+ Bilirubin, Total, S 0.9 <=1.2 mg/dL [facility] MED AND PAT+ Blood 12/03/2017 12:2 5 PM EDT 12/03/2017 12:30 PM EDT us Donato Freeman MD LAB BLOOD BKR ORDERABLES Fin al Result [facility] MED AND PAT+ [address] [place] [address] * LFTs (hepatic panel) (12/03/2017 12:25 PM EDT) ALKALINE PHOSPHATASE 43 39 - 117 U/L [facility] TOTAL BILIRUBIN 0.9 0.0 - 1.2 mg/dL [facility] DIRECT BILIRUBIN <0.2 0 - 0.3 mg/dL [facility] Bilirubin (Indirect) NOT CALCULATED 0 - 1.5 mg/dL [facility] AST 31 0 - 37 U/L [facility] ALT 40 0 - 40 U/L [facility] TOTAL PROTEIN 7.5 6.5 - 8.0 g/dL [facility] ALBUMIN 4.5 3.9 - 4.8 g/dL [facility] GLOBULIN 3.0 1 - 4.8 g/dL [facility] A/G Ratio 1.50 1.00 - 4.80 RATIO [facility] Blood 12/03/2017 12:2 5 PM EDT 12/03/2017 12:30 PM EDT us Donato Freeman MD LAB BLOOD BKR ORDERABLES Fin al Result [facility] [address] [place] [address] * (ABNORMAL) CBC and differential (12/03/2017 12:25 PM EDT) WBC 5.98 3.40 - 11.20 K/uL [facility] RBC 4.48(L) 4.50 - 5.50 M/uL [facility] HGB 14.5 13.0 - 17.0 g/dL [facility] HCT 42.0 40.0 - 51.0 % [facility] PLT 195 130 - 400 K/uL [facility] MCV 93.8 79.0 - 98.0 fL [facility] MCH 32.4 27.0 - 34.8 pg [facility] MCHC 34.5 31.5 - 36.0 g/dL [facility] RDW 12.3 10.8 - 14.6 % [facility] MPV 10.3 9.4 - 12.4 [facility] NRBC 0.00 /100 WBCs [facility] ABSOLUTE NRBC 0.00 K/uL [facility] DIFF METHOD Auto [facility] NEUTS 58.2 45.30 - 77.70 % [facility] LYMPHS 27.9 12.30 - 39.70 % [facility] MONOS 9.9 4.10 - 12.80 % [facility] EOS 3.2 0 - 7.2 % [facility] BASOS 0.5 0 - 2.80 % [facility] Granulocytes, immature (%) 0.3 0.0 - 0.9 % [facility] ABSOLUTE NEUTS 3.48 1.40 - 7.70 K/uL [facility] ABSOLUTE LYMPHS 1.67 0.60 - 3.20 K/uL [facility] ABSOLUTE MONOS 0.59 0.11 - 0.59 K/uL [facility] ABSOLUTE EOS 0.19 0.01 - 0.50 K/uL [facility] ABSOLUTE BASOS 0.03 0.00 - 0.08 K/uL [facility] Granulocytes, immature 0.02 0.00 - 0.05 K/uL [facility] Blood 12/03/2017 12:2 5 PM EDT 12/03/2017 12:30 PM EDT us Donato Freeman MD LAB BLOOD BKR ORDERABLES Fin al Result [facility] [address] [place] [address] documented in this encounter Visit Diagnoses Diagnosis Nonalcoholic steatohepatitis (LUCIANO)- Primary documented in this encounter Care Teams Realtime Captioner Relationship Specialty Start Date End Date Kam, Pablo Pascal MD [address] [place] [address] & [address] [place] [address] [email or web address] PCP - General Internal Medicine 04/23/17 11/02/21 Unknown, Unknown, PCP - General 11/03/21 01/04/22 Kenney Randolph DO [address] [place] [address] [email or web address] PCP - General Internal Medicine 01/05/22 Kenney Randolph DO [address] [place] [address] [email or web address] Insurance Assigned Provider 09/28/23 documented as of this encounter Additional Source Comments The information contained in this document represents components of the legal health record. It is not the complete legal health record.[facility]
--- OUTSIDE RECORDS SUMMARY | 2025-05-12 16:47 | XMS_ITS | Encounter Summary ---
Author Organization [facility] Address [address] [place] [address] [place] [address] Phone Care Team Providers Care Pipe Stem Repairer Name Role Phone Pablo Humphrey MD Primary Care Provider [phone] Unknown, Unknown Primary Care Provider Kenney De León DO Primary Care Provider Kenney Randolph DO Unavailable [phone] Encounter Details Date Type Department Care Team (Latest Contact Info) Description 07/14/2021 Transcribe Orders [facility] [place] [address] KamPablo MD 264 [facility] [address] [place] [address] [email or web address] Hypertension, unspecified type (Primary Dx) Social [...] Description 07/16/2025 8:30 AM EST Office Visit [facility] [address] [place] [address] Kenney Randolhp, DO 170 [facility], 2nd [place] [address] 07/20/2025 9:40 AM EST Office Visit [facility] [address], [address] [place] [address] Luke Tan MD [address] [place] [address] 09/13/2025 8:30 AM EDT Office Visit [facility] [address] [place] [address] Kenney Randolph, 170 [facility], 2nd [place] [address] 05/06/2026 11:40 AM EST Office Visit [facility] [address] 3[address], [address] [place] [address] Mayco Felix MD, MS 22 [facility], [address] [place] [address] [email or web address] documented as of this encounter Results * (ABNORMAL) Basic metabolic panel (07/14/2021 7:08 AM EST) SODIUM 137 133 - 146 mmol/L [facility] CHLORIDE 98 96 - 108 mmol/L [facility] POTASSIUM 3.8 3.3 - 5.1 mmol/L [facility] CO2 27 21 - 35 mmol/L [facility] BUN 18 6 - 19 mg/dL [facility] CREATININE 0.50 0.5 - 1.5 mg/dL [facility] GLUCOSE 110(H) 70 - 99 mg/dL [facility] CALCIUM 10.6(H) 8.4 - 10.3 mg/dL [facility] EGFR 110 >59 mL/min/1.7 3m2 [facility] Comment:Estimated glomerular filtration rate calculated using the CKD-EPI refit equation. ANION GAP 16 10 - 20 mmol/L [facility] Blood 07/14/2021 7:08 AM EST 07/14/2021 7:12 AM EST us Pablo Humphrey MD LAB BLOOD BKR ORDERABLES Final Result [facility] [address] [place] [address] documented in this encounter Visit Diagnoses Diagnosis Hypertension, unspecified type- Primary documented in this encounter Care Teams Pipe Stem Repairer Relationship Specialty Start Date End Date Pablo Humphrey MD 264 [facility] [address] [place] [address] [email or web address] PCP - General Internal Medicine 04/23/17 11/02/21 Unknown, Unknown, PCP - General 11/03/21 01/04/22 Kenney Randolph DO [address] [place] [address] PCP - General Internal Medicine 01/05/22 Kenney Randolph DO [address] [place] [address] Insurance Assigned Provider 09/28/23 documented as of this encounter Additional Source Comments The information contained in this document represents components of the legal health record. It is not the complete legal health record.[facility]
--- OUTSIDE RECORDS SUMMARY | 2025-05-12 16:47 | XMS_ITS | Encounter Summary ---
Author Organization [facility] Address [address] [place] [address] Phone Care Team Providers Care Mechanical Systems Design Engineer Name Role Phone KamPablo MD Primary Care Provider [phone] Unknown, Unknown Primary Care Provider Kenney De León DO Primary Care Provider Kenney Randolph DO Unavailable [phone] Encounter Details Date Type Department Care Team (Latest Contact Info) Description 09/07/2021 Transcribe Orders [facility] [address] [place], [place] [id number] Lauri Bar MD [address] [facility] [address] [place] [address] [email or web address] Hypertension, unspecified type (Primary Dx) Social History [...] EST Office Visit [facility] [address] [place] [address] [place] [address] Kenney Randolph, DO 170 [facility], 2nd [place] [address] 07/20/2025 9:40 AM EST Office Visit [facility] [address], [address] [place] [address] Luke Tan MD [address] [place] [address] 09/13/2025 8:30 AM EDT Office Visit [facility] [address] [place] [address] Kenney Randolph, 170 [facility], 2nd [place] [address] 05/06/2026 11:40 AM EST Office Visit [facility] 22 [facility] 3rd [facility], [address] [place] [address] Mayco Felix MD, MS 22 [facility], [address] [place] [address] documented as of this encounter Results * Renin (09/07/2021 3:43 PM EDT) RENIN ACTIVITY 5.5 ng/ml/h [facility] [address] Comment: (NOTE) REFERENCE VALUE (Peripheral vein specimen) Na-deplete, upright: Mean: 5.9 Range: 2.9-10.8 Na-replete, upright: Mean: 1.0 Range: < or =0.6-3.0 ADDITIONAL INFORMATION Testing performed by Liquid Chromatography-Tandem Mass Spectrometry (LC-MS/MS). This test was developed and its performance characteristics determined by [facility] in a manner consistent with CLIA requirements. This test has not been cleared or approved by the U.S. Food and Drug Administration. Blood 09/07/2021 3:43 PM EDT 09/07/2021 3:52 PM EDT Lauri Bar MD LAB BLOOD ORDERABLES Final Resul t [facility] MED/PATH [address] [place] [address] * TSH with reflex (09/07/2021 3:43 PM EDT) TSH 2.54 0.27 - 4.20 uIU/mL [facility] Blood 09/07/2021 3:43 PM EDT 09/07/2021 3:53 PM EDT Lauri Bar MD LAB BLOOD BKR ORDERABLES Final R esult Performing Organization Address [facility] Co de Phone Number [address] [address] * Aldosterone (09/07/2021 3:43 PM EDT) ALDOSTERONE 12 <=21 ng/dL [facility] [address] Comment: (NOTE) ADDITIONAL INFORMATION Reference range for patients 11 years and older is based on upright A.M. collection from subjects without sodium restrictions. This test was developed and its performance characteristics determined by [facility] in a manner consistent with CLIA requirements. This test has not been cleared or approved by the U.S. Food and Drug Administration. Blood 09/07/2021 3:43 PM EDT 09/07/2021 3:52 PM EDT us Lauri Bar MD LAB BLOOD ORDERABLES Final Resul t Performing Organization Address City/[facility]/ZIP Co de Phone Number [facility]PATH [address] [place] [address] * (ABNORMAL) Renal panel (09/07/2021 3:43 PM EDT) SODIUM 137 133 - 146 mmol/L [facility] POTASSIUM 4.3 3.3 - 5.1 mmol/L [facility] Comment:Specimen slightly he molyzed, result may be falsely elevated. CHLORIDE 98 96 - 108 mmol/L [facility] CO2 30 21 - 35 mmol/L [facility] GLUCOSE 103(H) 70 - 99 mg/dL [facility] BUN 15 6 - 19 mg/dL [facility] CREATININE 0.90 0.5 - 1.5 mg/dL [facility] CALCIUM 9.8 8.4 - 10.3 mg/dL [facility] PHOSPHORUS 3.6 2.7 - 4.5 mg/dL [facility] ALBUMIN 4.6 3.9 - 4.8 g/dL [facility] EGFR 92 >59 mL/min/1.7 3m2 [facility] Comment:Estimated glomerular filtration rate calculated using the CKD-EPI refit equation. ANION GAP 13 10 - 20 mmol/L [facility] Blood 09/07/2021 3:43 PM EDT 09/07/2021 3:53 PM EDT us Lauri Bar MD LAB BLOOD BKR ORDERABLES Final R esult Performing Organization Address City/[facility]/ZIP Co de Phone Number [facility] [address] [place] [address] documented in this encounter Visit Diagnoses Diagnosis Hypertension, unspecified type- Primary documented in this encounter Care Teams Mechanical Systems Design Engineer Relationship Specialty Start Date End Date Kam, Pablo Pascal MD [address] [place] [address] [address] [place] [address] juan [email or web address] PCP - General Internal Medicine 04/23/17 11/02/21 Unknown, Unknown, PCP - General 11/03/21 01/04/22 Kenney Randolph DO [address] [place] [address], [address] [place] [address] [email or web address] PCP - General Internal Medicine 01/05/22 Kenney Randolph DO [address] [place] [address], [address] [place] [phone] Insurance Assigned Provider 09/28/23 documented as of this encounter Additional Source Comments The information contained in this document represents components of the legal health record. It is not the complete legal health record.[facility]
--- OUTSIDE RECORDS SUMMARY | 2025-05-12 16:47 | XMS_ITS | Encounter Summary ---
Author Organization [facility] Address [address] [place] [address] [place] [address] Phone Care Team Providers Care Advertising Space Clerk Name Role Phone Pablo Humphrey MD Primary Care Provider [phone] Unknown, Unknown Primary Care Provider Kenney De León DO Primary Care Provider Kenney Randolph DO Unavailable [phone] Encounter Details Date Type Department Care Team (Latest Contact Info) Description 04/23/2017 Transcribe Orders [address] [place] [address] KamPablo MD 264 [facility] 10 & 12 [place] [address] [email or web address] Routine general medical examination at a [...] 07/16/2025 8:30 AM EST Office Visit [facility] [address] [place] [address] Kenney Randolph, 170 [facility], 2nd [place] [address] [email or web address] 07/20/2025 9:40 AM EST Office Visit [facility] [address] 3rd Floor, [address] [place] [address] Luke Tan MD [address] [place] [address] 09/13/2025 8:30 AM EDT Office Visit [address] [place] [address] Kenney Randolph, 170 [facility], 2nd [place] [address] [email or web address] 05/06/2026 11:40 AM EST Office Visit [facility] [address], [address] [place] [address] Mayco Felix MD, MS 22 [facility], [address] [place] [address] documented as of this encounter Results * PSA (screening) (04/23/2017 7:06 AM EDT) PSA 0.38 0 - 4.00 ng/mL [facility] Blood 04/23/2017 7:06 AM EDT 04/23/2017 7:10 AM EDT us Pablo Humphrey MD LAB BLOOD BKR ORDERABLES Final Result [facility] [address] [place] [address] * (ABNORMAL) CBC and differential (04/23/2017 7:06 AM EDT) WBC 4.55 3.40 - 11.20 K/uL [facility] RBC 4.29(L) 4.50 - 5.50 M/uL [facility] HGB 14.1 13.0 - 17.0 g/dL [facility] HCT 40.5 40.0 - 51.0 % [facility] PLT 174 130 - 400 K/uL [facility] MCV 94.4 79.0 - 98.0 fL [facility] MCH 32.9 27.0 - 34.8 pg [facility] MCHC 34.8 31.5 - 36.0 g/dL [facility] RDW 11.9 10.8 - 14.6 % [facility] MPV 10.7 9.4 - 12.4 fl [facility] NRBC 0.00 /100 WBCs [facility] ABSOLUTE NRBC 0.00 K/uL [facility] DIFF METHOD Auto [facility] NEUTS 53.7 45.30 - 77.70 % [facility] LYMPHS 27.7 12.30 - 39.70 % [facility] MONOS 12.7 4.10 - 12.80 % [facility] EOS 5.1 0 - 7.2 % [facility] BASOS 0.4 0 - 2.80 % [facility] Granulocytes, immature (%) 0.4 0.0 - 0.9 % [facility] ABSOLUTE NEUTS 2.44 1.40 - 7.70 K/uL [facility] ABSOLUTE LYMPHS 1.26 0.60 - 3.20 K/uL [facility] ABSOLUTE MONOS 0.58 0.11 - 0.59 K/uL [facility] ABSOLUTE EOS 0.23 0.01 - 0.50 K/uL [facility] ABSOLUTE BASOS 0.02 0.00 - 0.08 K/uL [facility] Granulocytes, immature 0.02 0.00 - 0.05 K/uL [facility] Blood 04/23/2017 7:06 AM EDT 04/23/2017 7:11 AM EDT Pablo Humphrey MD LAB BLOOD BKR ORDERABLES Final Result [address] [address] * TSH with reflex (04/23/2017 7:06 AM EDT) TSH 2.52 0.27 - 4.20 uIU/mL [facility] Blood 04/23/2017 7:06 AM EDT 04/23/2017 7:11 AM EDT Pablo Humphrey MD LAB BLOOD BKR ORDERABLES Edited Result - Final Performing Organization Address [facility] Co de Phone Number [address] [address] * (ABNORMAL) Lipid panel (04/23/2017 7:06 AM EDT) HDL 52 mg/dL [facility] Comment: Interpretation: Risk Level Males Decreased >45 mg/dL Average 40-45 mg/dL Increased <40 mg/dL CHOLESTEROL 223 0 - 240 mg/dL [facility] TRIGLYCERIDES 166(H) 30 - 160 mg/dL [facility] LDL 138(H) 50 - 129 mg/dL [facility] Comment: LDL levels in terms of risk for coronary heart disease: <100 mg/dL: Optimal 100-129 mg/dL: Near or above optimal 130-159 mg/dL: Borderline high 160-189 mg/dL: High >190 mg/dL: Very High CARDIAC RISK RATIO 4.3 3.4 - 5.0 [facility] Blood 04/23/2017 7:06 AM EDT 04/23/2017 7:11 AM EDT Pablo Humphrey MD LAB BLOOD BKR ORDERABLES Final Result Performing Organization Address City/[facility]/ZIP Co de Phone Number [address] [address] * (ABNORMAL) Comprehensive metabolic panel (04/23/2017 7:06 AM EDT) SODIUM 141 133 - 146 mmol/L [facility] POTASSIUM 4.4 3.3 - 5.1 mmol/L [facility] CHLORIDE 101 96 - 108 mmol/L [facility] CO2 31 21 - 35 mmol/L [facility] BUN 16 6 - 19 mg/dL [facility] CREATININE 0.60 0.5 - 1.5 mg/dL [facility] GLUCOSE 108(H) 70 - 99 mg/dL [facility] ALBUMIN 4.5 3.9 - 4.8 g/dL [facility] TOTAL PROTEIN 7.0 6.5 - 8.0 g/dL [facility] CALCIUM 9.5 8.4 - 10.3 mg/dL [facility] ALKALINE PHOSPHATASE 41 39 - 117 U/L [facility] TOTAL BILIRUBIN 0.7 0 - 1.2 mg/dL [facility] AST 40(H) 0 - 37 U/L [facility] ALT 60(H) 0 - 40 U/L [facility] GLOBULIN 2.5 1 - 4.8 g/dL [facility] EGFR >60 >60 mL/min/1.7 3m2 [facility] Comment:Abnormal if <60. If patient is -Northern Irish, multiply the result by 1.21. ANION GAP 13 10 - 20 mmol/L [facility] Blood 04/23/2017 7:06 AM EDT 04/23/2017 7:11 AM EDT us Pablo Humphrey MD LAB BLOOD BKR ORDERABLES Final Result Performing Organization Address City/State/[facility] Co de Phone Number [address] [address] documented in this encounter Visit Diagnoses Diagnosis Routine general medical examination at a health care facility- Primary Essential hypertension, benign Fatigue, unspecified type documented in this encounter Care Teams Advertising Space Clerk Relationship Specialty Start Date End Date Pablo Humphrey MD [address] [place] [address] & [address] [place] [address] [email or web address] PCP - General Internal Medicine 04/23/17 11/02/21 Unknown, Unknown, PCP - General 11/03/21 01/04/22 Kenney Randolph DO [address] [place] [address], [address] [place] [address] [email or web address] PCP - General Internal Medicine 01/05/22 Kenney Randolph DO [address] [place] [address], [address] [place] [address] [email or web address] Insurance Assigned Provider 09/28/23 documented as of this encounter Additional Source Comments The information contained in this document represents components of the legal health record. It is not the complete legal health record.[facility]
--- OUTSIDE RECORDS SUMMARY | 2025-05-12 16:47 | XMS_ITS | Encounter Summary ---
Author Organization [facility] Address [address] [place] [address] [place] [address] Phone Care Team Providers Care Machine Cell Tuber Name Role Phone Pablo Humphrey MD Primary Care Provider [phone] Unknown, Unknown Primary Care Provider Kenney De León DO Primary Care Provider Kenney Randolph DO Unavailable [phone] Encounter Details Date Type Department Care Team (Latest Contact Info) Description 08/17/2021 Transcribe Orders [address] [place] [address] KamPablo MD 264 [facility] 10 & 12 [place] [address] [email or web address] Hypertension, unspecified type (Primary Dx); Fatigue, unspecified [...] 07/16/2025 8:30 AM EST Office Visit [facility] [address] [place] [address] Kenney Randolph, 170 [facility], 2nd [place] [address] 07/20/2025 9:40 AM EST Office Visit [facility] [address] Floor, [address] [place] [address] Luke Tan MD [address] [place] [address] 09/13/2025 8:30 AM EDT Office Visit [address] [place] [address] Kenney Randolph DO 170 [facility], 2nd [place] [address] 05/06/2026 11:40 AM EST Office Visit [address] 3rd Floor, [address] [place] [address] Mayco Felix MD, MS 22 [facility], [address] [place] [address] [email or web address] documented as of this encounter Results * 25-OH vitamin D (08/17/2021 7:27 AM EST) 25 OH VIT D (TOTAL) 36 30 - 60 ng/mL [facility] Blood 08/17/2021 7:27 AM EST 08/17/2021 7:29 AM EST Pablo Humphrey MD LAB BLOOD BKR ORDERABLES Final Result [facility] 30 [place] [address] * Magnesium (08/17/2021 7:27 AM EST) MAGNESIUM 1.8 1.6 - 2.6 mg/dL [facility] Blood 08/17/2021 7:27 AM EST 08/17/2021 7:29 AM EST Pablo Humphrey MD LAB BLOOD BKR ORDERABLES Final Result Performing Organization Address City/State/[facility] Co de Phone Number [address] [address] * (ABNORMAL) CBC and differential (08/17/2021 7:27 AM EST) WBC 6.61 4.00 - 11.00 K/uL [facility] RBC 4.41 3.90 - 5.69 M/uL [facility] HGB 15.0 12.4 - 17.3 g/dL [facility] HCT 42.2 37.0 - 51.0 % [facility] PLT 189 140 - 430 K/uL [facility] MCV 95.7 78.0 - 97.0 fL [facility] MCH 34.0(H) 25.0 - 33.0 pg [facility] MCHC 35.5 32.0 - 36.0 g/dL [facility] RDW 12.0 11.0 - 15.0 % [facility] MPV 11.0 8.4 - 12.8 fl [facility] NRBC 0.00 0 /100 WBCs [facility] ABSOLUTE NRBC 0.00 0 K/uL [facility] DIFF METHOD Auto [facility] NEUTS 61.4 43.0 - 75.0 % [facility] LYMPHS 25.4 18.2 - 47.4 % [facility] MONOS 8.9 4.00 - 11.00 % [facility] EOS 3.2 0.0 - 8.0 % [facility] BASOS 0.5 0.0 - 2.0 % [facility] Granulocytes, immature (%) 0.6 0.0 - 0.9 % [facility] ABSOLUTE NEUTS 4.06 1.80 - 7.70 K/uL [facility] ABSOLUTE LYMPHS 1.68 1.00 - 3.10 K/uL [facility] ABSOLUTE MONOS 0.59 0.20 - 0.80 K/uL [facility] ABSOLUTE EOS 0.21 0.00 - 0.80 K/uL [facility] ABSOLUTE BASOS 0.03 0.00 - 0.09 K/uL [facility] Granulocytes, immature 0.04 0.00 - 0.05 K/uL [facility] Blood 08/17/2021 7:27 AM EST 08/17/2021 7:29 AM EST Pablo Humphrey MD LAB BLOOD BKR ORDERABLES Final Result [address] [address] * TSH with reflex (08/17/2021 7:27 AM EST) TSH 1.81 0.27 - 4.20 uIU/mL [facility] Blood 08/17/2021 7:27 AM EST 08/17/2021 7:29 AM EST Pablo Humphrey MD LAB BLOOD BKR ORDERABLES Final Result Performing Organization Address City/[facility]/ZIP Co de Phone Number [address] [address] * Comprehensive metabolic panel (08/17/2021 7:27 AM EST) SODIUM 140 133 - 146 mmol/L [facility] POTASSIUM 3.8 3.3 - 5.1 mmol/L [facility] Comment:Specimen slightly he molyzed, result may be falsely elevated. CHLORIDE 101 96 - 108 mmol/L [facility] CO2 27 21 - 35 mmol/L [facility] BUN 15 6 - 19 mg/dL [facility] CREATININE 0.60 0.5 - 1.5 mg/dL [facility] GLUCOSE 96 70 - 99 mg/dL [facility] ALBUMIN 4.6 3.9 - 4.8 g/dL [facility] TOTAL PROTEIN 7.0 6.5 - 8.0 g/dL [facility] CALCIUM 9.4 8.4 - 10.3 mg/dL [facility] ALKALINE PHOSPHATASE 41 39 - 117 U/L [facility] TOTAL BILIRUBIN 0.7 0.0 - 1.2 mg/dL [facility] AST 25 0 - 37 U/L [facility] ALT 32 0 - 40 U/L [facility] GLOBULIN 2.4 1 - 4.8 g/dL [facility] EGFR 104 >59 mL/min/1.7 3m2 [facility] Comment:Estimated glomerular filtration rate calculated using the CKD-EPI refit equation. ANION GAP 16 10 - 20 mmol/L [facility] Blood 08/17/2021 7:27 AM EST 08/17/2021 7:29 AM EST Pablo Humphrey MD LAB BLOOD BKR ORDERABLES Final Result Performing Organization Address City/State/[facility] Co de Phone Number [address] [address] documented in this encounter Visit Diagnoses Diagnosis Hypertension, unspecified type- Primary Fatigue, unspecified type documented in this encounter Care Teams Machine Cell Tuber Relationship Specialty Start Date End Date Kam, Pablo Pascal MD [address] [place] [address] [email or web address] PCP - General Internal Medicine 04/23/17 11/02/21 Unknown, Unknown, PCP - General 11/03/21 01/04/22 Kenney Randolph DO [address] [place] [address], [address] [place] [address] [email or web address] PCP - General Internal Medicine 01/05/22 Kenney Randolph DO [address] [place] [address], [address] [place] [address] [email or web address] Insurance Assigned Provider 09/28/23 documented as of this encounter Additional Source Comments The information contained in this document represents components of the legal health record. It is not the complete legal health record.[facility]
--- OUTSIDE RECORDS SUMMARY | 2025-05-12 16:47 | XMS_ITS | Clinical Summary ---
Author Organization [facility] Address [address] [id number] Care Team Providers Care Commercial Real Estate Underwriter Name Role Phone RandolphKenney flores Primary Care [...] Health Care Proxy Review 06/24/2024 Influenza Vaccine (#1) 2025 , 03/23/2021, 02/24/2020 COVID-19 Vaccine (2024- season) 2025 03/23/2022, 04/04/2021, 09/22/2020, Additional history exists RSV Vaccine (60+ years old and patients) (1 - 1-dose 75+ series) 01/25/2027 Pneumococcal Vaccine: 50+ Years Completed 08/26/2018, 04/26/2017 Hepatitis B Vaccines Aged Out No long er eligible based on patient's age to complete this topic Insurance MEDICARE [facility] SUPP Care Teams Commercial Real Estate Underwriter Relationship Specialty Start Date End Date Kennye Randolph DO [address] [place] [address] [place] [address] PCP - General 03/12/22
--- OUTSIDE RECORDS SUMMARY | 2025-05-12 16:47 | XMS_ITS | Encounter Summary ---
Author Organization [facility] Address [address] [place] [address] Phone Care Team Providers Care Product Marketing Manager Name Role Phone Kenney Randolph DO Primary Care Provider Kenney Randolph DO Unavailable [phone] Encounter Details Date Type Department Care Team (Late st Contact Info) Description 09/18/2024 Procedure Pass [facility] [address] [place] [address] Social History Tobacco Use Types Packs/Day Years [...] Description 07/16/2025 8:30 AM EST Office Visit [address] [place] [address] Kenney Randolph, [address] [place] [address], 2[address] [place] [address] [email or web address] 07/20/2025 9:40 AM EST Office Visit [facility] [address] 3rd [facility], [address] [place] [address] Luke Tan MD [address] [place] [address] 09/13/2025 8:30 AM EDT Office Visit [address] [place] [address] Kenney Randolph, [address] [place] [address], [address] [place] [address] [email or web address] 05/06/2026 11:40 AM EST Office Visit [facility] [address] 3rd Floor, [address] [place] [address] Mayco Felix MD, MS 22 [facility], [address] [address] documented as of this encounter Visit Diagnoses Not on filedocumented in this encounter Additional Health Concerns Assessment Noted Time PHQ-2 Depression Total Score: 0 03/05/20 8:04 AM EDT documented as of this encounter Care Teams Product Marketing Manager Relationship Specialty Start Date End Date Kenney Randolph DO [address] [place] [address], [address] [place] [address] [email or web address] PCP - General Internal Medicine 01/05/22 Kenney Randolph DO [address] [place] [address] [email or web address] Insurance Assigned Provider 09/28/23 documented as of this encounter Additional Source Comments The information contained in this document represents components of the legal health record. It is not the complete legal health record.[facility]
--- OUTSIDE RECORDS SUMMARY | 2025-05-12 16:47 | XMS_ITS | Encounter Summary ---
Author Organization [facility] Address [address] [place] [address] Phone Care Team Providers Care Mothercraft Nurse Name Role Phone Kenney Randolph DO Primary Care Provider Kenney Randolph DO Unavailable Encounter Details Date Type Department Care Team (Late st Contact Info) Description 12/18/2022 Procedure Pass [facility] Endoscopy Admitting Dept Virtual Department [address] [place] [address] Social History Tobacco Use Types Packs/Day Years [...] 8:30 AM EST Office Visit [facility] [address] [place], [place] [address] Kenney Randolph DO [address] [place] [address], [address] [place], [place] [address] [address] 07/20/2025 9:40 AM EST Office Visit [facility] [address] [place] [address] 3rd [facility], [address] [place] [address] Luke Tan MD [address] [place] [address] 09/13/2025 8:30 AM EDT Office Visit [facility] [address] [place] [address] Kenney Randolph DO [address] [place] [address] 05/06/2026 11:40 AM EST Office Visit [facility] 22 [facility] 3rd [facility], [address] [place] [address] Mayco Felix MD, MS 22 [facility], [address] [address] documented as of this encounter Visit Diagnoses Not on filedocumented in this encounter Additional Health Concerns Assessment Noted Time PHQ-2 Depression Total Score: 0 01/06/20 7:59 AM EDT documented as of this encounter Care Teams Mothercraft Nurse Relationship Specialty Start Date End Date Kenney Randolph DO [address] [place] [address] [place] [address] PCP - General Internal Medicine 01/05/22 Kenney Randolph DO [address] [place] [address], [address] [place] [address] [place] [address] [email or web address] Insurance Assigned Provider 09/28/23 documented as of this encounter Additional Source Comments The information contained in this document represents components of the legal health record. It is not the complete legal health record.[facility]
--- OUTSIDE RECORDS SUMMARY | 2025-05-12 16:47 | XMS_ITS | Encounter Summary ---
Author Organization [facility] Address [address] [place] [address] [place] [address] Phone Care Team Providers Care Long Chain Quiller Tender Name Role Phone Pablo Humphrey MD Primary Care Provider [phone] Unknown, Unknown Primary Care Provider Kenney De León DO Primary Care Provider Kenney Randolph DO Unavailable [phone] Encounter Details Date Type Department Care Team (Latest Contact Info) Description 08/25/2018 Transcribe Orders [address] [place] [address] KamPablo MD 264 [facility] [address] [place] [address] [email or web address] Routine general medical examination at a health [...] Description 07/16/2025 8:30 AM EST Office Visit [address] [place] [address] Kenney Randolph, 170 [facility], 2nd [place] [address] 07/20/2025 9:40 AM EST Office Visit [facility] [address], [address] [place] [address] Luke Tan MD [address] [place] [address] 09/13/2025 8:30 AM EDT Office Visit [address] [place] [address] Kenney Randolph, 170 [facility], 2nd [place] [address] 05/06/2026 11:40 AM EST Office Visit [facility] [address], [address] [place] [address] Mayco Felix MD, MS 22 [facility], [address] [place] [address] documented as of this encounter Results * PSA (screening) (08/25/2018 7:11 AM EST) PSA 0.75 0 - 4.00 ng/mL [facility] Blood 08/25/2018 7:11 AM EST 08/25/2018 7:18 AM EST Pablo Humphrey MD LAB BLOOD BKR ORDERABLES Final Result [facility] [address] [place] [address] * CBC and differential (08/25/2018 7:11 AM EST) WBC 4.98 3.40 - 11.20 K/uL [facility] RBC 4.51 4.50 - 5.50 M/uL [facility] HGB 14.6 13.0 - 17.0 g/dL [facility] HCT 42.8 40.0 - 51.0 % [facility] PLT 209 130 - 400 K/uL [facility] MCV 94.9 79.0 - 98.0 fL [facility] MCH 32.4 27.0 - 34.8 pg [facility] MCHC 34.1 31.5 - 36.0 g/dL [facility] RDW 11.9 10.8 - 14.6 % [facility] MPV 10.7 9.4 - 12.4 fl [facility] NRBC 0.00 0.00 /100 WBCs [facility] ABSOLUTE NRBC 0.00 0.00 K/uL [facility] DIFF METHOD Auto [facility] NEUTS 63.1 45.30 - 77.70 % [facility] LYMPHS 20.9 12.30 - 39.70 % [facility] MONOS 10.8 4.10 - 12.80 % [facility] EOS 4.8 0 - 7.2 % [facility] BASOS 0.2 0 - 2.80 % [facility] Granulocytes, immature (%) 0.2 0.0 - 0.9 % [facility] ABSOLUTE NEUTS 3.14 1.40 - 7.70 K/uL [facility] ABSOLUTE LYMPHS 1.04 0.60 - 3.20 K/uL [facility] ABSOLUTE MONOS 0.54 0.11 - 0.59 K/uL [facility] ABSOLUTE EOS 0.24 0.01 - 0.50 K/uL [facility] ABSOLUTE BASOS 0.01 0.00 - 0.08 K/uL [facility] Granulocytes, immature 0.01 0.00 - 0.05 K/uL [facility] Blood 08/25/2018 7:11 AM EST 08/25/2018 7:18 AM EST Pablo Humphrey MD LAB BLOOD BKR ORDERABLES Final Result Performing Organization Address City/[facility]/ZIP Co de Phone Number [address] [address] * TSH with reflex (08/25/2018 7:11 AM EST) TSH 2.13 0.27 - 4.20 uIU/mL [facility] Blood 08/25/2018 7:11 AM EST 08/25/2018 7:18 AM EST Pablo Humphrey MD LAB BLOOD BKR ORDERABLES Final Result Performing Organization Address [facility] Co de Phone Number [address] [address] * Lipid panel (08/25/2018 7:11 AM EST) HDL 52 mg/dL [facility] Comment: Interpretation <40 mg/dL: Low HDL cholesterol (major risk factor for CHD) Greater than or equal to 60 mg/dL: High HDL cholesterol ( negative risk factor for CHD) HDL - cholesterol is affected by a number of factors, e.g. smoking, excerise, hormones, sex and age. CHOLESTEROL 188 0 - 240 mg/dL [facility] TRIGLYCERIDES 128 30 - 160 mg/dL [facility] LDL 110 50 - 129 mg/dL [facility] Comment: LDL levels in terms of risk for coronary heart disease: <100 mg/dL: Optimal 100-129 mg/dL: Near or above optimal 130-159 mg/dL: Borderline high 160-189 mg/dL: High >190 mg/dL: Very High CARDIAC RISK RATIO 3.6 3.4 - 5.0 [facility] Blood 08/25/2018 7:11 AM EST 08/25/2018 7:18 AM EST Pablo Humprhey MD LAB BLOOD BKR ORDERABLES Final Result Performing Organization Address [facility] Co de Phone Number [address] [address] * Comprehensive metabolic panel (08/25/2018 7:11 AM EST) SODIUM 140 133 - 146 mmol/L [facility] POTASSIUM 4.3 3.3 - 5.1 mmol/L [facility] CHLORIDE 100 96 - 108 mmol/L [facility] CO2 28 21 - 35 mmol/L [facility] BUN 17 6 - 19 mg/dL [facility] CREATININE 0.60 0.5 - 1.5 mg/dL [facility] GLUCOSE 97 70 - 99 mg/dL [facility] ALBUMIN 4.6 3.9 - 4.8 g/dL [facility] TOTAL PROTEIN 7.5 6.5 - 8.0 g/dL [facility] CALCIUM 9.9 8.4 - 10.3 mg/dL [facility] ALKALINE PHOSPHATASE 41 39 - 117 U/L [facility] TOTAL BILIRUBIN 0.7 0.0 - 1.2 mg/dL [facility] Comment: Results from certain multiple myeloma patients may show a positive bias in recovery. Not all multiple myeloma patients show the bias and severity of the bias may vary between patients. In very rare cases, gammopathy, in particular type IgM (Waldenstrom's macroglobulinemia), may cause unreliable results. AST 29 0 - 37 U/L [facility] ALT 34 0 - 40 U/L [facility] GLOBULIN 2.9 1 - 4.8 g/dL [facility] EGFR 105 >59 mL/min/1.7 3m2 [facility] Comment:If patient is black, multiply result by 1.159. Estimated glomerular filtration rate calculated using the CKD-EPI equation. ANION GAP 16 10 - 20 mmol/L [facility] Blood 08/25/2018 7:11 AM EST 08/25/2018 7:18 AM EST Pablo Humphrey MD LAB BLOOD BKR ORDERABLES Final Result [facility] [address] [place] [address] documented in this encounter Visit Diagnoses Diagnosis Routine general medical examination at a health care facility- Primary Hypertension, unspecified type Fatigue, unspecified type documented in this encounter Care Teams Long Chain Quiller Tender Relationship Specialty Start Date End Date Pablo Humphrey MD [address] [place] [address] [address] [place] [address] [email or web address] PCP - General Internal Medicine 04/23/17 11/02/21 Unknown, Keesha, PCP - General 11/03/21 01/04/22 Kenney Randolph DO [address] [place] [address] [email or web address] PCP - General Internal Medicine 01/05/22 Kenney Randolph DO [address] [place] [address] Insurance Assigned Provider 09/28/23 documented as of this encounter Additional Source Comments The information contained in this document represents components of the legal health record. It is not the complete legal health record.[facility]
--- OUTSIDE RECORDS SUMMARY | 2025-05-12 16:47 | XMS_ITS | Encounter Summary ---
Author Organization [facility] Address [address] [place] [address] [place] [address] Phone Care Team Providers Care Client Services Coordinator Name Role Phone KamPablo MD Primary Care Provider [phone] Unknown, Unknown Primary Care Provider Kenney De León DO Primary Care Provider Kenney Randolph DO Unavailable [phone] Encounter Details Date Type Department Care Team (Late st Contact Info) Description 12/12/2020 Procedure Pass [facility], Ct Scan - [address] [address] Social History Tobacco Use Types Packs/Day Years [...] Description 07/16/2025 8:30 AM EST Office Visit [facility] [address] [place] [address] [place] [address] Kenney Randolph DO 170 [facility], 2nd [place] [address] 07/20/2025 9:40 AM EST Office Visit [facility] [address] [place] [address] Dr 3rd Floor, [address] [place] [address] Luke Tan MD [address] [place] [address] 09/13/2025 8:30 AM EDT [facility] [address] [address] Kenney Randolph DO [address] [place] [address], [address] [place] [address] [email or web address] 05/06/2026 11:40 AM EST Office Visit [facility] [address] 3rd [facility], [address] [place] [address] Mayco Felix MD, MS 22 [facility], [address] [place] [address] [email or web address] documented as of this encounter Visit Diagnoses Not on filedocumented in this encounter Care Teams Client Services Coordinator Relationship Specialty Start Date End Date Kam, Pablo Pascal MD [address] [place] [address] 10 [address] [place] [address] [email or web address] PCP - General Internal Medicine 04/23/17 11/02/21 Unknown, Keesha, PCP - General 11/03/21 01/04/22 Kenney Randolph DO [address] [place] [address], [address] [place] [address] PCP - General Internal Medicine 01/05/22 Kenney Randolph DO [address] [place] [address], [address] [place] [address] [email or web address] Insurance Assigned Provider 09/28/23 documented as of this encounter Additional Source Comments The information contained in this document represents components of the legal health record. It is not the complete legal health record.[facility]
--- OUTSIDE RECORDS SUMMARY | 2025-05-12 16:47 | XMS_ITS | Encounter Summary ---
Author Organization [facility] Address [address] [place] [address] Phone Care Team Providers Care Dentist Attendant Name Role Phone Kenney Randolph DO Primary Care Provider Kenney Randolph DO Unavailable [phone] Encounter Details Date Type Department Care Team (Late st Contact Info) Description 05/12/2024 Procedure Pass [facility] [address] [place] [address] Social History Tobacco Use Types Packs/Day Years [...] Description 07/16/2025 8:30 AM EST Office Visit [address] [place] [address] Kenney Randolph, [address] [place] [address], 2nd [place] [address] 07/20/2025 9:40 AM EST Office Visit [facility] [address] 3rd Floor, [address] [place] [address] Luke Tan MD [address] [place] [address] 09/13/2025 8:30 AM EDT Office Visit [address] [place] [address] Kenney Randolph, [address] [place] [address], [address] [place] [address] 05/06/2026 11:40 AM EST Office Visit [facility] [address]rd Floor, [address] [place] [address] Mayco Felix MD, MS 22 [facility], [address] [address] documented as of this encounter Visit Diagnoses Not on filedocumented in this encounter Additional Health Concerns Assessment Noted Time PHQ-2 Depression Total Score: 0 03/05/20 24 8:04 AM EDT documented as of this encounter Care Teams Dentist Attendant Relationship Specialty Start Date End Date Kenney Randolph DO [address] [place] [address], [address] [place] [address] [email or web address] PCP - General Internal Medicine 01/05/22 Kenney Randolph DO [address] [place] [address] [email or web address] Insurance Assigned Provider 09/28/23 documented as of this encounter Additional Source Comments The information contained in this document represents components of the legal health record. It is not the complete legal health record.[facility]
--- OUTSIDE RECORDS SUMMARY | 2025-05-12 16:47 | XMS_ITS | Encounter Summary ---
Author Organization [facility] Address [address] [place] [address] [place] [address] Phone Care Team Providers Care Bowling Ball Engraver Name Role Phone Kenney Randolph DO Primary Care Provider Kenney Randolph DO Unavailable [phone] Encounter Details Date Type Department Care Team (Late st Contact Info) Description 06/29/2024 Procedure Pass [facility] [address] [place] [address] Social History Tobacco Use Types Packs/Day Years [...] Description 07/16/2025 8:30 AM EST Office Visit [address] [place] [address] Kenney Randolph, [address] [place] [address], 2nd [place] [address] [email or web address] 07/20/2025 9:40 AM EST Office Visit [facility] [address] [facility], [address] [place] [address] Luke Tan MD [address] [place] [address] 09/13/2025 8:30 AM EDT Office Visit [address] [place] [address] Kenney Randolph, [address] [place] [address], [address] [place] [address] [email or web address] 05/06/2026 11:40 AM EST Office Visit [facility] [address] 3rd Floor, [address] [place] [address] Mayco Felix MD, MS 22 [facility], [address] [address] documented as of this encounter Visit Diagnoses Not on filedocumented in this encounter Additional Health Concerns Assessment Noted Time PHQ-2 Depression Total Score: 0 03/05/20 8:04 AM EDT documented as of this encounter Care Teams Bowling Ball Engraver Relationship Specialty Start Date End Date Kenney Randolph DO [address] [place] [address], [address] [place] [address] [email or web address] PCP - General Internal Medicine 01/05/22 Kenney Randolph DO [address] [place] [address] [email or web address] Insurance Assigned Provider 09/28/23 documented as of this encounter Additional Source Comments The information contained in this document represents components of the legal health record. It is not the complete legal health record.[facility]
--- OUTSIDE RECORDS SUMMARY | 2025-05-12 16:47 | XMS_ITS | Encounter Summary ---
Author Organization [facility] Address [address] [place] [address] [place] [address] Phone Care Team Providers Care Baked Goods Stock Clerk Name Role Phone KamPablo MD Primary Care Provider [phone] Unknown, Unknown Primary Care Provider Kenney De León DO Primary Care Provider Kenney Randolph DO Unavailable [phone] Encounter Details Date Type Department Care Team (Late st Contact Info) Description 09/07/[address] [facility], Ct Scan - [address] [address] Social History Tobacco Use Types Packs/Day Years [...] Description 07/16/2025 8:30 AM EST Office Visit [facility] [address] [place] [address] [place] [address] Kenney Randolph DO 170 [facility], 2nd [place] [address] 07/20/2025 9:40 AM EST Office Visit [facility] [address] [place] [address] Dr 3rd Floor, [address] [place] [address] Luke Tan MD [address] [place] [address] 09/13/2025 8:30 AM EDT Office Visit [facility] [address] [address] Kenney Randolph DO [address] [place] [address], [address] [place] [address] 05/06/2026 11:40 AM EST Office Visit [facility] [address] 3rd [facility], [address] [place] [address] Mayco Felix MD, MS 22 [facility], [address] [address] documented as of this encounter Visit Diagnoses Not on filedocumented in this encounter Additional Health Concerns Assessment Noted Time PHQ-2 Depression Total Score: 0 11/03/19 9:12 AM EDT documented as of this encounter Care Teams Baked Goods Stock Clerk Relationship Specialty Start Date End Date Kam, Pablo Pascal MD [address] [place] [address] [address] [place] [address] [email or web address] PCP - General Internal Medicine 04/23/17 11/02/21 Unknown, Keesha, PCP - General 11/03/21 01/04/22 Kenney Randolph DO [address] [place] [address], [address] [place] [address] PCP - General Internal Medicine 01/05/22 Kenney Randolph DO [address] [place] [address], 2nd [place] [address] Insurance Assigned Provider 09/28/23 documented as of this encounter Additional Source Comments The information contained in this document represents components of the legal health record. It is not the complete legal health record.[facility]
--- OUTSIDE RECORDS SUMMARY | 2025-05-12 16:48 | XMS_ITS | Encounter Summary ---
Author Organization [facility] Address [address] [place] [address] [place] [address] Phone Care Team Providers Care Landscape Manager Name Role Phone Kenney Randolph DO Primary Care Provider Kenney Randolph DO Unavailable [phone] Reason for Visit * Reason Onset Date Comments Triage 05/12/2025 Green + worsenin g chronic left shoulder pain Encounter Details Date Type Department Care Team (Late st Contact Info) Description 05/12/2025 Telephone [facility] [address] [place] [phone] Kenney Randolph DO 170 [facility], 2nd [place] [address] [email or web address] Triage (Green + worsening chronic left shoulder pain ) Social History Tobacco Use Types Packs/Day Years [...] as food, clothing, or medical care? No 04/15/2025 In the past 12 months have y ou been in a relationship with a person who hurts, threatens, or tries to control you? No 04/15/2025 Are you denied basic needs s uch as food, clothing, or medical care? No 04/15/2025 In the past 12 months have y ou been in a relationship with a person who hurts, threatens, or tries to control you? No 04/15/2025 Sex and Gender Information Value Date Recorded Sex Assigned at Not on file Legal Sex Male 10:00 PM EDT Gender Identity Not on file Sexual Orientation Not on file documented as of this encounter Progress Notes * Krzysztof Zurita RN - 05/12/2025 12:58 PM EST Noted * Maame Minor - 05/12/2025 12:45 PM EST [facility] PEN Top Smart Phrases: Complete the Following for ALL Patient Symptoms [facility] Red [place] Yellow Green Tool Call Back Number: (& caller's name if not the patient) [phone] Description of Symptoms: What symptoms are you experiencing? Worsening left shoulder pain. Pt stated he has been seen by [facility] pain clinic for years for left shoulder pain but the most recent injection did not relieve the pain. Pt requested appt with PCP only todiscuss. Pt was scheduled for 07/16/2025 when he returns from a trip. When did the symptoms start? Years, ongoing Has this happened before? Yes - ongoing (worsening) 1) Enter the Reason for Call (TRIAGE) & C Comment (COLOR + Symptom) (Ex: TRIAGE - YELLOW, tick bite ) 2) Select the color-based designation below before taking next steps & documenting the outcome Green Call Designation & Outcome Green Symptom(s): No chief complaint on file. Should Be Booked Within 2-3... Days [x] Weeks [] Schedule an Appointment Based on the Listed Green Options in RYOG (PC & Pedi) OR Offer Care Alternative Options (UC/VUC) from [facility] Reference Guide Tabs Scheduling Outcome: FYI - patient booked outside of suggested timeframe due to appointment access; patient is OK with waiting if appropriate & is aware it may need to be rescheduled after clinical review. Route TE (or not) according to Practice-Specific guidelines. documented in this encounter Plan of Treatment Upcoming Encounters Date Type Department Care Team (Late st Contact Info) Description 07/16/2025 8:30 AM EST Office Visit [address] [place] [address] Kenney Randolph, [address] [place] [address] 07/20/2025 9:40 AM EST Office Visit [facility] [address] 3rd [facility], [address] [place] [address] Luke Tan MD [address] [place] [address] 09/13/2025 8:30 AM EDT Office Visit [address] [place] [address] Kenney Randolph DO [address] [place] [address] 05/06/2026 11:40 AM EST Office Visit [facility] [address] 3rd Floor, [address] [place] [id number] Mayco Felix MD, MS 22 [facility], [address] [id number] documented as of this encounter Visit Diagnoses Not on filedocumented in this encounter Additional Health Concerns Assessment Noted Time PHQ-2 Depression Total Score: 0 03/16/20 25 8:05 AM EDT documented as of this encounter Care Teams Landscape Manager Relationship Specialty Start Date End Date Kenney Randolph DO [address] [place] [address], [address] [place] [address] PCP - General Internal Medicine 01/05/22 Kenney Randolph DO [address] [place] [address], [address] [place] [address] Insurance Assigned Provider 09/28/23 documented as of this encounter Additional Source Comments The information contained in this document represents components of the legal health record. It is not the complete legal health record.[facility]
--- OUTSIDE RECORDS SUMMARY | 2025-05-12 16:48 | XMS_ITS | Encounter Summary ---
Author Organization [facility] Address [address] [place] [address] Phone Care Team Providers Care Metal Bonding Assembler Name Role Phone KamPabol MD Primary Care Provider [phone] Unknown, Unknown Primary Care Provider Kenney De León DO Primary Care Provider Kenney Randolph DO Unavailable [phone] Encounter Details Date Type Department Care Team (Latest Contact Info) Description 09/07/2021 Transcribe Orders Virtual Department 30 [place] [address] Lauri Bar MD 15 [facility] [address] [place] [address] [email or web address] Essential hypertension (Primary Dx) Social History Tobacco [...] EST Office Visit [facility] [address] [place] [address] [place] [address] Kenney Randolph DO [address] [place] [address], 2nd [place] [address] 07/20/2025 9:40 AM EST Office Visit [facility] [address] [place] [address] Dr 3rd Floor, [address] [place] [address] Luke Tan MD [address] [place] [address] 09/13/2025 8:30 AM EDT Office Visit [facility] [address] [address] Kenney Randolph DO [address] [place] [address], [address] [place] [address] 05/06/2026 11:40 AM EST Office Visit [address] 3rd Floor, [address] [place] [address] Mayco Felix MD, [place] 22 [facility], [address] [place] [address] documented as of this encounter Visit Diagnoses Diagnosis Essential hypertension- Primary Unspecified essential hypertension documented in this encounter Care Teams Metal Bonding Assembler Relationship Specialty Start Date End Date Kam, Pablo Pascal MD [address] [place] [address] 10 [address] [place] [address] [email or web address] PCP - General Internal Medicine 04/23/17 11/02/21 Unknown, Keesha, PCP - General 11/03/21 01/04/22 Kenney Randolph DO [address] [place] [address], 2nd [place] [address] [email or web address] PCP - General Internal Medicine 01/05/22 Kenney Randolph DO [address] [place] [address], 2nd [place] [address] Insurance Assigned Provider 09/28/23 documented as of this encounter Additional Source Comments The information contained in this document represents components of the legal health record. It is not the complete legal health record.[facility]
--- OUTSIDE RECORDS SUMMARY | 2025-05-12 16:48 | XMS_ITS | Encounter Summary ---
Author Organization [facility] Address [address] [place] [address] [place] [address] Phone Care Team Providers Care Deck Specialist Name Role Phone Kenney Randolph DO Primary Care Provider Kenney Randolph DO Unavailable [phone] Encounter Details Date Type Department Care Team (Late st Contact Info) Description 05/12/2024 Procedure Pass [facility]ventional Radiology [address] [place] [address] Social History Tobacco Use Types Packs/Day Years [...] Description 07/16/2025 8:30 AM EST Office Visit [address] [place] [address] Kenney Randolph, [address] [place] [address], 2nd [place] [address] [email or web address] 07/20/2025 9:40 AM EST Office Visit [facility] [address] [place] [address] 3rd [facility], [address] [place] [address] Luke Tan MD [address] [place] [address] 09/13/2025 8:30 AM EDT Office Visit [address] [place] [address] Kenney Randolph, [address] [place] [address], [address] [place] [address] [email or web address] 05/06/2026 11:40 AM EST Office Visit [facility] [address] 3rd Floor, [address] [place] [address] Mayco Felix MD, MS 22 [facility], [address] [address] documented as of this encounter Visit Diagnoses Not on filedocumented in this encounter Additional Health Concerns Assessment Noted Time PHQ-2 Depression Total Score: 0 03/05/20 8:04 AM EDT documented as of this encounter Care Teams Deck Specialist Relationship Specialty Start Date End Date Kenney Randolph DO [address] [place] [address], [address] [place] [address] PCP - General Internal Medicine 01/05/22 Kenney Randolph DO [address] [place] [address] Insurance Assigned Provider 09/28/23 documented as of this encounter Additional Source Comments The information contained in this document represents components of the legal health record. It is not the complete legal health record.[facility]
--- OUTSIDE RECORDS SUMMARY | 2025-05-12 16:48 | XMS_ITS | Clinical Summary ---
Author Organization [facility], Address [address] [address] Phone Care Team Providers Care Lawn Service Worker Name Role Phone RandolphKenney birmingham Primary Care [...] age to complete this topic Insurance Medicare [facility] Care Teams Lawn Service Worker Relationship Specialty Start Date End Date Kenney Randolph DO [address] [place] [address] PCP - General Internal Medicine 01/12/22
--- OUTSIDE RECORDS SUMMARY | 2025-05-12 16:48 | XMS_ITS | Encounter Summary ---
Author Organization [facility] Address [address] [place] [address] [place] [address] Phone Care Team Providers Care Sheet Music Salesperson Name Role Phone Kenney Randolph DO Primary Care Provider Kenney Randolph DO Unavailable [phone] Reason for Visit * Reason Comments Medication Refill Encounter Details Date Type Department Care Team (Late st Contact Info) Description 05/08/2025 Refill [facility] [place] [facility] [address] [place] [id number] Kenney Randolph DO 170 [facility], 2nd [place] [address] [email or web address] Medication Refill Social History Tobacco Use [...] Description 07/16/2025 8:30 AM EST Office Visit [address] [place] [address] Kenney Randolph, [address] [place] [address], 2nd [place] [address] 07/20/2025 9:40 AM EST Office Visit [address] 3rd [facility], [address] [place] [address] Luke Tan MD [address] [place] [address] 09/13/2025 8:30 AM EDT Office Visit [address] [place] [address] Kenney Randolph, [address] [place] [address], [address] [place] [address] 05/06/2026 11:40 AM EST Office Visit [address] 3rd Floor, [address] [place] [address] Mayco Felix MD, MS 22 [facility], [address] [address] [email or web address] documented as of this encounter Visit Diagnoses Not on filedocumented in this encounter Additional Health Concerns Assessment Noted Time PHQ-2 Depression Total Score: 0 03/16/20 25 8:05 AM EDT documented as of this encounter Care Teams Sheet Music Salesperson Relationship Specialty Start Date End Date Kenney Randolph DO [address] [place] [address] [email or web address] PCP - General Internal Medicine 01/05/22 Kenney Randolph DO [address] [place] [address] Insurance Assigned Provider 09/28/23 documented as of this encounter Additional Source Comments The information contained in this document represents components of the legal health record. It is not the complete legal health record.[facility]
--- OUTSIDE RECORDS SUMMARY | 2025-05-12 16:48 | XMS_ITS | Clinical Summary ---
Author Organization [facility] Address [address] [place] [address] Phone Care Team Providers Care Investment Manager Name Role Phone Kenney Randolph DO Primary Care Provider Kenney Randolph DO Unavailable [phone] Allergies Active Allergy Reactions Criticality Noted Date Comments Cefadroxil Other (See Comments) 11/02/2021 Noted in medical record, pt unsure Lisinopril Cough 11/02/2021 Valsartan Cough 11/02/2021 Medications multivitamin with minerals (MULTI-VIT 55 PLUS ORAL) Take by mouth. Acti ve amLODIPine (NORVASC) 10 MG tablet TAKE 1 TABLET DAILY 90 tablet 3 5 Active apixaban (ELIQUIS) 5 mg tabletIndicati ons:New onset a-fib Take 1 tablet (5 mg total) by mouth 2 (two) times a day. 180 tablet 3 5 Active diclofenac sodium (VOLTAREN) 1 % Gel Apply 4 g topically 4 (four) times a day. 150 g 5 Active Additional Information Patient taking differently:4 g TopicalDaily as needed, Reported on 05/04/2025 tiZANidine (ZANAFLEX) 4 MG tablet TAKE 1 TABLET BY MOUTH EVERY 6 HOURS NEEDED FOR MUSCLE SPASM 360 tablet 1 5 Active ketoconazole 2 % cream Apply topically as needed (skin itching and irritation due to fungal infection). 60 g 3 5 Active metoprolol succinate (TOPROL-XL) 50 MG 24 hr tablet TAKE 1 TABLET TWICE A DAY 180 tablet 3 5 Active spironolactone (ALDACTONE) 25 MG tablet Take 1 tablet (25 mg total) by mouth daily. 90 tablet 3 5 Active chlorthalidone (HYGROTON) 50 MG tablet Take 1 tablet (50 mg total) by mouth daily. 90 tablet 3 5 Active spironolactone (ALDACTONE) 25 MG tablet take 1 tablet daily 90 tablet 3 4 025 Discontin ued(Reord er) chlorthalidone (HYGROTON) 50 MG tablet take 1 tablet daily 90 tablet 3 4 025 Discontin ued(Reord er) Active Problems Problem Noted Date Diagnosed Date [...] until he returns from his trip to [place]. We will repeat a chest x-ray 2 weeks after that to assess response to therapy and I will see him in 2 months. Assessment & Plan (11/13/2017 1:58 PM EDT): Inflammatory, BENI and vasculitis work-up on blood tests are negative. Suspect infectious infiltrates. Will plan for Bronchoscopy with TBBx for culture and path, micro brushes. Will plan for Leonela procedure. Assessment & Plan (10/17/2017 9:05 AM EDT): Chest xray from April 2017 with mild interstitial changes and prominent pulmonary arteries. Will check high resolution CT chest. Will also consider echo in the future. Check BENI, rheumatoid factor and other inflammatory markers. Obesity (BMI 35.0-39.9 without comorbidity) 10/14/2017 07/11/2023 Encounters Date Type Department Care Team Description 05/12/2025 Telephone [facility] [address] [place] [address] Kenney Randolph, DO Triage (Green + worsening chronic left shoulder pain ) 05/08/2025 Refill [facility] [address] [place] [address] Kenney Randolph, DO Medication Refill 05/04/2025 11:15 AM EST Office Visit [facility] [address] 3rd Floor, [address] [place] [address] Esteban Duke MD CARLIN on CPAP (Primary Dx) 05/04/2025 Refill [facility] [address] [place] [address] YordySophia avalos Medication Refill 04/15/2025 3:29 PM EDT - 04/15/2025 6:11 PM EDT [facility] [address] [place] [address] César Adams MD Discharge Disposition: Home or Self Care 04/15/[address] [place] [address] Kenney Randolph, DO Triage (Yellow+Ankle issues) 04/12/[address] [place] [address] Kenney Randolph, DO Medication Refill 03/16/2025 8:00 AM EDT Office Visit [address] [place] [address] Kenney aRndolph, DO Medicare annual wellness visit, subsequent (Primary Dx); Severe obesity (BMI 35.0-39.9) with comorbidity 03/09/[address] [place] [address] Kenney Randolph, Medication Question 03/04/2025 Telephone [facility] [address] 3rd Floor, [address] [place] [address] Luke Tan MD 02/19/2025 1:20 PM EDT Office Visit [facility] [address] 3rd Floor, [address] [place] [address] Luke Tan MD New onset a-fib (Primary [...] Sign Reading Time Taken Comments Blood Pressure 140/82 05/04/2025 11:06 AM EST Pulse 58 05/04/2025 11:06 AM EST Temperature 36.8 C (98.2 F) 04/15/2025 6:10 PM EDT Respiratory Rate 13 04/15/2025 5:00 PM EDT Oxygen Saturation 97% 05/04/2025 11:06 AM EST Inhaled Oxygen Concentration - - Weight 117.9 kg (260 lb) 05/04/2025 11:06 AM EST Height 177.8 cm (5' 10 ) 05/04/2025 11:06 AM EST Body Mass Index 37.31 05/04/2025 11:06 AM EST Plan of Treatment Upcoming Encounters Date Type Department Care Team (Late st Contact Info) Description 07/16/2025 8:30 AM EST Office Visit [address] [place] [address] Kenney Randolph, 170 [facility], 2nd [place] [address] 07/20/2025 9:40 AM EST Office Visit [facility] [address] 3rd Floor, [address] [place] [address] Luke Tan MD [address] [place] [address] 09/13/2025 8:30 AM EDT Office Visit [address] [place] [address] Kenney Randolph, 170 [facility], [address] [place] [address] 05/06/2026 11:40 AM EST Office Visit [facility] [address] 3rd Floor, [address] [place] [address] Mayco Felix MD, MS 22 [facility], [address] [place] [id number] [email or web address] Health Maintenance Due Date Last Done Comments COLOGUARD 01/25/1997 FIT TEST 01/25/1997 FOBT 01/25/1997 SIGMOIDOSCOPY 01/25/1997 VIRTUAL COLONOSCOPY 01/25/1997 RSV VACCINE (1 - Risk 50-74 years 1-dose series) 01/25/2002 ZOSTER VACCINES (1 of 2) 01/25/2002 INFLUENZA VACCINE (#1) 2025 , 03/19/2023, 07/05/2022, Additional history exists COVID-19 VACCINE (2024- season) 2025 03/09/2024, 03/19/2023, 03/23/2022, Additional history exists BLOOD PRESSURE 11/01/2025 05/04/2025 DEPRESSION SCREENING 03/16/2026 03/16/2025 CREATININE LEVEL 04/15/2026 04/15/2025, , 07/06/2024, Additional history exists POTASSIUM LEVEL 04/15/2026 04/15/2025, 10/23, 07/06/2024, Additional history exists LIPID PANEL 03/02/2029 03/02/2024, 12/23, 11/03/2021, Additional history exists COLONOSCOPY 12/18/2029 12/18/2022, 04/30/2017 COLORECTAL CANCER SCREENING 12/18/2029 Adult Td,Tdap Booster 01/04/2033 01/04/2023, 012 HEPATITIS C SCREENING Completed 12/03/2017 PNEUMOCOCCAL VACCINES (50+ years) Completed 08/26/2018, 04/26/2017 SMOKING STATUS SCREENING (Once After 26 Yrs) Completed 05/04/2025 HEPATITIS A VACCINES Aged Out No long [...] Procedure Name Priority Date/Time Associated Diagnosis Comments TROPONIN STAT 04/15/2025 12:44 PM EDT TROPONIN STAT 04/15/2025 11:12 AM EDT BASIC METABOLIC PANEL (BMP) STAT 04/15/2025 11:12 AM EDT CBC AND DIFFERENTIAL STAT 04/15/2025 11:12 AM EDT ECG 12-LEAD STAT 04/15/2025 10:54 AM EDT LIPID PANEL Routine 03/02/2024 7:05 AM EDT Medicare annual wellness visit, subsequent ENDOSCOPY, COLON 12/18/2022 7:12 AM EDT LIVER FIBROSIS TEST Routine 12/03/2017 1 2:25 PM EDT Nonalcoholic steatohepatitis (LUCIANO) from Last 3 Months or Most Recently Relevant to Health Maintenance Results * (ABNORMAL) Troponin (04/15/2025 12:44 PM EDT) Only the most recent of2 resultswithin the time period is included. [facility] Troponin-T, HS Gen5 23(H) 0 - 14 ng/L [facility] Blood 04/15/2025 12:4 4 PM EDT 04/15/2025 12:51 PM EDT us Johnson Myers MD LAB BLOOD BKR ORDERABLES F inal Result [facility] [address] [place] [address] * (ABNORMAL) CBC and differential (04/15/2025 11:12 AM EDT) Pathologist [facility] WBC 13.04(H) 4.00 - 11.00 K/uL [facility] RBC 4.60 4.50 - 5.90 M/uL [facility] HGB 15.5 13.5 - 17.5 g/dL [facility] HCT 44.6 41.0 - 53.0 % [facility] PLT 241 150 - 450 K/uL [facility] MCV 97.0 80.0 - 100.0 fL [facility] MCH 33.7(H) 27.0 - 31.0 pg [facility] MCHC 34.8 32.0 - 36.0 g/dL [facility] RDW 12.1 11.5 - 14.5 % [facility] MPV 10.4 8.4 - 12.0 fL [facility] NRBC 0.00 0.00 /100 WBCs [facility] ABSOLUTE NRBC 0.00 0.00 K/uL [facility] DIFF METHOD Auto [facility] NEUTS 85.4(H) 48.0 - 76.0 % [facility] LYMPHS 7.1(L) 18.0 - 41.0 % [facility] MONOS 6.8 4.0 - 11.0 % [facility] EOS 0.0 0.0 - 5.0 % [facility] BASOS 0.1 0.0 - 1.5 % [facility] Granulocytes, immature (%) 0.6 0.0 - 0.9 % [facility] ABSOLUTE NEUTS 11.13(H) 1.92 - 7.60 K/uL [facility] ABSOLUTE LYMPHS 0.93 0.72 - 4.10 K/uL [facility] ABSOLUTE MONOS 0.89 0.16 - 1.10 K/uL [facility] ABSOLUTE EOS 0.00 0.00 - 0.50 K/uL [facility] ABSOLUTE BASOS 0.01 0.00 - 0.15 K/uL [facility] Granulocytes, immature 0.08 0.00 - 0.09 K/uL [facility] Blood 04/15/2025 11:1 2 AM EDT 04/15/2025 11:20 AM EDT us Johnson Myers MD LAB BLOOD BKR ORDERABLES F inal Result [facility] [address] [place] [address] * (ABNORMAL) Basic metabolic panel (04/15/2025 11:12 AM EDT) SODIUM 137 133 - 146 mmol/L [facility] CHLORIDE 97 96 - 108 mmol/L [facility] POTASSIUM 4.5 3.3 - 5.1 mmol/L [facility] CO2 26 21 - 35 mmol/L [facility] BUN 32(H) 6 - 19 mg/dL [facility] CREATININE 0.80 0.5 - 1.5 mg/dL [facility] GLUCOSE 92 70 - 99 mg/dL [facility] CALCIUM 9.8 8.4 - 10.3 mg/dL [facility] EGFR 93 >59 mL/min/1.7 3m2 [facility] Comment:Estimated glomerular filtration rate calculated using the CKD-EPI refit equation. ANION GAP 19 10 - 20 mmol/L [facility] Blood 04/15/2025 11:1 2 AM EDT 04/15/2025 11:20 AM EDT us Johnson Myers MD LAB BLOOD BKR ORDERABLES F inal Result [address] [id number] * ECG 12-LEAD (04/15/2025 10:54 AM EDT) Ventricular Rate EKG/MIN 65 BPM [facility] Atrial Rate 375 BPM [facility] QRS Duration 106 ms [facility] QT Interval 392 ms [facility] QTC Interval 407 ms [facility] R Wave [place] 54 degrees [facility] T Wave [place] 21 degrees [facility] 04/15/2025 10:5 4 AM EDT 04/15/2025 12:38 PM EDT Narrative [facility] - 04/15/2025 12:38 PM EDT Atrial fibrillation Incomplete right bundle branch block Nonspecific ST abnormality Abnormal ECG When compared with ECG of 20-Nov-2024 11:13, Atrial fibrillation has replaced Sinus rhythm Confirmed by Azar Horn ([id number]) on 04/15/2025 12:38:19 PM us Johnson Myers MD ECG ORDERABLES Final Resu lt Performing Organization Address City/[facility]/ZIP Co de Phone Number [facility] * Lipid panel (03/02/2024 7:05 AM EDT) HDL 54 mg/dL [facility] Comment: Interpretation <40 mg/dL: Low HDL cholesterol (major risk factor for CHD) Greater than or equal to 60 mg/dL: High HDL cholesterol ( negative risk factor for CHD) HDL - cholesterol is affected by a number of factors, e.g. smoking, excerise, hormones, sex and age. CHOLESTEROL 206 0 - 240 mg/dL [facility] TRIGLYCERIDES 120 30 - 160 mg/dL [facility] LDL 128 50 - 129 mg/dL [facility] Comment: LDL levels in terms of risk for coronary heart disease: <100 mg/dL: Optimal 100-129 mg/dL: Near or above optimal 130-159 mg/dL: Borderline high 160-189 mg/dL: High >190 mg/dL: Very High CARDIAC RISK RATIO 3.8 3.4 - 5.0 C [facility] Blood 03/02/2024 7:05 AM EDT 03/02/2024 7:10 AM EDT us Kenney Randolph DO LAB BLOOD BKR ORDERABLE S Final Result Performing Organization Address [facility] Co de Phone Number [facility] [address] [place] [address] * ENDOSCOPY, COLON (12/18/2022 7:12 AM EDT) Narrative Transcriptions Donato Garcia MD - 12/18/2022 7:12 AM EDT [facility] Patient Name: César Aguilar Attending MD:: DONATO GARCIA MD, Procedure Date: 12/18/2022 7:12 AM Date of : 1950 Age: 72 Admit Type: Outpatient Gender: Male Room: [place] [address] Referring MD: Kenney Randolph Exam Type: Colonoscopy [...] monitored continuously. The Olympus adult variable colonoscope [id number] #[id number] was introduced through the anus and [...] 7:12 AM Procedure Code(s): --- Professional --- 98872, Colonoscopy, flexible; with removal of tumor(s), polyp(s), or other lesion(s) by snare technique --- Technical --- 89527, Colonoscopy, flexible; with removal of tumor(s), polyp(s), [...] or abscess without bleeding CPT copyright 2021 [employer]. All rights reserved. The codes documented in this report are preliminary and upon dough panner reviewmay be revised to meet current compliance requirements. Procedure Date: 12/18/2022 7:12:[address] [place] [address] Kenney Randolph DO GI PROCEDURE ORDERABLES Final Result * Liver fibrosis test (12/03/2017 12:25 PM EDT) Pathologist [facility] Cow Milk Conv Class 0.37 [facility] DPT OF LAB MED AND PAT+ Neuron Specific Enolase (NOTE) [facility] PAT+ Comment:RESULT: F1-F2 Interleukin 2 minimal fibrosis [facility] PAT+ Comment: (NOTE) FibroTest estimates liver fibrosis FibroTest Score Stage Interpretation 0.00-0.21 F0 no fibrosis 0.21-0.27 F0-F1 no fibrosis 0.27-0.31 F1 minimal fibrosis 0.31-0.48 F1-F2 minimal fibrosis 0.48-0.58 F2 moderate fibrosis 0.58-0.72 F3 advanced fibrosis 0.72-0.74 F3-F4 advanced fibrosis 0.74-1.00 F4 severe fibrosis (Cirrhosis) ActiTest Score 0.29 [facility] OF LAB MED AND PAT+ ANCA BENI at 1:20 dilution (NOTE) [facility] PAT+ Comment:RESULT: A0-A1 ActiTest Interpretation no activity [facility] MED AND PAT+ Comment: (NOTE) ActiTest estimates necroinflammatory activity ActiTest Score Grade Interpretation 0.00-0.17 A0 no activity 0.17-0.29 A0-A1 no activity 0.29-0.36 A1 minimal activity 0.36-0.52 A1-A2 minimal activity 0.52-0.60 A2 significant activity 0.60-0.62 A2-A3 significant activity 0.62-1.00 A3 severe activity FibroTest-ActiTest Comment SEE NOTE [facility] OF LAB MED AND PAT+ Comment: [...] developed and its performance characteristics determined by [facility] in a manner consistent with CLIA requirements. This test has not been cleared or approved by the U.S. Food and Drug Administration. [employer] Serial Number [id number] [facility] MED AND PAT+ Apolipoprotein A1, S 154 >=120 mg/dL [facility] PAT+ Lfrdl-1-Gfxzqtxcjtduc, S 195 100 - 280 mg/dL [facility] MED AND PAT+ Haptoglobin, S 86 30 - 200 mg/dL [facility] MED AND PAT+ Alanine Aminotransferase (ALT), S 47 7 - 55 U/L [facility] MED AND PAT+ Gamma Glutamyltransferase (GGT), S 16 8 - 61 U/L [facility] MED AND PAT+ Bilirubin, Total, S 0.9 <=1.2 mg/dL [facility] Blood 12/03/2017 12:2 5 PM EDT 12/03/2017 12:30 PM EDT us Donato Garcia MD LAB BLOOD BKR ORDERABLES Fin al Result [facility] AND PAT+ [address] [place] [address] from Last 3 Months or Most Recently Relevant to Health Maintenance Insurance MEDICARE PART A & B [employer]EX SUPPLEMENT MEDICARE PART A & B [employer]EX SUPPLEMENT MEDICARE PART A & B [employer] SUPPLEMENT MEDICARE PART A & B [employer] MED[employer] SUPPLEMENT MEDICARE PART A & B [facility] MEDEX SUPPLEMENT MEDICARE PART A & B [employer] SUPPLEMENT MEDICARE PART A & B [employer] SUPPLEMENT MEDICARE PART A & B [employer] MEDEX SUPPLEMENT MEDICARE PART A & B [employer] MEDEX SUPPLEMENT Care Teams Investment Manager Relationship Specialty Start Date End Date Kenney Randolph DO [address] [place] [address], [address] [place] [address] PCP - General Internal Medicine 01/05/22 Kenney Randolph DO [address] [place] [address], [address] [place] [id number] Insurance Assigned Provider 09/28/23 Additional Source Comments The information contained in this document represents components of the legal health record. It is not the complete legal health record.[facility]
--- OUTSIDE RECORDS SUMMARY | 2025-05-12 16:48 | XMS_ITS | Encounter Summary ---
Author Organization [facility] Address [address] [place] [address] [place] [address] Phone Care Team Providers Care Powder Operator Name Role Phone Pablo Humphrey MD Primary Care Provider [phone] Unknown, Unknown Primary Care Provider Kenney De León DO Primary Care Provider Kenney Randolph DO Unavailable [phone] Encounter Details Date Type Department Care Team (Latest Contact Info) Description 02/27/2019 Transcribe Orders [facility] [address] [place] [address] KamPablo MD [address] [place] [address] [address] [place] [address] [email or web address] Hypertension, unspecified type (Primary Dx) Social [...] Description 07/16/2025 8:30 AM EST Office Visit [facility] [address] [place] [address] [place] [address] Kenney Randolph, DO 170 [facility], 2nd [place] [address] 07/20/2025 9:40 AM EST Office Visit [facility] [address], [address] [place] [address] Luke Tan MD [address] [place] [address] 09/13/2025 8:30 AM EDT Office Visit [facility] [address] [place] [address] Kenney Randolph, 170 [facility], 2nd [place] [address] 05/06/2026 11:40 AM EST Office Visit [facility] [address], [address] [place] [address] Mayco Felix MD, MS 22 [facility], [address] [place] [address] documented as of this encounter Results * Basic metabolic panel (02/27/2019 7:13 AM EDT) SODIUM 142 133 - 146 mmol/L [facility] CHLORIDE 101 96 - 108 mmol/L [facility] POTASSIUM 4.6 3.3 - 5.1 mmol/L [facility] CO2 31 21 - 35 mmol/L [facility] BUN 18 6 - 19 mg/dL [facility] CREATININE 0.60 0.5 - 1.5 mg/dL [facility] GLUCOSE 82 70 - 99 mg/dL [facility] CALCIUM 9.7 8.4 - 10.3 mg/dL [facility] EGFR 104 >59 mL/min/1.7 3m2 [facility] Comment:If patient is black, multiply result by 1.159. Estimated glomerular filtration rate calculated using the CKD-EPI equation. ANION GAP 15 10 - 20 mmol/L [facility] Blood 02/27/2019 7:13 AM EDT 02/27/2019 7:15 AM EDT Pablo Humphrey MD LAB BLOOD BKR ORDERABLES Final Result [facility] [address] [place] [address] documented in this encounter Visit Diagnoses Diagnosis Hypertension, unspecified type- Primary documented in this encounter Care Teams Powder Operator Relationship Specialty Start Date End Date Kam, Pablo Pascal MD [address] [place] [address] [address] [place] [address] [email or web address] PCP - General Internal Medicine 04/23/17 11/02/21 Unknown, Unknown, PCP - General 11/03/21 01/04/22 Kenney Randolph DO [address] [place] [address] PCP - General Internal Medicine 01/05/22 Kenney Randolph DO [address] [place] [address] Insurance Assigned Provider 09/28/23 documented as of this encounter Additional Source Comments The information contained in this document represents components of the legal health record. It is not the complete legal health record.[facility]
--- OUTSIDE RECORDS SUMMARY | 2025-05-12 16:49 | XMS_ITS | Encounter Summary ---
Author Organization [facility] Address [address] [place] [address] [place] [address] Phone Care Team Providers Care Blender Operator Name Role Phone Pablo Humphrey MD Primary Care Provider Unknown, Unknown Primary Care Provider Kenney De León DO Primary Care Provider Kenney Randolph DO Unavailable Encounter Details Date Type Department Care Team (Latest Contact Info) Description 05/25/2020 Transcribe Orders [address] [place] [address] KamPablo MD [address] [facility] [address] [place] [address] [email or web address] Routine general medical examination at a [...] Description 07/16/2025 8:30 AM EST Office Visit [address] [place] [address] Kenney Randolph, [address] [facility] [place], 2nd [place] [address] [email or web address] 07/20/2025 9:40 AM EST Office Visit [facility] [address], [address] [place] [address] Luke Tan MD [address] [place] [address] 09/13/2025 8:30 AM EDT Office Visit [address] [place] [address] Kenney Randolph DO [address] [facility] [place], 2nd [place] [address] [email or web address] 05/06/2026 11:40 AM EST Office Visit [facility] [address], [address] [place] [address] Mayco Felix MD, MS 22 [facility], [address] [place] [address] documented as of this encounter Results * PSA (screening) (05/25/2020 7:05 AM EST) PSA 0.43 0 - 4.00 ng/mL [facility] Blood 05/25/2020 7:05 AM EST 05/25/2020 7:10 AM EST Pablo Humphrey MD LAB BLOOD BKR ORDERABLES Final Result [facility] [address] [place] [address] * (ABNORMAL) CBC and differential (05/25/2020 7:05 AM EST) WBC 7.91 4.00 - 11.00 K/uL [facility] Comment:Note Reference Range updates to all CBC and Differential results. RBC 4.49 3.90 - 5.69 M/uL [facility] HGB 14.4 12.4 - 17.3 g/dL [facility] Comment:Note updated Referen ce Ranges for all CBC and Differential results. HCT 42.0 37.0 - 51.0 % [facility] PLT 165 140 - 430 K/uL [facility] MCV 93.5 78.0 - 97.0 fL [facility] MCH 32.1 25.0 - 33.0 pg [facility] MCHC 34.3 32.0 - 36.0 g/dL [facility] RDW 11.9 11.0 - 15.0 % [facility] MPV 10.6 8.4 - 12.8 fl [facility] NRBC 0.00 0 /100 WBCs [facility] ABSOLUTE NRBC 0.00 0 K/uL [facility] DIFF METHOD Auto [facility] NEUTS 78.8(H) 43.0 - 75.0 % [facility] LYMPHS 14.3(L) 18.2 - 47.4 % [facility] MONOS 4.6 4.00 - 11.00 % [facility] EOS 1.6 0.0 - 8.0 % [facility] BASOS 0.3 0.0 - 2.0 % [facility] Granulocytes, immature (%) 0.4 0.0 - 0.9 % [facility] ABSOLUTE NEUTS 6.24 1.80 - 7.70 K/uL [facility] ABSOLUTE LYMPHS 1.13 1.00 - 3.10 K/uL [facility] ABSOLUTE MONOS 0.36 0.20 - 0.80 K/uL [facility] ABSOLUTE EOS 0.13 0.00 - 0.80 K/uL [facility] ABSOLUTE BASOS 0.02 0.00 - 0.09 K/uL [facility] Granulocytes, immature 0.03 0.00 - 0.05 K/uL [facility] Blood 05/25/2020 7:05 AM EST 05/25/2020 7:09 AM EST Pablo Humphrey MD LAB BLOOD BKR ORDERABLES Final Result [address] [address] * TSH with reflex (05/25/2020 7:05 AM EST) TSH 1.13 0.27 - 4.20 uIU/mL [facility] Blood 05/25/2020 7:05 AM EST 05/25/2020 7:09 AM EST Pablo Humphrey MD LAB BLOOD BKR ORDERABLES Final Result Performing Organization Address [facility] Co de Phone Number [address] [address] * (ABNORMAL) Lipid panel (05/25/2020 7:05 AM EST) HDL 71 mg/dL [facility] Comment: Interpretation <40 mg/dL: Low HDL cholesterol (major risk factor for CHD) Greater than or equal to 60 mg/dL: High HDL cholesterol ( negative risk factor for CHD) HDL - cholesterol is affected by a number of factors, e.g. smoking, excerise, hormones, sex and age. CHOLESTEROL 235 0 - 240 mg/dL [facility] TRIGLYCERIDES 120 30 - 160 mg/dL [facility] LDL 140(H) 50 - 129 mg/dL [facility] Comment: LDL levels in terms of risk for coronary heart disease: <100 mg/dL: Optimal 100-129 mg/dL: Near or above optimal 130-159 mg/dL: Borderline high 160-189 mg/dL: High >190 mg/dL: Very High CARDIAC RISK RATIO 3.3(L) 3.4 - 5.0 [facility] Blood 05/25/2020 7:05 AM EST 05/25/2020 7:09 AM EST Pablo Humphrey MD LAB BLOOD BKR ORDERABLES Final Result Performing Organization Address City/[facility]/ZIP Co de Phone Number [address] [address] * (ABNORMAL) Comprehensive metabolic panel (05/25/2020 7:05 AM EST) SODIUM 138 133 - 146 mmol/L [facility] POTASSIUM 4.1 3.3 - 5.1 mmol/L [facility] CHLORIDE 101 96 - 108 mmol/L [facility] CO2 25 21 - 35 mmol/L [facility] BUN 19 6 - 19 mg/dL [facility] CREATININE 0.60 0.5 - 1.5 mg/dL [facility] GLUCOSE 117(H) 70 - 99 mg/dL [facility] ALBUMIN 4.7 3.9 - 4.8 g/dL [facility] TOTAL PROTEIN 7.4 6.5 - 8.0 g/dL [facility] CALCIUM 10.2 8.4 - 10.3 mg/dL [facility] ALKALINE PHOSPHATASE 44 39 - 117 U/L [facility] TOTAL BILIRUBIN 0.9 0.0 - 1.2 mg/dL [facility] AST 36 0 - 37 U/L [facility] ALT 41(H) 0 - 40 U/L [facility] GLOBULIN 2.7 1 - 4.8 g/dL [facility] EGFR 103 >59 mL/min/1.7 3m2 [facility] Comment:Estimated glomerular filtration rate calculated using the CKD-EPI equation. ANION GAP 16 10 - 20 mmol/L [facility] Blood 05/25/2020 7:05 AM EST 05/25/2020 7:09 AM EST us Pablo Humphrey MD LAB BLOOD BKR ORDERABLES Final Result Performing Organization Address City/[facility]/ZIP Co de Phone Number [address] [address] documented in this encounter Visit Diagnoses Diagnosis Routine general medical examination at a health care facility- Primary Fatigue, unspecified type Hypertension, unspecified type documented in this encounter Care Teams Blender Operator Relationship Specialty Start Date End Date Pablo Humphrey MD [address] [place] [address] [email or web address] PCP - General Internal Medicine 04/23/17 11/02/21 Unknown, Keesha, PCP - General 11/03/21 01/04/22 Kenney Randolph DO [address] [place] [address], [address] [place] [address] PCP - General Internal Medicine 01/05/22 Kenney Randolph DO [address] [place] [address], [address] [place] [address] [email or web address] Insurance Assigned Provider 09/28/23 documented as of this encounter Additional Source Comments The information contained in this document represents components of the legal health record. It is not the complete legal health record.[facility]
--- OUTSIDE RECORDS SUMMARY | 2025-05-12 16:49 | XMS_ITS | Encounter Summary ---
Author Organization [facility] Address [address] [place] [address] [place] [address] Phone Care Team Providers Care Revenue Inspector Name Role Phone Pablo Humphrey MD Primary Care Provider [phone] Unknown, Unknown Primary Care Provider Kenney De León DO Primary Care Provider Kenney Randolph DO Unavailable [phone] Encounter Details Date Type Department Care Team (Late st Contact Info) Description 11/08/2020 Ancillary Orders Virtual Department [address] [place] [address] Pablo Humphrey MD [address] [place] [address] [address] [place] [address] [email or web address] pain on left side Social History [...] EST Office Visit [facility] [facility] [address] [place] [address] [place] [address] Kenney Randolph, DO 170 [facility], 2nd [place] [address] 07/20/2025 9:40 AM EST Office Visit [facility] [address], [address] [place] [address] Luke Tan MD [address] [place] [address] 09/13/2025 8:30 AM EDT Office Visit [facility] [address] [place] [address] Kenney Randolph, DO 170 [facility], 2nd [place] [address] 05/06/2026 11:40 AM EST Office Visit [facility] [address], [address] [place] [address] Mayco Felix MD, MS 22 [facility], [address] [place] [address] documented as of this encounter Results * [...] side documented in this encounter Care Teams Revenue Inspector Relationship Specialty Start Date End Date Kam, Pablo Pascal MD [address] [place] [address] [address] [place] [address] [email or web address] PCP - General Internal Medicine 04/23/17 11/02/21 Unknown, Keesha, PCP - General 11/03/21 01/04/22 Kenney Randolph DO [address] [place] [address], 2nd [place] [address] PCP - General Internal Medicine 01/05/22 Kenney Randolph DO [address] [place] [address], 2nd [place] [address] Insurance Assigned Provider 09/28/23 documented as of this encounter Additional Source Comments The information contained in this document represents components of the legal health record. It is not the complete legal health record.[facility]
--- OUTSIDE RECORDS SUMMARY | 2025-05-12 16:49 | XMS_ITS | Encounter Summary ---
Author Organization [facility] Address [address] [place] [address] Phone Care Team Providers Care Steward/Stewardess Banquet Name Role Phone KamPablo MD Primary Care Provider [phone] Unknown, Unknown Primary Care Provider Kenney De León DO Primary Care Provider Kenney Randolph DO Unavailable [phone] Encounter Details Date Type Department Care Team (Late st Contact Info) Description 11/28/2020 Transcribe Orders [facility] [address] [place] [address] Suly George MD [address] [place] [address] [email or web address] Social History Tobacco Use Types Packs/Day Years [...] AM EST Office Visit [facility] [address] [place] [address] [place] [address] Kenney Randolph DO [address] [place] [address], 2nd [place] [address] 07/20/2025 9:40 AM EST Office Visit [facility] [address] [place] [address] Dr [address] Floor, [address] [place] [address] Luke Tan MD [address] [place] [address] [email or web address] 09/13/2025 8:30 AM EDT Office Visit [address] [address] Kenney Randolph DO [address] [place] [address], [address] [place] [address] 05/06/2026 11:40 AM EST Office Visit [address] 3rd [facility], [address] [place] [address] Mayco Felix MD, MS 22 [facility], [address] [place] [address] [email or web address] documented as of this encounter Visit Diagnoses Not on filedocumented in this encounter Care Teams Steward/Stewardess Banquet Relationship Specialty Start Date End Date Kam, Pablo Pascal MD [address] [place] [address] [address] [place] [address] [email or web address] PCP - General Internal Medicine 04/23/17 11/02/21 Unknown, Keesha, PCP - General 11/03/21 01/04/22 Kenney Randolph DO [address] [place] [address], 2nd [place] [address] PCP - General Internal Medicine 01/05/22 Kenney Randolph DO [address] [place] [address], 2nd [place] [address] Insurance Assigned Provider 09/28/23 documented as of this encounter Additional Source Comments The information contained in this document represents components of the legal health record. It is not the complete legal health record.[facility]
== END 2025-05-12 09:32 | disposition home or self-care (01) ==
LOC: HO.PMC 09:00
PROVIDERS: PCP Pediatrics; Visit Provider Anesthesiology
DX: M19.012 Primary osteoarthritis, left shoulder (principal); M25.552 Pain in left hip; M16.12 Unilateral primary osteoarthritis, left hip; M25.512 Pain in left shoulder
CPT/HCPCS: 99213

== ENCOUNTER → 2025-05-12 08:59 | Outpatient (BNVA) | payer MEDICARE, SELFPAY | PROVIDERS: PCP Pediatrics; Visit Provider Anesthesiology | DX: M25.512 Pain in left shoulder (principal); M19.012 Primary osteoarthritis, left shoulder; M25.552 Pain in left hip; M16.12 Unilateral primary osteoarthritis, left hip | CPT/HCPCS: 99212 ==